=== PATIENT | female | born 1960 | race Caucasian/White ===

== ENCOUNTER → 2017-05-11 | Outpatient (CLI) | payer OTHER ==
[2017-05-11 16:08] LABS: ABSOLUTE BASOPHILS # (AUTO) 0.1 10^3/uL (0.0-0.2); ABSOLUTE EOSINOPHILS # (AUTO) 0.1 10^3/uL (0.0-0.6); ABSOLUTE LYMPHOCYTES (AUTO) 1.3 10^3/uL (0.5-4.7); ABSOLUTE MONOCYTES (AUTO) 0.3 10^3/uL (0.1-1.4); BASOPHILS % (AUTO) 1.1 % (0-2); EOSINOPHILS % (AUTO) 1.7 % (0-6); LYMPHOCYTES % (AUTO) 22.7 % (13-45); MEAN CORPUSCULAR HEMOGLOBIN 29.4 pg (27.0-33.4); MEAN CORPUSCULAR HGB CONC 33.3 g/dL (32.0-36.0); MEAN CORPUSCULAR VOLUME 88 fl (80-97); PLATELET COUNT 273 10^3/uL (150-450); RED BLOOD COUNT 3.73 10^6/uL (3.72-5.28); RED CELL DISTRIBUTION WIDTH 13.9 % (11.5-14.0); SEGMENTED NEUTROPHILS % (AUTO) 69.5 % (42-78); TOTAL CELLS COUNTED % (AUTO) 100 %; WHITE BLOOD COUNT 5.7 10^3/uL (4.0-10.5)
[2017-05-11 16:25] LABS: APPEARANCE,URINE SLIGHTLY-CLOUDY; BILIRUBIN,URINE NEGATIVE (NEGATIVE); COLOR,URINE YELLOW; GLUCOSE, URINE 50 mg/dL (NEGATIVE); KETONES,URINE NEGATIVE (NEGATIVE); LEUKOCYTE ESTERASE,URINE NEGATIVE (NEGATIVE); NITRITE,URINE NEGATIVE (NEGATIVE); PROTEIN,URINE 100 mg/dL (NEGATIVE); URINE SPECIFIC GRAVITY 1.008; UROBILINOGEN,URINE NEGATIVE mg/dL (<2.0)
[2017-05-11 16:32] LABS: ALBUMIN 3.2 g/dL (3.5-5.0); BLOOD UREA NITROGEN 52 mg/dL (7-20); CALCIUM 8.9 mg/dL (8.4-10.2); CARBON DIOXIDE 25 mmol/L (22-30); GLUCOSE 77 mg/dL (75-110); PHOSPHORUS 5.1 mg/dL (2.5-4.5)
[2017-05-11 16:33] LABS: UR PRO/CREAT RATIO RESULT 10.2 mg/mg (0.0-0.2); URINE CREATININE 19.5 mg/dL (15-278); URINE PROTEIN 198.5 mg/dL (<12)
[2017-05-11 16:43] LABS: ANION GAP 6 (5-19); CHLORIDE 108 mmol/L (98-107); SODIUM 138.9 mmol/L (137-145)
== END ==
LOC: OD 15:32
PROVIDERS: ATTEND Internal Medicine Nephrology
DX: N18.4 Chronic kidney disease, stage 4 (severe) (principal); E11.21 Type 2 diabetes mellitus with diabetic nephropathy; D63.8 Anemia in other chronic diseases classified elsewhere; E55.9 Vitamin D deficiency, unspecified
CPT/HCPCS: 36415; 80048; 81001; 82040; 82306; 82570; 83970; 84100; 84156; 84165; 85025

== ENCOUNTER → 2017-08-14 | Outpatient (CLI) | payer OTHER ==
[2017-08-14 17:13] LABS: ABSOLUTE BASOPHILS # (AUTO) 0.1 10^3/uL (0.0-0.2); ABSOLUTE EOSINOPHILS # (AUTO) 0.2 10^3/uL (0.0-0.6); ABSOLUTE MONOCYTES (AUTO) 0.6 10^3/uL (0.1-1.4); ABSOLUTE NEUT (AUTO) 4.2 10^3/uL (1.7-8.2); BASOPHILS % (AUTO) 1.4 % (0-2); EOSINOPHILS % (AUTO) 3.3 % (0-6); HEMATOCRIT 32.9 % (36.0-47.0); HEMOGLOBIN 10.9 g/dL (12.0-15.5); LYMPHOCYTES % (AUTO) 16.9 % (13-45); MEAN CORPUSCULAR HEMOGLOBIN 29.4 pg (27.0-33.4); MEAN CORPUSCULAR HGB CONC 33.1 g/dL (32.0-36.0); MEAN CORPUSCULAR VOLUME 89 fl (80-97); PLATELET COUNT 493 10^3/uL (150-450); RED CELL DISTRIBUTION WIDTH 14.3 % (11.5-14.0); SEGMENTED NEUTROPHILS % (AUTO) 68.4 % (42-78); TOTAL CELLS COUNTED % (AUTO) 100 %; WHITE BLOOD COUNT 6.1 10^3/uL (4.0-10.5)
[2017-08-14 17:38] LABS: ALBUMIN 2.8 g/dL (3.5-5.0); ANION GAP 8 (5-19); BLOOD UREA NITROGEN 31 mg/dL (7-20); CALCIUM 8.8 mg/dL (8.4-10.2); CARBON DIOXIDE 26 mmol/L (22-30); CHLORIDE 104 mmol/L (98-107); GLUCOSE 137 mg/dL (75-110); IRON(TIBC) 39.1 ug/dL (37-170); PHOSPHORUS 3.7 mg/dL (2.5-4.5); POTASSIUM 4.6 mmol/L (3.6-5.0); SODIUM 137.5 mmol/L (137-145)
[2017-08-15 11:00] LABS: APPEARANCE,URINE SLIGHTLY-CLOUDY; BILIRUBIN,URINE NEGATIVE (NEGATIVE); COLOR,URINE YELLOW; GLUCOSE, URINE >=500 mg/dL (NEGATIVE); KETONES,URINE TRACE mg/dL (NEGATIVE); LEUKOCYTE ESTERASE,URINE NEGATIVE (NEGATIVE); NITRITE,URINE NEGATIVE (NEGATIVE); PROTEIN,URINE >=500 mg/dL (NEGATIVE); URINE SPECIFIC GRAVITY 1.012; UROBILINOGEN,URINE NEGATIVE mg/dL (<2.0)
[2017-08-15 11:23] LABS: URINE CREATININE 71.1 mg/dL (15-278)
[2017-08-15 11:46] LABS: UR PRO/CREAT RATIO RESULT 8.6 mg/mg (0.0-0.2); URINE PROTEIN 609.1 mg/dL (<12)
== END ==
LOC: OD 15:59
PROVIDERS: ATTEND Internal Medicine Nephrology
DX: N18.4 Chronic kidney disease, stage 4 (severe) (principal); D63.1 Anemia in chronic kidney disease; E83.39 Other disorders of phosphorus metabolism; E55.9 Vitamin D deficiency, unspecified
CPT/HCPCS: 36415; 80048; 81001; 82040; 82306; 82570; 82728; 83540; 83550; 83970; 84100; 84156; 85025

== ENCOUNTER → 2017-09-16 | Outpatient (CLI) | payer OTHER ==
[2017-09-16 12:18] LABS: ABSOLUTE BASOPHILS # (AUTO) 0.1 10^3/uL (0.0-0.2); ABSOLUTE EOSINOPHILS # (AUTO) 0.3 10^3/uL (0.0-0.6); ABSOLUTE LYMPHOCYTES (AUTO) 1.3 10^3/uL (0.5-4.7); ABSOLUTE MONOCYTES (AUTO) 0.4 10^3/uL (0.1-1.4); ABSOLUTE NEUT (AUTO) 5.2 10^3/uL (1.7-8.2); BASOPHILS % (AUTO) 1.3 % (0-2); EOSINOPHILS % (AUTO) 3.7 % (0-6); HEMATOCRIT 33.2 % (36.0-47.0); HEMOGLOBIN 11.1 g/dL (12.0-15.5); MEAN CORPUSCULAR HEMOGLOBIN 29.1 pg (27.0-33.4); MEAN CORPUSCULAR HGB CONC 33.4 g/dL (32.0-36.0); MEAN CORPUSCULAR VOLUME 87 fl (80-97); MONOCYTES % (AUTO) 5.2 % (3-13); PLATELET COUNT 418 10^3/uL (150-450); RED BLOOD COUNT 3.81 10^6/uL (3.72-5.28); RED CELL DISTRIBUTION WIDTH 14.9 % (11.5-14.0); SEGMENTED NEUTROPHILS % (AUTO) 71.8 % (42-78); TOTAL CELLS COUNTED % (AUTO) 100 %; WHITE BLOOD COUNT 7.3 10^3/uL (4.0-10.5)
[2017-09-16 12:32] LABS: URINE CREATININE 39.7 mg/dL (15-278)
[2017-09-16 12:33] LABS: ANION GAP 9 (5-19); BLOOD UREA NITROGEN 20 mg/dL (7-20); CALCIUM 8.2 mg/dL (8.4-10.2); CARBON DIOXIDE 22 mmol/L (22-30); CHLORIDE 106 mmol/L (98-107); GLUCOSE 266 mg/dL (75-110); POTASSIUM 3.4 mmol/L (3.6-5.0)
[2017-09-16 13:37] LABS: UR PRO/CREAT RATIO RESULT 24.1 mg/mg (0.0-0.2); URINE PROTEIN 957.9 mg/dL (<12)
== END ==
LOC: OD 11:05
PROVIDERS: ATTEND Internal Medicine Nephrology
DX: N18.4 Chronic kidney disease, stage 4 (severe) (principal); D63.1 Anemia in chronic kidney disease; E55.9 Vitamin D deficiency, unspecified; E11.21 Type 2 diabetes mellitus with diabetic nephropathy
CPT/HCPCS: 36415; 80048; 82306; 82570; 84156; 85025

== ENCOUNTER → 2017-09-23 | Outpatient (CLI) | payer OTHER ==
[2017-09-26 07:44] LABS: GASTRIN SERUM 48 pg/mL (0-115)
[2017-09-27 07:42] LABS: CHROMOGRANIN A 19 nmol/L (0-5)
== END ==
LOC: OD 10:53
PROVIDERS: ATTEND Internal Medicine Gastroenterology
DX: K22.2 Esophageal obstruction (principal); K20.8 Other esophagitis
CPT/HCPCS: 36415; 82941; 86316

== ENCOUNTER → 2017-10-02 | Outpatient (CLI) | payer OTHER ==
[2017-10-02 15:40] LABS: ANION GAP 8 (5-19); BLOOD UREA NITROGEN 23 mg/dL (7-20); CALCIUM 7.6 mg/dL (8.4-10.2); CARBON DIOXIDE 21 mmol/L (22-30); CHLORIDE 106 mmol/L (98-107); GLUCOSE 253 mg/dL (75-110); IRON(TIBC) 39.7 ug/dL (37-170); POTASSIUM 3.1 mmol/L (3.6-5.0); SODIUM 134.5 mmol/L (137-145)
== END ==
LOC: OD 13:57
PROVIDERS: ATTEND Internal Medicine Gastroenterology
DX: K22.2 Esophageal obstruction (principal)
CPT/HCPCS: 36415; 80048; 82306; 82728; 83497; 83540; 83550

== ENCOUNTER 2018-06-22 17:56 | Inpatient (IN) | payer OTHER ==
--- NOTE | 2018-06-22 20:08 | ER Document Report ---
ED Medical Screen (RME) - General Chief Complaint: Abdominal Pain Stated Complaint: COUGH Time Seen by Provider: 06/22/18 20:01 Primary Care Provider: DEEPA HEWITT MD [Primary Care Provider] - Follow up as needed Mode of Arrival: Ambulatory Information source: Patient TRAVEL OUTSIDE OF THE [place] IN LAST 30 DAYS: No - HPI Patient complains to provider of: ABDO PAIN, CHEST PAIN Notes: 06/22/18 20:07 Patient here with complaints of right lower rib/right upper quadrant pain for the last few days. Patient also states that everything hurts. She has not been taking any of her medications for the last 3 days due to pain. No fever. No dysuria. Exam Patient appears to be uncomfortable. Nontoxic and in no distress. Lungs clear and equal throughout. Heart sounds normal. Tenderness to palpation of the right upper quadrant/right rib area with right-sided CVA tenderness on limited exam in triage. Plan CBC, CMP, lipase, urine, troponin, BNP, chest x-ray, right upper quadrant ultrasound, EKG An initial examination was made on the patient as part of the triage process, and it was determined a more comprehensive evaluation was necessary. Initial labs were ordered and patient was transferred to another provider in the ED who assumed care and finished evaluation and plan. - Related Data Allergies/Adverse Reactions: aloe vera Allergy (Verified 06/22/18 18:03) Physical Exam - Vital signs Vitals: Temp Pulse Resp BP Pulse Ox 98.9 F 77 16 128/54 H 92 06/22/18 18:46 06/22/18 18:46 06/22/18 18:46 06/22/18 18:46 06/22/18 18:46 Course - Vital Signs Vital signs: Temp Pulse Resp BP Pulse Ox 98.9 F 77 16 128/54 H 92 06/22/18 18:46 06/22/18 18:46 06/22/18 18:46 06/22/18 18:46 06/22/18 18:46 Doctor's Discharge - Discharge Referrals: DEEPA HEWITT MD [Primary Care Provider] - Follow up as needed
--- NOTE | 2018-06-22 21:05 | RADIOLOGY REPORT (SQ) ---
EXAM DESCRIPTION: XR CHEST 2 VIEWS COMPLETED DATE/TME: 06/22/2018 20:06 CLINICAL HISTORY: 58 years, Female, RIGHT LOWER RIB PAIN COMPARISON: EXAM DESCRIPTION: CLINICAL HISTORY: RIGHT LOWER RIB PAIN COMPARISON: None. FINDINGS: Two views of the chest are submitted. Cardiac silhouette appears mildly enlarged. There are postsurgical changes with sternotomy wires. IVC filter is present. There is mild thickening of interstitial markings of both lungs. No significant pleural effusion.. There is atelectasis at the right lung base. There is no significant pulmonary vascular engorgement. IMPRESSION: Mild enlargement of the heart with thickening of interstitial markings.
--- NOTE | 2018-06-22 21:32 | RADIOLOGY REPORT (SQ) ---
EXAM DESCRIPTION: [facility]: US ABDOMEN LIMITED CLINICAL HISTORY: 58 years Female; RUQ PAIN TECHNIQUE: Right upper quadrant ultrasound was performed. COMPARISON: 07/29/2017 FINDINGS: Pancreas: Visualized portions are unremarkable. Liver: 16 cm long. Portal triads are somewhat prominent, suggesting hepatic edema. Portal venous flow is hepatopedal, normal. Gallbladder: normal with no gallstones or sonographic evidence for acute cholecystitis. No pericholecystic fluid. No sonographic Wright's sign. Common bile duct: 4 mm. Right kidney: 9.1 cm long. No hydronephrosis. Cortex is echogenic, suggesting medical renal disease. This is new since the renal ultrasound on 07/29/2017. IMPRESSION: 1. No gallstones or sonographic evidence for acute cholecystitis. No evidence for biliary obstruction. 2. Subtle changes in the liver suggesting hepatic edema. Please correlate with clinical findings regarding possibility of hepatitis. 3. Echogenic right renal cortex, suggesting medical renal disease. No hydronephrosis.
[2018-06-22 21:41] LABS: HEMATOCRIT 26.9 % (36.0-47.0); HEMOGLOBIN 8.9 g/dL (12.0-15.5); MEAN CORPUSCULAR HEMOGLOBIN 29.8 pg (27.0-33.4); MEAN CORPUSCULAR HGB CONC 33.1 g/dL (32.0-36.0); MEAN CORPUSCULAR VOLUME 90 fl (80-97); PLATELET COUNT 220 10^3/uL (150-450); RED BLOOD COUNT 2.99 10^6/uL (3.72-5.28); RED CELL DISTRIBUTION WIDTH 14.4 % (11.5-14.0); WHITE BLOOD COUNT 10.9 10^3/uL (4.0-10.5)
[2018-06-22 21:54] LABS: CALCIUM 8.6 mg/dL (8.4-10.2); POTASSIUM 5.5 mmol/L (3.6-5.0)
[2018-06-22 21:55] LABS: ALANINE AMINOTRANSFERASE 36 U/L (9-52); ALBUMIN 3.1 g/dL (3.5-5.0); ALKALINE PHOSPHATASE 102 U/L (38-126); ASPARTATE AMINO TRANSFERASE 27 U/L (14-36); BILIRUBIN,DIRECT 0.5 mg/dL (0.0-0.4); BILIRUBIN,TOTAL 0.5 mg/dL (0.2-1.3); TOTAL PROTEIN 6.1 g/dL (6.3-8.2)
[2018-06-22 21:58] LABS: LIPASE < 10.0 U/L (23-300)
[2018-06-22 22:00] LABS: CHLORIDE 99 mmol/L (98-107); SODIUM 129.4 mmol/L (137-145)
[2018-06-22 22:02] LABS: BLOOD UREA NITROGEN 126 mg/dL (7-20)
[2018-06-22 22:06] LABS: NT PRO BNP 7860 pg/mL (5-900)
[2018-06-22 22:09] LABS: ANION GAP 22 (5-19); CARBON DIOXIDE 8 mmol/L (22-30); GLUCOSE 463 mg/dL (75-110)
[2018-06-22 22:12] LABS: TROPONIN I < 0.012 ng/mL
[2018-06-22 22:20] LABS: ABSOLUTE LYMPHOCYTES# (MANUAL) 0.3 10^3/uL (0.5-4.7); ABSOLUTE MONOCYTES # (MANUAL) 0.4 10^3/uL (0.1-1.4); BAND NEUTROPHILS % (MANUAL) 7 % (3-5); BASOPHILS % (MANUAL) 1 % (0-2); EOSINOPHILS % (MANUAL) 0 % (0-6); LYMPHOCYTES % (MANUAL) 3 % (13-45); MONOCYTES % (MANUAL) 4 % (3-13); SEGMENTED NEUTROPHILS % (MAN) 85 % (42-78); TOTAL CELLS COUNTED 100
[2018-06-22] MEDS ORDERED: NORMAL SALINE 1000 ML 1,000 ML IV ONE ×2 (22:20→23:24)
[2018-06-22 22:21] LABS: ANISOCYTOSIS SLIGHT; HYPOCHROMASIA SLIGHT; PLATELET COMMENT ADEQUATE; POIKILOCYTOSIS SLIGHT; TOXIC GRANULATION SLIGHT; TOXIC VACUOLATION PRESENT
[2018-06-22] MEDS ORDERED: INSULIN REG, HUMAN 100 UNIT/ML 3 ML VIAL (PYX) IV ONE (22:21)
[2018-06-22] MEDS ORDERED: MORPHINE SULFATE 10 MG/ML INJ IV ONE (22:21)
[2018-06-22] MEDS ORDERED: ONDANSETRON HCL INJ/PF 4 MG/2 ML SDV IV ONE (22:21)
[2018-06-22] MEDS ORDERED: DEXTROSE 5%-WATER 1000 ML 1,000 ML with SODIUM BICARBONATE 150 MEQ IV PRN ×2 (23:23)
[2018-06-22] MEDS ORDERED: NORMAL SALINE 500 ML IV ONE (23:24)
[2018-06-22] MEDS ORDERED: SODIUM BICARBONATE 8.4% INJ 50 MEQ/50 ML DISP.SYRIN ONE (23:28)
[2018-06-23 00:51] LABS: ARTERIAL BLOOD BASE EXCESS -18.7 mmol/L; ARTERIAL BLOOD FIO2 3L; ARTERIAL BLOOD H2CO3 0.79 mmol/L (1.05-1.35); ARTERIAL BLOOD HCO3 8.8 mmol/L (20-24); ARTERIAL BLOOD O2 SATURATION 93.7 % (94-98); ARTERIAL BLOOD PCO2 26.3 mmHg (35-45); ARTERIAL BLOOD PO2 85.9 mmHg (80-100); ARTERIAL BLOOD TOTAL CO2 9.6 mmol/L (21-25)
[2018-06-23 00:52] LABS: ARTERIAL BLOOD PH 7.14 (7.35-7.45)
[2018-06-23 01:34] LABS: GLUCOSE 331 mg/dL (75-110); POTASSIUM 4.8 mmol/L (3.6-5.0)
[2018-06-23 01:40] LABS: CHLORIDE 105 mmol/L (98-107); SODIUM 134.2 mmol/L (137-145)
[2018-06-23 01:41] LABS: ANION GAP 20 (5-19)
[2018-06-23 01:42] LABS: BLOOD UREA NITROGEN 127 mg/dL (7-20)
[2018-06-23 01:43] LABS: CARBON DIOXIDE 9 mmol/L (22-30)
--- NOTE | 2018-06-23 02:05 | ER Document Report ---
ED General - General Chief Complaint: Abdominal Pain Stated Complaint: COUGH Time Seen by Provider: 06/22/18 20:01 Primary Care Provider: DEEPA HEWITT MD [ACTIVE STAFF] - Follow up as needed Mode of Arrival: Ambulatory TRAVEL OUTSIDE OF THE [place] IN LAST 30 DAYS: No - HPI Notes: Patient is a 58-year-old female with type 1 diabetes, hypertension, and known chronic kidney disease, who presents to the emergency department for evaluation of chest pain and upper abdominal pain. She states that she been coughing for several weeks. Over the last several days she developed sharp chest pain and upper abdominal pain. She has had multiple episodes of nausea and vomiting. Emesis has been nonbloody nonbilious. She denies any diarrhea. She states that 3 days ago she stopped taking her insulin because she just was not eating anything. She denies any known fevers. She is still urinating. - Related Data Allergies/Adverse Reactions: aloe vera Allergy (Verified 06/22/18 18:03) Past Medical History - General Information source: Patient - Social History Smoking Status: Current Every Day Smoker Frequency of alcohol use: None Drug Abuse: None Family History: Reviewed & Not Pertinent Patient has suicidal ideation: No Patient has homicidal ideation: No - Past Medical History Cardiac Medical History: Reports: Hx Hypercholesterolemia, Hx Hypertension Endocrine Medical History: Reports: Hx Diabetes Mellitus Type 2 Renal/ Medical History: Denies: Hx Peritoneal Dialysis GI Medical History: Reports: Hx Gastroesophageal Reflux Disease, Hx Ulcer Past Surgical History: Reports: Hx Abdominal Surgery - small bowel resection, Hx Cardiac Surgery - cabg x2, Hx Section - x3 Review of Systems - Review of Systems Constitutional: Malaise, Weakness EENT: No symptoms reported Cardiovascular: See HPI Respiratory: No symptoms reported Gastrointestinal: See HPI Genitourinary: No symptoms reported Musculoskeletal: No symptoms reported Skin: No symptoms reported Neurological/Psychological: No symptoms reported Physical Exam - Vital signs Vitals: Temp Pulse Resp BP Pulse Ox 98.9 F 77 16 128/54 H 92 06/22/18 18:46 06/22/18 18:46 06/22/18 18:46 06/22/18 18:46 06/22/18 18:46 - Notes Notes: Vital signs reviewed, please refer to chart. She is a 58-year-old female, and a moderate amount of distress. She is mildly tachypneic. Head is normocephalic, atraumatic. Pupils equal round, reactive to light. Oral mucosa is dry. Neck is supple without meningismus. Heart is regular rate and rhythm. Lungs are clear to auscultation bilaterally. Abdomen is soft, usually tender throughout the upper quadrants without rebound or guarding normoactive bowel sounds throughout. Extremities without cyanosis, clubbing. Posterior calves are nontender. Peripheral pulses are equal. Skin is warm and dry. Patient is awake, alert, neurological exam is nonfocal. Course - Re-evaluation Re-evalutation: 06/23/18 02:01 Patient presents to the emergency department for evaluation. She had laboratory investigations and imaging as ordered initially through triage. Patient was found to be severely dehydrated, acidotic, and a DKA with an anion gap metabolic acidosis. She was given IV fluids. She was started on an insulin drip. She is given pain and nausea medication. She had no further emesis here. She was mildly hyperkalemic, but this improved with insulin drip. She is also started on a bicarbonate drip. EKG and chest x-ray were unremarkable. Her proBNP is e levated, but this is likely secondary to her markedly elevated creatinine. This did improve as well with IV fluids. I spoke with Dr. Johnston. He wanted to see if the patient's clinical numbers improved after treatment here. Her potassium normalized. Her creatinine improved. Given this information, he did feel comfortable admitting the patient to the ICU. 06/23/18 02:06 - Vital Signs Vital signs: Temp Pulse Resp BP Pulse Ox 98.9 F 77 19 135/62 H 94 06/22/18 18:46 06/22/18 18:46 06/23/18 01:01 06/23/18 01:01 06/23/18 01:01 - Laboratory Result Diagrams: 06/22/18 21:25 06/23/18 01:00 Laboratory results interpreted by me: 06/22/18 06/22/18 06/22/18 21:25 21:25 21:25 WBC 10.9 H RBC 2.99 L Hgb 8.9 L Hct 26.9 L RDW 14.4 H Seg Neuts % (Manual) 85 H Band Neutrophils % 7 H Lymphocytes % (Manual) 3 L Abs Neuts (Manual) 10.0 H Abs Lymphs (Manual) 0.3 L Carbonic Acid ABG pH ABG pCO2 ABG HCO3 ABG Total CO2 ABG O2 Saturation Sodium 129.4 L Potassium 5.5 H Carbon Dioxide 8 L* Anion Gap 22 H BUN 126 H Creatinine 10.80 H Est GFR ( Amer) 4 L Est GFR (Non-Af Amer) 4 L Glucose 463 H* POC Glucose Calcium Direct Bilirubin 0.5 H NT-Pro-B Natriuret Pep 7860 H Total Protein 6.1 L Albumin 3.1 L Lipase < 10.0 L 06/23/18 06/23/18 06/23/18 00:03 00:30 01:00 WBC RBC Hgb Hct RDW Seg Neuts % (Manual) Band Neutrophils % Lymphocytes % (Manual) Abs Neuts (Manual) Abs Lymphs (Manual) Carbonic Acid 0.79 L ABG pH 7.14 L* ABG pCO2 26.3 L ABG HCO3 8.8 L ABG Total CO2 9.6 L ABG O2 Saturation 93.7 L Sodium 134.2 L Potassium Carbon Dioxide 9 L* Anion Gap 20 H BUN 127 H Creatinine 9.68 H Est GFR ( Amer) 5 L Est GFR (Non-Af Amer) 4 L Glucose 331 H POC Glucose 362 H Calcium 8.0 L Direct Bilirubin NT-Pro-B Natriuret Pep Total Protein Albumin Lipase 06/23/18 01:23 WBC RBC Hgb Hct RDW Seg Neuts % (Manual) Band Neutrophils % Lymphocytes % (Manual) Abs Neuts (Manual) Abs Lymphs (Manual) Carbonic Acid ABG pH ABG pCO2 ABG HCO3 ABG Total CO2 ABG O2 Saturation Sodium Potassium Carbon Dioxide Anion Gap BUN Creatinine Est GFR ( Amer) Est GFR (Non-Af Amer) Glucose POC Glucose 329 H Calcium Direct Bilirubin NT-Pro-B Natriuret Pep Total Protein Albumin Lipase - Diagnostic Test Radiology reviewed: Reports reviewed Radiology results interpreted by me: 06/23/18 02:05 Abdomen Ultrasound 06/22/18 20:06 IMPRESSION: 1. No gallstones or sonographic evidence for acute cholecystitis. No evidence for biliary obstruction. 2. Subtle changes in the liver suggesting hepatic edema. Please correlate with clinical findings regarding possibility of hepatitis. 3. Echogenic right renal cortex, suggesting medical renal disease. No hydronephrosis. Chest X-Ray 06/22/18 20:06 IMPRESSION: Mild enlargement of the heart with thickening of interstitial markings. - EKG Interpretation by Me Additional EKG results interpreted by me: 06/23/18 02:05 Sinus mechanism with a rate of 78 bpm. Normal axis and intervals, no acute ST changes concerning for ischemia or infarction. Discharge - Discharge Clinical Impression: Diabetic ketoacidosis, Acute on chronic renal failure, Dehydration Condition: Stable Disposition: ADMITTED INPATIENT Admitting Provider: Vickie (Hospitalist) Unit Admitted: ICU Referrals: DEEPA HEWITT MD [ACTIVE STAFF] - Follow up as needed
[2018-06-23] MEDS ORDERED: ONDANSETRON HCL INJ/PF 4 MG/2 ML SDV IV PRN (02:22)
[2018-06-23] MEDS ORDERED: TEMAZEPAM 15 MG CAPSULE PO PRN (02:22)
[2018-06-23] MEDS ORDERED: MAG HYDROX/AL HYDROX/SIMETH SUSP 30 ML UDCUP PO PRN (02:22)
--- NOTE | 2018-06-23 02:22 | PDOC H&P ---
History of Present Illness Admission Date/PCP: 06/22/2018 23:15 GENO TREVIZO MD Patient complains of: Right lower chest pain History of Present Illness: ENEIDA JOHNSON is a 58 year old female who presents with a 2-week history of progressively worsening dyspnea. She admits that for the last 3 weeks she has had gradually worsening dyspnea, 2 weeks ago her dyspnea had progressed to a moderate level and she was no longer able to smoke cigarettes, at that point she developed a cough productive of thick tenacious yellow sputum in moderate to large amounts. Her dyspnea continued to worsen though her cough eventually resolved 1 week prior to admission. For the last 7 days prior to admission her dyspnea has become extremely severe and has been accompanied by a constantly present, agonizing, excruciatingly sharp, intense stabbing pain in the right anterolateral lower chest at the costal margin, without radiation, worsened with every inspiration, expiration or any movement. She has not identified any ameliorating factors for her pain. She denies prior similar episodes. Her pain and dyspnea have been so severe that she has not had anything to eat for almost a week and has been drinking only minimally because she even experiences pain in her lower chest with swallowing. In the emergency room she is found to be severely dehydrated and moderately acidotic with an elevated blood sugar and the realm of ketones noted on her breath. The presumptive diagnosis of acute diabetic ketoacidosis was made and the patient was admitted to the ICU for further evaluation and treatment. Past Medical History Cardiac Medical History: Reports: Coronary Artery Disease, DVT, Hyperlipidema, Hypertension Pulmonary Medical History: Reports: Bronchitis, Chronic Obstructive Pulmonary Disease (COPD), Pneumonia Denies: Asthma EENT Medical History: Denies: Cataracts, Eyes - Prescription plus, Ears - Hearing aids Neurological Medical History: Denies: Hemorrhagic CVA, Ischemic CVA, Seizures Endocrine Medical History: Reports: Diabetes Mellitus Type 2, Obesity Denies: Diabetes Mellitus Type 1, Hyperthyroidism, Hypothyroidism Renal/ Medical History: Reports: Chronic Kidney Disease Denies: Nephrolithiasis Malignancy Medical History: Reports: None GI Medical History: Reports: Gastroesophageal Reflux Disease Denies: Cirrhosis, Hepatitis Musculoskeltal Medical History: Denies: Arthritis, Fibromyalgia Skin Medical History: Denies: Eczema, Psoriasis Psychiatric Medical History: Reports: Tobacco Dependency Denies: Alcohol Dependency, Substance Abuse Traumatic Medical History: Reports: None Hematology: Reports: Anemia - Chronic secondary to renal disease Denies: Bleeding Tendencies Infectious Medical History: Reports: None Past Surgical History Past Surgical History: Reports: Section - x3, Coronary Artery Bypass Graft, Other - Vena cava filter, abdominal surgery for repair of perforated stomach ulcer Social History Information Source: Patient, Relative Lives with: Family Smoking Status: Current Every Day Smoker Frequency of Alcohol Use: None Hx Recreational Drug Use: No Drugs: None Hx Prescription Drug Abuse: No - Advance Directive Resuscitation Status: Full Code Surrogate healthcare decision maker:: Lori Mi Family History Family History: CAD, DM, Hypertension. denies: Malignancy Parental Family History Reviewed: Yes Children Family History Reviewed: No Sibling(s) Family History Reviewed.: Yes Medication/Allergy Allergies/Adverse Reactions: aloe vera Allergy (Verified 06/22/18 18:03) Review of Systems Constitutional: PRESENT: as per HPI, anorexia. ABSENT: chills, fever(s) Eyes: ABSENT: visual disturbances, other - Ocular pain Ears: ABSENT: hearing changes, other - Ear pain Nose, Mouth, and Throat: ABSENT: mouth pain, sore throat Cardiovascular: PRESENT: as per HPI, chest pain, dyspnea on exertion. ABSENT: edema, orthropnea, palpitations Respiratory: PRESENT: cough, dyspnea, sputum Gastrointestinal: ABSENT: abdominal pain, constipation, diarrhea, nausea, vomiting Genitourinary: ABSENT: dysuria, hematuria Musculoskeletal: ABSENT: back pain, joint swelling, muscle weakness Integumentary: ABSENT: pruritus, rash Neurological: ABSENT: confusion, convulsions, focal weakness, memory loss, syncope Psychiatric: ABSENT: anxiety, depression Endocrine: ABSENT: cold intolerance, heat intolerance Hematologic/Lymphatic: ABSENT: easy bleeding, easy bruising Physical Exam Vital Signs: Temp Pulse Resp BP Pulse Ox 98.9 F 77 19 135/62 H 94 06/22/18 18:46 06/22/18 18:46 06/23/18 01:01 06/23/18 01:01 06/23/18 01:01 Intake & Output 06/21/18 06/22/18 06/23/18 23:59 23:59 23:59 Intake Total 1500 Balance 1500 General appearance: PRESENT: cooperative, disheveled, severe distress - Secondary to severe pleuritic right chest wall. Head exam: PRESENT: atraumatic, normocephalic Eye exam: PRESENT: conjunctiva pink. ABSENT: conjunctival injection, nystagmus, scleral icterus Ear exam: PRESENT: normal external ear exam. ABSENT: bleeding, drainage Mouth exam: PRESENT: dry mucosa, neck supple Neck exam: ABSENT: thyromegaly, tracheal deviation Respiratory exam: PRESENT: chest wall tenderness - Severe exquisite tenderness to palpation and movement of the right anterolateral lower rib faithfully reproducing the pain of chief complaint., decreased breath sounds - Mildly d ecreased breath sounds throughout all moore consistent with mild to moderate COPD, prolonged expiratory phas - Minimally prolonged expiratory phase, tachypnea, wheezes - Minimal scattered end expiratory wheezes, other - Splinting of right chest. ABSENT: symmetrical Cardiovascular exam: PRESENT: RRR. ABSENT: clicks, gallop, rubs Pulses: PRESENT: normal radial pulses, normal dorsalis pedis pul Vascular exam: ABSENT: normal capillary refill - Capillary refill prolonged greater than 3 seconds, pallor GI/Abdominal exam: PRESENT: normal bowel sounds, soft, tenderness - Tender to palpation in the right upper quadrant just below the right costal margin probably due to movement of the right lower ribs as the pain is consistent with the chief complaint. Rectal exam: PRESENT: deferred Extremities exam: ABSENT: joint swelling, pedal edema Musculoskeletal exam: PRESENT: full ROM, normal inspection Neurological exam: PRESENT: alert, oriented to person, oriented to place, oriented to time, oriented to situation, CN II-XII grossly intact. ABSENT: motor sensory deficit Psychiatric exam: PRESENT: appropriate affect, normal mood Skin exam: PRESENT: dry, intact, warm, other - Markedly decreased skin turgor noted. ABSENT: jaundice, rash, urticaria Results Laboratory Results: 06/22/18 21:25 06/23/18 01:00 06/22/18 06/22/18 06/23/18 21:25 21:25 00:03 WBC 10.9 H RBC 2.99 L Hgb 8.9 L Hct 26.9 L MCV 90 MCH 29.8 MCHC 33.1 RDW 14.4 H Plt Count 220 Seg Neutrophils % Not Reportable Lymphocytes % Not Reportable Monocytes % Not Reportable Eosinophils % Not Reportable Basophils % Not Reportable Absolute Neutrophils Not Reportable Absolute Lymphocytes Not Reportable Absolute Monocytes Not Reportable Absolute Eosinophils Not Reportable Absolute Basophils Not Reportable Carbonic Acid 0.79 L HCO3/H2CO3 Ratio 11:1 ABG pH 7.14 L* ABG pCO2 26.3 L ABG pO2 85.9 ABG HCO3 8.8 L ABG O2 Saturation 93.7 L ABG Base Excess -18.7 FiO2 3L Sodium 129.4 L Potassium 5.5 H Chloride 99 Carbon Dioxide 8 L* Anion Gap 22 H BUN 126 H Creatinine 10.80 H Est GFR ( Amer) 4 L Est GFR (Non-Af Amer) 4 L Glucose 463 H* Calcium 8.6 Total Bilirubin 0.5 AST 27 ALT 36 Alkaline Phosphatase 102 Total Protein 6.1 L Albumin 3.1 L Lipase < 10.0 L 06/23/18 01:00 WBC RBC Hgb Hct MCV MCH MCHC RDW Plt Count Seg Neutrophils % Lymphocytes % Monocytes % Eosinophils % Basophils % Absolute Neutrophils Absolute Lymphocytes Absolute Monocytes Absolute Eosinophils Absolute Basophils Carbonic Acid HCO3/H2CO3 Ratio ABG pH ABG pCO2 ABG pO2 ABG HCO3 ABG O2 Saturation ABG Base Excess FiO2 Sodium 134.2 L Potassium 4.8 Chloride 105 Carbon Dioxide 9 L* Anion Gap 20 H BUN 127 H Creatinine 9.68 H Est GFR ( Amer) 5 L Est GFR (Non-Af Amer) 4 L Glucose 331 H Calcium 8.0 L Total Bilirubin AST ALT Alkaline Phosphatase Total Protein Albumin Lipase 06/22/18 21:25 Troponin I < 0.012 NT-Pro-B Natriuret Pep 7860 H EKG Comments: EKG shows a normal sinus rhythm with a heart rate of 78 Impressions: Abdomen Ultrasound 06/22/18 20:06 IMPRESSION: 1. No gallstones or sonographic evidence for acute cholecystitis. No evidence for biliary obstruction. 2. Subtle changes in the liver suggesting hepatic edema. Please correlate with clinical findings regarding possibility of hepatitis. 3. Echogenic right renal cortex, suggesting medical renal disease. No hydronephrosis. Chest X-Ray 06/22/18 20:06 IMPRESSION: Mild enlargement of the heart with thickening of interstitial markings. Status: Image reviewed by ar - Evidence for chronic obstructive pulmonary disease is noted there is no acute cardiopulmonary changes noted. There is noted to be mild cardiomegaly and evidence of prior sternotomy as well as a vena cava filter are noted. Assessment and Plan - Diagnosis (1) Diabetic ketoacidosis Qualifiers: Diabetes mellitus type: type 2 Diabetes mellitus complication detail: without coma Qualified Code(s): E11.10 - Type 2 diabetes mellitus with ketoacidosis without coma Is this a current diagnosis for this admission?: Yes Plan: Patient will be admitted to the ICU and treated aggressively with IV fluids and IV bicarb drip. She will additionally be maintained on an insulin drip. She will have aggressive electrolyte replacement per ICU protocol. Patient be monitored q. one hour and as needed. Venous blood gases will be obtained every 6 hours and a metabolic profile, magnesium level, phosphorus level and CBC will be obtained on a daily basis. Hemoglobin A1c will be obtained to assess prior therapy. Patient will be placed diabetic diet with cardiac and renal restrictions. (2) Acute renal failure superimposed on chronic kidney disease Qualifiers: Acute renal failure type: unspecified Chronic kidney disease stage: stage 4 (severe) Qualified Code(s): N17.9 - Acute kidney failure, unspecified; N18.4 - Chronic kidney disease, stage 4 (severe) Is this a current diagnosis for this admission?: Yes Plan: Patient will be rehydrated as part of the treatment of her diabetic ketoacidosis as well as treatment of her acute on chronic renal failure. Her metabolic profile and renal functions to be monitored on a regular basis throughout her hospital course for ongoing evaluation. A consultation with Dr. Degroot will be obtained as soon as possible. (3) Pleuritic chest pain Is this a current diagnosis for this admission?: Yes Plan: The patient's pleuritic chest pain is exquisite. She will be treated with morphine sulfate 2 to 4 mg IV every 2 hours as needed for pain on a sliding scale basis. (4) Severe dehydration Is this a current diagnosis for this admission?: Yes Plan: Patient's dehydration will be treated with intravenous fluids along with the therapy of her acute on chronic renal insufficiency and diabetic ketoacidosis. Her metabolic profile will be evaluated on a regular basis to determine the need for ongoing hydration. - Time Time Spent with patient: 25-34 minutes Smoking Cessation Education: 3 to 10 minutes Medications reviewed and adjusted accordingly: Yes Anticipated discharge: Home - Inpatient Certification Based on my medical assessment, after consideration of the patient's comorbidities, presenting symptoms, or acuity I expect that the services needed warrant INPATIENT care.: Yes I certify that my determination is in accordance with my understanding of Medicare's requirements for reasonable and necessary INPATIENT services [42 CFR 412.3e].: Yes Medical Necessity: Significant Comorbidiites Make Outpatient Treatment Too Risky, Need Close Monitoring Due to Risk of Patient Decompensation, Need For IV Fluids, Need For Continuous Telemetry Monitoring, Need for Pain Control, Risk of Complication if Not Cared For in Hospital, Risk of Diagnosis Which Will Require Inpatient Eval/Care/Monitoring
[2018-06-23] MEDS ORDERED: NICOTINE 21 MG/24 HR PATCH.TD24 TD PRN (02:32)
[2018-06-23] MEDS ORDERED: ACETAMINOPHEN 325 MG TABLET PO PRN (02:32)
[2018-06-23] MEDS ORDERED: MORPHINE SULFATE 10 MG/ML INJ IV PRN ×6 (02:32→19:55)
[2018-06-23] MEDS ORDERED: HYDRALAZINE HCL INJ/PF 20 MG/1 ML SDV IV PRN (02:32)
[2018-06-23] MEDS ORDERED: DEXTROSE 5%-WATER 1000 ML 1,000 ML with SODIUM BICARBONATE 150 MEQ IV PRN ×4 (02:33→09:03)
[2018-06-23] MEDS ORDERED: NORMAL SALINE 1000 ML 1,000 ML IV PRN (02:35)
[2018-06-23 02:37] LABS: APPEARANCE,URINE CLOUDY; BILIRUBIN,URINE NEGATIVE (NEGATIVE); COLOR,URINE AMBER; GLUCOSE, URINE >=500 mg/dL (NEGATIVE); KETONES,URINE TRACE mg/dL (NEGATIVE); LEUKOCYTE ESTERASE,URINE NEGATIVE (NEGATIVE); NITRITE,URINE NEGATIVE (NEGATIVE); PROTEIN,URINE >=500 mg/dL (NEGATIVE); URINE SPECIFIC GRAVITY 1.013; UROBILINOGEN,URINE NEGATIVE mg/dL (<2.0)
[2018-06-23] MEDS ORDERED: INSULIN REG, HUMAN 100 UNIT/ML 3 ML VIAL (PYX) IV ONE (03:00)
[2018-06-23 03:03] LABS: URINE AMPHETAMINES SCREEN NEGATIVE; URINE BARBITURATES SCREEN NEGATIVE; URINE BENZODIAZEPINES SCREEN NEGATIVE; URINE COCAINE SCREEN NEGATIVE; URINE MARIJUANA (THC) SCREEN UNCONFIRMED POSITIVE; URINE METHADONE SCREEN NEGATIVE; URINE PHENCYCLIDINE SCREEN NEGATIVE
[2018-06-23] MEDS: LEVALBUTEROL HCL NEB 0.63 MG/3 ML AMPUL NEB PRN ×2 (04:14→09:07)
[2018-06-23 04:45] LABS: VENOUS BLOOD BASE EXCESS -14.1 mmol/L; VENOUS BLOOD HCO3 12.5 mmol/L (20-32); VENOUS BLOOD PCO2 31.9 mmHg (35-63); VENOUS BLOOD PH 7.21 (7.30-7.42)
[2018-06-23 04:49] LABS: HEMOGLOBIN 8.1 g/dL (12.0-15.5); MEAN CORPUSCULAR HEMOGLOBIN 29.5 pg (27.0-33.4); MEAN CORPUSCULAR HGB CONC 33.6 g/dL (32.0-36.0); MEAN CORPUSCULAR VOLUME 88 fl (80-97); PLATELET COUNT 196 10^3/uL (150-450); RED BLOOD COUNT 2.73 10^6/uL (3.72-5.28); RED CELL DISTRIBUTION WIDTH 13.9 % (11.5-14.0)
[2018-06-23 05:05] LABS: CALCIUM 8.1 mg/dL (8.4-10.2); CHOLESTEROL 146.94 mg/dL (0-200); GLUCOSE 140 mg/dL (75-110); PHOSPHORUS 10.8 mg/dL (2.5-4.5); POTASSIUM 4.7 mmol/L (3.6-5.0); TRIGLYCERIDES 169 mg/dL (<150)
[2018-06-23 05:12] LABS: ANION GAP 19 (5-19); CARBON DIOXIDE 13 mmol/L (22-30); CHLORIDE 104 mmol/L (98-107)
[2018-06-23 05:16] LABS: DIRECT LDL 62 mg/dL (<100)
[2018-06-23 05:17] LABS: BLOOD UREA NITROGEN 125 mg/dL (7-20); VLDL CHOLESTEROL 33.8 mg/dL (10-31)
[2018-06-23 05:43] LABS: ABSOLUTE LYMPHOCYTES# (MANUAL) 0.3 10^3/uL (0.5-4.7); ABSOLUTE MONOCYTES # (MANUAL) 0.4 10^3/uL (0.1-1.4); ABSOLUTE NEUTROPHILS# (MANUAL) 8.4 10^3/uL (1.7-8.2); BAND NEUTROPHILS % (MANUAL) 1 % (3-5); BASOPHILS % (MANUAL) 0 % (0-2); EOSINOPHILS % (MANUAL) 0 % (0-6); LYMPHOCYTES % (MANUAL) 3 % (13-45); MONOCYTES % (MANUAL) 4 % (3-13); NUCLEATED RED BLOOD CELLS 1 /100 WBC (0); SEGMENTED NEUTROPHILS % (MAN) 92 % (42-78); TOTAL CELLS COUNTED 100
[2018-06-23 05:44] LABS: TOXIC GRANULATION 1+; TOXIC VACUOLATION PRESENT
[2018-06-23 05:45] LABS: BURR CELLS 1+; HELMET CELLS SLIGHT; OVALOCYTES SLIGHT; PLATELET COMMENT ADEQUATE; POIKILOCYTOSIS 1+; TEAR DROP CELLS SLIGHT
[2018-06-23] MEDS ORDERED: SODIUM BICARBONATE 8.4% INJ 50 MEQ/50 ML DISP.SYRIN ONE ×2 (06:46→07:10)
[2018-06-23] MEDS: PANTOPRAZOLE SODIUM 40 MG TABLET.DR PO SCH ×2 (07:04→17:10)
[2018-06-23] MEDS: HEPARIN SOD (PORCINE) 5,000 UNIT/ML 1 ML SYRINGE SUBCUT SCH ×3 (07:04→21:30)
[2018-06-23] MEDS ORDERED: DEXTROSE 40% GEL 15 GM TUBE PO PRN ×2 (07:38)
[2018-06-23] MEDS ORDERED: GLUCAGON,HUMAN RECOMB 1 MG INJ IM PRN (07:38)
[2018-06-23] MEDS ORDERED: DEXTROSE 50%-WATER 25 GM/50 ML DISP.SYRIN IV PRN ×2 (07:38)
[2018-06-23] MEDS: INSULIN REG, HUMAN 100 UNIT/ML 3 ML VIAL (PYX) SUBCUT SCH ×4 (08:00→21:30)
--- NOTE | 2018-06-23 09:11 | PDOC PROGRESS REPORT ---
Subjective Progress Note for:: 06/23/18 Subjective:: 58 year old female who presents with a 2-week history of progressively worsening dyspnea. She admits that for the last 3 weeks she has had gradually worsening dyspnea, 2 weeks ago her dyspnea had progressed to a moderate level and she was no longer able to smoke cigarettes, at that point she developed a cough productive of thick tenacious yellow sputum in moderate to large amounts. Her dyspnea continued to worsen though her cough eventually resolved 1 week prior to admission. For the last 7 days prior to admission her dyspnea has become extremely severe and has been accompanied by a constantly present, agonizing, excruciatingly sharp, intense stabbing pain in the right anterolateral lower chest at the costal margin, without radiation, worsened with every inspiration, expiration or any movement. She has not identified any ameliorating factors for her pain. She denies prior similar episodes. Her pain and dyspnea have been so severe that she has not had anything to eat for almost a week and has been drinking only minimally because she even experiences pain in her lower chest with swallowing. In the emergency room she is found to be severely dehydrated and moderately acidotic with an elevated blood sugar and the realm of ketones noted on her breath. The presumptive diagnosis of acute diabetic ketoacidosis was made and the patient was admitted to the ICU for further evaluation and treatment. 06/23/[id number]-dcxc-old female admitted with shortness of breath and DKA with ketotic breath. Initially on insulin drip presently getting 2 units of insulin per hour on sodium bicarb drip at 333cc/h. Patient says she does not have any appetite. Complaining of shortness of breath. Sugar this morning 80. Creatinine was improved to 9.37. Plan to do the CT chest without contrast start on diabetic diet change insulin to ACH his sliding scale decrease the sodium bicarb drip 200 cc/h. Patient is to be continued to be ICU at least another day. Pulse ox is 97% on 2 L. Reason For Visit: ACUTE DIABETIC KETOACIDOSIS, ACUTE RENAL FAILURE Physical Exam Vital Signs: Temp Pulse Resp BP Pulse Ox 97.9 F 89 21 H 150/66 H 96 06/23/18 04:23 06/23/18 04:23 06/23/18 08:09 06/23/18 08:09 06/23/18 08:09 Intake & Output 0506/23/18 06/24/18 06:59 06:59 06:59 Intake Total 3500 Output Total 0 Balance 3500 Weight 74.2 kg General appearance: PRESENT: mild distress, thin Head exam: PRESENT: atraumatic Eye exam: PRESENT: PERRLA Mouth exam: PRESENT: moist, tongue midline Neck exam: ABSENT: carotid bruit, JVD, lymphadenopathy, thyromegaly Respiratory exam: PRESENT: decreased breath sounds Cardiovascular exam: PRESENT: tachycardia GI/Abdominal exam: PRESENT: normal bowel sounds, soft. ABSENT: distended, gua rding, mass, organolmegaly, rebound, tenderness Rectal exam: PRESENT: deferred Neurological exam: PRESENT: alert, awake, oriented to person, oriented to place, oriented to time, oriented to situation, CN II-XII grossly intact. ABSENT: motor sensory deficit Psychiatric exam: PRESENT: appropriate affect, normal mood. ABSENT: homicidal ideation, suicidal ideation Skin exam: PRESENT: dry, intact, warm. ABSENT: cyanosis, rash Results Laboratory Results: 06/23/18 04:38 06/23/18 04:38 06/22/18 06/22/18 06/23/18 21:25 21:25 00:03 WBC 10.9 H RBC 2.99 L Hgb 8.9 L Hct 26.9 L MCV 90 MCH 29.8 MCHC 33.1 RDW 14.4 H Plt Count 220 Seg Neutrophils % Not Reportable Lymphocytes % Not Reportable Monocytes % Not Reportable Eosinophils % Not Reportable Basophils % Not Reportable Absolute Neutrophils Not Reportable Absolute Lymphocytes Not Reportable Absolute Monocytes Not Reportable Absolute Eosinophils Not Reportable Absolute Basophils Not Reportable Carbonic Acid 0.79 L HCO3/H2CO3 Ratio 11:1 ABG pH 7.14 L* ABG pCO2 26.3 L ABG pO2 85.9 ABG HCO3 8.8 L ABG O2 Saturation 93.7 L ABG Base Excess -18.7 VBG pH VBG pCO2 VBG HCO3 VBG Base Excess FiO2 3L Sodium 129.4 L Potassium 5.5 H Chloride 99 Carbon Dioxide 8 L* Anion Gap 22 H BUN 126 H Creatinine 10.80 H Est GFR ( Amer) 4 L Est GFR (Non-Af Amer) 4 L Glucose 463 H* Calcium 8.6 Phosphorus Magnesium Total Bilirubin 0.5 AST 27 ALT 36 Alkaline Phosphatase 102 Total Protein 6.1 L Albumin 3.1 L Triglycerides Cholesterol LDL Cholesterol Direct VLDL Cholesterol HDL Cholesterol Lipase < 10.0 L Urine Color Urine Appearance Urine pH Ur Specific [place] Urine Protein Urine Glucose (UA) Urine Ketones Urine Blood Urine Nitrite Ur Leukocyte Esterase Urine WBC (Auto) Urine RBC (Auto) 06/23/18 06/23/18 06/23/18 01:00 02:06 04:38 WBC 9.0 RBC 2.73 L Hgb 8.1 L Hct 24.0 L MCV 88 MCH 29.5 MCHC 33.6 RDW 13.9 Plt Count 196 Seg Neutrophils % Not Reportable Lymphocytes % Not Reportable Monocytes % Not Reportable Eosinophils % Not Reportable Basophils % Not Reportable Absolute Neutrophils Not Reportable Absolute Lymphocytes Not Reportable Absolute Monocytes Not Reportable Absolute Eosinophils Not Reportable Absolute Basophils Not Reportable Carbonic Acid HCO3/H2CO3 Ratio ABG pH ABG pCO2 ABG pO2 ABG HCO3 ABG O2 Saturation ABG Base Excess VBG pH VBG pCO2 VBG HCO3 VBG Base Excess FiO2 Sodium 134.2 L Potassium 4.8 Chloride 105 Carbon Dioxide 9 L* Anion Gap 20 H BUN 127 H Creatinine 9.68 H Est GFR ( Amer) 5 L Est GFR (Non-Af Amer) 4 L Glucose 331 H Calcium 8.0 L Phosphorus Magnesium Total Bilirubin AST ALT Alkaline Phosphatase Total Protein Albumin Triglycerides Cholesterol LDL Cholesterol Direct VLDL Cholesterol HDL Cholesterol Lipase Urine Color AILEEN Urine Appearance CLOUDY Urine pH 6.0 Ur Specific [place] 1.013 Urine Protein >=500 H Urine Glucose (UA) >=500 H Urine Ketones TRACE H Urine Blood SMALL H Urine Nitrite NEGATIVE Ur Leukocyte Esterase NEGATIVE Urine WBC (Auto) 6 Urine RBC (Auto) 1 06/23/18 06/23/18 04:38 04:38 WBC RBC Hgb Hct MCV MCH MCHC RDW Plt Count Seg Neutrophils % Lymphocytes % Monocytes % Eosinophils % Basophils % Absolute Neutrophils Absolute Lymphocytes Absolute Monocytes Absolute Eosinophils Absolute Basophils Carbonic Acid HCO3/H2CO3 Ratio ABG pH ABG pCO2 ABG pO2 ABG HCO3 ABG O2 Saturation ABG Base Excess VBG pH 7.21 L VBG pCO2 31.9 L VBG HCO3 12.5 L VBG Base Excess -14.1 FiO2 Sodium 136.0 L Potassium 4.7 Chloride 104 Carbon Dioxide 13 L Anion Gap 19 BUN 125 H Creatinine 9.37 H Est GFR ( Amer) 5 L Est GFR (Non-Af Amer) 4 L Glucose 140 H Calcium 8.1 L Phosphorus 10.8 H Magnesium 1.6 Total Bilirubin AST ALT Alkaline Phosphatase Total Protein Albumin Triglycerides 169 H Cholesterol 146.94 LDL Cholesterol Direct 62 VLDL Cholesterol 33.8 H HDL Cholesterol 46 Lipase Urine Color Urine Appearance Urine pH Ur Specific [place] Urine Protein Urine Glucose (UA) Urine Ketones Urine Blood Urine Nitrite Ur Leukocyte Esterase Urine WBC (Auto) Urine RBC (Auto) 06/22/18 21:25 Troponin I < 0.012 NT-Pro-B Natriuret Pep 7860 H Impressions: Abdomen Ultrasound 06/22/18 20:06 IMPRESSION: 1. No gallstones or sonographic evidence for acute cholecystitis. No evidence for biliary obstruction. 2. Subtle changes in the liver suggesting hepatic edema. Please correlate with clinical findings regarding possibility of hepatitis. 3. Echogenic right renal cortex, suggesting medical renal disease. No hydronephrosis. Chest X-Ray 06/22/18 20:06 IMPRESSION: Mild enlargement of the heart with thickening of interstitial markings. Assessment and Plan - Diagnosis (1) Acute renal failure superimposed on chronic kidney disease Qualifiers: Acute renal failure type: unspecified Chronic kidney disease stage: stage 4 (severe) Qualified Code(s): N17.9 - Acute kidney failure, unspecified; N18.4 - Chronic kidney disease, stage 4 (severe) Is this a current diagnosis for this admission?: Yes Plan: Patient will be rehydrated as part of the treatment of her diabetic ketoacidosis as well as treatment of her acute on chronic renal failure. Her metabolic profile and renal functions to be monitored on a regular basis throughout her hospital course for ongoing evaluation. A consultation with Dr. Degroot will be obtained as soon as possible. 06/23/2018-patient given the history of chronic kidney disease but she does not know the baseline. On admission creatinine was more than 10 with IV fluids it improved to 9.37. Plan is to continue to give IV fluids and recheck the labs tomorrow and plan for renal ultrasound. (2) Diabetic ketoacidosis Qualifiers: Diabetes mellitus type: type 2 Diabetes mellitus complication detail: without coma Qualified Code(s): E11.10 - Type 2 diabetes mellitus with ketoacidosis without coma Is this a current diagnosis for this admission?: Yes Plan: Patient will be admitted to the ICU and treated aggressively with IV fluids and IV bicarb drip. She will additionally be maintained on an insulin drip. She will have aggressive electrolyte replacement per ICU protocol. Patient be monitored q. one hour and as needed. Venous blood gases will be obtained every 6 hours and a metabolic profile, magnesium level, phosphorus level and CBC will be obtained on a daily basis. Hemoglobin A1c will be obtained to assess prior therapy. Patient will be placed diabetic diet with cardiac and renal restricti ons. 06/23/2018-patient admitted to to ICU for diabetic ketoacidosis. Now on insulin 2 L/h. Blood sugar is 80. She is also receiving sodium bicarb drip. Plan is to discontinue insulin to start on diabetic diet change blood sugars to before meals and at bedtime strongly encouraged her to eat dietary consult was requested to continue IV sodium bicarbonate for the moment recheck the labs around 11:00 this morning. (3) Severe dehydration Is this a current diagnosis for this admission?: Yes Plan: Patient's dehydration will be treated with intravenous fluids along with the therapy of her acute on chronic renal insufficiency and diabetic ketoacidosis. Her metabolic profile will be evaluated on a regular basis to determine the need for ongoing hydration. 06/23/2018-patient admitted with fever and dehydration receiving IV fluids acute on chronic renal insufficiency and acute diabetic ketoacidosis plan is to check the labs again today and continue to give IV supplementation. - Time Time Spent with patient: 25-34 minutes Medications reviewed and adjusted accordingly: Yes Anticipated discharge: Home
[2018-06-23] MEDS ORDERED: ALPRAZOLAM 0.5 MG TABLET PO PRN (09:12)
[2018-06-23] MEDS ORDERED: LISINOPRIL 10 MG TABLET PO SCH (10:00)
[2018-06-23] MEDS: DOCUSATE SODIUM 100 MG CAPSULE PO SCH ×2 (10:44→18:05)
[2018-06-23] MEDS: ATORVASTATIN CALCIUM 10 MG TABLET PO SCH ×2 (10:45→21:31)
[2018-06-23] MEDS: MAGNESIUM OXIDE 400 MG TABLET PO SCH ×2 (10:45→18:05)
--- NOTE | 2018-06-23 11:12 | EKG REPORT ---
SEVERITY:- NORMAL ECG - SINUS RHYTHM : Confirmed by: Stephanie Calix 23-Jun-2018 11:11:56
[2018-06-23 13:33] LABS: VENOUS BLOOD HCO3 15.8 mmol/L (20-32); VENOUS BLOOD PCO2 34.7 mmHg (35-63); VENOUS BLOOD PH 7.28 (7.30-7.42)
[2018-06-23 14:02] LABS: ALANINE AMINOTRANSFERASE 37 U/L (9-52); ALBUMIN 2.5 g/dL (3.5-5.0); ALKALINE PHOSPHATASE 77 U/L (38-126); ANION GAP 19 (5-19); ASPARTATE AMINO TRANSFERASE 29 U/L (14-36); BILIRUBIN,DIRECT 0.5 mg/dL (0.0-0.4); BILIRUBIN,TOTAL 0.5 mg/dL (0.2-1.3); BLOOD UREA NITROGEN 120 mg/dL (7-20); CALCIUM 7.2 mg/dL (8.4-10.2); CARBON DIOXIDE 16 mmol/L (22-30); CHLORIDE 99 mmol/L (98-107); GLUCOSE 173 mg/dL (75-110); POTASSIUM 4.3 mmol/L (3.6-5.0); SODIUM 133.9 mmol/L (137-145); TOTAL PROTEIN 5.1 g/dL (6.3-8.2)
[2018-06-23 16:09] LABS: URINE AMPHETAMINES SCREEN NEGATIVE; URINE BARBITURATES SCREEN NEGATIVE; URINE BENZODIAZEPINES SCREEN NEGATIVE; URINE COCAINE SCREEN NEGATIVE; URINE METHADONE SCREEN NEGATIVE; URINE PHENCYCLIDINE SCREEN NEGATIVE
[2018-06-23 16:18] LABS: URINE MARIJUANA (THC) SCREEN UNCONFIRMED POSITIVE
[2018-06-23] MEDS ORDERED: INSULIN GLARGINE,HUM.REC.ANLOG 1,000 UNIT/10 ML VIAL SUBCUT ONE (17:45)
[2018-06-23 18:20] LABS: VENOUS BLOOD BASE EXCESS -8.5 mmol/L; VENOUS BLOOD HCO3 18.3 mmol/L (20-32); VENOUS BLOOD PCO2 42.5 mmHg (35-63); VENOUS BLOOD PH 7.25 (7.30-7.42)
[2018-06-23] MEDS: MORPHINE SULFATE 10 MG/ML INJ IV PRN (21:31)
[2018-06-23] MEDS ORDERED: DIPHENHYDRAMINE HCL 50 MG/ML VIAL IV PRN (23:53)
[2018-06-24] MEDS: MORPHINE SULFATE 10 MG/ML INJ IV PRN ×2 (00:23→03:57)
[2018-06-24 00:45] LABS: VENOUS BLOOD BASE EXCESS -12.6 mmol/L; VENOUS BLOOD HCO3 14.3 mmol/L (20-32); VENOUS BLOOD PCO2 36.6 mmHg (35-63); VENOUS BLOOD PH 7.21 (7.30-7.42)
[2018-06-24 04:02] LABS: VENOUS BLOOD BASE EXCESS -7.7 mmol/L; VENOUS BLOOD HCO3 18.4 mmol/L (20-32); VENOUS BLOOD PH 7.28 (7.30-7.42)
[2018-06-24 04:04] LABS: HEMATOCRIT 26.6 % (36.0-47.0); HEMOGLOBIN 8.8 g/dL (12.0-15.5); MEAN CORPUSCULAR HEMOGLOBIN 28.8 pg (27.0-33.4); MEAN CORPUSCULAR VOLUME 87 fl (80-97); PLATELET COUNT 240 10^3/uL (150-450); RED BLOOD COUNT 3.05 10^6/uL (3.72-5.28); RED CELL DISTRIBUTION WIDTH 14.2 % (11.5-14.0); WHITE BLOOD COUNT 12.4 10^3/uL (4.0-10.5)
[2018-06-24 04:25] LABS: ABSOLUTE LYMPHOCYTES# (MANUAL) 0.5 10^3/uL (0.5-4.7); ABSOLUTE MONOCYTES # (MANUAL) 0.2 10^3/uL (0.1-1.4); ABSOLUTE NEUTROPHILS# (MANUAL) 11.4 10^3/uL (1.7-8.2); BAND NEUTROPHILS % (MANUAL) 2 % (3-5); BASOPHILS % (MANUAL) 0 % (0-2); EOSINOPHILS % (MANUAL) 2 % (0-6); LYMPHOCYTES % (MANUAL) 4 % (13-45); MONOCYTES % (MANUAL) 2 % (3-13); NUCLEATED RED BLOOD CELLS 1 /100 WBC (0); SEGMENTED NEUTROPHILS % (MAN) 90 % (42-78); TOTAL CELLS COUNTED 100
[2018-06-24 04:26] LABS: PLATELET CLUMPS PRESENT; TOXIC GRANULATION SLIGHT
[2018-06-24 04:27] LABS: ANISOCYTOSIS SLIGHT; HYPOCHROMASIA SLIGHT
[2018-06-24 04:37] LABS: ALANINE AMINOTRANSFERASE 37 U/L (9-52); ALBUMIN 2.7 g/dL (3.5-5.0); ALKALINE PHOSPHATASE 91 U/L (38-126); ASPARTATE AMINO TRANSFERASE 36 U/L (14-36); BILIRUBIN,DIRECT 0.6 mg/dL (0.0-0.4); BILIRUBIN,TOTAL 0.6 mg/dL (0.2-1.3); CALCIUM 7.2 mg/dL (8.4-10.2); GLUCOSE 164 mg/dL (75-110); PHOSPHORUS 10.5 mg/dL (2.5-4.5); POTASSIUM 4.7 mmol/L (3.6-5.0); TOTAL PROTEIN 5.6 g/dL (6.3-8.2)
[2018-06-24 04:42] LABS: CARBON DIOXIDE 17 mmol/L (22-30); CHLORIDE 97 mmol/L (98-107); SODIUM 133.9 mmol/L (137-145)
[2018-06-24 04:46] LABS: ANION GAP 20 (5-19); BLOOD UREA NITROGEN 130 mg/dL (7-20)
[2018-06-24 04:59] LABS: FREE T3 1.89 pg/mL (2.77-5.27); FREE T4 (FREE THYROXINE) 1.4 ng/dL (0.78-2.19); THYROID STIMULATING HORMONE 0.22 uIU/mL (0.47-4.68)
[2018-06-24] MEDS: HEPARIN SOD (PORCINE) 5,000 UNIT/ML 1 ML SYRINGE SUBCUT SCH ×2 (05:25→13:54)
[2018-06-24] MEDS: PANTOPRAZOLE SODIUM 40 MG TABLET.DR PO SCH (06:34)
--- NOTE | 2018-06-24 08:22 | RADIOLOGY REPORT (SQ) ---
EXAM DESCRIPTION: U/S RETROPERITON (RENAL/AORTA) COMPLETED DATE/TIME: 06/23/2018 6:05 pm REASON FOR STUDY: renal failure COMPARISON: None. TECHNIQUE: Dynamic and static grayscale images acquired of the kidneys and bladder and recorded on P ACS. Additional selected color Doppler and spectral images recorded. LIMITATIONS: None. FINDINGS: RIGHT KIDNEY: Normal size. Normal echogenicity. No solid or suspicious masses. No hydronep hrosis. No calcifications. LEFT KIDNEY: Normal size. Normal echogenicity. No solid or suspicious masses. No hydronephrosis. No calcifications. BLADDER: Decompressed. OTHER FINDINGS: No other significant finding. IMPRESSION: NORMAL RENAL AND BLADDER ULTRASOUND. No hydronephrosis. TECHNICAL DOCUMENTATION: JOB ID: [id number] [email or web address]- All Rights Reserved Reading location - IP/workstation name: [email or web address]
[2018-06-24] MEDS: INSULIN REG, HUMAN 100 UNIT/ML 3 ML VIAL (PYX) SUBCUT SCH ×3 (08:23→19:01)
[2018-06-24] MEDS: DOCUSATE SODIUM 100 MG CAPSULE PO SCH (09:46)
[2018-06-24] MEDS: MAGNESIUM OXIDE 400 MG TABLET PO SCH (09:47)
--- NOTE | 2018-06-24 09:50 | RADIOLOGY REPORT (SQ) ---
EXAM DESCRIPTION: CHEST SINGLE VIEW COMPLETED DATE/TIME: 06/24/2018 9:39 am REASON FOR STUDY: shortness of breath COMPARISON: 06/22/2018 EXAM PARAMETERS: NUMBER OF VIEWS: One view. TECHNIQUE: Single frontal radiographic view of the chest acquired. RADIATION DOSE: NA LIMITATIONS: None. FINDINGS: LUNGS AND PLEURA: Increasing parenchymal opacities particularly in the lung bases. No pne umothorax. No effusions. MEDIASTINUM AND HILAR STRUCTURES: No masses. Contour normal. HEART AND VASCULAR STRUCTURES: Heart normal in size. Normal vasculature. BONES: No acute findings. HARDWARE: Sternal wires. OTHER: No other significant finding. IMPRESSION: Increasing parenchymal opacities particularly at the lung bases. TECHNICAL DOCUMENTATION: JOB ID: [id number] [employer]- All Rights Reserved Reading location - IP/workstation name: [email or web address]
[2018-06-24] MEDS ORDERED: LEVALBUTEROL HCL NEB 1.25 MG/3 ML AMPUL NEB PRN (09:55)
[2018-06-24] MEDS ORDERED: DEXTROSE 5%-1/2 NORMAL SALINE 1,000 ML IV PRN (09:55)
[2018-06-24] MEDS ORDERED: LORAZEPAM INJ 2 MG/1 ML VIAL IV PRN (09:57)
[2018-06-24] MEDS ORDERED: CETIRIZINE 5 MG TABLET PO SCH (10:00)
[2018-06-24] MEDS ORDERED: INSULIN GLARGINE,HUM.REC.ANLOG 1,000 UNIT/10 ML VIAL SUBCUT SCH (10:00)
[2018-06-24] MEDS ORDERED: ERGOCALCIFEROL (VITAMIN D2) 50000 UNIT (1.25 MG) CAPSULE PO SCH (10:00)
[2018-06-24] MEDS: LEVALBUTEROL HCL NEB 0.63 MG/3 ML AMPUL NEB PRN (10:06)
[2018-06-24] MEDS ORDERED: ROCURONIUM BROMIDE INJ 50 MG/5 ML VIAL IV ONE (10:08)
[2018-06-24] MEDS ORDERED: CEFTRIAXONE 2 GM/D5W RTU 2 GM/50 ML RTUPB IV SCH (11:00)
[2018-06-24] MEDS ORDERED: AZITHROMYCIN INJ 500 MG VIAL IV SCH (11:00)
[2018-06-24] MEDS ORDERED: AZITHROMYCIN 500 MG in DEXTROSE 5%-WATER 250 ML IV SCH (12:00)
--- NOTE | 2018-06-24 13:02 | RADIOLOGY REPORT (SQ) ---
EXAM DESCRIPTION: CT CHEST WITHOUT COMPLETED DATE/TIME: 06/24/2018 12:26 pm REASON FOR STUDY: shortness of breath COMPARISON: None. TECHNIQUE: CT scan performed of the chest without intravenous contrast. Images reviewed with lung, soft tissue and bone windows. Reconstructed coronal and sagittal MPR images reviewed. All images st ored on PACS. All CT scanners at this facility use dose modulation, iterative reconstruction, and/or weight based d osing when appropriate to reduce radiation dose to as low as reasonably achievable (ALARA). [facility]: Dose Right [facility]: CareDose [facility]: Dose Right [facility]: Teradose 4D [facility]: [employer] RADIATION DOSE: CT Rad equipment meets quality standard of care and radiation dose reduction techniq ues were employed. CTDIvol: 13.2 mGy. DLP: 425 mGy-cm. mGy. LIMITATIONS: No technical limitations. FINDINGS: LUNGS AND PLEURA: No pneumothorax. Consolidation in both lower lobes, left greater than r ight. Patchy airspace and nodular opacities are present throughout both lungs as well with coarse in terstitial and ground-glass opacities. Small bilateral pleural effusions. HILAR AND MEDIASTINAL STRUCTURES: Mild adenopathy. No obvious aneurysm. HEART AND VASCULAR STRUCTURES: No aneurysm. No pericardial effusion. UPPER ABDOMEN: Please see the concurrent abdominal exam for full detail. THYROID AND OTHER SOFT TISSUES: No masses. No adenopathy. BONES: No significant finding. HARDWARE: Prior CABG. OTHER: No other significant findings. IMPRESSION: Consolidation in both lower lobes, left greater than right. Patchy airspace and nodular opacities are present throughout both lungs as well with coarse interstitial and ground-glass opacit ies. Small bilateral pleural effusions. TECHNICAL DOCUMENTATION: JOB ID: [id number] [place]-72 Quality ID # [id number]: Final reports with documentation of one or more dose reduction techniques (e.g., Au tomated exposure control, adjustment of the mA and/or kV according to patient size, use of iterative reconstruction technique) 2010 [employer]- All Rights Reserved Reading location - IP/workstation name: [email or web address]
--- NOTE | 2018-06-24 14:20 | RADIOLOGY REPORT (SQ) ---
EXAM DESCRIPTION: CT ABD/PELVIS NO ORAL OR IV COMPLETED DATE/TIME: 06/24/2018 12:26 pm REASON FOR STUDY: SHORTNESS OF BREATH COMPARISON: None. TECHNIQUE: CT scan of the abdomen and pelvis performed without intravenous or oral contrast. Images reviewed with lung, soft tissue, and bone windows. Reconstructed coronal and sagittal MPR images revi ewed. All images stored on PACS. All CT scanners at this facility use dose modulation, iterative reconstruction, and/or weight based d osing when appropriate to reduce radiation dose to as low as reasonably achievable (ALARA). [facility]: Dose Right [facility]: CareDose [facility]: Dose Right [facility]: Teradose 4D [facility]: [employer] RADIATION DOSE: CT Rad equipment meets quality standard of care and radiation dose reduction techniq ues were employed. CTDIvol: 14.4 mGy. DLP: 778 mGy-cm.mGy. LIMITATIONS: None. FINDINGS: LOWER CHEST: Bilateral patchy consolidation and nodular -interstitial opacities in both velasquez ng bases. Small right pleural effusion. NON-CONTRASTED LIVER, SPLEEN, ADRENALS: Evaluation limited by lack of IV contrast. No identified sign ificant masses. PANCREAS: No masses. No peripancreatic inflammatory changes. GALLBLADDER: No calcified stones. No inflammatory changes to suggest cholecystitis. RIGHT KIDNEY AND URETER: No cysts identified. No solid masses. No calcified stones. No hydronephrosis or hydroureter. LEFT KIDNEY AND URETER: No cysts identified. No solid masses. No calcified stones. No hydronephrosis or hydroureter. AORTA AND RETROPERITONEUM: IVC filter present. No aneurysm. No retroperitoneal masses or adenopathy. BOWEL AND PERITONEAL CAVITY: No obvious masses or inflammatory changes. No free fluid. APPENDIX: Normal. PELVIS, BLADDER, AND ABDOMINAL WALL:No abnormal masses. No free fluid. Farris catheter and endolumina l gas in the lumen of the bladder. BONES: No acute findings. OTHER: No other significant finding. IMPRESSION: Farris catheter and endoluminal gas in the lumen of the bladder.No acute inflammatory jeana nges in the abdomen or pelvis. Bilateral patchy consolidation and nodular -interstitial opacities in both lung bases. Small right p leural effusion. TECHNICAL DOCUMENTATION: JOB ID: [id number] [place]-72 Quality ID # [id number]: Final reports with documentation of one or more dose reduction techniques (e.g., Au tomated exposure control, adjustment of the mA and/or kV according to patient size, use of iterative reconstruction technique) 2010 [email or web address]- All Rights Reserved Reading location - IP/workstation name: [email or web address] [email or web address]
[2018-06-24] MEDS ORDERED: METOPROLOL TARTRATE PF/INJ 5 MG/5 ML SDV IV PRN (14:57)
[2018-06-24] MEDS ORDERED: DEXTROSE 5%-WATER 250 ML with PHENYLEPHRINE HCL 40 MG IV PRN ×2 (15:51)
[2018-06-24] MEDS ORDERED: PHENYLEPHRINE HCL INJ/PF 10 MG/1 ML SDV ONE (16:12)
[2018-06-24 16:13] LABS: ARTERIAL BLOOD BASE EXCESS -12.6 mmol/L; ARTERIAL BLOOD H2CO3 1.75 mmol/L (1.05-1.35); ARTERIAL BLOOD O2 SATURATION 91.3 % (94-98); ARTERIAL BLOOD PO2 82.6 mmHg (80-100); ARTERIAL BLOOD TOTAL CO2 18.8 mmol/L (21-25)
[2018-06-24 16:14] LABS: ARTERIAL BLOOD FIO2 30%
[2018-06-24 16:15] LABS: ARTERIAL BLOOD PH 7.09 (7.35-7.45)
[2018-06-24] MEDS ORDERED: DEXTROSE 5%-WATER 1000 ML 1,000 ML with SODIUM BICARBONATE 100 MEQ IV PRN ×2 (16:21)
[2018-06-24] MEDS ORDERED: SODIUM BICARBONATE 8.4% INJ 50 MEQ/50 ML DISP.SYRIN ONE (16:25)
[2018-06-24] MEDS ORDERED: SODIUM BICARBONATE 8.4% INJ 50 MEQ/50 ML DISP.SYRIN IV ONE (16:50)
--- NOTE | 2018-06-24 16:50 | PDOC TRANSFER SUMMARY ---
General Admission Date/PCP: 06/23/18 02:36 GENO TREVIZO MD Resuscitation Status: Full Code - Transfer Diagnosis (1) Acute renal failure superimposed on chronic kidney disease Is this a current diagnosis for this admission?: Yes Diagnosis Summary: Patient will be rehydrated as part of the treatment of her diabetic ketoacidosis as well as treatment of her acute on chronic renal failure. Her metabolic pro file and renal functions to be monitored on a regular basis throughout her hospital course for ongoing evaluation. A consultation with Dr. Degroot will be obtained as soon as possible. 06/23/2018-patient given the history of chronic kidney disease but she does not know the baseline. On admission creatinine was more than 10 with IV fluids it improved to 9.37. Plan is to continue to give IV fluids and recheck the labs tomorrow and plan for renal ultrasound. 06/24/2018-renal ultrasound was done negative for hydronephrosis normal renal and bladder findings. Patient creatinine is 9.36. Patient received several liters of IV fluids despite IV fluid supplementation urinary output is very minimal and creatinine is not improving. Urine output today is 225 mL. 06/24/2018 4 PM 58-year-old female with history of diabetes mellitus chronic kidney disease admitted for diabetic ketoacidosis, acute on chronic renal failure. Blood sugars are relatively controlled. She is off the insulin drip. After receiving fluids [id number] for the last 24 to 36 hours kidney function is not improving at all. Creatinine is 9.36. Urinary output is not improving. urinary output is 225 mL today. Patient showing signs of uremia.45 minutes ago patient went into atrial fibrillation with heart rate around 130 then went back to sinus rhythm with heart rate of 80 without intervention. Patient looks more lethargic responsive. Presently on BiPAP. The ABG done now shows pH of 7.09. Patient daughter is bedside she is seeing her mom's wishes are DO NOT INTUBATE. As per the daughter patient pt in 2017 was admitted with a DKA and acute renal failure and respiratory failure, she was intubated on mechanical ventilation for 5 days. After extubation her mom expressed wishes that she does not want to be intubated again but at the same time she says her mom wishes are to be resuscitated. To start the patient on sodium bicarb drip and 1 ampoule of sodium bicarb IV push was given. We do not have a director of sales marketing stationary fireman for the dialysis. Patient daughter came up to me and she said she want her mom to be intubated because of concerns about pts breathing . So we plan to go ahead and intubate the patient right now. (2) Diabetic ketoacidosis Is this a current diagnosis for this admission?: Yes Diagnosis Summary: Patient will be admitted to the ICU and treated aggressively with IV fluids and IV bicarb drip. She will additionally be maintained on an insulin drip. She will have aggressive electrolyte replacement per ICU protocol. Patient be monitored q. one hour and as needed. Venous blood gases will be obtained every 6 hours and a metabolic profile, magnesium level, phosphorus level and CBC will be obtained on a daily basis. Hemoglobin A1c will be obtained to assess prior therapy. Patient will be placed diabetic diet with cardiac and renal restrictions. 06/23/2018-patient admitted to to ICU for diabetic ketoacidosis. Now on insulin 2 L/h. Blood sugar is 80. She is also receiving sodium bicarb drip. Plan is to discontinue insulin to start on diabetic diet change blood sugars to before meals and at bedtime strongly encouraged her to eat dietary consult was requested to continue IV sodium bicarbonate for the moment recheck the labs around 11:00 this morning. 06/24/2018-patient was admitted to ICU for diabetic ketoacidosis presently she is off the insulin. Her appetite is very poor. pt Ate minimal breakfast. Blood sugar is 164. There is a concern about hypoglycemia to start on D5 normal saline at 75 cc/h. To check the blood sugars every 6 hours. hemoglobin A1c is 8.1. 06/25/2018-patient was admitted on 06/22/2018 with a DKA. Was started on IV fluids, IV insulin. Also started on bicarb drip. Hemoglobin A1c came back 8.1. Patient is drip since yesterday. Patient appetite is very poor. Because of the concerns about hypoglycemia patient is on D5 normal saline. The ABG was done on BiPAP with just a while ago shows pH of 7.09. Patient's daughter changes her mind and wants her mom to be intubated. (3) Severe dehydration Is this a current diagnosis for this admission?: Yes (4) Pneumonia Is this a current diagnosis for this admission?: Yes Diagnosis Summary: 06/24/2018-CT chest that was done shows bilateral basilar consolidations. Patient is presently on IV azithromycin and IV Rocephin. Blood cultures are pending. Pneumonia most likely community-acquired pneumonia. Most likely gram-positive organisms. (5) Acute respiratory failure Is this a current diagnosis for this admission?: Yes Diagnosis Summary: 06/24/2018-patient is in acute respiratory failure. ABG on BiPAP indicates respiratory acidosis and low PaO2. As per the patient's daughter's request today we plan to go ahead and intubate the patient. Acute respiratory failure most likely secondary to pneumonia and acute renal failure. (6) Uremia Is this a current diagnosis for this admission?: Yes Diagnosis Summary: 06/24/2018-patient's looks like uremic. Creatinine is 3.96. Patient developed tachycardia bradyarrhythmia. Skin looks like uremic lopez with peeling of the skin present. Patient has this bad odor coming from mouth most likely secondary to uremia. No pericardial rub present on examination. (7) Sepsis Is this a current diagnosis for this admission?: Yes Diagnosis Summary: 06/24/2018-patient is septic with hypotension and CT scan shows bilateral cons olidations. Started on Gautam-Synephrine. Patient is also going to receive sodium bicarb drip because of acidosis. Presently on IV Rocephin and IV azithromycin. blood Cultures are pending. - Transfer Medications Home Medications: Amlodipine Besylate [Norvasc 5 mg Tablet] 5 mg PO DAILY 06/23/18 Carvedilol [Coreg 25 mg Tablet] 1 tab PO Q12 06/23/18 Ergocalciferol (Vitamin D2) [Vitamin D2] 50 mcg PO Q7D 06/23/18 Furosemide [Lasix 40 mg Tablet] 40 mg PO QAM 06/23/18 Insulin Degludec [Tresiba Flextouch U-200] 20 unit SQ DAILY 06/23/18 Insulin Lispro [Humalog Kwikpen] 0 unit SQ .SLIDING SCALE 06/23/18 Levocetirizine Dihydrochloride [Xyzal] 5 mg PO DAILY 06/23/18 Omeprazole 20 mg PO BID 06/23/18 Transfer Medications: Current Medications Acetaminophen (Tylenol 325 Mg Tablet) 650 mg PO Q4HP PRN PRN Reason: For headache, pain or fever Stop: 07/23/18 02:31 Last Admin: 06/23/18 10:46 Dose: 650 mg Documented by: Al Hydrox/Mg Hydrox/Simethicone (Maalox Plus Susp 30 Udcup) 30 ml PO Q6HP PRN PRN Reason: HEARTBURN Stop: 07/23/18 02:21 Alprazolam (Xanax 0.5 Mg Tablet) 1 mg PO Q8HP PRN PRN Reason: ANXIETY Stop: 06/30/18 09:11 Atorvastatin Calcium (Lipitor 10 Mg Tablet) 10 mg PO QHS ANIYA Stop: 07/23/18 09:59 Last Admin: 06/23/18 21:31 Dose: Not Given Documented by: Cetirizine HCl (Zyrtec 5 Mg Tablet) 5 mg PO DAILY ANIYA Stop: 07/24/18 09:59 Last Admin: 06/24/18 09:47 Dose: Not Given Documented by: Dextrose (Dextrose Inj 50% Syringe (25 Gm/50 Ml)) 12.5 gm IV PRN PRN; Protocol PRN Reason: FOR BG 50-69 IN ALERT PATIENT Stop: 07/23/18 07:37 Dextrose (Dextrose Inj 50% Syringe (25 Gm/50 Ml)) 25 gm IV PRN PRN; Protocol PRN Reason: PER PROTOCOL Stop: 07/23/18 07:37 Diphenhydramine HCl (Benadryl Inj 50 Mg/1 Ml Vial) 25 mg IV Q4HP PRN PRN Reason: ITCHING Stop: 07/23/18 23:52 Last Admin: 06/24/18 00:22 Dose: 25 mg Documented by: Docusate Sodium (Colace 100 Mg Capsule) 100 mg PO BID ANIYA Stop: 07/23/18 09:59 Last Admin: 06/24/18 09:46 Dose: Not Given Documented by: Ergocalciferol (Drisdol 50,000 Unit (1.25mg) Capsule) 50,000 unit PO Q7D ANIYA Stop: 07/24/18 09:59 Last Admin: 06/24/18 09:47 Dose: Not Given Documented by: Glucagon (Glucagen Inj 1 Mg Vial) 1 mg IM PRN PRN; Protocol PRN Reason: Evaluate for BG < 70 Stop: 07/23/18 07:37 Glucose (Glutose 40% Gel 15 Gm Tube) 15 gm PO PRN PRN; Protocol PRN Reason: FOR BG 50-69 IN ALERT PATIENT Stop: 07/23/18 07:37 Glucose (Glutose 40% Gel 15 Gm Tube) 30 gm PO PRN PRN; Protocol PRN Reason: FOR BG < 50 IN ALERT PATIENT Stop: 07/23/18 07:37 Heparin Sodium (Porcine) (Heparin Inj 5,000 Units/Ml 1 Ml Syringe) 5,000 unit SUBCUT Q8 [facility] Stop: 07/23/18 05:59 Last Admin: 06/24/18 13:54 Dose: Not Given Documented by: Hydralazine HCl (Apresoline Inj/Pf 20 Mg/1 Ml Sdv) 20 mg IV Q4HP PRN PRN Reason: Give For Sbp > 160 / Dbp > 100 Stop: 07/23/18 02:31 Dextrose/Sodium Chloride (D5-1/2ns 1000 Ml Iv Soln) 1,000 mls @ 75 mls/hr IV CONTINUOUS PRN PRN Reason: THIS MED IS NOT "PRN" Stop: 07/24/18 09:54 Ceftriaxone Sodium/Dextrose (Rocephin Rtu 2 Gm/D5w 50 Ml Premix Bag) 2 gm in 50 mls @ 100 mls/hr IV DAILY [facility] Stop: 07/01/18 10:59 Last Admin: 06/24/18 12:36 Dose: 100 ml/hr, 100 mls/hr Documented by: Azithromycin 500 mg/ Dextrose 250 mls @ 250 mls/hr IV NOON [facility] Stop: 07/01/18 11:59 Last Admin: 06/24/18 13:53 Dose: 250 ml/hr, 250 mls/hr Documented by: Hard Fat/Phenylephrine 40 mg/ (Dextrose) 250 mls @ 0 mls/hr IV CONTINUOUS PRN; Protocol PRN Reason: THIS MED IS NOT "PRN" Stop: 07/24/18 15:50 Sodium Bicarbonate 100 meq/ (Dextrose) 1,100 mls @ 100 mls/hr IV CONTINUOUS PRN PRN Reason: THIS MED IS NOT "PRN" Stop: 07/24/18 16:20 Insulin Glargine (Lantus Insulin 100 Unit/1 Ml 10 Ml) 10 unit SUBCUT Q12 [facility] Stop: 07/24/18 09:59 Last Admin: 06/24/18 11:10 Dose: Not Given Documented by: Insulin Human Regular (Humulin R (Pyxis) Insulin 100 Unit/Ml 3ml) 0 - 12 unit SUBCUT ACHS [facility]; Protocol Stop: 07/23/18 07:59 Last Admin: 06/24/18 11:14 Dose: Not Given Documented by: Levalbuterol HCl (Xopenex Neb 0.63 Mg/3 Ml Ampul) 0.63 mg NEB RTQ2HP PRN PRN Reason: SHORTNESS OF BREATH Stop: 07/23/18 02:31 Last Admin: 06/24/18 10:06 Dose: 0.63 mg Documented by: Lorazepam (Ativan Inj 2 Mg/1 Ml Vial) 2 mg IV .X1 PRN PRN Reason: PRIOR TO CT Stop: 06/24/18 23:59 Magnesium Oxide (Mag-Ox 400 Mg Tablet) 400 mg PO BID [facility] Stop: 07/23/18 09:59 Last Admin: 06/24/18 09:47 Dose: Not Given Documented by: Metoprolol Tartrate (Lopressor Inj/Pf 5 Mg/5 Ml Sdv) 5 mg IV Q6HP PRN PRN Reason: GIVE FOR HR > [] Stop: 07/24/18 14:56 Morphine Sulfate (Morphine 10 Mg/Ml Inj) 2 mg IV Q2HP PRN PRN Reason: PAIN SCALE 1-2/5 Stop: 06/30/18 02:35 Last Admin: 06/23/18 03:03 Dose: 2 mg Documented by: Morphine Sulfate (Morphine 10 Mg/Ml Inj) 3 mg IV Q2HP PRN PRN Reason: PAIN SCALE 3-4/5 Stop: 06/30/18 19:54 Morphine Sulfate (Morphine 10 Mg/Ml Inj) 4 mg IV Q2HP PRN PRN Reason: PAIN SCALE 5/5 Stop: 06/30/18 19:54 Last Admin: 06/24/18 03:57 Dose: 4 mg Documented by: Nicotine (Nicoderm 21 Mg/24 Hr Transderm Patch) 1 each TD DAILYP PRN PRN Reason: WITHDRAWAL SYMPTOMS Stop: 07/23/18 02:31 Ondansetron HCl (Zofran Inj/Pf 4 Mg/2 Ml Sdv) 4 mg IV Q4HP PRN PRN Reason: FOR NAUSEA/VOMITING Stop: 07/23/18 02:21 Last Admin: 06/23/18 03:03 Dose: 4 mg Documented by: Pantoprazole Sodium (Protonix [address] Tablet) 40 mg PO BID@0600,1700 [facility] Stop: 07/23/18 05:59 Last Admin: 06/24/18 06:34 Dose: Not Given Documented by: Sodium Bicarbonate (Sodium Bicarbonate 8.4% Inj 50 Meq/50ml Syrin) 50 meq IV NOW ONE Stop: 06/24/18 16:22 Sodium Chloride (Saline Flush 2.5 Ml Monoject Prefil Syrin) 2.5 ml IV Q8 [facility] Stop: 07/23/18 05:59 Last Admin: 06/24/18 13:54 Dose: 2.5 ml Documented by: Temazepam (Restoril 15 Mg Capsule) 15 mg PO HSP PRN PRN Reason: SLEEP OR INSOMNIA Stop: 06/30/18 02:21 - Allergies Allergies/Adverse Reactions: aloe vera Allergy (Verified 06/22/18 18:03) No Known Drug Allergies Allergy (Unverified 06/24/18 09:22) Hospital Course Hospital Course: 58 year old female who presents with a 2-week history of progressively worsening dyspnea. She admits that for the last 3 weeks she has had gradually worsening dyspnea, 2 weeks ago her dyspnea had progressed to a moderate level and she was no longer able to smoke cigarettes, at that point she developed a cough productive of thick tenacious yellow sputum in moderate to large amounts. Her dyspnea continued to worsen though her cough eventually resolved 1 week prior to admission. For the last 7 days prior to admission her dyspnea has become extremely severe and has been accompanied by a constantly present, agonizing, excruciatingly sharp, intense stabbing pain in the right anterolateral lower chest at the costal margin, without radiation, worsened with every inspiration, expiration or any movement. She has not identified any ameliorating factors for her pain. She denies prior similar episodes. Her pain and dyspnea have been so severe that she has not had anything to eat for almost a week and has been drinking only minimally because she even experiences pain in her lower chest with swallowing. In the emergency room she is found to be severely dehydrated and moderately acidotic with an elevated blood sugar and the realm of ketones noted on her breath. The presumptive diagnosis of acute diabetic ketoacidosis was made and the patient was admitted to the ICU for further evaluation and treatment. 06/[id number]-nlaq-old female with history of diabetes mellitus chronic kidney dis ease hypertension admitted with shortness of breath associated with cough and productive sputum. In the emergency room found to have diabetic history stenosis with high blood sugars and creatinine more than 10. With the insulin drip and sodium bicarb blood sugars are improved sodium bicarb is improved but creatinine continued to be around 9.3-9.5. Urinary output is deteriorating despite IV fluids. Patient respiratory status is deteriorating she was placed on BiPAP this morning CT chest was done shows bilateral consolidations. Right now the patient's respiratory rate is around 10 she become lethargic less responsive on BiPAP. Patient's daughter changed her mind and if it helps she want her mom to be intubated. We will go ahead and intubate the patient now. I spoke to Dr. Mendez at [facility], explained to her that patient is uremic ,in acute renal failure requiring dialysis and we do not have nephrology service available todAy , patient has short episodes of atrial fibrillation, hypotensive and going into acute respiratory failure,CT scan shows bilateral consolidation because of the all the comorbidities I requested for transfer and Dr. Mendez immediately accepted the patient AND appreciate HER HELP Physical Exam Vital Signs: Temp Pulse Resp BP Pulse Ox 98.1 F 95 16 93/57 L 97 06/24/18 16:09 06/24/18 14:00 06/24/18 16:09 06/24/18 16:09 06/24/18 16:09 Intake & Output 06/23/18 06/24/18 06/25/18 06:59 06:59 06:59 Intake Total 3500 1280 Output Total 0 225 10 Balance 3500 1055 -10 Weight 74.2 kg 74.2 kg General appearance: PRESENT: severe distress, other - On BiPAP Head exam: PRESENT: atraumatic Eye exam: PRESENT: PERRLA Mouth exam: PRESENT: moist, tongue midline Teeth exam: PRESENT: poor dentation Neck exam: ABSENT: carotid bruit, JVD, lymphadenopathy, thyromegaly Respiratory exam: PRESENT: accessory muscle use, decreased breath sounds, prolonged expiratory phas Cardiovascular exam: PRESENT: tachycardia GI/Abdominal exam: PRESENT: normal bowel sounds, soft. ABSENT: distended, guarding, mass, organolmegaly, rebound, tenderness Rectal exam: PRESENT: deferred Extremities exam: PRESENT: full ROM. ABSENT: calf tenderness, clubbing, pedal edema Neurological exam: PRESENT: altered, other - Patient was lethargic and less responsive no focal neurological deficits. Skin exam: PRESENT: other - Patient has skin tearing or peeling most likely secondary to uremia . Results Laboratory Results: 06/24/18 03:38 06/24/18 03:38 06/23/18 06/24/18 06/24/18 18:07 00:32 03:38 WBC 12.4 H RBC 3.05 L Hgb 8.8 L Hct 26.6 L MCV 87 MCH 28.8 MCHC 33.0 RDW 14.2 H Plt Count 240 Seg Neutrophils % Not Reportable Lymphocytes % Not Reportable Monocytes % Not Reportable Eosinophils % Not Reportable Basophils % Not Reportable Absolute Neutrophils Not Reportable Absolute Lymphocytes Not Reportable Absolute Monocytes Not Reportable Absolute Eosinophils Not Reportable Absolute Basophils Not Reportable Carbonic Acid HCO3/H2CO3 Ratio ABG pH ABG pCO2 ABG pO2 ABG HCO3 ABG O2 Saturation ABG Base Excess VBG pH 7.25 L 7.21 L VBG pCO2 42.5 36.6 VBG HCO3 18.3 L 14.3 L VBG Base Excess -8.5 -12.6 FiO2 Sodium Potassium Chloride Carbon Dioxide Anion Gap BUN Creatinine Est GFR ( Amer) Est GFR (Non-Af Amer) Glucose Calcium Phosphorus Magnesium Total Bilirubin AST ALT Alkaline Phosphatase Total Protein Albumin TSH Free T4 Free T3 pg/mL 06/24/18 06/24/18 06/24/18 03:38 03:38 03:38 WBC RBC Hgb Hct MCV MCH MCHC RDW Plt Count Seg Neutrophils % Lymphocytes % Monocytes % Eosinophils % Basophils % Absolute Neutrophils Absolute Lymphocytes Absolute Monocytes Absolute Eosinophils Absolute Basophils Carbonic Acid HCO3/H2CO3 Ratio ABG pH ABG pCO2 ABG pO2 ABG HCO3 ABG O2 Saturation ABG Base Excess VBG pH 7.28 L VBG pCO2 40.0 VBG HCO3 18.4 L VBG Base Excess -7.7 FiO2 Sodium 133.9 L Potassium 4.7 Chloride 97 L Carbon Dioxide 17 L Anion Gap 20 H BUN 130 H Creatinine 9.56 H Est GFR ( Amer) 5 L Est GFR (Non-Af Amer) 4 L Glucose 164 H Calcium 7.2 L Phosphorus 10.5 H Magnesium 1.6 Total Bilirubin 0.6 AST 36 ALT 37 Alkaline Phosphatase 91 Total Protein 5.6 L Albumin 2.7 L TSH 0.22 L Free T4 1.40 Free T3 pg/mL 1.89 L 06/24/18 16:00 WBC RBC Hgb Hct MCV MCH MCHC RDW Plt Count Seg Neutrophils % Lymphocytes % Monocytes % Eosinophils % Basophils % Absolute Neutrophils Absolute Lymphocytes Absolute Monocytes Absolute Eosinophils Absolute Basophils Carbonic Acid 1.75 H HCO3/H2CO3 Ratio 9:1 ABG pH 7.09 L* ABG pCO2 58.0 H ABG pO2 82.6 ABG HCO3 17.0 L ABG O2 Saturation 91.3 L ABG Base Excess -12.6 VBG pH VBG pCO2 VBG HCO3 VBG Base Excess FiO2 30% Sodium Potassium Chloride Carbon Dioxide Anion Gap BUN Creatinine Est GFR ( Amer) Est GFR (Non-Af Amer) Glucose Calcium Phosphorus Magnesium Total Bilirubin AST ALT Alkaline Phosphatase Total Protein Albumin TSH Free T4 Free T3 pg/mL 06/22/18 21:25 Troponin I < 0.012 NT-Pro-B Natriuret Pep 7860 H Impressions: Abdomen Ultrasound 06/22/18 20:06 IMPRESSION: 1. No gallstones or sonographic evidence for acute cholecystitis. No evidence for biliary obstruction. 2. Subtle changes in the liver suggesting hepatic edema. Please correlate with clinical findings regarding possibility of hepatitis. 3. Echogenic right renal cortex, suggesting medical renal disease. No hydronephrosis. Renal Ultrasound 06/23/18 00:00 IMPRESSION: NORMAL RENAL AND BLADDER ULTRASOUND. No hydronephrosis. Abdomen/Pelvis CT 06/24/18 00:00 IMPRESSION: Farris catheter and endoluminal gas in the lumen of the bladder.No acute inflammatory changes in the abdomen or pelvis. Bilateral patchy consolidation and nodular -interstitial opacities in both lung bases. Small right pleural effusion. Chest X-Ray 06/24/18 00:00 IMPRESSION: Increasing parenchymal opacities particularly at the lung bases. Chest CT 06/24/18 09:56 IMPRESSION: Consolidation in both lower lobes, left greater than right. Patchy airspace and nodular opacities are present throughout both lungs as well with coarse interstitial and ground-glass opacities. Small bilateral pleural effusions. Plan Discharge Plan: Patient is going to [facility]. Time Spent: Greater than 30 Minutes
[2018-06-24] MEDS ORDERED: PROPOFOL 1,000 MG/100 ML INFUS..BTL IV PRN (16:54)
[2018-06-24] MEDS ORDERED: PROPOFOL 1,000 MG/100 ML INFUS..BTL IV ONE (17:00)
[2018-06-24] MEDS ORDERED: PHARMACY COMMUNICATION ORDER MC NR (17:00)
[2018-06-24] MEDS ORDERED: MAG HYDROX/AL HYDROX/SIMETH SUSP 30 ML UDCUP NG PRN (17:10)
[2018-06-24] MEDS ORDERED: TEMAZEPAM 15 MG CAPSULE NG PRN (17:12)
[2018-06-24] MEDS ORDERED: ALPRAZOLAM 0.5 MG TABLET NG PRN (17:14)
[2018-06-24] MEDS ORDERED: MAGNESIUM OXIDE 400 MG TABLET NG SCH (18:00)
[2018-06-24] MEDS ORDERED: DOCUSATE SODIUM 100 MG/10 ML UDC NG SCH (18:00)
[2018-06-24] MEDS ORDERED: ACETAMINOPHEN 325 MG TABLET NG PRN (18:00)
[2018-06-24] MEDS ORDERED: ERGOCALCIFEROL (D2) 8,000 UNIT/ML SOLN 60 ML NG SCH (18:00)
--- NOTE | 2018-06-24 18:00 | Operative Report ---
Nonrecallable Operative Report DATE OF SURGERY: 06/24/18 PREOPERATIVE DIAGNOSIS: 1. DKA. 2. Phlebosclerosis. POSTOPERATIVE DIAGNOSIS: Same as above OPERATION: 1. Ultrasound-guided central venous puncture. 2. Left internal jugular vein central line placement. SURGEON: YANE WHITTAKER ANESTHESIA: Local TISSUE REMOVED OR ALTERED: None COMPLICATIONS: None apparent ESTIMATED BLOOD LOSS: Minimal PROCEDURE: Drains/implants: Left internal jugular vein central line at 14 cm. Procedure in detail: After informed consent was obtained from the patient's daughter, she was laid in the Trendelenburg position in the intensive care unit. She was intubated and sedated. The left neck was prepped and draped in a normal sterile fashion. 1% lidocaine was infiltrated into the left neck. Under direct ultrasonic guidance, the supplied access needle was directed into the lumen of the left internal jugular vein. The left IJ was compressible with normal flow. Once in the lumen, the syringe returned venous nonpulsatile blood. The wire was inserted into the vein very easily. The ultrasound was used to confirm the wire was inside the vein. Picture documentation was obtained. Next, the catheter was slid over the wire using a modified Seldinger technique. The catheter was sutured to the skin. The catheter was aspirated and flushed x3 without difficulty. A dressing was placed, including a Biopatch. The procedure was at this time concluded. All sponge, instrument, and needle counts were correct. Condition: Critical in ICU.
[2018-06-24 18:44] VITALS: BP 140/72
--- NOTE | 2018-06-24 19:46 | RADIOLOGY REPORT (SQ) ---
EXAM DESCRIPTION: CHEST SINGLE VIEW COMPLETED DATE/TIME: 06/24/2018 5:52 pm REASON FOR STUDY: intubation COMPARISON: Same day chest CT and earlier EXAM PARAMETERS: NUMBER OF VIEWS: One view. TECHNIQUE: Single frontal radiographic view of the chest acquired. RADIATION DOSE: NA LIMITATIONS: None. FINDINGS: LUNGS AND PLEURA: Bilateral opacities, better seen on earlier same day chest CT. No sizab le pleural effusion. No pneumothorax. MEDIASTINUM AND HILAR STRUCTURES: No masses. Contour normal. HEART AND VASCULAR STRUCTURES: Mild cardiomegaly. Normal vasculature. BONES: No acute findings. HARDWARE: Interval placement of a left-sided IJ approach central venous catheter with the distal tip at the expected region of the confluence of the brachiocephalic veins. Enteric tube tip courses beyo nd the field of view. Median sternotomy wires. An endotracheal tube is not visualized on this exam. OTHER: No other significant finding. IMPRESSION: 1. Interval placement of a left-sided IJ approach central venous catheter with the distal tip at the expected region of the confluence of the brachiocephalic veins. 2. Endotracheal tube is not visualized on this exam. 3. Enteric tube tip courses beyond the field of view. 4. No additional same day changes. TECHNICAL DOCUMENTATION: JOB ID: [id number]- All Rights Reserved Reading location - IP/workstation name: [email or web address]
[2018-06-24] MEDS ORDERED: ATORVASTATIN CALCIUM 10 MG TABLET NG SCH (22:00)
[2018-06-25] MEDS ORDERED: PANTOPRAZOLE SODIUM 40 MG PACKET.DR NG SCH (06:00)
[2018-06-25] MEDS ORDERED: CETIRIZINE 5 MG TABLET NG SCH (10:00)
[2018-06-26 04:36] LABS: HEPATITIS A AB IGM Negative (Negative); HEPATITIS B CORE AB IGM Negative (Negative); HEPATITS B SURFACE ANTIGEN Negative (Negative)
[2018-06-26 09:44] LABS: HEPATITIS C VIRUS ANTIBODY <0.1 s/co ratio (0.0-0.9)
== END 2018-06-24 18:40 | disposition short-term general hospital (02) | DRG 637 ==
LOC: ER 17:56 → EH 06-23 02:36 → ICU 06-23 04:04
PROVIDERS: ADMIT Emergency Medicine; ATTEND Emergency Medicine
PROC: 3E0F73Z Introduction of Anti-inflammatory into Respiratory Tract, Via Natural or Artificial Opening (ICD-10-PCS; 2018-06-23)
PROC: 5A1935Z Respiratory Ventilation, Less than 24 Consecutive Hours (ICD-10-PCS; principal; 2018-06-24)
PROC: 5A09357 Assistance with Respiratory Ventilation, Less than 24 Consecutive Hours, Continuous Positive Airway Pressure (ICD-10-PCS; 2018-06-24)
PROC: 0BH17EZ Insertion of Endotracheal Airway into Trachea, Via Natural or Artificial Opening (ICD-10-PCS; 2018-06-24)
PROC: 02HV33Z Insertion of Infusion Device into Superior Vena Cava, Percutaneous Approach (ICD-10-PCS; 2018-06-24)
PROC: B548ZZA Ultrasonography of Superior Vena Cava, Guidance (ICD-10-PCS; 2018-06-24)
DX: E11.10 Type 2 diabetes mellitus with ketoacidosis without coma (principal); A41.9 Sepsis, unspecified organism; J18.9 Pneumonia, unspecified organism; J96.00 Acute respiratory failure, unspecified whether with hypoxia or hypercapnia; R65.20 Severe sepsis without septic shock; N17.9 Acute kidney failure, unspecified; J44.0 Chronic obstructive pulmonary disease with (acute) lower respiratory infection; N18.4 Chronic kidney disease, stage 4 (severe); E11.22 Type 2 diabetes mellitus with diabetic chronic kidney disease; I12.9 Hypertensive chronic kidney disease with stage 1 through stage 4 chronic kidney disease, or unspecified chronic kidney disease; E86.0 Dehydration; I25.10 Atherosclerotic heart disease of native coronary artery without angina pectoris; E78.5 Hyperlipidemia, unspecified; K21.9 Gastro-esophageal reflux disease without esophagitis; E66.9 Obesity, unspecified; Z78.1 Physical restraint status; Z79.899 Other long term (current) drug therapy; Z91.048 Other nonmedicinal substance allergy status; Z86.718 Personal history of other venous thrombosis and embolism; Z95.1 Presence of aortocoronary bypass graft; Z83.3 Family history of diabetes mellitus; Z82.49 Family history of ischemic heart disease and other diseases of the circulatory system
CPT/HCPCS: 31500; 36415; 71045; 71046; 71250; 74176; 76705; 76770; 80048; 80053; 80061; 80074; 80307; 81001; 82803; 82962; 83036; 83690; 83735; 83880; 84100; 84439; 84443; 84481; 84484; 85025; 87040; 87077; 87186; 93005; 93010; 94002; 94640; 94660; 99285; J0456; J0696; J1200; J1644; J1815; J2270; J2370; J2405; J3490; J7030; J7040; J7060; J7614

== ENCOUNTER 2018-08-07 14:57 | Emergency (ER) | payer OTHER ==
[2018-08-07] MEDS ORDERED: NORMAL SALINE 250 ML IV PRN ×2 (15:46)
[2018-08-07 15:47] LABS: ABSOLUTE BASOPHILS # (AUTO) 0.1 10^3/uL (0.0-0.2); ABSOLUTE EOSINOPHILS # (AUTO) 0.2 10^3/uL (0.0-0.6); ABSOLUTE LYMPHOCYTES (AUTO) 0.9 10^3/uL (0.5-4.7); ABSOLUTE MONOCYTES (AUTO) 0.4 10^3/uL (0.1-1.4); ABSOLUTE NEUT (AUTO) 5.7 10^3/uL (1.7-8.2); BASOPHILS % (AUTO) 1.9 % (0-2); EOSINOPHILS % (AUTO) 2.6 % (0-6); HEMATOCRIT 24.3 % (36.0-47.0); LYMPHOCYTES % (AUTO) 11.7 % (13-45); MEAN CORPUSCULAR HEMOGLOBIN 29.6 pg (27.0-33.4); MEAN CORPUSCULAR HGB CONC 32.3 g/dL (32.0-36.0); MEAN CORPUSCULAR VOLUME 92 fl (80-97); MONOCYTES % (AUTO) 6.2 % (3-13); PLATELET COUNT 324 10^3/uL (150-450); RED BLOOD COUNT 2.66 10^6/uL (3.72-5.28); RED CELL DISTRIBUTION WIDTH 18.8 % (11.5-14.0); SEGMENTED NEUTROPHILS % (AUTO) 77.6 % (42-78); TOTAL CELLS COUNTED % (AUTO) 100 %; WHITE BLOOD COUNT 7.3 10^3/uL (4.0-10.5)
[2018-08-07 15:50] LABS: HEMOGLOBIN 7.9 g/dL (12.0-15.5)
[2018-08-07 15:59] LABS: ALANINE AMINOTRANSFERASE 7 U/L (9-52); ALBUMIN 2.9 g/dL (3.5-5.0); ALKALINE PHOSPHATASE 181 U/L (38-126); ANION GAP 10 (5-19); ASPARTATE AMINO TRANSFERASE 21 U/L (14-36); BILIRUBIN,DIRECT 0.9 mg/dL (0.0-0.4); BILIRUBIN,TOTAL 0.9 mg/dL (0.2-1.3); BLOOD UREA NITROGEN 30 mg/dL (7-20); CALCIUM 8.8 mg/dL (8.4-10.2); CARBON DIOXIDE 27 mmol/L (22-30); CHLORIDE 97 mmol/L (98-107); GLUCOSE 273 mg/dL (75-110); POTASSIUM 5.2 mmol/L (3.6-5.0); SODIUM 133.5 mmol/L (137-145); TOTAL PROTEIN 7.8 g/dL (6.3-8.2)
--- NOTE | 2018-08-07 16:09 | ER Document Report ---
ED General - General Chief Complaint: Abnormal Lab Results Stated Complaint: ABNORMAL LABS Time Seen by Provider: 08/07/18 15:45 Primary Care Provider: ADITYA HARDING MD [NO LOCAL MD] - Follow up in 3-5 days TRAVEL OUTSIDE OF THE [place] IN LAST 30 DAYS: No - HPI Notes: Patient is a 58-year-old female that presents to the emergency department for chief complaint of anemia. Patient had blood work drawn at half-way facility today which showed a hemoglobin under 7. She was referred to the emergency room for blood transfusion. Patient is currently at half-way facility after an admission at the hospital for sepsis and renal failure. She is currently getting hemodialysis. Patient denies any history of blood transfusions in the past. She believes she is on a blood thinner but is not sure which one or why. She denies any black or bloody stools. She states she generally feels tired but that has been ongoing since her hospitalization. She denies any symptoms today. She denies palpitations, chest pain, shortness of breath, lightheadedness, nausea/vomiting, abdominal pain and dysuria. Past Medical History: CKD, A. fib Past Surgical History: Reviewed in chart Social History: Reviewed in chart Family History: Reviewed and noncontributory for presenting illness Allergies: Reviewed, see documented allergy list. REVIEW OF SYSTEMS: CONSTITUTIONAL : No fever No chills No diaphoresis No recent illness Fatigue EENT: No vision changes No congestion No sore throat CARDIOVASCULAR: No chest pain No palpitations RESPIRATORY: No shortness of breath No cough No difficulty breathing GASTROINTESTINAL: No abdominal pain No nausea No vomiting No diarrhea GENITOURINARY: No dysuria No hematuria No difficulty urinating MUSCULOSKELETAL: No back pain No leg pain No arm pain SKIN: No rashes No lesions LYMPHATIC: No swollen, enlarged glands. NEUROLOGICAL: No lightheadedness No headache No weakness No paresthesias PSYCHIATRIC: No anxiety No depression PHYSICAL EXAMINATION: Vital signs reviewed, nursing noted reviewed. GENERAL: Ill-appearing, thin and in no acute distress. HEAD: Atraumatic, normocephalic. EYES: Eyes appear normal, extraocular movements intact, sclera anicteric, conjunctiva are normal. ENT: nares patent, oropharynx clear without exudates. Dry mucous membranes. NECK: Normal range of motion, supple without lymphadenopathy LUNGS: Breath sounds clear to auscultation bilaterally and equal. No wheezes rales or rhonchi. HEART: Regular rate and rhythm without murmurs ABDOMEN: Protuberant, soft, nontender, normoactive bowel sounds. No rebound, guarding, or rigidity. No masses appreciated. : Normal rectal tone, light brown stool, Hemoccult negative EXTREMITIES: Nontender, good range of motion, trace pretibial edema NEUROLOGICAL: No focal neurological deficits. Moves all extremities spontaneously Motor and sensory grossly intact on exam. PSYCH: depressed mood, flat affect. SKIN: Warm, Dry, normal turgor, erythematous rash with scabbing to left flank and bilateral lower extremities - Related Data Allergies/Adverse Reactions: aloe vera Allergy (Verified 06/22/18 18:03) No Known Drug Allergies Allergy (Verified 08/07/18 21:32) Past Medical History - Social History Smoking Status: Former Smoker Family History: CAD, DM, Hypertension. denies: Malignancy Patient has suicidal ideation: No Patient has homicidal ideation: No - Past Medical History Cardiac Medical History: Reports: Hx Atrial Fibrillation, Hx Coronary Artery Disease, Hx DVT, Hx Hypercholesterolemia, Hx Hypertension Pulmonary Medical History: Reports: Hx Bronchitis, Hx COPD, Hx Pneumonia Denies: Hx Asthma Neurological Medical History: Denies: Hx Seizures Endocrine Medical History: Reports: Hx Diabetes Mellitus Type 2. Denies: Hx Diabetes Mellitus Type 1, Hx Hyperthyroidism, Hx Hypothyroidism Renal/ Medical History: Denies: Hx Peritoneal Dialysis - hemo GI Medical History: Reports: Hx Gastroesophageal Reflux Disease, Hx Ulcer. Denies: Hx Cirrhosis, Hx Hepatitis Musculoskeletal Medical History: Denies Hx Arthritis, Denies Hx Fibromyalgia Skin Medical History: Denies Hx Eczema, Denies Hx Psoriasis Psychiatric Medical History: Reports: Hx Depression Infectious Medical History: Denies: Hx Hepatitis Past Surgical History: Reports: Hx Abdominal Surgery - small bowel resection, Hx Cardiac Surgery - cabg x2, Hx Section - x3, Hx Coronary Artery Bypass Graft, Other - Vena cava filter, abdominal surgery for repair of perforated stomach ulcer - Immunizations Hx Pneumococcal Vaccination: 11/20/16 Physical Exam - Vital signs Vitals: Temp Pulse Resp BP Pulse Ox 98.4 F 71 16 157/63 H 97 08/07/18 15:04 08/07/18 15:04 08/07/18 15:04 08/07/18 15:04 08/07/18 15:04 Course - Re-evaluation Re-evalutation: 08/07/18 16:09 Vitals reviewed. Nursing notes reviewed. Patient is complaining of generalized weakness but otherwise has no complaints or symptoms. She is Hemoccult negative. She is afebrile, not tachycardic and stable. She does have some mildly dry mucous membranes with trace pretibial edema. Patient's renal function is elevated consistent with her CKD on dialysis. She has no critical hyperkalemia. Patient's hemoglobin this morning was 6.9, redraw in the emergency room is 7.9. I did discuss this discrepancy with lab who is not sure why there is such a difference. I will redraw hemoglobin to confirm. Patient will be transfused 1 unit packed red blood cells because of her complaint of generalized fatigue and hemoglobin under 8. She does not have any active bleeding and her anemia is likely related to her renal failure. The remainder of her work-up is unremarkable. Plan to discharge back to half-way facility after blood transfusion if tolerated well. 08/07/18 21:30 Laboratory 08/07/18 08/07/18 08/07/18 15:28 15:28 15:28 WBC 7.3 RBC 2.66 L Hgb 7.9 L Hct 24.3 L MCV 92 MCH 29.6 MCHC 32.3 RDW 18.8 H Plt Count 324 Seg Neutrophils % 77.6 Lymphocytes % 11.7 L Monocytes % 6.2 Eosinophils % 2.6 Basophils % 1.9 Absolute Neutrophils 5.7 Absolute Lymphocytes 0.9 Absolute Monocytes 0.4 Absolute Eosinophils 0.2 Absolute Basophils 0.1 Sodium 133.5 L Potassium 5.2 H Chloride 97 L Carbon Dioxide 27 Anion Gap 10 BUN 30 H Creatinine 4.59 H Est GFR ( Amer) 12 L Est GFR (Non-Af Amer) 10 L Glucose 273 H Calcium 8.8 Total Bilirubin 0.9 Direct Bilirubin 0.9 H Neonat Total Bilirubin Not Reportable Neonat Direct Bilirubin Not Reportable Neonat Indirect Bili Not Reportable AST 21 ALT 7 L Alkaline Phosphatase 181 H Total Protein 7.8 Albumin 2.9 L POC Stool Occult Blood Blood Type Cancelled Blood Type Confirm Antibody Screen Cancelled Antibody Identification Direct Antiglob Test Crossmatch See Detail 08/07/18 08/07/18 08/07/18 15:56 16:22 16:28 WBC RBC Hgb Hct MCV MCH MCHC RDW Plt Count Seg Neutrophils % Lymphocytes % Monocytes % Eosinophils % Basophils % Absolute Neutrophils Absolute Lymphocytes Absolute Monocytes Absolute Eosinophils Absolute Basophils Sodium Potassium Chloride Carbon Dioxide Anion Gap BUN Creatinine Est GFR ( Amer) Est GFR (Non-Af Amer) Glucose Calcium Total Bilirubin Direct Bilirubin Neonat Total Bilirubin Neonat Direct Bilirubin Neonat Indirect Bili AST ALT Alkaline Phosphatase Total Protein Albumin POC Stool Occult Blood NEGATIVE Blood Type O POSITIVE Blood Type Confirm O POSITIVE Antibody Screen POSITIVE Antibody Identification Anti-Fya Direct Antiglob Test NEGATIVE Crossmatch See Detail 08/07/18 18:02 WBC 7.2 RBC 2.43 L Hgb 7.3 L Hct 22.6 L MCV 93 MCH 30.1 MCHC 32.4 RDW 18.4 H Plt Count 291 Seg Neutrophils % Lymphocytes % Monocytes % Eosinophils % Basophils % Absolute Neutrophils Absolute Lymphocytes Absolute Monocytes Absolute Eosinophils Absolute Basophils Sodium Potassium Chloride Carbon Dioxide Anion Gap BUN Creatinine Est GFR ( Amer) Est GFR (Non-Af Amer) Glucose Calcium Total Bilirubin Direct Bilirubin Neonat Total Bilirubin Neonat Direct Bilirubin Neonat Indirect Bili AST ALT Alkaline Phosphatase Total Protein Albumin POC Stool Occult Blood Blood Type Blood Type Confirm Antibody Screen Antibody Identification Direct Antiglob Test Crossmatch Repeat hemoglobin was 7.2. Her hemoglobin is still less than 8 and she is requiring transfusion. Patient's blood transfusion was started at 9 PM because she had antibodies which required further screening prior to initiation of the transfusion. Patient is tolerating the blood transfusion well. She is complaining of some mild abdominal pain which is chronic for her. Patient takes oxycodone 5 at home, this will be given in the ED. plan to discharge back to half-way facility after transfusion is complete if she tolerates well. 08/07/18 22:15 Patient is still tolerating transfusion well. Care signed over to Dr. Vega while patient finishes her transfusion - Vital Signs Vital signs: Temp Pulse Resp BP Pulse Ox 98.4 F 70 12 182/86 H 97 08/07/18 21:20 08/07/18 21:20 08/07/18 21:20 08/07/18 21:20 08/07/18 21:20 - Laboratory Result Diagrams: 08/07/18 18:02 08/07/18 15:28 Laboratory results interpreted by me: 08/07/18 08/07/18 08/07/18 15:28 15:28 15:28 RBC 2.66 L Hgb 7.9 L Hct 24.3 L RDW 18.8 H Lymphocytes % 11.7 L Sodium 133.5 L Potassium 5.2 H Chloride 97 L BUN 30 H Creatinine 4.59 H Est GFR ( Amer) 12 L Est GFR (Non-Af Amer) 10 L Glucose 273 H Direct Bilirubin 0.9 H ALT 7 L Alkaline Phosphatase 181 H Albumin 2.9 L Crossmatch See Detail 08/07/18 08/07/18 16:22 18:02 RBC 2.43 L Hgb 7.3 L Hct 22.6 L RDW 18.4 H Lymphocytes % Sodium Potassium Chloride BUN Creatinine Est GFR ( Amer) Est GFR (Non-Af Amer) Glucose Direct Bilirubin ALT Alkaline Phosphatase Albumin Crossmatch See Detail - EKG Interpretation by Me Additional EKG results interpreted by me: 08/07/18 16:09 Interpreted by myself 1549: Normal sinus rhythm, rate 72, normal axis, no STEMI, nonspecific ST changes which are unchanged from 06/22/2018 Discharge - Discharge Clinical Impression: Anemia Qualifiers: Anemia type: other cause Other causes of anemia: other cause, not classified Qualified Code(s): D64.89 - Other specified anemias Condition: Stable Disposition: HOME, SELF-CARE Instructions: Anemia ([facility]) Additional Instructions: Please return to the emergency department if you have any worsening, or concern of your symptoms. Please return to the emergency department if you develop chest pain, difficulty breathing, severe abdominal pain, or ongoing vomiting. Please follow-up with your primary care physician in 2-3 days and any other recommended physicians. If prescribed, take all medications as directed. If you have any questions or concerns do not hesitate to return the emergency department for evaluation. Referrals: ADITYA HARDING MD [NO LOCAL MD] - Follow up in 3-5 days
[2018-08-07 18:15] LABS: HEMATOCRIT 22.6 % (36.0-47.0); MEAN CORPUSCULAR HEMOGLOBIN 30.1 pg (27.0-33.4); MEAN CORPUSCULAR HGB CONC 32.4 g/dL (32.0-36.0); MEAN CORPUSCULAR VOLUME 93 fl (80-97); PLATELET COUNT 291 10^3/uL (150-450); RED BLOOD COUNT 2.43 10^6/uL (3.72-5.28); RED CELL DISTRIBUTION WIDTH 18.4 % (11.5-14.0); WHITE BLOOD COUNT 7.2 10^3/uL (4.0-10.5)
[2018-08-07 18:16] LABS: HEMOGLOBIN 7.3 g/dL (12.0-15.5)
[2018-08-07] MEDS ORDERED: OXYCODONE HCL IR 5 MG TABLET PO ONE (21:25)
[2018-08-08 00:50] VITALS: BP 193/95
--- NOTE | 2018-08-08 07:48 | EKG REPORT ---
SEVERITY:- ABNORMAL ECG - SINUS RHYTHM NONSPECIFIC T ABNORMALITIES, LATERAL LEADS : Confirmed by: Tete Abdi MD 08-Aug-2018 07:47:50
== END 2018-08-08 01:07 | disposition home or self-care (01) ==
LOC: ER 14:57
DX: D64.89 Other specified anemias (principal); R53.1 Weakness; I48.91 Unspecified atrial fibrillation; I25.10 Atherosclerotic heart disease of native coronary artery without angina pectoris; E78.00 Pure hypercholesterolemia, unspecified; I10 Essential (primary) hypertension; E11.9 Type 2 diabetes mellitus without complications; Z95.1 Presence of aortocoronary bypass graft; Z86.718 Personal history of other venous thrombosis and embolism
CPT/HCPCS: 93005; 99284; 86900; 86901; 36415; 36430; 86870; 86850; 86880; 86922; 86920; 93010; P9016; 82962

== ENCOUNTER 2018-08-12 12:31 | Emergency (ER) | payer OTHER ==
[2018-08-12 13:26] LABS: ALANINE AMINOTRANSFERASE < 6 U/L (9-52); ALBUMIN 3.1 g/dL (3.5-5.0); ALKALINE PHOSPHATASE 147 U/L (38-126); ANION GAP 10 (5-19); ASPARTATE AMINO TRANSFERASE 29 U/L (14-36); BILIRUBIN,DIRECT 0.8 mg/dL (0.0-0.4); BILIRUBIN,TOTAL 0.8 mg/dL (0.2-1.3); BLOOD UREA NITROGEN 26 mg/dL (7-20); CALCIUM 8.8 mg/dL (8.4-10.2); CARBON DIOXIDE 27 mmol/L (22-30); CHLORIDE 99 mmol/L (98-107); POTASSIUM 3.7 mmol/L (3.6-5.0); SODIUM 135.5 mmol/L (137-145)
[2018-08-12 13:28] LABS: ABSOLUTE BASOPHILS # (AUTO) 0.1 10^3/uL (0.0-0.2); ABSOLUTE EOSINOPHILS # (AUTO) 0.3 10^3/uL (0.0-0.6); ABSOLUTE LYMPHOCYTES (AUTO) 0.9 10^3/uL (0.5-4.7); ABSOLUTE MONOCYTES (AUTO) 0.9 10^3/uL (0.1-1.4); ABSOLUTE NEUT (AUTO) 9.9 10^3/uL (1.7-8.2); BASOPHILS % (AUTO) 0.4 % (0-2); EOSINOPHILS % (AUTO) 2.1 % (0-6); LYMPHOCYTES % (AUTO) 7.2 % (13-45); MEAN CORPUSCULAR HEMOGLOBIN 28.6 pg (27.0-33.4); MEAN CORPUSCULAR HGB CONC 32.3 g/dL (32.0-36.0); MEAN CORPUSCULAR VOLUME 89 fl (80-97); MONOCYTES % (AUTO) 7.7 % (3-13); PLATELET COUNT 319 10^3/uL (150-450); RED BLOOD COUNT 3.15 10^6/uL (3.72-5.28); RED CELL DISTRIBUTION WIDTH 18.3 % (11.5-14.0); SEGMENTED NEUTROPHILS % (AUTO) 82.6 % (42-78); TOTAL CELLS COUNTED % (AUTO) 100 %; WHITE BLOOD COUNT 12.1 10^3/uL (4.0-10.5)
[2018-08-12 13:29] LABS: GLUCOSE 54 mg/dL (75-110)
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
[2018-08-12] MEDS ORDERED: DEXTROSE 50%-WATER 25 GM/50 ML DISP.SYRIN IV ONE (13:49)
[2018-08-12] MEDS ORDERED: DEXTROSE 5%-1/2 NORMAL SALINE 1,000 ML IV ONE (14:40)
--- NOTE | 2018-08-12 15:54 | RADIOLOGY REPORT (SQ) ---
EXAM DESCRIPTION: CHEST 2 VIEWS COMPLETED DATE/TIME: 08/12/2018 3:40 pm REASON FOR STUDY: 14; cough COMPARISON: 06/24/2018 EXAM PARAMETERS: NUMBER OF VIEWS: two views TECHNIQUE: Digital Frontal and Lateral radiographic views of the chest acquired. RADIATION DOSE: NA LIMITATIONS: none FINDINGS: LUNGS AND PLEURA: Minimal chronic changes on the right. Left lung is clear. MEDIASTINUM AND HILAR STRUCTURES: No masses or contour abnormalities. HEART AND VASCULAR STRUCTURES: Heart normal size. No evidence for failure. BONES: No acute findings. HARDWARE: Venous access catheter via right subclavian approach. Tip in the right atrium. Previously noted venous catheter has been removed. OTHER: No other significant finding. IMPRESSION: Minimal chronic changes at the right lung base improved. No acute findings. TECHNICAL DOCUMENTATION: JOB ID: [id number] [employer]- All Rights Reserved Reading location - IP/workstation name: [email or web address]
[2018-08-12 17:38] LABS: APPEARANCE,URINE TURBID; BILIRUBIN,URINE NEGATIVE (NEGATIVE); GLUCOSE, URINE NEGATIVE (NEGATIVE); KETONES,URINE TRACE mg/dL (NEGATIVE); LEUKOCYTE ESTERASE,URINE TRACE (NEGATIVE); NITRITE,URINE NEGATIVE (NEGATIVE); PROTEIN,URINE 30 mg/dL (NEGATIVE); URINE SPECIFIC GRAVITY 1.026; UROBILINOGEN,URINE NEGATIVE mg/dL (<2.0)
[2018-08-12] MEDS ORDERED: CEFTRIAXONE 1 GM/D5W RTU 1 GM/50 ML RTUPB IV ONE (18:27)
--- NOTE | 2018-08-12 18:39 | EKG REPORT ---
SEVERITY:- ABNORMAL ECG - SINUS RHYTHM NONSPECIFIC T ABNORMALITIES, ANT-LAT LEADS : Confirmed by: Tete Abdi MD 12-Aug-2018 18:39:15
[2018-08-12 19:22] VITALS: BP 125/75
== END 2018-08-12 19:48 ==
LOC: ER 12:31
DX: N39.0 Urinary tract infection, site not specified (principal); N18.6 End stage renal disease; E46 Unspecified protein-calorie malnutrition; R53.1 Weakness; E11.649 Type 2 diabetes mellitus with hypoglycemia without coma; Z87.891 Personal history of nicotine dependence; I25.10 Atherosclerotic heart disease of native coronary artery without angina pectoris; I10 Essential (primary) hypertension; J44.9 Chronic obstructive pulmonary disease, unspecified; E11.9 Type 2 diabetes mellitus without complications
CPT/HCPCS: 93005; 36415; 82962; 85025; 80053; 81001; 84484; 71046; 93010; J3490; J0696

== ENCOUNTER 2018-09-04 10:30 | Emergency (ER) | payer MEDICARE, OTHER ==
[2018-09-04 11:29] LABS: HEMATOCRIT 25.6 % (36.0-47.0); HEMOGLOBIN 8.2 g/dL (12.0-15.5); MEAN CORPUSCULAR HEMOGLOBIN 28.6 pg (27.0-33.4); MEAN CORPUSCULAR VOLUME 89 fl (80-97); PLATELET COUNT 353 10^3/uL (150-450); RED BLOOD COUNT 2.86 10^6/uL (3.72-5.28); RED CELL DISTRIBUTION WIDTH 19.9 % (11.5-14.0); WHITE BLOOD COUNT 7.3 10^3/uL (4.0-10.5)
[2018-09-04] MEDS ORDERED: ONDANSETRON HCL INJ/PF 4 MG/2 ML SDV IV ONE (11:34)
[2018-09-04 11:39] LABS: ALANINE AMINOTRANSFERASE 14 U/L (9-52); ALBUMIN 3.2 g/dL (3.5-5.0); ALKALINE PHOSPHATASE 197 U/L (38-126); ANION GAP 16 (5-19); ASPARTATE AMINO TRANSFERASE 32 U/L (14-36); BILIRUBIN,DIRECT 0.7 mg/dL (0.0-0.4); BILIRUBIN,TOTAL 0.7 mg/dL (0.2-1.3); BLOOD UREA NITROGEN 27 mg/dL (7-20); CALCIUM 9.3 mg/dL (8.4-10.2); CARBON DIOXIDE 21 mmol/L (22-30); CHLORIDE 98 mmol/L (98-107); GLUCOSE 326 mg/dL (75-110); POTASSIUM 4.3 mmol/L (3.6-5.0); SODIUM 135.3 mmol/L (137-145); TOTAL PROTEIN 7.9 g/dL (6.3-8.2)
[2018-09-04 11:49] LABS: ABSOLUTE LYMPHOCYTES# (MANUAL) 0.8 10^3/uL (0.5-4.7); ABSOLUTE MONOCYTES # (MANUAL) 0.5 10^3/uL (0.1-1.4); BAND NEUTROPHILS % (MANUAL) 1 % (3-5); BASOPHILS % (MANUAL) 2 % (0-2); EOSINOPHILS % (MANUAL) 1 % (0-6); LYMPHOCYTES % (MANUAL) 9 % (13-45); METAMYELOCYTES % (MANUAL) 1 % (0); MONOCYTES % (MANUAL) 7 % (3-13); NUCLEATED RED BLOOD CELLS 1 /100 WBC (0); SEGMENTED NEUTROPHILS % (MAN) 77 % (42-78); TOTAL CELLS COUNTED 100
[2018-09-04] MEDS ORDERED: INSULIN REG, HUMAN 100 UNIT/ML 3 ML VIAL (PYX) IV ONE (11:49)
[2018-09-04 11:50] LABS: ANISOCYTOSIS 2+; PLATELET COMMENT ADEQUATE; POLYCHROMASIA 1+
--- NOTE | 2018-09-04 12:10 | ER Document Report ---
ED General - General Chief Complaint: High Blood Sugar Stated Complaint: ELEVATED BLOOD SUGAR Time Seen by Provider: 09/04/18 11:19 Primary Care Provider: ADITYA HARDING MD [Primary Care Provider] - Follow up in 3-5 days Notes: Patient is a 58-year-old female with multiple comorbidities including end-stage renal disease on dialysis, atrial fibrillation, COPD, diabetes mellitus that presents to the emergency department for chief complaint of abdominal pain, and elevated blood sugar. Patient apparently was noted to have a blood sugar of 400 at the [facility] where she is getting rehab, she was given 10 units of insulin, was still reading high so EMS was called, she is complaining of nausea and epigastric abdominal pain. Denies any diarrhea. She currently rates her pain as a 3 out of 10 describes as an aching sensation in the middle of her abdomen. She states that she has not had any vomiting, denies any recent fevers, chills, night sweats. She gets her dialysis Monday and has been getting that and has not missed any recent sessions. She denies any chest pain, shortness of breath or difficulty breathing. Past Medical History: End-stage renal disease on dialysis, atrial for ablation, COPD, diabetes mellitus, hypertension Past Surgical History: Tunneled dialysis catheter Social History: Currently resides at [facility], former smoker. Family History: Reviewed and noncontributory for presenting illness Allergies: Reviewed, see documented allergy list. REVIEW OF SYSTEMS: Other than noted above, the 12 point review of systems was reviewed with the patient and were negative, all pertinent findings are included in the HPI. PHYSICAL EXAMINATION: Vital signs reviewed, nursing noted reviewed. GENERAL: Patient appears older than stated age, appears somewhat uncomfortable HEAD: Atraumatic, normocephalic. EYES: Eyes appear normal, extraocular movements intact, sclera anicteric, conjunctiva are normal. ENT: nares patent, oropharynx clear without exudates. Moist mucous membranes. NECK: Normal range of motion, supple without lymphadenopathy LUNGS: Breath sounds clear to auscultation bilaterally and equal. No wheezes rales or rhonchi. There is a right-sided tunneled dialysis catheter noted, site appears normal, no erythema or drainage. HEART: Regular rate and rhythm without murmurs ABDOMEN: Soft, mild epigastric tenderness to palpation., normoactive bowel sounds. No rebound, guarding, or rigidity. No masses appreciated. EXTREMITIES: Nontender, good range of motion, trace bilateral edema in the lower extremities. NEUROLOGICAL: No focal neurological deficits. Moves all extremities spontaneously Motor and sensory grossly intact on exam. PSYCH: Flat affect. SKIN: Warm, Dry, normal turgor TRAVEL OUTSIDE OF THE [place] IN LAST 30 DAYS: No - Related Data Allergies/Adverse Reactions: aloe vera Allergy (Verified 06/22/18 18:03) No Known Drug Allergies Allergy (Verified 08/07/18 21:32) Past Medical History - Social History Smoking Status: Unknown if Ever Smoked Family History: CAD, DM, Hypertension. denies: Malignancy Patient has suicidal ideation: No Patient has homicidal ideation: No - Past Medical History Cardiac Medical History: Reports: Hx Atrial Fibrillation, Hx Coronary Artery Disease, Hx DVT, Hx Hypercholesterolemia, Hx Hypertension Pulmonary Medical History: Reports: Hx Bronchitis, Hx COPD, Hx Pneumonia Denies: Hx Asthma Neurological Medical History: Denies: Hx Seizures Endocrine Medical History: Reports: Hx Diabetes Mellitus Type 2. Denies: Hx Diabetes Mellitus Type 1, Hx Hyperthyroidism, Hx Hypothyroidism Renal/ Medical History: Denies: Hx Peritoneal Dialysis GI Medical History: Reports: Hx Gastroesophageal Reflux Disease, Hx Ulcer. Denies: Hx Cirrhosis, Hx Hepatitis Musculoskeletal Medical History: Denies Hx Arthritis, Denies Hx Fibromyalgia Skin Medical History: Denies Hx Eczema, Denies Hx Psoriasis Psychiatric Medical History: Reports: Hx Depression Infectious Medical History: Denies: Hx Hepatitis Past Surgical History: Reports: Hx Abdominal Surgery - small bowel resection, Hx Cardiac Surgery - cabg x2, Hx Section - x3, Hx Coronary Artery Bypass Graft, Other - Vena cava filter, abdominal surgery for repair of perforated stomach ulcer - Immunizations Hx Pneumococcal Vaccination: 11/20/16 Physical Exam - Vital signs Vitals: Pulse Ox 97 09/04/18 11:10 Course - Re-evaluation Re-evalutation: Patient seen and examined vital signs reviewed. Laboratory data and/or imaging were ordered as appropriate for the patient's presenting symptoms and complaint, with consideration of any critical or life threatening conditions that may be associated with their obtained history and exam as noted above. Patient was treated with Zofran, Pepcid, additionally given 8 units of IV insulin Results were reviewed when available and demonstrated blood glucose in the 300s, without significant acidosis or anion gap, chronic anemia, stable from recent blood work from 10 days ago. Patient was on a blood thinner for her A. fib, on Eliquis, but was discontinued because she was having heme positive stools, suspect the patient likely has some degree of gastritis versus peptic ulcer disease, therefore that is why she was given the Pepcid, and will likely need to be on Protonix if not already. The patient was re-evaluated and was stable, suspect epigastric abdominal pain, is from gastritis as noted above, blood glucose, improved after given insulin, will need to be closely monitored and insulin regimen will need to be adjusted by her primary care that is monitoring her at the nursing facility. Evaluation was most consistent with hyperglycemia, chronic anemia, epigastric abdominal pain. Results were discussed with the patient at this point, after careful consideration I feel that that patient can be discharged from the emergency department, the patient was educated treatments and reasons to return to the emergency department based on their presumed diagnosis as noted above, they were advised to followup with a primary care physician in 2-3 days. Patient was agreeable to plan of care. *Note is created using voice recognition software and may contain spelling, syntax or grammatical errors. Laboratory 09/04/18 09/04/18 09/04/18 10:36 10:37 10:37 WBC 7.3 RBC 2.86 L Hgb 8.2 L Hct 25.6 L MCV 89 MCH 28.6 MCHC 32.0 RDW 19.9 H Plt Count 353 Total Counted 100 Seg Neutrophils % Not Reportable Seg Neuts % (Manual) 77 Band Neutrophils % 1 L Lymphocytes % Not Reportable Lymphocytes % (Manual) 9 L Atypical Lymphs % 2 Monocytes % Not Reportable Monocytes % (Manual) 7 Eosinophils % Not Reportable Eosinophils % (Manual) 1 Basophils % Not Reportable Basophils % (Manual) 2 Metamyelocytes % 1 H Absolute Neutrophils Not Reportable Abs Neuts (Manual) 5.8 Absolute Lymphocytes Not Reportable Abs Lymphs (Manual) 0.8 Absolute Monocytes Not Reportable Abs Monocytes (Manual) 0.5 Absolute Eosinophils Not Reportable Absolute Eos (Manual) 0.1 Absolute Basophils Not Reportable Abs Basophils (Manual) 0.1 Nucleated RBCs 1 Platelet Comment ADEQUATE Polychromasia 1+ Anisocytosis 2+ Sodium 135.3 L Potassium 4.3 Chloride 98 Carbon Dioxide 21 L Anion Gap 16 BUN 27 H Creatinine 3.34 H Est GFR ( Amer) 17 L Est GFR (Non-Af Amer) 14 L Glucose 326 H POC Glucose 307 H Calcium 9.3 Total Bilirubin 0.7 Direct Bilirubin 0.7 H Neonat Total Bilirubin Not Reportable Neonat Direct Bilirubin Not Reportable Neonat Indirect Bili Not Reportable AST 32 ALT 14 Alkaline Phosphatase 197 H Total Protein 7.9 Albumin 3.2 L Lipase 22.0 L - Vital Signs Vital signs: Temp Pulse Resp BP Pulse Ox 98.3 F 71 16 100/53 L 96 09/04/18 11:28 09/04/18 12:17 09/04/18 12:17 09/04/18 13:00 09/04/18 13:01 - Laboratory Result Diagrams: 09/04/18 10:37 09/04/18 10:37 Laboratory results interpreted by me: 09/04/18 09/04/18 09/04/18 10:36 10:37 10:37 RBC 2.86 L Hgb 8.2 L Hct 25.6 L RDW 19.9 H Band Neutrophils % 1 L Lymphocytes % (Manual) 9 L Metamyelocytes % 1 H Sodium 135.3 L Carbon Dioxide 21 L BUN 27 H Creatinine 3.34 H Est GFR ( Amer) 17 L Est GFR (Non-Af Amer) 14 L Glucose 326 H POC Glucose 307 H Direct Bilirubin 0.7 H Alkaline Phosphatase 197 H Albumin 3.2 L Lipase 22.0 L Discharge - Discharge Clinical Impression: Epigastric abdominal pain, Hyperglycemia Anemia Qualifiers: Anemia type: unspecified type Qualified Code(s): D64.9 - Anemia, unspecified Condition: Stable Disposition: HOME-SNF (ED ONLY) Instructions: Abdominal Pain ([facility]) Additional Instructions: Please [facility], as you your diabetic medication regimen likely needs to be adjusted, continue other medications as previously directed. If symptoms are worsening, or not improving, do not hesitate to be reevaluated in the emergency department sooner. Referrals: ADITYA HARDING MD [Primary Care Provider] - Follow up in 3-5 days
[2018-09-04] MEDS ORDERED: FAMOTIDINE INJ/PF 20 MG/2 ML SDV IV ONE (12:32)
[2018-09-04 12:40] LABS: VENOUS BLOOD BASE EXCESS -5.6 mmol/L; VENOUS BLOOD HCO3 20.3 mmol/L (20-32); VENOUS BLOOD PCO2 41.2 mmHg (35-63); VENOUS BLOOD PH 7.31 (7.30-7.42)
[2018-09-04 15:50] VITALS: BP 110/62
== END 2018-09-04 15:55 ==
LOC: ER 10:30
DX: E11.65 Type 2 diabetes mellitus with hyperglycemia (principal); E11.22 Type 2 diabetes mellitus with diabetic chronic kidney disease; I12.0 Hypertensive chronic kidney disease with stage 5 chronic kidney disease or end stage renal disease; N18.6 End stage renal disease; Z99.2 Dependence on renal dialysis; D63.1 Anemia in chronic kidney disease; R10.13 Epigastric pain; R10.816 Epigastric abdominal tenderness; J44.9 Chronic obstructive pulmonary disease, unspecified; R11.0 Nausea; I25.10 Atherosclerotic heart disease of native coronary artery without angina pectoris; Z87.891 Personal history of nicotine dependence; Z95.5 Presence of coronary angioplasty implant and graft; Z87.11 Personal history of peptic ulcer disease
CPT/HCPCS: 99283; 96374; 96375; 36415; 82962; 83690; 85025; 80053; 82803; J1815; J2405; S0028

== ENCOUNTER 2018-09-11 02:05 | Inpatient (IN) | payer OTHER ==
[2018-09-11] MEDS ORDERED: PIPERACILLIN/TAZOBACTAM 3.375 GM VIAL IV ONE (02:33)
[2018-09-11] MEDS ORDERED: VANCOMYCIN HCL INJ 1000 MG VIAL IV ONE (02:33)
--- NOTE | 2018-09-11 02:39 | ER Document Report ---
ED General - General Chief Complaint: Fall Stated Complaint: FALL Time Seen by Provider: 09/11/18 02:14 Primary Care Provider: ADITYA HARDING MD [Primary Care Provider] - Follow up as needed Notes: Patient is a 58-year-old female with multiple comorbidities including end-stage renal disease on dialysis, hypertension, diabetes mellitus that presents to the emergency department for chief complaint of fall, and fever. Patient is a poor historian, unable to provide any significant history. She states that she had a fall but does not remember when, she is currently [facility], and apparently she fell to her left side. Per EMS patient was found to be febrile with a fever of 101.8, was administered 975 mg of p.o. Tylenol. She is complaining of some pain in her left lower abdomen, which she states she has chronic pain in that site. She is currently receiving dialysis through a permacath. She denies any recent nausea, vomiting, chest pain, shortness of breath, cough or difficulty breathing. Per report she is apparently being treated for shingles at this time as well. Past Medical History: End-stage renal disease on dialysis, diabetes mellitus, hypertension Past Surgical History: Permacath placement. Social History: [place] [facility], no current tobacco, alcohol or drug use. Family History: Reviewed and noncontributory for presenting illness Allergies: Reviewed, see documented allergy list. REVIEW OF SYSTEMS: Other than noted above, the 12 point review of systems was reviewed with the patient and were negative, all pertinent findings are included in the HPI. PHYSICAL EXAMINATION: Vital signs reviewed, nursing noted reviewed. GENERAL: Patient seems confused on exam, but in no acute distress HEAD: Atraumatic, normocephalic. EYES: Eyes appear normal, extraocular movements intact, sclera anicteric, conjunctiva are normal. ENT: nares patent, oropharynx clear without exudates. Moist mucous membranes. NECK: Normal range of motion, supple without lymphadenopathy LUNGS: Breath sounds clear to auscultation bilaterally and equal. No wheezes rales or rhonchi. Chest Wall: Right-sided permacath noted, slight does not appear to be draining any purulence, there is only mild erythema around the insertion site. HEART: Regular rate and rhythm without murmurs ABDOMEN: Soft, nontender, normoactive bowel sounds. No rebound, guarding, or r igidity. No masses appreciated. EXTREMITIES: Nontender, good range of motion, no pitting or edema. NEUROLOGICAL: No focal neurological deficits. Moves all extremities spontaneously Motor and sensory grossly intact on exam. PSYCH: Flat affect SKIN: Warm, Dry, normal turgor, superficial abrasion noted to the left lower abdomen, does not appear to be infected, possible shingles rash noted the p atient's left arm and left neck. TRAVEL OUTSIDE OF THE [place] IN LAST 30 DAYS: No - Related Data Allergies/Adverse Reactions: aloe vera Allergy (Verified 06/22/18 18:03) No Known Drug Allergies Allergy (Verified 08/07/18 21:32) Past Medical History - Social History Smoking Status: Unknown if Ever Smoked Family History: CAD, DM, Hypertension. denies: Malignancy Patient has suicidal ideation: No Patient has homicidal ideation: No - Past Medical History Cardiac Medical History: Reports: Hx Atrial Fibrillation, Hx Coronary Artery Disease, Hx DVT, Hx Hypercholesterolemia, Hx Hypertension Pulmonary Medical History: Reports: Hx Bronchitis, Hx COPD, Hx Pneumonia Denies: Hx Asthma Neurological Medical History: Denies: Hx Seizures Endocrine Medical History: Reports: Hx Diabetes Mellitus Type 2. Denies: Hx Diabetes Mellitus Type 1, Hx Hyperthyroidism, Hx Hypothyroidism Renal/ Medical History: Denies: Hx Peritoneal Dialysis GI Medical History: Reports: Hx Gastroesophageal Reflux Disease, Hx Ulcer. Denies: Hx Cirrhosis, Hx Hepatitis Musculoskeletal Medical History: Denies Hx Arthritis, Denies Hx Fibromyalgia Skin Medical History: Denies Hx Eczema, Denies Hx Psoriasis Psychiatric Medical History: Reports: Hx Depression Infectious Medical History: Denies: Hx Hepatitis Past Surgical History: Reports: Hx Abdominal Surgery - small bowel resection, Hx Cardiac Surgery - cabg x2, Hx Section - x3, Hx Coronary Artery Bypass Graft, Other - Vena cava filter, abdominal surgery for repair of perforated stomach ulcer - Immunizations Hx Pneumococcal Vaccination: 11/20/16 Physical Exam - Vital signs Vitals: Resp Pulse Ox 12 96 09/11/18 02:12 09/11/18 02:12 Course - Re-evaluation Re-evalutation: Patient seen and examined vital signs reviewed. Laboratory data and imaging were ordered as appropriate for the patient's presenting symptoms and complaint, with consideration of any critical or life threatening conditions that may be associated with their obtained history and exam as noted above. Patient was treated with broad-spectrum antibiotics with IV Zosyn and vancomycin Results were reviewed when available and demonstrated negative CT imaging of the head, cervical spine, chest x-ray demonstrated mild interstitial edema, otherwise negative. Work demonstrated anemia, 7.4, which appears to be chronic from the patient's end-stage renal disease, she is not acidotic today, lactic a genna was normal, did have concern that she had possible line sepsis though, given fever, and presence of permacath, her urine was tested, did appear to be infected as well, but was not convinced that this was the source, is more concerned about possible line sepsis as noted, ulcers were obtained. She has grown staph aureus in her blood in the past. The patient was re-evaluated and was hemodynamically stable, was given antibiotics, I do feel the patient should be admitted to the hospital for fur ther evaluation, she has encephalopathy in addition to concern for line sepsis. Evaluation was most consistent with fever, sepsis toxic metabolic encephalopathy, UTI Results were discussed with the patient at this point after careful consideration I feel that that patient should be admitted to the hospital. This was discussed with the patient that it is in the best interest for their care to be admitted for further evaluation and management. Patient agreed with this plan of care. A call was placed to the admitting physician, Dr. Wilson who graciously accepted the patient onto their service. *Note is created using voice recognition software and may contain spelling, syntax or grammatical errors. Laboratory 09/11/18 09/11/18 09/11/18 03:10 03:10 03:10 WBC 6.5 RBC 2.63 L Hgb 7.4 L Hct 23.0 L MCV 88 MCH 28.2 MCHC 32.3 RDW 19.9 H Plt Count 262 Seg Neutrophils % 72.8 Lymphocytes % 11.8 L Monocytes % 13.4 H Eosinophils % 1.2 Basophils % 0.8 Absolute Neutrophils 4.8 Absolute Lymphocytes 0.8 Absolute Monocytes 0.9 Absolute Eosinophils 0.1 Absolute Basophils 0.1 VBG pH VBG pCO2 VBG HCO3 VBG Base Excess Sodium 135.5 L Potassium 3.7 Chloride 101 Carbon Dioxide 26 Anion Gap 9 BUN 16 Creatinine 2.65 H Est GFR ( Amer) 23 L Est GFR (Non-Af Amer) 19 L Glucose 116 H Lactic Acid 1.8 Calcium 7.9 L Total Bilirubin 0.5 Direct Bilirubin 0.5 H Neonat Total Bilirubin Not Reportable Neonat Direct Bilirubin Not Reportable Neonat Indirect Bili Not Reportable AST 21 ALT 16 Alkaline Phosphatase 119 Total Protein 6.5 Albumin 2.4 L Urine Color Urine Appearance Urine pH Ur Specific [place] Urine Protein Urine Glucose (UA) Urine Ketones Urine Blood Urine Nitrite Urine Bilirubin Urine Urobilinogen Ur Leukocyte Esterase Urine WBC (Auto) Urine RBC (Auto) Urine Bacteria (Auto) Urine WBC Clumps Urine Ascorbic Acid 09/11/18 09/11/18 03:10 04:40 WBC RBC Hgb Hct MCV MCH MCHC RDW Plt Count Seg Neutrophils % Lymphocytes % Monocytes % Eosinophils % Basophils % Absolute Neutrophils Absolute Lymphocytes Absolute Monocytes Absolute Eosinophils Absolute Basophils VBG pH 7.44 H VBG pCO2 37.4 VBG HCO3 24.9 VBG Base Excess 0.8 Sodium Potassium Chloride Carbon Dioxide Anion Gap BUN Creatinine Est GFR ( Amer) Est GFR (Non-Af Amer) Glucose Lactic Acid Calcium Total Bilirubin Direct Bilirubin Neonat Total Bilirubin Neonat Direct Bilirubin Neonat Indirect Bili AST ALT Alkaline Phosphatase Total Protein Albumin Urine Color AILEEN Urine Appearance TURBID Urine pH 7.0 Ur Specific [place] 1.014 Urine Protein >=500 H Urine Glucose (UA) NEGATIVE Urine Ketones NEGATIVE Urine Blood MODERATE H Urine Nitrite NEGATIVE Urine Bilirubin NEGATIVE Urine Urobilinogen NEGATIVE Ur Leukocyte Esterase LARGE H Urine WBC (Auto) >182 Urine RBC (Auto) >182 Urine Bacteria (Auto) TRACE Urine WBC Clumps MANY Urine Ascorbic Acid NEGATIVE - Vital Signs Vital signs: Temp Pulse Resp BP Pulse Ox 100.8 F H 14 104/56 L 96 09/11/18 02:17 09/11/18 04:01 09/11/18 04:01 09/11/18 04:01 - Laboratory Result Diagrams: 09/11/18 03:10 09/11/18 03:10 Laboratory results interpreted by me: 09/11/18 09/11/18 09/11/18 03:10 03:10 03:10 RBC 2.63 L Hgb 7.4 L Hct 23.0 L RDW 19.9 H Lymphocytes % 11.8 L Monocytes % 13.4 H VBG pH 7.44 H Sodium 135.5 L Creatinine 2.65 H Est GFR ( Amer) 23 L Est GFR (Non-Af Amer) 19 L Glucose 116 H Calcium 7.9 L Direct Bilirubin 0.5 H Albumin 2.4 L Urine Protein Urine Blood Ur Leukocyte Esterase 09/11/18 04:40 RBC Hgb Hct RDW Lymphocytes % Monocytes % VBG pH Sodium Creatinine Est GFR ( Amer) Est GFR (Non-Af Amer) Glucose Calcium Direct Bilirubin Albumin Urine Protein >=500 H Urine Blood MODERATE H Ur Leukocyte Esterase LARGE H Discharge - Discharge Clinical Impression: Toxic metabolic encephalopathy Sepsis Qualifiers: Sepsis type: sepsis due to unspecified organism Qualified Code(s): A41.9 - Sepsis, unspecified organism Fever Qualifiers: Fever type: unspecified Qualified Code(s): R50.9 - Fever, unspecified UTI (urinary tract infection) Qualifiers: Urinary tract infection type: site unspecified Hematuria presence: with hematuria Qualified Code(s): N39.0 - Urinary tract infection, site not specified; R31.9 - Hematuria, unspecified Fall Qualifiers: Encounter type: initial encounter Qualified Code(s): W19.XXXA - Unspecified fall, initial encounter Condition: Stable Disposition: ADMITTED INPATIENT Admitting Provider: Steve (Hospitalist) Unit Admitted: [facility] Referrals: ADITYA HARDING MD [Primary Care Provider] - Follow up as needed
[2018-09-11 03:26] LABS: VENOUS BLOOD BASE EXCESS 0.8 mmol/L; VENOUS BLOOD HCO3 24.9 mmol/L (20-32); VENOUS BLOOD PCO2 37.4 mmHg (35-63); VENOUS BLOOD PH 7.44 (7.30-7.42)
[2018-09-11 03:29] LABS: ABSOLUTE BASOPHILS # (AUTO) 0.1 10^3/uL (0.0-0.2); ABSOLUTE EOSINOPHILS # (AUTO) 0.1 10^3/uL (0.0-0.6); ABSOLUTE LYMPHOCYTES (AUTO) 0.8 10^3/uL (0.5-4.7); ABSOLUTE MONOCYTES (AUTO) 0.9 10^3/uL (0.1-1.4); ABSOLUTE NEUT (AUTO) 4.8 10^3/uL (1.7-8.2); BASOPHILS % (AUTO) 0.8 % (0-2); EOSINOPHILS % (AUTO) 1.2 % (0-6); LYMPHOCYTES % (AUTO) 11.8 % (13-45); MEAN CORPUSCULAR HEMOGLOBIN 28.2 pg (27.0-33.4); MEAN CORPUSCULAR HGB CONC 32.3 g/dL (32.0-36.0); MEAN CORPUSCULAR VOLUME 88 fl (80-97); MONOCYTES % (AUTO) 13.4 % (3-13); PLATELET COUNT 262 10^3/uL (150-450); RED BLOOD COUNT 2.63 10^6/uL (3.72-5.28); RED CELL DISTRIBUTION WIDTH 19.9 % (11.5-14.0); SEGMENTED NEUTROPHILS % (AUTO) 72.8 % (42-78); TOTAL CELLS COUNTED % (AUTO) 100 %; WHITE BLOOD COUNT 6.5 10^3/uL (4.0-10.5)
[2018-09-11 03:31] LABS: HEMOGLOBIN 7.4 g/dL (12.0-15.5)
[2018-09-11 03:43] LABS: ALANINE AMINOTRANSFERASE 16 U/L (9-52); ALBUMIN 2.4 g/dL (3.5-5.0); ALKALINE PHOSPHATASE 119 U/L (38-126); ANION GAP 9 (5-19); ASPARTATE AMINO TRANSFERASE 21 U/L (14-36); BILIRUBIN,DIRECT 0.5 mg/dL (0.0-0.4); BILIRUBIN,TOTAL 0.5 mg/dL (0.2-1.3); BLOOD UREA NITROGEN 16 mg/dL (7-20); CALCIUM 7.9 mg/dL (8.4-10.2); CARBON DIOXIDE 26 mmol/L (22-30); CHLORIDE 101 mmol/L (98-107); GLUCOSE 116 mg/dL (75-110); POTASSIUM 3.7 mmol/L (3.6-5.0); TOTAL PROTEIN 6.5 g/dL (6.3-8.2)
[2018-09-11 05:32] LABS: BILIRUBIN,URINE NEGATIVE (NEGATIVE); COLOR,URINE AMBER; GLUCOSE, URINE NEGATIVE (NEGATIVE); KETONES,URINE NEGATIVE (NEGATIVE); LEUKOCYTE ESTERASE,URINE LARGE (NEGATIVE); NITRITE,URINE NEGATIVE (NEGATIVE); PROTEIN,URINE >=500 mg/dL (NEGATIVE); URINE SPECIFIC GRAVITY 1.014; UROBILINOGEN,URINE NEGATIVE mg/dL (<2.0)
[2018-09-11 05:33] LABS: APPEARANCE,URINE TURBID
[2018-09-11] MEDS ORDERED: IPRATROPIUM/ALBUTEROL 0.5-2.5 MG/3 ML AMPUL NEB PRN (06:41)
[2018-09-11] MEDS ORDERED: DEXTROSE 40% GEL 15 GM TUBE PO PRN ×2 (06:41)
[2018-09-11] MEDS ORDERED: GLUCAGON,HUMAN RECOMB 1 MG INJ IM PRN (06:41)
[2018-09-11] MEDS ORDERED: DEXTROSE 50%-WATER 25 GM/50 ML DISP.SYRIN IV PRN (06:41)
[2018-09-11] MEDS ORDERED: MAG HYDROX/AL HYDROX/SIMETH SUSP 30 ML UDCUP PO PRN (06:41)
[2018-09-11] MEDS ORDERED: MAGNESIUM HYDROXIDE SUSP 30 ML UDCUP PO PRN (06:41)
[2018-09-11] MEDS ORDERED: NORMAL SALINE 1000 ML 1,000 ML IV ONE (06:44)
[2018-09-11] MEDS ORDERED: VANCOMYCIN HCL 0 MG in DEXTROSE 5%-WATER 250 ML IV NR (06:45)
--- NOTE | 2018-09-11 06:55 | PDOC H&P ---
History of Present Illness Admission Date/PCP: 09/11/18 05:45 ADITYA HARDING MD Patient complains of: Fever and fall History of Present Illness: ENEIDA JOHNSON is a 58 year old female with a partial past medical history of oliguric end-stage renal failure on hemodialysis via permacath with Dr. Degroot Monday, insulin-dependent diabetes, hypertension and shingles. She presents from senior living facility after sustaining a fall without injur y and found to have a fever. Patient complains of left lower quadrant pain and left cervical pain following shingles outbreak 5 days ago. In the emergency room she is found to have confusion, fever, pyuria and left lower quadrant pain. Patient is speaking clearly and appears to be at baseline currently denying confusion or focal weakness. She denies any medications. Past Medical History Cardiac Medical History: Reports: Atrial Fibrillation, Coronary Artery Disease, DVT, Hyperlipidema, Hypertension Pulmonary Medical History: Reports: Bronchitis, Chronic Obstructive Pulmonary Disease (COPD), Pneumonia Denies: Asthma Neurological Medical History: Denies: Seizures Endocrine Medical History: Reports: Diabetes Mellitus Type 2 Denies: Diabetes Mellitus Type 1, Hyperthyroidism, Hypothyroidism GI Medical History: Reports: Gastroesophageal Reflux Disease Denies: Cirrhosis, Hepatitis Musculoskeltal Medical History: Denies: Arthritis, Fibromyalgia Skin Medical History: Denies: Eczema, Psoriasis Psychiatric Medical History: Reports: Depression Hematology: Reports: 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 denies: Malignancy Parental Family History Reviewed: Yes Children Family History Reviewed: Yes Sibling(s) Family History Reviewed.: Yes Medication/Allergy Home Medications: Amlodipine Besylate [Norvasc 5 mg Tablet] 5 mg PO DAILY 06/23/18 Carvedilol [Coreg 25 mg Tablet] 25 mg PO Q12 06/23/18 Furosemide [Lasix 40 mg Tablet] 40 mg PO QAM 06/23/18 Insulin Degludec [Tresiba Flextouch U-200] 20 unit SQ DAILY 06/23/18 Insulin Lispro [Humalog Kwikpen] 0 unit SQ .SLIDING SCALE 06/23/18 Levocetirizine Dihydrochloride [Xyzal] 5 mg PO DAILY 06/23/18 Omeprazole 20 mg PO BID 06/23/18 Allergies/Adverse Reactions: aloe vera Allergy (Verified 06/22/18 18:03) No Known Drug Allergies Allergy (Verified 08/07/18 21:32) Review of Systems Constitutional: ABSENT: chills, fever(s), headache(s), weight gain, weight loss Eyes: ABSENT: visual disturbances Ears: ABSENT: hearing changes Cardiovascular: ABSENT: chest pain, dyspnea on exertion, edema, orthropnea, palpitations Respiratory: ABSENT: cough, hemoptysis Gastrointestinal: PRESENT: as per HPI, abdominal pain, constipation. ABSENT: diarrhea, hematemesis, hematochezia, nausea, vomiting Genitourinary: ABSENT: dysuria, hematuria Musculoskeletal: ABSENT: joint swelling Integumentary: ABSENT: rash, wounds Neurological: ABSENT: abnormal gait, abnormal speech, confusion, dizziness, focal weakness, syncope Psychiatric: ABSENT: anxiety, depression, homidical ideation, suicidal ideation Endocrine: ABSENT: cold intolerance, heat intolerance, polydipsia, polyuria Hematologic/Lymphatic: ABSENT: easy bleeding, easy bruising Physical Exam Vital Signs: Temp Pulse Resp BP Pulse Ox 98.9 F 15 112/61 95 09/11/18 06:37 09/11/18 06:01 09/11/18 05:01 09/11/18 06:01 Intake & Output 09/09/18 09/10/18 09/11/18 11:59 11:59 11:59 Weight 68.9 kg General appearance: PRESENT: cooperative, disheveled, mild distress, well-deve loped, well-nourished Head exam: PRESENT: atraumatic, normocephalic Eye exam: PRESENT: conjunctiva pink, EOMI, PERRLA. ABSENT: scleral icterus Ear exam: PRESENT: normal external ear exam Mouth exam: PRESENT: moist, tongue midline Neck exam: ABSENT: carotid bruit, JVD, lymphadenopathy, thyromegaly Respiratory exam: PRESENT: clear to auscultation linda. ABSENT: rales, rhonchi, wheezes Cardiovascular exam: PRESENT: RRR. ABSENT: diastolic murmur, rubs, systolic murmur Pulses: PRESENT: normal dorsalis pedis pul Vascular exam: PRESENT: normal capillary refill GI/Abdominal exam: PRESENT: normal bowel sounds, soft. ABSENT: distended, guarding, mass, organolmegaly, rebound, tenderness Rectal exam: PRESENT: deferred Extremities exam: PRESENT: full ROM. ABSENT: calf tenderness, clubbing, pedal edema Neurological exam: PRESENT: alert, awake, oriented to person, oriented to place, oriented to time, oriented to situation, CN II-XII grossly intact. ABSENT: motor sensory deficit Psychiatric exam: PRESENT: appropriate affect, normal mood. ABSENT: homicidal ideation, suicidal ideation Skin exam: PRESENT: erythema, rash, vesicles, other - Extensive coalesced vesicles in various stages of healing about the left neck and shoulder Results Laboratory Results: 09/11/18 03:10 09/11/18 03:10 09/11/18 09/11/18 09/11/18 03:10 03:10 03:10 WBC 6.5 RBC 2.63 L Hgb 7.4 L Hct 23.0 L MCV 88 MCH 28.2 MCHC 32.3 RDW 19.9 H Plt Count 262 Seg Neutrophils % 72.8 Lymphocytes % 11.8 L Monocytes % 13.4 H Eosinophils % 1.2 Basophils % 0.8 Absolute Neutrophils 4.8 Absolute Lymphocytes 0.8 Absolute Monocytes 0.9 Absolute Eosinophils 0.1 Absolute Basophils 0.1 VBG pH VBG pCO2 VBG HCO3 VBG Base Excess Sodium 135.5 L Potassium 3.7 Chloride 101 Carbon Dioxide 26 Anion Gap 9 BUN 16 Creatinine 2.65 H Est GFR ( Amer) 23 L Est GFR (Non-Af Amer) 19 L Glucose 116 H Lactic Acid 1.8 Calcium 7.9 L Total Bilirubin 0.5 AST 21 ALT 16 Alkaline Phosphatase 119 Total Protein 6.5 Albumin 2.4 L Urine Color Urine Appearance Urine pH Ur Specific [place] Urine Protein Urine Glucose (UA) Urine Ketones Urine Blood Urine Nitrite Ur Leukocyte Esterase Urine WBC (Auto) Urine RBC (Auto) Blood Type Antibody Screen 09/11/18 09/11/18 09/11/18 03:10 04:40 05:10 WBC RBC Hgb Hct MCV MCH MCHC RDW Plt Count Seg Neutrophils % Lymphocytes % Monocytes % Eosinophils % Basophils % Absolute Neutrophils Absolute Lymphocytes Absolute Monocytes Absolute Eosinophils Absolute Basophils VBG pH 7.44 H VBG pCO2 37.4 VBG HCO3 24.9 VBG Base Excess 0.8 Sodium Potassium Chloride Carbon Dioxide Anion Gap BUN Creatinine Est GFR ( Amer) Est GFR (Non-Af Amer) Glucose Lactic Acid Calcium Total Bilirubin AST ALT Alkaline Phosphatase Total Protein Albumin Urine Color AILEEN Urine Appearance TURBID Urine pH 7.0 Ur Specific [place] 1.014 Urine Protein >=500 H Urine Glucose (UA) NEGATIVE Urine Ketones NEGATIVE Urine Blood MODERATE H Urine Nitrite NEGATIVE Ur Leukocyte Esterase LARGE H Urine WBC (Auto) >182 Urine RBC (Auto) >182 Blood Type Cancelled Antibody Screen Cancelled Assessment and Plan - Diagnosis (1) Sepsis Qualifiers: Sepsis type: sepsis due to unspecified organism Qualified Code(s): A41.9 - Sepsis, unspecified organism Is this a current diagnosis for this admission?: Yes Plan: Does have a recent history of staph aureus bacteremia 2 months ago, concern for permacath Site, empiric vancomycin and Rocephin initiated, follow-up blood culture, consider 2D echo. Differential could include source of left lower quadrant pain suspected acute diverticulitis. (2) Acute diverticulitis Is this a current diagnosis for this admission?: Yes Plan: Suggested by exam, empiric antibiotics, clear liquid diet, follow-up imaging, CBC and blood culture (3) Toxic metabolic encephalopathy Is this a current diagnosis for this admission?: Yes Plan: Resolved (4) Acute renal failure superimposed on chronic kidney disease Qualifiers: Acute renal failure type: unspecified Chronic kidney disease stage: stage 4 (severe) Qualified Code(s): N17.9 - Acute kidney failure, unspecified; N18.4 - Chronic kidney disease, stage 4 (severe) Is this a current diagnosis for this admission?: Yes Plan: Avoid nephrotoxic meds and doses follow-up nephrology consult. - Time Time Spent with patient: 35 or more minutes - Inpatient Certification Medical Necessity: Need Close Monitoring Due to Risk of Patient Decompensation
[2018-09-11] MEDS ORDERED: DEXTROSE 40% GEL 15 GM TUBE ONE (07:05)
--- NOTE | 2018-09-11 07:41 | RADIOLOGY REPORT (SQ) ---
CLINICAL HISTORY: HEAD INJURY, FALL COMPARISON: None. TECHNIQUE: CT HEAD WITHOUT IV CONTRAST on 09/11/2018 3:14 AM CDT This exam was performed according to our departmental dose-optimization program, which includes automated exposure control, adjustment of the mA and/or kV according to patient size and/or use of iterative reconstruction technique. FINDINGS: There is no acute hemorrhage, mass effect or midline shift. Marsh-white differentiation is preserved. There is no hydrocephalus. There is no significant volume loss for age. There are mild patchy hypodensities within the periventricular and subcortical white matter, consistent with microangiopathic ischemic changes. The calvarium is intact. Orbits and globes are unremarkable. The paranasal sinuses are clear. Mastoid air cells are clear. IMPRESSION: No acute intracranial findings.
--- NOTE | 2018-09-11 07:42 | RADIOLOGY REPORT (SQ) ---
CLINICAL HISTORY: NECK PAIN, FALL COMPARISON: None. TECHNIQUE: CT CERVICAL SPINE WITH IV CONTRAST on 09/11/2018 3:15 AM CDT This exam was performed according to our departmental dose-optimization program, which includes automated exposure control, adjustment of the mA and/or kV according to patient size and/or use of iterative reconstruction technique. FINDINGS: There is no acute fracture. Alignment is anatomic. Disc spaces are maintained. Vertebral body heights are preserved. Soft tissues are unremarkable. IMPRESSION: No acute fracture or subluxation.
--- NOTE | 2018-09-11 07:45 | RADIOLOGY REPORT (SQ) ---
EXAM DESCRIPTION: XR CHEST 1 VIEW COMPLETED DATE/TME: 09/11/2018, 2:39 AM CLINICAL HISTORY: 58 years, Female, FEVER COMPARISON: 08/12/2018 chest NUMBER OF VIEWS: 1 TECHNIQUE: Portable chest LIMITATIONS: None. FINDINGS: Stable cardiomegaly and postsurgical change. Mild interstitial edema. No pneumothorax. Osteopenia. IMPRESSION: Cardiomegaly. Mild interstitial edema copyright 2010 [employer]- All Rights Reserved
[2018-09-11] MEDS: DEXTROSE 50%-WATER 25 GM/50 ML DISP.SYRIN IV PRN (07:52)
[2018-09-11] MEDS: DOCUSATE SODIUM 100 MG CAPSULE PO SCH ×2 (10:55→18:01)
[2018-09-11] MEDS: CARVEDILOL 12.5 MG TABLET PO SCH ×2 (10:55→22:19)
[2018-09-11] MEDS: PIPERACILLIN SODIUM/TAZOBACTAM 2.25 GM in NORMAL SALINE 50 ML IV SCH ×2 (13:34→18:24)
[2018-09-11] MEDS: HEPARIN SOD (PORCINE) 5,000 UNIT/ML 1 ML VIAL SUBCUT SCH ×2 (14:43→22:19)
[2018-09-11] MEDS: DEXTROSE 5%-1/2 NORMAL SALINE 1,000 ML IV PRN (15:14)
--- NOTE | 2018-09-11 19:31 | PDOC CONSULTATION ---
Consultation Consult Date: 09/11/18 Provider Consulted: Sergey VALLADARES History of Present Illness Admission Date/PCP: 09/11/18 05:45 ADITYA HARDING MD History of Present Illness: ENEIDA JOHNSON is a 58 year old female end-stage renal failure on hd Monday, insulin-dependent diabetes, hypertension. She was brought to the ER after failing while at the SNF she stays at. She was not injured in the fall but was found to have a fever. Patient initially complained of left lower quadrant pain for which she was not complaining of early in the day when I saw her at dialysis. In the emergency room she is found to have confusion, fever, pyuria on UA and left lower quadrant pain. Blood cultures were drawn. She was started on vanc and Rocephin empirically. Patient later was found not to be altered and was no longer complaining of left lower quadrant pain. Upon examination today she was not altered and was not complaining of any left lower quadrant pain. She also claims that it was never confirmed whether she had shingles or not. Hemoglobin was at 7.6 but she had no s/s of anemia. She denied chest pain, SOB, fevers, chills, N/V/D/C. Past Medical History Cardiac Medical History: Reports: Atrial Fibrillation, Coronary Artery Disease, DVT, Hyperlipidemia Pulmonary Medical History: Reports: Bronchitis, Chronic Obstructive Pulmonary Disease (COPD), Pneumonia Denies: Asthma Neurological Medical History: Denies: Seizures Endocrine Medical History: Reports: Diabetes Mellitus Type 2 Denies: Diabetes Mellitus Type 1, Hyperthyroidism, Hypothyroidism GI Medical History: Reports: Gastroesophageal Reflux Disease Denies: Cirrhosis, Hepatitis Musculoskeltal Medical History: Denies: Arthritis, Fibromyalgia Skin Medical History: Denies: Eczema, Psoriasis Psychiatric Medical History: Reports: Depression Past Surgical History Past Surgical History: Reports: Section - x3, Coronary Artery Bypass Graft, Other - Vena cava filter, abdominal surgery for repair of perforated stomach ulcer Social History Lives with: Long Term Smoking Status: Unknown if Ever Smoked Frequency of Alcohol Use: None Hx Recreational Drug Use: No Drugs: None Hx Prescription Drug Abuse: No - Advance Directive Resuscitation Status: Do Not Resuscitate Family History Parental Family History Reviewed: No Children Family History Reviewed: NA Sibling(s) Family History Reviewed.: NA Medication/Allergy Home Medications: Acetaminophen [Tylenol 325 mg Tablet] 650 mg PO Q6HP PRN 07/23/19 Aspirin [Aspirin 81 mg Chewable Tablet] 81 mg PO DAILY 09/11/18 Atorvastatin Calcium [Lipitor 40 mg Tablet] 40 mg PO QHS 09/11/18 Carvedilol [Coreg 25 mg Tablet] 25 mg PO Q12 09/11/18 Diphenhydramine HCl/Zinc Acet [Benadryl Itch Stopping Cream] 1 applic TOP TIDP PRN 09/11/18 Ergocalciferol (Vitamin D2) [Drisdol 50,000 unit (1.25MG) Capsule] 50,000 unit PO MOWEFR@1000 09/11/18 Estrogens,Conjugated [Premarin Vaginal Cream (0.625 mg/gm) 30 gm] 1 applic PV DAILY 09/11/18 Fluoxetine HCl [Prozac 20 mg Capsule] 20 mg PO DAILY 09/11/18 Folic Acid/Vitamin B Comp W-C [Nephrocaps Softgel] 1 cap PO QHS 09/11/18 Insulin Glargine,Hum.rec.anlog [Lantus Insulin 100 Unit/1 ml 10 ml] 18 unit SQ BID 09/11/18 Insulin Lispro [Humalog Insulin (Lispro) 100 unit/mL] See Protocol SQ ACHS 09/11/18 Levocetirizine Dihydrochloride [Xyzal] 5 mg PO QHS 09/11/18 Omeprazole 20 mg PO BID 09/11/18 Oxycodone HCl [Oxy-Ir 5 mg Tablet] 5 mg PO Q6HP PRN 09/11/18 Petrolatum,White [Petroleum Jelly] 1 applic TOP DAILYP PRN 09/11/18 Pregabalin [Lyrica 75 mg Capsule] 75 mg PO BID 09/11/18 Allergies/Adverse Reactions: aloe vera Allergy (Verified 09/11/18 08:46) No Known Drug Allergies Allergy (Verified 09/11/18 08:46) Review of Systems Constitutional: PRESENT: fatigue, weakness. ABSENT: anorexia, chills, fever(s), headache(s) Nose, Mouth, and Throat: ABSENT: headache(s) Cardiovascular: ABSENT: chest pain, dyspnea on exertion, edema, orthropnea, palpitations Respiratory: ABSENT: cough, dyspnea, sputum Gastrointestinal: ABSENT: abdominal pain, constipation, diarrhea, nausea, vomiting Genitourinary: ABSENT: difficulty urinating, dysuria, hematuria, nocturia Musculoskeletal: PRESENT: muscle weakness. ABSENT: back pain Neurological: PRESENT: weakness. ABSENT: confusion, dizziness, numbness Physical Exam Vital Signs: Temp Pulse Resp BP Pulse Ox 98.1 F 63 16 92/55 L 93 09/11/18 13:15 09/11/18 13:35 09/11/18 13:15 09/11/18 13:15 09/11/18 13:03 Intake & Output 09/10/18 09/11/18 09/12/18 06:59 06:59 06:59 Intake Total 0 Balance 0 Weight 68.9 kg 66.6 kg General appearance: PRESENT: no acute distress, cooperative, disheveled Mouth exam: PRESENT: moist, neck supple. ABSENT: dry mucosa Neck exam: ABSENT: JVD, tracheal deviation Respiratory exam: PRESENT: clear to auscultation linda. ABSENT: accessory muscle use, crackles, rales, rhonchi, wheezes Cardiovascular exam: PRESENT: +S1, +S2 GI/Abdominal exam: PRESENT: soft. ABSENT: distended, tenderness Extremities exam: ABSENT: tenderness, +1 edema, +2 edema Musculoskeletal exam: PRESENT: normal inspection. ABSENT: tenderness Neurological exam: PRESENT: alert, awake, oriented to person, oriented to place, oriented to time, oriented to situation Skin exam: PRESENT: dry, intact, rash, warm Results Laboratory Results: 09/11/18 03:10 09/11/18 03:10 09/11/18 09/11/18 09/11/18 03:10 03:10 03:10 WBC 6.5 RBC 2.63 L Hgb 7.4 L Hct 23.0 L MCV 88 MCH 28.2 MCHC 32.3 RDW 19.9 H Plt Count 262 Seg Neutrophils % 72.8 Lymphocytes % 11.8 L Monocytes % 13.4 H Eosinophils % 1.2 Basophils % 0.8 Absolute Neutrophils 4.8 Absolute Lymphocytes 0.8 Absolute Monocytes 0.9 Absolute Eosinophils 0.1 Absolute Basophils 0.1 VBG pH VBG pCO2 VBG HCO3 VBG Base Excess Sodium 135.5 L Potassium 3.7 Chloride 101 Carbon Dioxide 26 Anion Gap 9 BUN 16 Creatinine 2.65 H Est GFR ( Amer) 23 L Est GFR (Non-Af Amer) 19 L Glucose 116 H Lactic Acid 1.8 Calcium 7.9 L Total Bilirubin 0.5 AST 21 ALT 16 Alkaline Phosphatase 119 Total Protein 6.5 Albumin 2.4 L Urine Color Urine Appearance Urine pH Ur Specific [place] Urine Protein Urine Glucose (UA) Urine Ketones Urine Blood Urine Nitrite Ur Leukocyte Esterase Urine WBC (Auto) Urine RBC (Auto) Blood Type Antibody Screen 09/11/18 09/11/18 09/11/18 03:10 04:40 05:10 WBC RBC Hgb Hct MCV MCH MCHC RDW Plt Count Seg Neutrophils % Lymphocytes % Monocytes % Eosinophils % Basophils % Absolute Neutrophils Absolute Lymphocytes Absolute Monocytes Absolute Eosinophils Absolute Basophils VBG pH 7.44 H VBG pCO2 37.4 VBG HCO3 24.9 VBG Base Excess 0.8 Sodium Potassium Chloride Carbon Dioxide Anion Gap BUN Creatinine Est GFR ( Amer) Est GFR (Non-Af Amer) Glucose Lactic Acid Calcium Total Bilirubin AST ALT Alkaline Phosphatase Total Protein Albumin Urine Color AILEEN Urine Appearance TURBID Urine pH 7.0 Ur Specific [place] 1.014 Urine Protein >=500 H Urine Glucose (UA) NEGATIVE Urine Ketones NEGATIVE Urine Blood MODERATE H Urine Nitrite NEGATIVE Ur Leukocyte Esterase LARGE H Urine WBC (Auto) >182 Urine RBC (Auto) >182 Blood Type Cancelled Antibody Screen Cancelled 09/11/18 06:35 WBC RBC Hgb Hct MCV MCH MCHC RDW Plt Count Seg Neutrophils % Lymphocytes % Monocytes % Eosinophils % Basophils % Absolute Neutrophils Absolute Lymphocytes Absolute Monocytes Absolute Eosinophils Absolute Basophils VBG pH VBG pCO2 VBG HCO3 VBG Base Excess Sodium Potassium Chloride Carbon Dioxide Anion Gap BUN Creatinine Est GFR ( Amer) Est GFR (Non-Af Amer) Glucose Lactic Acid Calcium Total Bilirubin AST ALT Alkaline Phosphatase Total Protein Albumin Urine Color Urine Appearance Urine pH Ur Specific [place] Urine Protein Urine Glucose (UA) Urine Ketones Urine Blood Urine Nitrite Ur Leukocyte Esterase Urine WBC (Auto) Urine RBC (Auto) Blood Type O POSITIVE Antibody Screen NEGATIVE Impressions: Cervical Spine CT 09/11/18 02:17 IMPRESSION: No acute fracture or subluxation. Chest X-Ray 09/11/18 02:17 IMPRESSION: Cardiomegaly. Mild interstitial edema copyright 2011 [employer]- All Rights Reserved Head CT 09/11/18 02:17 IMPRESSION: No acute intracranial findings. Assessment & Plan - Diagnosis (1) ESRD (end stage renal disease) Plan: will look to place orders for dialysis tomorrow (2) Anemia due to end stage renal disease Plan: Currently asymptomatic, I do not recommend a transfusion until she becomes symptomatic or drops below 7 for her hemoglobin. We will look to give a high dose of Procrit tomorrow with dialysis. (3) Altered mental status Plan: Altered mental status most likely due to her receiving insulin while at the nursing facility but did not receive any food. Thus causing her to become hypoglycemic. She was not altered when I saw her on dialysis earlier yesterday. (4) UTI (urinary tract infection) Qualifiers: Urinary tract infection type: site unspecified Hematuria presence: with hematuria Qualified Code(s): N39.0 - Urinary tract infection, site not specified; R31.9 - Hematuria, unspecified Plan: Currently receiving Rocephin and vancomycin. Antibiotics look to be dose appropriately for dialysis. Pharmacy following Vanc troughs. Awaiting urine culture - Notes Notes: patient was discussed with Dr. Valladares.
[2018-09-11] MEDS ORDERED: INSULIN GLARGINE,HUM.REC.ANLOG 1,000 UNIT/10 ML VIAL SUBCUT SCH (22:00)
[2018-09-11] MEDS ORDERED: INSULIN GLARGINE,HUM.REC.ANLOG 1,000 UNIT/10 ML VIAL (PYX) SUBCUT ONE (22:05)
[2018-09-11] MEDS ORDERED: ACETAMINOPHEN 325 MG TABLET ONE (23:21)
[2018-09-11] MEDS ORDERED: ACETAMINOPHEN 325 MG TABLET PO PRN (23:33)
[2018-09-12] MEDS: PIPERACILLIN SODIUM/TAZOBACTAM 2.25 GM in NORMAL SALINE 50 ML IV SCH ×4 (00:35→21:23)
[2018-09-12] MEDS ORDERED: EPOETIN ALFA INJ 40000 UNIT/1 ML (RENAL) IV PRN (05:00)
[2018-09-12] MEDS ORDERED: MORPHINE SULFATE 10 MG/ML INJ ONE (05:22)
[2018-09-12] MEDS: HEPARIN SOD (PORCINE) 5,000 UNIT/ML 1 ML VIAL SUBCUT SCH ×3 (05:30→21:24)
[2018-09-12 05:37] LABS: ABSOLUTE BASOPHILS # (AUTO) 0.1 10^3/uL (0.0-0.2); ABSOLUTE EOSINOPHILS # (AUTO) 0.3 10^3/uL (0.0-0.6); ABSOLUTE LYMPHOCYTES (AUTO) 0.9 10^3/uL (0.5-4.7); ABSOLUTE MONOCYTES (AUTO) 0.5 10^3/uL (0.1-1.4); ABSOLUTE NEUT (AUTO) 2.3 10^3/uL (1.7-8.2); ABSOLUTE RETICS # 0.048 10^6/uL (0.028-0.122); HEMATOCRIT 24.3 % (36.0-47.0); LYMPHOCYTES % (AUTO) 21.3 % (13-45); MEAN CORPUSCULAR HEMOGLOBIN 27.6 pg (27.0-33.4); MEAN CORPUSCULAR HGB CONC 31.3 g/dL (32.0-36.0); MEAN CORPUSCULAR VOLUME 88 fl (80-97); MONOCYTES % (AUTO) 13.4 % (3-13); PLATELET COUNT 230 10^3/uL (150-450); RED BLOOD COUNT 2.75 10^6/uL (3.72-5.28); RETICULOCYTE COUNT (AUTO) 1.76 % (0.66-2.85); SEGMENTED NEUTROPHILS % (AUTO) 56.3 % (42-78); TOTAL CELLS COUNTED % (AUTO) 100 %; WHITE BLOOD COUNT 4.1 10^3/uL (4.0-10.5)
[2018-09-12 05:41] LABS: HEMOGLOBIN 7.6 g/dL (12.0-15.5)
[2018-09-12] MEDS ORDERED: MORPHINE SULFATE 10 MG/ML INJ IV PRN ×2 (05:45)
[2018-09-12 05:54] LABS: ANION GAP 7 (5-19); BLOOD UREA NITROGEN 24 mg/dL (7-20); CALCIUM 8.1 mg/dL (8.4-10.2); CARBON DIOXIDE 26 mmol/L (22-30); CHLORIDE 101 mmol/L (98-107); GLUCOSE 116 mg/dL (75-110); IRON(TIBC) 23.2 ug/dL (37-170); POTASSIUM 3.8 mmol/L (3.6-5.0)
[2018-09-12 07:01] LABS: FOLATE > 20.00 ng/mL (>2.76)
[2018-09-12] MEDS: MORPHINE SULFATE 10 MG/ML INJ IV PRN ×2 (09:30→12:54)
[2018-09-12] MEDS ORDERED: VANCOMYCIN HCL 1,250 MG in DEXTROSE 5%-WATER 250 ML IV SCH (10:00)
[2018-09-12] MEDS ORDERED: HEPARIN SOD (PORCINE) 1,000 UNIT/ML 10 ML VIAL IV PRN (10:30)
[2018-09-12] MEDS: CARVEDILOL 12.5 MG TABLET PO SCH ×2 (12:01→21:23)
[2018-09-12] MEDS: DOCUSATE SODIUM 100 MG CAPSULE PO SCH ×2 (12:01→17:17)
[2018-09-12] MEDS: DEXTROSE 50%-WATER 25 GM/50 ML DISP.SYRIN IV PRN ×2 (12:17→12:54)
--- NOTE | 2018-09-12 14:06 | PDOC PROGRESS REPORT ---
Subjective Progress Note for:: 09/12/18 Reason For Visit: Patient was seen today on dialysis. She is undergoing dialysis without any issues. She generally feels better. She denies any history of fever or chills. She was admitted with history of fall at the senior living and found to have fever, altered mental status. However her blood sugars were found to be low also in the ER suggestive of possible hypoglycemic event being also a causative factor besides whatever else. Has had a previous history of infected PermCath. Also recent history of shingles possible. Patient also mentioned about lower abdominal pain which is a whole lot better today than it was earlier. She also mentions about intermittent diarrhea for the last couple of days. However the same time all his questions are being asked when questioned about orientation she was very slow and only got 2 out of 3 right. Labs and medications are r eviewed. Dialysis orders were reviewed with the treating dialysis nurse. Physical Exam Vital Signs: Temp Pulse Resp BP Pulse Ox 97.6 F 64 18 136/67 H 94 09/12/18 12:12 09/12/18 12:12 09/12/18 12:12 09/12/18 12:12 09/12/18 12:12 Intake & Output 09/11/18 09/12/18 09/13/18 06:59 06:59 06:59 Intake Total 340 200 Balance 340 200 Weight 68.9 kg 67.6 kg General appearance: PRESENT: no acute distress Respiratory exam: PRESENT: clear to auscultation linda, decreased breath sounds. ABSENT: crackles Cardiovascular exam: PRESENT: +S1, +S2 GI/Abdominal exam: PRESENT: normal bowel sounds, soft, tenderness - Minimally tender with no guarding in the left lower iliac fossa.. ABSENT: distended, or ganomegaly Extremities exam: ABSENT: pedal edema Neurological exam: PRESENT: awake, oriented to person, oriented to place - She had a delayed response to these questions.. ABSENT: oriented to time Psychiatric exam: PRESENT: flat affect Skin exam: ABSENT: cyanosis, erythema, mottled, rash Results Laboratory Results: 09/12/18 04:45 09/12/18 04:45 09/12/18 09/12/18 04:45 04:45 WBC 4.1 RBC 2.75 L Hgb 7.6 L Hct 24.3 L MCV 88 MCH 27.6 MCHC 31.3 L RDW 20.0 H Plt Count 230 Seg Neutrophils % 56.3 Lymphocytes % 21.3 Monocytes % 13.4 H Eosinophils % 7.0 H Basophils % 2.0 Absolute Neutrophils 2.3 Absolute Lymphocytes 0.9 Absolute Monocytes 0.5 Absolute Eosinophils 0.3 Absolute Basophils 0.1 Retic Count (auto) 1.76 Absolute Retic 0.048 Sodium 133.5 L Potassium 3.8 Chloride 101 Carbon Dioxide 26 Anion Gap 7 BUN 24 H Creatinine 4.09 H Est GFR ( Amer) 14 L Est GFR (Non-Af Amer) 11 L Glucose 116 H Calcium 8.1 L Iron 23.2 L TIBC 138 L % Saturation 17 Ferritin 251.00 Vitamin B12 981.0 H Folate > 20.00 Impressions: Cervical Spine CT 09/11/18 02:17 IMPRESSION: No acute fracture or subluxation. Chest X-Ray 09/11/18 02:17 IMPRESSION: Cardiomegaly. Mild interstitial edema copyright 2011 [employer]- All Rights Reserved Head CT 09/11/18 02:17 IMPRESSION: No acute intracranial findings. Assessment & Plan - Diagnosis (1) ESRD (end stage renal disease) Plan: Patient currently being dialyzed. Vital signs are stable. Dialysis is being supervised to ensure safe and smooth procedure. Dialysis orders were reviewed with the treating dialysis nurse. Plan to remove it in 1 and 2 L as tolerated. Exit site of right IJ catheter did not look infected at the moment. Nontender. (2) Altered mental status Plan: Improving even though there is some delayed response. Monitor. Avoid hypoglycemia. Patient blood cultures are negative and patient is on antibiotics. (3) Anemia due to end stage renal disease Plan: Monitor. If hemoglobin drops any further plan for blood transfusion otherwise continue on erythropoietin. (4) Fever Qualifiers: Fever type: unspecified Qualified Code(s): R50.9 - Fever, unspecified (5) Hypoglycemia Plan: Patient on Lantus. Monitor carefully to avoid hypoglycemia for obvious reasons.
--- NOTE | 2018-09-12 15:10 | PDOC PROGRESS REPORT ---
Subjective Progress Note for:: 09/12/18 Subjective:: No adverse events overnight. No chest pain or shortness of breath. No nausea or vomiting. She does not complain of any abdominal pain. No diarrhea. No dysuria or flank pain. She has been eating but not large amounts. Her hemoglobin A1c last month was 6.1%. She had dialysis this morning and tolerated it well. Reason For Visit: AMS,LLQ PAIN ESRD Physical Exam Vital Signs: Temp Pulse Resp BP Pulse Ox 97.6 F 64 18 136/67 H 94 09/12/18 12:12 09/12/18 12:12 09/12/18 12:12 09/12/18 12:12 09/12/18 12:12 Intake & Output 09/11/18 09/12/18 09/13/18 06:59 06:59 06:59 Intake Total 340 200 Balance 340 200 Weight 68.9 kg 67.6 kg General appearance: PRESENT: no acute distress, cooperative, disheveled Respiratory exam: PRESENT: clear to auscultation linda, symmetrical, unlabored. ABSENT: accessory muscle use, chest wall tenderness, crackles, prolonged expiratory phas, rhonchi, tachypnea, wheezes Cardiovascular exam: PRESENT: RRR, +S1, +S2 Pulses: PRESENT: normal carotid pulses Vascular exam: PRESENT: normal capillary refill GI/Abdominal exam: PRESENT: normal bowel sounds, soft. ABSENT: distended, guarding, rebound, tenderness Extremities exam: ABSENT: clubbing, pedal edema Musculoskeletal exam: PRESENT: normal inspection. ABSENT: deformity Neurological exam: PRESENT: alert, awake, oriented to person, oriented to place Psychiatric exam: PRESENT: flat affect Skin exam: PRESENT: dry, rash - She has a resolved rash with some dry flaking skin on her abdomen where she had previously had shingles. She has an area on her neck and her forearm, separate areas, neither of which show a dermatomal distribution, and neither of which show anything on some noncontiguous macules without scabbing, flaking, or blisters, more the appearance of bruising, warm Results Laboratory Results: 09/12/18 04:45 09/12/18 04:45 09/12/18 09/12/18 04:45 04:45 WBC 4.1 RBC 2.75 L Hgb 7.6 L Hct 24.3 L MCV 88 MCH 27.6 MCHC 31.3 L RDW 20.0 H Plt Count 230 Seg Neutrophils % 56.3 Lymphocytes % 21.3 Monocytes % 13.4 H Eosinophils % 7.0 H Basophils % 2.0 Absolute Neutrophils 2.3 Absolute Lymphocytes 0.9 Absolute Monocytes 0.5 Absolute Eosinophils 0.3 Absolute Basophils 0.1 Retic Count (auto) 1.76 Absolute Retic 0.048 Sodium 133.5 L Potassium 3.8 Chloride 101 Carbon Dioxide 26 Anion Gap 7 BUN 24 H Creatinine 4.09 H Est GFR ( Amer) 14 L Est GFR (Non-Af Amer) 11 L Glucose 116 H Calcium 8.1 L Iron 23.2 L TIBC 138 L % Saturation 17 Ferritin 251.00 Vitamin B12 981.0 H Folate > 20.00 Impressions: Cervical Spine CT 09/11/18 02:17 IMPRESSION: No acute fracture or subluxation. Chest X-Ray 09/11/18 02:17 IMPRESSION: Cardiomegaly. Mild interstitial edema copyright 2011 [employer]- All Rights Reserved Head CT 09/11/18 02:17 IMPRESSION: No acute intracranial findings. Assessment and Plan - Diagnosis (1) Hypoglycemia Is this a current diagnosis for this admission?: Yes Plan: For a hemoglobin A1c of 6.1 she was on a rather aggressive insulin regimen. I think her encephalopathy most likely was due to her hypoglycemia. We have been holding her insulin and had her on a small dose of the dextrose infusion just to keep her blood sugar up enough until Lantus is out of her system. We are encouraging oral intake. (2) Fever Qualifiers: Fever type: unspecified Qualified Code(s): R50.9 - Fever, unspecified Is this a current diagnosis for this admission?: Yes Plan: Not entirely sure of the etiology of this. She is empirically on antibiotics and a urine culture is pending, but the urinalysis was not overwhelmingly convincing for a source. There was some vague complaints of abdominal pain but she is not complaining of any abdominal pain at this time, nor has she had any somatic manifestations of an abdominal process. She does not have active shingles, and I do not believe what she has on her neck and forearm represent shingles, or cellulitis. (3) Anemia due to end stage renal disease Is this a current diagnosis for this admission?: Yes Plan: She is getting Procrit during dialysis, plan to transfuse if hemoglobin drops below 7 (4) ESRD (end stage renal disease) Is this a current diagnosis for this admission?: Yes Plan: Nephrology has been consulted for hemodialysis (5) Toxic metabolic encephalopathy Is this a current diagnosis for this admission?: Yes Plan: Resolved - Time Time Spent with patient: 15-24 minutes
[2018-09-12] MEDS ORDERED: VANCOMYCIN HCL 750 MG in DEXTROSE 5%-WATER 250 ML IV SCH (18:00)
[2018-09-12] MEDS ORDERED: PIPERACILLIN SODIUM/TAZOBACTAM 2.25 GM in NORMAL SALINE 50 ML IV SCH (22:00)
--- NOTE | 2018-09-12 22:29 | XCELERA REPORT ---
[address] [address] Transthoracic Echocardiogram Report Name: ENEIDA JOHNSON Age: 58 yrs Gender: Female : 1960 Patient Status: Inpatient Patient Location: [place] [address]^A Study Date: 09/11/2018 08:44 AM Height: 63 in Weight: 151 lb BSA: 1.7 m2 Procedure: A two-dimensional transthoracic echocardiogram with color flow and Doppler was performed. The study was technically limited with all images being suboptimal in quality. Reason For Study: sepsis / bacteremia / Endocarditis History: sepsis / bacteremia / Endocarditis. Ordering Physician: GENO GARCIA Performed By: Hannah Garnica Interpretation Summary No defenite Valvular vegetations seen.If clinical suspicion is high , then recommend IVORY. The left ventricle is normal in size. There is normal left ventricular wall thickness. LV EF is 60% The left ventricular ejection fraction is normal. Doppler measurements suggest normal left ventricular diastolic function The left ventricular wall motion is normal. Septal motion is consistent with conduction abnormality There is no thrombus. Cannot assess for ASD,VSD,or PFO. The right ventricle is normal in size and function. The right atrium is normal. The left atrial size is normal. There is no evidence of mitral valve prolapse. There is no vegetation seen on the mitral valve. There is no mitral valve stenosis. Posteriorly directed eccentric mild MR jet. There is no aortic valvular vegetation. There is aortic sclerosis without aortic stenosis. There is no LVOT obstruction. No aortic regurgitation is present. There is no tricuspid stenosis. There is a trace amount of tricuspid regurgitation No significant pulmonary hypertension.RVSP is 27 to 32 mm of Hg , with RA mean of 5 to 10. There is no pulmonic valvular stenosis. There is a trace amount of pulmonic regurgitation The aortic root is normal size. The inferior vena cava appeared normal and decreased > 50% with respiration (RAP 5-10 mmHg) There is no pericardial effusion. No defenite Valvular vegetations seen.If clinical suspicion is high , then recommend IVORY. MMode/2D Measurements & Calculations RVDd: 2.6 cm LVIDd: 4.4 cm FS: 31.3 % Ao root diam: 2.4 cm IVSd: 1.0 cm LVIDs: 3.0 cm EDV(Teich): LVPWd: 1.1 cm 88.3 ml Ao root area: ESV(Teich): 4.7 cm2 35.8 ml EF(Teich): 59.4 % EDV(MOD-sp4): SV(MOD-sp4): 105.0 ml 59.3 ml ESV(MOD-sp4): 45.7 ml EF(MOD-sp4): 56.5 % Doppler Measurements & Calculations MV E max keshawn: MV dec slope: Ao V2 max: LV V1 max P.9 cm/sec 167.6 cm/sec 6.0 mmHg MV A max keshawn: 537.9 cm/sec2 Ao max PG: LV V1 max: 48.9 cm/sec MV dec time: 11.2 mmHg 122.2 cm/sec MV E/A: 2.3 0.21 sec PA V2 max: PI end-d keshawn: TR max keshawn: 93.1 cm/sec 49.3 cm/sec 236.0 cm/sec PA max P.5 mmHg TR max P.3 mmHg Left Ventricle The left ventricle is normal in size. There is normal left ventricular wall thickness. LV EF is 60%. The left ventricular ejection fraction is normal. Doppler measurements suggest normal left ventricular diastolic function. The left ventricular wall motion is normal. Septal motion is consistent with conduction abnormality. There is no thrombus. Cannot assess for ASD,VSD,or PFO. Right Ventricle The right ventricle is normal in size and function. Atria The right atrium is normal. The left atrial size is normal. Mitral Valve There is no evidence of mitral valve prolapse. There is no vegetation seen on the mitral valve. There is no mitral valve stenosis. Posteriorly directed eccentric mild MR jet. Aortic Valve There is no aortic valvular vegetation. There is aortic sclerosis without aortic stenosis. There is no LVOT obstruction. No aortic regurgitation is present. Tricuspid Valve There is no tricuspid valve vegetation. There is no tricuspid stenosis. There is a trace amount of tricuspid regurgitation. No significant pulmonary hypertension.RVSP is 27 to 32 mm of Hg , with RA mean of 5 to 10. Pulmonic Valve There is no pulmonic valvular stenosis. There is a trace amount of pulmonic regurgitation. Great Vessels The aortic root is normal size. The inferior vena cava appeared normal and decreased > 50% with respiration (RAP 5-10 mmHg). Effusions There is no pericardial effusion. : GENO GARCIA > Tete Abdi
[2018-09-13] MEDS: DEXTROSE 5%-1/2 NORMAL SALINE 1,000 ML IV PRN (02:11)
[2018-09-13] MEDS: MORPHINE SULFATE 10 MG/ML INJ IV PRN (02:17)
[2018-09-13 05:28] LABS: ABSOLUTE BASOPHILS # (AUTO) 0.1 10^3/uL (0.0-0.2); ABSOLUTE EOSINOPHILS # (AUTO) 0.2 10^3/uL (0.0-0.6); ABSOLUTE LYMPHOCYTES (AUTO) 0.8 10^3/uL (0.5-4.7); ABSOLUTE MONOCYTES (AUTO) 0.7 10^3/uL (0.1-1.4); ABSOLUTE NEUT (AUTO) 3.1 10^3/uL (1.7-8.2); BASOPHILS % (AUTO) 1.7 % (0-2); HEMATOCRIT 26.4 % (36.0-47.0); HEMOGLOBIN 8.4 g/dL (12.0-15.5); LYMPHOCYTES % (AUTO) 16.8 % (13-45); MEAN CORPUSCULAR HEMOGLOBIN 28.1 pg (27.0-33.4); MEAN CORPUSCULAR HGB CONC 31.9 g/dL (32.0-36.0); MEAN CORPUSCULAR VOLUME 88 fl (80-97); MONOCYTES % (AUTO) 14.6 % (3-13); PLATELET COUNT 288 10^3/uL (150-450); RED CELL DISTRIBUTION WIDTH 19.5 % (11.5-14.0); SEGMENTED NEUTROPHILS % (AUTO) 62.9 % (42-78); TOTAL CELLS COUNTED % (AUTO) 100 %; WHITE BLOOD COUNT 4.9 10^3/uL (4.0-10.5)
[2018-09-13] MEDS: PIPERACILLIN SODIUM/TAZOBACTAM 2.25 GM in NORMAL SALINE 50 ML IV SCH ×3 (06:42→22:09)
[2018-09-13] MEDS: HEPARIN SOD (PORCINE) 5,000 UNIT/ML 1 ML VIAL SUBCUT SCH ×3 (06:42→22:10)
[2018-09-13] MEDS: DOCUSATE SODIUM 100 MG CAPSULE PO SCH ×2 (09:09→17:17)
[2018-09-13] MEDS: CARVEDILOL 12.5 MG TABLET PO SCH ×2 (09:11→22:09)
[2018-09-13] MEDS ORDERED: DEXTROSE 50%-WATER 25 GM/50 ML DISP.SYRIN IV PRN ×2 (14:53)
[2018-09-13] MEDS ORDERED: DEXTROSE 40% GEL 15 GM TUBE PO PRN ×2 (14:53)
[2018-09-13] MEDS ORDERED: GLUCAGON,HUMAN RECOMB 1 MG INJ IM PRN (14:53)
--- NOTE | 2018-09-13 16:29 | PDOC PROGRESS REPORT ---
Subjective Progress Note for:: 09/13/18 Subjective:: No adverse events overnight. No new complaints. She had a large bowel movement today. Vital signs been stable. Blood sugars are starting to trend up. She is been eating. Reason For Visit: AMS,LLQ PAIN ESRD Physical Exam Vital Signs: Temp Pulse Resp BP Pulse Ox 98.4 F 75 17 156/70 H 97 09/13/18 15:15 09/13/18 15:15 09/13/18 15:15 09/13/18 15:15 09/13/18 15:15 Intake & Output 09/12/18 09/13/18 09/14/18 06:59 06:59 06:59 Intake Total 340 1700 410 Output Total 2200 Balance 340 -500 410 Weight 67.6 kg 65.7 kg General appearance: PRESENT: no acute distress, cooperative, disheveled Respiratory exam: PRESENT: clear to auscultation linda, symmetrical, unlabored. ABSENT: accessory muscle use, chest wall tenderness, crackles, prolonged expiratory phas, rhonchi, tachypnea, wheezes Cardiovascular exam: PRESENT: RRR, +S1, +S2 Pulses: PRESENT: normal carotid pulses Vascular exam: PRESENT: normal capillary refill GI/Abdominal exam: PRESENT: normal bowel sounds, soft. ABSENT: distended, guarding, rebound, tenderness Extremities exam: ABSENT: clubbing, pedal edema Musculoskeletal exam: PRESENT: normal inspection. ABSENT: deformity Neurological exam: PRESENT: alert, awake, oriented to person, oriented to place Psychiatric exam: PRESENT: flat affect Results Laboratory Results: 09/13/18 04:22 09/12/18 04:45 09/13/18 04:22 WBC 4.9 RBC 3.00 L Hgb 8.4 L Hct 26.4 L MCV 88 MCH 28.1 MCHC 31.9 L RDW 19.5 H Plt Count 288 Seg Neutrophils % 62.9 Lymphocytes % 16.8 Monocytes % 14.6 H Eosinophils % 4.0 Basophils % 1.7 Absolute Neutrophils 3.1 Absolute Lymphocytes 0.8 Absolute Monocytes 0.7 Absolute Eosinophils 0.2 Absolute Basophils 0.1 09/11/18 04:40 Catheterized Urine Urine Culture - Final Viridans Streptococcus Impressions: Cervical Spine CT 09/11/18 02:17 IMPRESSION: No acute fracture or subluxation. Chest X-Ray 09/11/18 02:17 IMPRESSION: Cardiomegaly. Mild interstitial edema copyright 2010 [employer]- All Rights Reserved Head CT 09/11/18 02:17 IMPRESSION: No acute intracranial findings. Assessment and Plan - Diagnosis (1) Hypoglycemia Is this a current diagnosis for this admission?: Yes Plan: Resolved. Discontinue the dextrose infusion and will put her on a sliding s trevor. (2) Fever Qualifiers: Fever type: unspecified Qualified Code(s): R50.9 - Fever, unspecified Is this a current diagnosis for this admission?: Yes Plan: Not entirely sure of the etiology of this. She is empirically on antibiotics and a urine culture is pending, but the urinalysis was not overwhelmingly convincing for a source. There was some vague complaints of abdominal pain but she is not complaining of any abdominal pain at this time, nor has she had any somatic manifestations of an abdominal process. She does not have active shingles, and I do not believe what she has on her neck and forearm represent shingles, or cellulitis. I will likely transition her to oral antibiotics tomorrow. (3) Anemia due to end stage renal disease Is this a current diagnosis for this admission?: Yes Plan: She is getting Procrit during dialysis, plan to transfuse if hemoglobin drops below 7 (4) ESRD (end stage renal disease) Is this a current diagnosis for this admission?: Yes Plan: Nephrology has been consulted for hemodialysis (5) Toxic metabolic encephalopathy Is this a current diagnosis for this admission?: Yes Plan: Resolved - Time Time Spent with patient: 15-24 minutes
[2018-09-13] MEDS: INSULIN LISPRO 100 UNIT/ML 3 ML VIAL SUBCUT SCH ×2 (16:36→22:08)
[2018-09-13] MEDS: OXYCODONE HCL IR 5 MG TABLET PO PRN (22:19)
[2018-09-14] MEDS ORDERED: EPOETIN ALFA INJ 20000 UNIT/1 ML VIAL (RENAL) IV PRN (05:00)
[2018-09-14 05:39] LABS: ABSOLUTE BASOPHILS # (AUTO) 0.1 10^3/uL (0.0-0.2); ABSOLUTE EOSINOPHILS # (AUTO) 0.2 10^3/uL (0.0-0.6); ABSOLUTE MONOCYTES (AUTO) 0.9 10^3/uL (0.1-1.4); ABSOLUTE NEUT (AUTO) 3.2 10^3/uL (1.7-8.2); BASOPHILS % (AUTO) 1.8 % (0-2); HEMATOCRIT 25.8 % (36.0-47.0); HEMOGLOBIN 8.2 g/dL (12.0-15.5); MEAN CORPUSCULAR HEMOGLOBIN 27.8 pg (27.0-33.4); MEAN CORPUSCULAR VOLUME 87 fl (80-97); MONOCYTES % (AUTO) 16.8 % (3-13); PLATELET COUNT 297 10^3/uL (150-450); RED BLOOD COUNT 2.96 10^6/uL (3.72-5.28); RED CELL DISTRIBUTION WIDTH 19.1 % (11.5-14.0); SEGMENTED NEUTROPHILS % (AUTO) 59.4 % (42-78); TOTAL CELLS COUNTED % (AUTO) 100 %; WHITE BLOOD COUNT 5.4 10^3/uL (4.0-10.5)
[2018-09-14] MEDS: HEPARIN SOD (PORCINE) 5,000 UNIT/ML 1 ML VIAL SUBCUT SCH ×2 (05:39→13:02)
[2018-09-14] MEDS: PIPERACILLIN SODIUM/TAZOBACTAM 2.25 GM in NORMAL SALINE 50 ML IV SCH ×2 (05:39→14:13)
[2018-09-14 05:55] LABS: ANION GAP 11 (5-19); BLOOD UREA NITROGEN 27 mg/dL (7-20); CALCIUM 8.8 mg/dL (8.4-10.2); CARBON DIOXIDE 24 mmol/L (22-30); CHLORIDE 97 mmol/L (98-107); GLUCOSE 230 mg/dL (75-110); POTASSIUM 4.3 mmol/L (3.6-5.0)
[2018-09-14] MEDS ORDERED: EPOETIN ALFA-EPBX 10,000 UNIT/ML VIAL (RENAL) IV PRN (07:03)
[2018-09-14] MEDS: OXYCODONE HCL IR 5 MG TABLET PO PRN ×2 (07:07→14:13)
[2018-09-14] MEDS: INSULIN LISPRO 100 UNIT/ML 3 ML VIAL SUBCUT SCH ×2 (08:07→12:51)
--- NOTE | 2018-09-14 11:10 | PDOC PROGRESS REPORT ---
Subjective Progress Note for:: 09/14/18 Reason For Visit: Patient seen today on dialysis. She is quite comfortable and undergoing dialysis without any issues. She complains of back pain but otherwise doing better. Her mind is much clearer and she is able to answer questions appropriately. She denies any history of chest pain or shortness of breath. Labs and medications were reviewed the patient. Blood sugars are more stable unlike the presentation of hypoglycemia. Dialysis orders were reviewed with the treating dialysis nurse. Physical Exam Vital Signs: Temp Pulse Resp BP Pulse Ox 99.6 F 78 16 112/55 L 92 09/14/18 03:37 09/14/18 07:00 09/14/18 03:37 09/14/18 03:37 09/14/18 03:37 Intake & Output 09/13/18 09/14/18 09/15/18 06:59 06:59 06:59 Intake Total 1700 1210 50 Output Total 2200 Balance -500 1210 50 Weight 65.7 kg 66.9 kg General appearance: PRESENT: no acute distress Respiratory exam: PRESENT: clear to auscultation linda. ABSENT: crackles Cardiovascular exam: PRESENT: +S1, +S2 GI/Abdominal exam: PRESENT: normal bowel sounds, soft, tenderness - Minimally tender with no guarding in the left lower iliac fossa.. ABSENT: distended, organomegaly Extremities exam: ABSENT: pedal edema Neurological exam: PRESENT: alert, awake, oriented to person, oriented to place Psychiatric exam: PRESENT: appropriate affect Results Laboratory Results: 09/14/18 06:00 09/14/18 04:43 09/14/18 09/14/18 04:43 06:00 WBC 5.4 RBC 2.96 L Hgb 8.2 L Hct 25.8 L MCV 87 MCH 27.8 MCHC 32.0 RDW 19.1 H Plt Count 297 Seg Neutrophils % 59.4 Lymphocytes % 19.0 Monocytes % 16.8 H Eosinophils % 3.0 Basophils % 1.8 Absolute Neutrophils 3.2 Absolute Lymphocytes 1.0 Absolute Monocytes 0.9 Absolute Eosinophils 0.2 Absolute Basophils 0.1 Sodium 132.2 L Potassium 4.3 Chloride 97 L Carbon Dioxide 24 Anion Gap 11 BUN 27 H Creatinine 4.49 H Est GFR ( Amer) 12 L Est GFR (Non-Af Amer) 10 L Glucose 230 H Calcium 8.8 Impressions: Cervical Spine CT 09/11/18 02:17 IMPRESSION: No acute fracture or subluxation. Chest X-Ray 09/11/18 02:17 IMPRESSION: Cardiomegaly. Mild interstitial edema copyright 2011 [employer]- All Rights Reserved Head CT 09/11/18 02:17 IMPRESSION: No acute intracranial findings. Assessment & Plan - Diagnosis (1) ESRD (end stage renal disease) Is this a current diagnosis for this admission?: Yes Plan: Patient currently being dialyzed. Vital signs are stable. Dialysis is being supervised to ensure safe and smooth procedure. Dialysis orders were reviewed with the treating dialysis nurse. Plan to remove it in 1 and 2 L as tolerated. (2) Altered mental status Plan: Currently she is back to her baseline and her altered mental status have resolved. Most likely hypoglycemia could have been the major factor in her presentation. Did not really see any signs of infection or sepsis to account for it. However that said her initial presentation temperature was 100.8. She is growing strep viridans in the urine which I suspect. I would consider stopping all antibiotics given her current recovery status and monitoring if needs to be prior to discharge. Another option would be to convert her to p.o. antibiotics. (3) Anemia due to end stage renal disease Is this a current diagnosis for this admission?: Yes Plan: Will adjust erythropoietin. (4) Hypoglycemia Is this a current diagnosis for this admission?: Yes Plan: Currently taken off Lantus and on sliding scale. Patient back to baseline and normoglycemic.
[2018-09-14] MEDS: DOCUSATE SODIUM 100 MG CAPSULE PO SCH (11:46)
[2018-09-14] MEDS: CARVEDILOL 12.5 MG TABLET PO SCH (12:51)
--- NOTE | 2018-09-14 14:26 | PDOC TRANSFER SUMMARY ---
General - Admit/Disc Date/PCP Admission Date/Primary Care Provider: 09/11/18 05:45 ADITYA HARDING MD Discharge Date: 09/14/18 - Discharge Diagnosis (1) Hypoglycemia Is this a current diagnosis for this admission?: Yes Summary: It appears that she had been taking Lantus twice a day. The information we had said she was getting 18 units twice a day. She said that before she went to [facility] she was only taking it once a day. We took her off Lantus altogether and let any potential residual drug in her system clear out. I anticipate that she will be able to have good glycemic control without getting hypoglycemic on 10 units of Lantus once a day plus a sliding scale. (2) Fever Is this a current diagnosis for this admission?: Yes Summary: Source was unknown. She had a fever when she was picked up and had a temperature of 100.8 Fahrenheit on her initial presentation. She was empirically put on antibiotics per culture results have been negative. Not sure of any etiology. Because she is been afebrile since her initial presentation and we have not identified a definite source, we will discontinue antibiotics. (3) Anemia due to end stage renal disease Is this a current diagnosis for this admission?: Yes Summary: She is getting Procrit with dialysis (4) ESRD (end stage renal disease) Is this a current diagnosis for this admission?: Yes Summary: Nephrology was consulted for her regular hemodialysis (5) Toxic metabolic encephalopathy Is this a current diagnosis for this admission?: Yes Summary: Due to her hypoglycemia, now resolved - Additional Information Resuscitation Status: Do Not Resuscitate Discharge Diet: Diabetic, Other (Comments) - hemodialysis Discharge Activity: Slowly Increase Activity, Supervised Activity Home Medications: Acetaminophen [Tylenol 325 mg Tablet] 650 mg PO Q6HP PRN 09/11/18 Aspirin [Aspirin 81 mg Chewable Tablet] 81 mg PO DAILY 09/11/18 Atorvastatin Calcium [Lipitor 40 mg Tablet] 40 mg PO QHS 09/11/18 Carvedilol [Coreg 25 mg Tablet] 25 mg PO Q12 09/11/18 Diphenhydramine HCl/Zinc Acet [Benadryl Itch Stopping Cream] 1 applic TOP TIDP PRN 09/11/18 Ergocalciferol (Vitamin D2) [Drisdol 50,000 unit (1.25MG) Capsule] 50,000 unit PO MOWEFR@1000 09/11/18 Estrogens,Conjugated [Premarin Vaginal Cream (0.625 mg/gm) 30 gm] 1 applic PV DA MARILUZ 09/11/18 Fluoxetine HCl [Prozac 20 mg Capsule] 20 mg PO DAILY 09/11/18 Folic Acid/Vitamin B Comp W-C [Nephrocaps Softgel] 1 cap PO QHS 09/11/18 Insulin Lispro [Humalog Insulin (Lispro) 100 unit/mL] See Protocol SQ ACHS 09/11/18 Levocetirizine Dihydrochloride [Xyzal] 5 mg PO QHS 09/11/18 Omeprazole 20 mg PO BID 09/11/18 Oxycodone HCl [Oxy-Ir 5 mg Tablet] 5 mg PO Q6HP PRN 09/11/18 Petrolatum,White [Petroleum Jelly] 1 applic TOP DAILYP PRN 09/11/18 Pregabalin [Lyrica 75 mg Capsule] 75 mg PO BID 09/11/18 Insulin Glargine,Hum.rec.anlog [Lantus Insulin 100 Unit/1 ml 10 ml] 10 unit SQ DAILY #0 09/14/18 History of Present Illness Admission Date/PCP: 09/11/18 05:45 ADITYA HARDING MD History of Present Illness: ENEIDA JOHNSON is a 58 year old female with a partial past medical history of oliguric end-stage renal failure on hemodialysis via permacath with Dr. Degroot Monday, insulin-dependent diabetes, hypertension and shingles. [facility] without injury and found to have a fever. Patient complains of left lower quadrant pain and left cervical pain following shingles outbreak 5 days ago. In the emergency room she is found to have confusion, fever, pyuria and left lower quadrant pain. Patient is speaking clearly and appears to be at baseline currently denying confusion or focal weakness. She denies any medications. Hospital Course Hospital Course: She did have a fever whenever she came in but she did not have any further fever after her initial presentation. No source was ever identified. She was put empirically on antibiotics, these will not be continued light of the fact that her cultures were all negative as she is been afebrile since she initially showed up. The more likely source of her encephalopathy was her persistent hypoglycemia. It seems that she had been taking Lantus once a day at home, and when she was at [facility] she was getting it twice a day. We kept her off all insulin and hypoglycemics kept on a dextrose infusion while she ate. It took her a couple days before her blood sugars came up and started to normalize. She had a good response to sliding scale insulin. She was getting 18 units twice a day according to the medical records that we got from [facility]. I am going to send her back on 10 units of Lantus once a day instead, plus a sliding scale. Further titration can be made according to her response. She had hemodialysis on her usual schedule. Her other comorbid conditions were managed with her home medications and were not acutely exacerbated. Her labs and examination were reassuring and she was discharged in good condition. It was also initially thought that she had a rash on her neck and her forearm that could have been shingles, but it is not a dermatomal distribution nor is it contiguous or pa inful or itching, and it lacked any evidence of blisters or vesicles. Therefore it was determined that this is not shingles and she does not need treatment. Physical Exam Vital Signs: Temp Pulse Resp BP Pulse Ox 97.9 F 72 17 104/51 L 98 09/14/18 11:28 09/14/18 11:28 09/14/18 11:28 09/14/18 11:28 09/14/18 11:28 Intake & Output 09/13/18 09/14/18 09/15/18 06:59 06:59 06:59 Intake Total 1700 1210 1050 Output Total 2200 1100 Balance -500 1210 -50 Weight 65.7 kg 66.9 kg General appearance: PRESENT: no acute distress, cooperative, disheveled Respiratory exam: PRESENT: clear to auscultation linda, symmetrical, unlabored. ABSENT: accessory muscle use, chest wall tenderness, crackles, prolonged expiratory phas, rhonchi, tachypnea, wheezes Cardiovascular exam: PRESENT: RRR, +S1, +S2 Pulses: PRESENT: normal carotid pulses Vascular exam: PRESENT: normal capillary refill GI/Abdominal exam: PRESENT: normal bowel sounds, soft. ABSENT: distended, guarding, rebound, tenderness Extremities exam: ABSENT: clubbing, pedal edema Musculoskeletal exam: PRESENT: normal inspection. ABSENT: deformity Neurological exam: PRESENT: alert, awake, oriented to person, oriented to place Psychiatric exam: PRESENT: flat affect Results Laboratory Results: 09/14/18 06:00 09/14/18 04:43 09/14/18 09/14/18 04:43 06:00 WBC 5.4 RBC 2.96 L Hgb 8.2 L Hct 25.8 L MCV 87 MCH 27.8 MCHC 32.0 RDW 19.1 H Plt Count 297 Seg Neutrophils % 59.4 Lymphocytes % 19.0 Monocytes % 16.8 H Eosinophils % 3.0 Basophils % 1.8 Absolute Neutrophils 3.2 Absolute Lymphocytes 1.0 Absolute Monocytes 0.9 Absolute Eosinophils 0.2 Absolute Basophils 0.1 Sodium 132.2 L Potassium 4.3 Chloride 97 L Carbon Dioxide 24 Anion Gap 11 BUN 27 H Creatinine 4.49 H Est GFR ( Amer) 12 L Est GFR (Non-Af Amer) 10 L Glucose 230 H Calcium 8.8 Impressions: Cervical Spine CT 09/11/18 02:17 IMPRESSION: No acute fracture or subluxation. Chest X-Ray 09/11/18 02:17 IMPRESSION: Cardiomegaly. Mild interstitial edema copyright 2011 [employer]- All Rights Reserved Head CT 09/11/18 02:17 IMPRESSION: No acute intracranial findings. Transfer Plan - Time Spent with Patient Time spent with patient: Greater than 30 Minutes Qualifiers - * PATIENT BEING DISCHARGED WITH ANY OF THE FOLLOWING DIAGNOSIS: No Acute Heart Failure - Is this a Heart Failure Patient?: No Plan Time Spent: Greater than 30 Minutes
[2018-09-14 15:48] VITALS: BP 94/44
== END 2018-09-14 16:15 | DRG 638 ==
LOC: ER 02:05 → EH 05:45 → 3N 13:05
PROVIDERS: ADMIT Internal Medicine; ATTEND Internal Medicine
DX: E11.649 Type 2 diabetes mellitus with hypoglycemia without coma (principal); I12.0 Hypertensive chronic kidney disease with stage 5 chronic kidney disease or end stage renal disease; N39.0 Urinary tract infection, site not specified; N18.6 End stage renal disease; G92 Toxic encephalopathy; D63.1 Anemia in chronic kidney disease; E11.22 Type 2 diabetes mellitus with diabetic chronic kidney disease; W19.XXXA Unspecified fall, initial encounter; I25.10 Atherosclerotic heart disease of native coronary artery without angina pectoris; E78.5 Hyperlipidemia, unspecified; J44.9 Chronic obstructive pulmonary disease, unspecified; K21.9 Gastro-esophageal reflux disease without esophagitis; F32.9 Major depressive disorder, single episode, unspecified; R31.9 Hematuria, unspecified; N17.9 Acute kidney failure, unspecified; E78.00 Pure hypercholesterolemia, unspecified; R21 Rash and other nonspecific skin eruption; R50.9 Fever, unspecified; Z66 Do not resuscitate; Z99.2 Dependence on renal dialysis; Z79.4 Long term (current) use of insulin; Z79.899 Other long term (current) drug therapy; Z86.718 Personal history of other venous thrombosis and embolism; Z95.1 Presence of aortocoronary bypass graft; Z91.048 Other nonmedicinal substance allergy status; Z90.49 Acquired absence of other specified parts of digestive tract; Z79.82 Long term (current) use of aspirin; Z82.49 Family history of ischemic heart disease and other diseases of the circulatory system; Z83.3 Family history of diabetes mellitus
CPT/HCPCS: 36415; 51701; 70450; 71045; 72125; 80048; 80053; 81001; 82607; 82728; 82746; 82803; 82962; 83540; 83550; 83605; 85025; 85045; 86850; 86900; 86901; 86920; 86922; 87040; 87086; 87493; 93306; 99285; J1644; J1815; J2270; J2543; J3370; J3490; J7030; J7060; Q4081; Q5105

== ENCOUNTER 2018-11-01 01:57 | Emergency (ER) | payer SELFPAY ==
--- NOTE | 2018-11-01 02:13 | ER Document Report ---
ED Fall - General Stated Complaint: FALL Time Seen by Provider: 11/01/18 02:12 Primary Care Provider: ADITYA HARDING MD [Primary Care Provider] - Follow up as needed Mode of Arrival: Stretcher Information source: Patient, Emergency Med Personnel Notes: HISTORY OF PRESENT ILLNESS: Patient is a 58-year-old female with an extensive past medical history including end-stage renal disease and diabetes who presents with mechanical fall as the patient reports that she was reaching from bed and slipped out, landing on hard jesse and hitting her head. Patient also was noted to have hypoglycemia upon EMS arrival, receiving oral glucose with improvement. Patient denies loss of consciousness. She denies vision changes or other current symptoms other than "being sleepy." Location: Head Onset: Prior to arrival Provocation: Accidental fall Quality: Hypoglycemia Radiation: None Severity: Mild Timing: Episodic Associated symptoms: Denies vision changes, no loss of consciousness, no ataxia, no weakness of the extremities, no confusion/disorientation REVIEW OF SYSTEMS: CONSTITUTIONAL : Positive for general weakness. Denies fever or chills, no sweats. Denies recent illness. EENT: Denies eye, ear, throat, or mouth pain or symptoms. Denies nasal or sinus congestion. CARDIOVASCULAR: Denies chest pain. RESPIRATORY: Denies cough, cold, or chest congestion. Denies shortness of b reath, difficulty breathing, or wheezing. GASTROINTESTINAL: Denies abdominal pain. Denies nausea, vomiting, or diarrhea. Denies constipation. GENITOURINARY: Denies difficulty urinating, painful urination, burning, frequency, or blood in urine. Denies vaginal bleeding, abnormal or irregular periods. MUSCULOSKELETAL: Denies neck or back pain or joint pain or swelling. SKIN: Denies rash or skin lesions. HEMATOLOGIC : Denies easy bruising or bleeding. LYMPHATIC: Denies swollen, enlarged glands. NEUROLOGICAL: Denies altered mental status or loss of consciousness. Denies headache. Denies weakness or paralysis or loss of use of either side. Denies problems with gait or speech. Denies sensory or motor loss. PSYCHIATRIC: Denies anxiety or stress or depression. All other systems reviewed and negative. PHYSICAL EXAMINATION: GENERAL: Frail-appearing, well-nourished and in no acute distress. HEAD: Atraumatic, normocephalic. No scalp deformity, depression, or crepitance. EYES: Pupils are 2mm and equal/round/reactive to light, extraocular movements intact, sclera anicteric, conjunctiva are normal. ENT: Nares patent bilaterally, oropharynx clear without exudates or palatal p etechia. Moist mucous membranes. No tonsil hypertrophy. NECK: Normal range of motion, supple without lymphadenopathy. LUNGS: Vascular catheter located in the right upper chest wall. Breath sounds present, equal, and clear to auscultation bilaterally. No wheezes, rales, or rhonchi. HEART: Regular rate and rhythm without murmurs, rubs, or gallops. 2+ peripheral pulses. Normal capillary refill. ABDOMEN: Soft, nontender, nondistended. Normoactive bowel sounds. No guarding, no rebound. No masses appreciated. BACK: Normal contour, no midline tenderness. Rectal exam deferred. PELVC: Deferred. EXTREMITIES: Normal range of motion, no pitting or edema. No cyanosis. NEUROLOGICAL: No focal neurological deficits. Moves all extremities spontaneously and on command. PSYCH: Normal mood, normal affect. No suicidal thoughts/ideations. No homicidal thoughts/ideations. No hallucinations. SKIN: Warm, dry, normal turgor, no rashes or lesions noted. ASSESSMENT AND PLAN: This patient is a 58-year-old female who presents with mechanical fall with episode of hypoglycemia, unknown if hypoglycemia precipitated the event or if the fall was simply mechanical in origin. 1. Will obtain labs, urine, CT scan of the head, and reassess the patient. 2. Will give IV fluids, including glucose, as indicated. TRAVEL OUTSIDE OF THE [place] IN LAST 30 DAYS: No - HPI Occurred: Just prior to arrival Where: Home Context: Slipped Associated symptoms: None Location of injury/pain: Head Quality of pain: No pain Severity: None Pain Level: Denies - Related data Allergies/Adverse Reactions: aloe vera Allergy (Verified 09/11/18 08:46) No Known Drug Allergies Allergy (Verified 09/11/18 08:46) Past Medical History - General Information source: Patient, Emergency Med Personnel - Social History Smoking Status: Never Smoker Chew tobacco use (# tins/day): No Frequency of alcohol use: None Drug Abuse: None Lives with: Assisted Family History: CAD, DM, Hypertension. denies: Malignancy - Past Medical History Cardiac Medical History: Reports: Hx Atrial Fibrillation, Hx Coronary Artery Disease, Hx DVT, Hx Hypercholesterolemia, Hx Hypertension Pulmonary Medical History: Reports: Hx Bronchitis, Hx COPD, Hx Pneumonia Denies: Hx Asthma EENT Medical History: Reports: None Neurological Medical History: Reports: None. Denies: Hx Seizures Endocrine Medical History: Reports: Hx Diabetes Mellitus Type 2. Denies: Hx Diabetes Mellitus Type 1, Hx Hyperthyroidism, Hx Hypothyroidism Renal/ Medical History: Reports: Hx Hemodialysis. Denies: Hx Peritoneal Dialysis Malignancy Medical History: Reports: None GI Medical History: Reports: Hx Gastroesophageal Reflux Disease, Hx Ulcer. Denies: Hx Cirrhosis, Hx Hepatitis Musculoskeletal Medical History: Reports None, Denies Hx Arthritis, Denies Hx Fibromyalgia Skin Medical History: Reports None, Denies Hx Eczema, Denies Hx Psoriasis Psychiatric Medical History: Reports: Hx Depression Traumatic Medical History: Reports: None Infectious Medical History: Reports: None. Denies: Hx Hepatitis Past Surgical History: Reports: Hx Abdominal Surgery - small bowel resection, Hx Cardiac Surgery - cabg x2, Hx Section - x3, Hx Coronary Artery Bypass Graft, Other - Vena cava filter, abdominal surgery for repair of perforated stomach ulcer - Immunizations Immunizations up to date: Yes Hx Pneumococcal Vaccination: 11/20/16 Review of Systems - Review of Systems Constitutional: No symptoms reported EENT: No symptoms reported Cardiovascular: No symptoms reported Respiratory: No symptoms reported Gastrointestinal: No symptoms reported Genitourinary: No symptoms reported Female Genitourinary: No symptoms reported Musculoskeletal: No symptoms reported Skin: No symptoms reported Hematologic/Lymphatic: No symptoms reported Neurological/Psychological: No symptoms reported -: Yes All other systems reviewed and negative Physical Exam - Vital signs Vitals: Resp Pulse Ox 8 L 100 11/01/18 02:04 11/01/18 02:04 Interpretation: Normal Course - Re-evaluation Re-evalutation: 11/01/18 06:23 Labs are baseline for the patient. CT head has not been obtained. Will sign-out to Dr. Swartz with the plan to discharge the patient is CT is negative. - Vital Signs Vital signs: Temp Pulse Resp BP Pulse Ox 98.4 F 15 107/60 99 11/01/18 03:42 11/01/18 05:01 11/01/18 05:00 11/01/18 05:01 - Laboratory Result Diagrams: 11/01/18 02:15 11/01/18 02:15 Laboratory results interpreted by me: 11/01/18 11/01/18 11/01/18 02:15 02:15 04:27 RBC 3.14 L Hgb 8.5 L Hct 27.5 L MCH 26.9 L MCHC 30.7 L RDW 20.2 H [place] % (Auto) 14.9 H Sodium 136.8 L Potassium 3.4 L Chloride 97 L Creatinine 3.27 H Est GFR ( Amer) 18 L Est GFR (MDRD) Non-Af 15 L Glucose 59 L POC Glucose 139 H Direct Bilirubin 0.6 H Alkaline Phosphatase 162 H Albumin 2.8 L - Diagnostic Test Radiology reviewed: Pending - EKG Interpretation by Me EKG shows normal: Sinus rhythm Rate: Normal Rhythm: NSR [place]/QRS: No: Right axis deviation, Left axis deviation, RBBB, LBBB, IVCD, LAHB/LAFB, LPHB/LPFB, Bifasicular block Voltage: No: Increased voltage, Consistant with LVH, Decreased voltage, Throughout, Limb leads P Waves: No: SHERLY, LAE, Absent, AV Dissociation, Other Heart block present: No: 1st Degree, Mobitz 1, Mobitz 2, CHB (3rd degree block) When compared to previous EKG there are: No significant change - Transfer of Care Care transferred to following provider: Dr. Swartz Discharge - Discharge Clinical Impression: Hypoglycemia Fall Qualifiers: Encounter type: initial encounter Qualified Code(s): W19.XXXA - Unspecified fall, initial encounter Condition: Good Disposition: HOME, SELF-CARE Instructions: Hypoglycemia ([facility]) Referrals: ADITYA HARDING MD [Primary Care Provider] - Follow up as needed Print Language: Anguillan
[2018-11-01] MEDS ORDERED: DEXTROSE 50%-WATER 25 GM/50 ML DISP.SYRIN IV ONE (02:21)
[2018-11-01 04:05] LABS: ABSOLUTE BASOPHILS # (AUTO) 0.1 10^3/uL (0.0-0.2); ABSOLUTE EOSINOPHILS # (AUTO) 0.1 10^3/uL (0.0-0.6); ABSOLUTE MONOCYTES (AUTO) 0.9 10^3/uL (0.1-1.4); ABSOLUTE NEUT (AUTO) 3.9 10^3/uL (1.7-8.2); BASOPHILS % (AUTO) 1.1 % (0-2); HEMATOCRIT 27.5 % (36.0-47.0); HEMOGLOBIN 8.5 g/dL (12.0-15.5); LYMPHOCYTES % (AUTO) 16.7 % (13-45); MEAN CORPUSCULAR HEMOGLOBIN 26.9 pg (27.0-33.4); MEAN CORPUSCULAR HGB CONC 30.7 g/dL (32.0-36.0); MEAN CORPUSCULAR VOLUME 88 fl (80-97); MONOCYTES % (AUTO) 14.9 % (3-13); PLATELET COUNT 336 10^3/uL (150-450); RED BLOOD COUNT 3.14 10^6/uL (3.72-5.28); RED CELL DISTRIBUTION WIDTH 20.2 % (11.5-14.0); SEGMENTED NEUTROPHILS % (AUTO) 66.3 % (42-78); TOTAL CELLS COUNTED % (AUTO) 100 %; WHITE BLOOD COUNT 5.9 10^3/uL (4.0-10.5)
[2018-11-01 04:15] LABS: ALBUMIN 2.8 g/dL (3.5-5.0); ALKALINE PHOSPHATASE 162 U/L (38-126); ANION GAP 10 (5-19); ASPARTATE AMINO TRANSFERASE 26 U/L (14-36); BILIRUBIN,DIRECT 0.6 mg/dL (0.0-0.4); BILIRUBIN,TOTAL 0.7 mg/dL (0.2-1.3); BLOOD UREA NITROGEN 18 mg/dL (7-20); CALCIUM 8.5 mg/dL (8.4-10.2); CARBON DIOXIDE 30 mmol/L (22-30); CHLORIDE 97 mmol/L (98-107); POTASSIUM 3.4 mmol/L (3.6-5.0); TOTAL PROTEIN 7.2 g/dL (6.3-8.2)
[2018-11-01 04:17] LABS: ALCOHOL < 10 mg/dL (NONE DETECTED)
[2018-11-01 04:18] LABS: GLUCOSE 59 mg/dL (75-110)
--- NOTE | 2018-11-01 06:46 | RADIOLOGY REPORT (SQ) ---
EXAM DESCRIPTION: CT HEAD WITHOUT IV CONTRAST COMPLETED DATE/TME: 11/01/2018 03:44 CLINICAL HISTORY: 58 years, Female, Fall COMPARISON: 09/11/2018 TECHNIQUE: Axial CT images of the brain were obtained without contrast. Sagittal and coronal reformats were performed. DL 1096 Images stored on PACS. All CT scanners at this facility use dose modulation, iterative reconstruction, and/or weight based dosing when appropriate to reduce radiation dose to as low as reasonably achievable (ALARA). [facility]: Dose Right [facility]: CareDose [facility]: Dose Right [facility]: Teradose 4D [facility]: [employer] LIMITATIONS: None. FINDINGS: There is no acute cortical infarct, hemorrhage, mass, edema, hydrocephalus, or extra-axial fluid collection. The bellamy-white matter differentiation is preserved. There is mild diffuse cerebral atrophy with periventricular and deep white matter chronic microvascular changes. The paranasal sinuses and mastoid air cells are clear. There is no acute fracture IMPRESSION: No acute intracranial abnormality TECHNICAL DOCUMENTATION: Quality ID # 436: Final reports with documentation of one or more dose reduction techniques (e.g., Automated exposure control, adjustment of the mA and/or kV according to patient size, use of iterative reconstruction technique) copyright 2011 [employer]- All Rights Reserved
[2018-11-01 08:58] LABS: URINE AMPHETAMINES SCREEN NEGATIVE; URINE BARBITURATES SCREEN NEGATIVE; URINE BENZODIAZEPINES SCREEN NEGATIVE; URINE COCAINE SCREEN NEGATIVE; URINE MARIJUANA (THC) SCREEN NEGATIVE; URINE METHADONE SCREEN NEGATIVE; URINE PHENCYCLIDINE SCREEN NEGATIVE
--- NOTE | 2018-11-01 09:33 | EKG REPORT ---
SEVERITY:- BORDERLINE ECG - SINUS RHYTHM BORDERLINE T ABNORMALITIES, ANT-LAT LEADS : Confirmed by: Tete Abdi MD 01-Nov-2018 09:32:38
[2018-11-01 09:46] LABS: APPEARANCE,URINE TURBID; BILIRUBIN,URINE NEGATIVE (NEGATIVE); COLOR,URINE YELLOW; GLUCOSE, URINE 50 mg/dL (NEGATIVE); KETONES,URINE TRACE mg/dL (NEGATIVE); LEUKOCYTE ESTERASE,URINE SMALL (NEGATIVE); NITRITE,URINE NEGATIVE (NEGATIVE); PROTEIN,URINE 30 mg/dL (NEGATIVE); URINE SPECIFIC GRAVITY 1.024; UROBILINOGEN,URINE NEGATIVE mg/dL (<2.0)
[2018-11-01 10:05] LABS: ADD MANUAL MICROSCOPIC YES
[2018-11-01 10:36] LABS: BACTERIA,URINE 4+ /HPF; RBC,URINE RARE /HPF; WBC,URINE TOO NUMEROUS TO CNT /HPF
[2018-11-01] MEDS ORDERED: CEFTRIAXONE 1 GM/D5W RTU 1 GM/50 ML RTUPB IV ONE (10:47)
[2018-11-01 13:18] VITALS: BP 136/72
== END 2018-11-01 13:37 | disposition home or self-care (01) ==
LOC: ER 01:57
DX: E16.2 Hypoglycemia, unspecified (principal); S09.90XA Unspecified injury of head, initial encounter; W06.XXXA Fall from bed, initial encounter; N39.0 Urinary tract infection, site not specified; E11.22 Type 2 diabetes mellitus with diabetic chronic kidney disease; I12.0 Hypertensive chronic kidney disease with stage 5 chronic kidney disease or end stage renal disease; N18.6 End stage renal disease; Z99.2 Dependence on renal dialysis; I48.91 Unspecified atrial fibrillation; I25.10 Atherosclerotic heart disease of native coronary artery without angina pectoris; Z86.718 Personal history of other venous thrombosis and embolism
CPT/HCPCS: 93005; 36415; 82962; 80307 ×2; 85025; 80053; 81001; 84484; 70450; 93010; J3490; J0696; 87086; 87088

== ENCOUNTER 2018-11-12 12:09 | Emergency (ER) | payer SELFPAY ==
--- NOTE | 2018-11-12 12:31 | ER Document Report ---
ED Dizziness/Weakness - General Chief Complaint: Altered Mental Status Stated Complaint: ALTERED MENTAL STATUS Time Seen by Provider: 11/12/18 12:23 Primary Care Provider: ADITYA HARDING MD [Primary Care Provider] - Follow up as needed Mode of Arrival: Stretcher Information source: Patient Notes: Chief complaint: Altered mentation History of complain:( obtained from----patient) 58 years old female on dialysis, while on dialysis she became diaphoretic and altered in mentation. Blood sugar was checked it was 25. She was given D50 and transferred to the ED. By the time she arrived in the ED she is alert and oriented x3. Currently has no complaint. Onset: As above Duration: Just prior to arrival Severity: Moderate to severe Quality: Unknown Context: Hypoglycemia Exacerbating factor and relieving factors: Not applicable REVIEW OF SYSTEMS: CONSTITUTIONAL : Denies fever, chills, or sweats. Denies recent illness. EENT: Denies eye, ear, throat, or mouth pain or symptoms. Denies nasal or sinus congestion or discharge. Denies throat, tongue, or mouth swelling or difficulty swallowing. CARDIOVASCULAR: Denies chest pain. Denies palpitations or racing or irregular heart beat. Denies ankle edema. RESPIRATORY: Denies cough, cold, or chest congestion. Denies shortness of breath, difficulty breathing, or wheezing. GASTROINTESTINAL: Denies distention. Denies nausea, vomiting, or diarrhea. Denies blood in vomitus, stools, or per rectum. Denies black, tarry stools. Denies constipation. GENITOURINARY: Denies difficulty urinating, painful urination, burning, frequency, blood in urine, or discharge. FEMALE GENITOURINARY: Denies vaginal bleeding, heavy or abnormal periods, irregular periods. Denies vaginal discharge or odor. MUSCULOSKELETAL: Denies back or neck pain or stiffness. Denies joint pain or swelling. SKIN: Denies rash, lesions or sores. HEMATOLOGIC : Denies easy bruising or bleeding. LYMPHATIC: Denies swollen, enlarged glands. NEUROLOGICAL: PSYCHIATRIC: Denies anxiety or stress. Denies depression, suicidal ideation, or homicidal ideation. ALL OTHER SYSTEMS REVIEWED AND NEGATIVE. PHYSICAL EXAMINATION: GENERAL: Well-appearing, well-nourished and in no acute distress. Appears drowsy, able to answer all questions. Alert and oriented x3. HEAD: Atraumatic, normocephalic. EYES: Pupils equal round and reactive to light, extraocular movements intact, conjunctiva are normal. ENT: Nares patent, oropharynx clear without exudates. Moist mucous membranes. NECK: Normal range of motion, supple without lymphadenopathy LUNGS: Breath sounds clear to auscultation bilaterally and equal. No wheezes rales or rhonchi. HEART: Regular rate and rhythm without murmurs ABDOMEN: Soft, nontender, nondistended abdomen. No guarding, no rebound. No masses appreciated. Examination of genitals-deferred Musculoskeletal: Normal range of motion, no pitting or edema. No cyanosis. NEUROLOGICAL: Cranial nerves grossly intact. Normal speech, normal gait. Normal sensory, motor exams PSYCH: Normal mood, normal affect. SKIN: Warm, Dry, normal turgor, no rashes or lesions noted. Dictation was performed using [employer] voice recognition software TRAVEL OUTSIDE OF THE [place] IN LAST 30 DAYS: No - HPI Notes: Dictated - Related Data Allergies/Adverse Reactions: aloe vera Allergy (Verified 09/11/18 08:46) No Known Drug Allergies Allergy (Verified 09/11/18 08:46) Past Medical History - Social History Smoking Status: Former Smoker Frequency of alcohol use: None Drug Abuse: None Lives with: Family Family History: CAD, DM, Hypertension. denies: Malignancy - Past Medical History Cardiac Medical History: Reports: Hx Atrial Fibrillation, Hx Coronary Artery Disease, Hx DVT, Hx Hypercholesterolemia, Hx Hypertension Pulmonary Medical History: Reports: Hx Bronchitis, Hx COPD, Hx Pneumonia Denies: Hx Asthma Neurological Medical History: Denies: Hx Seizures Endocrine Medical History: Reports: Hx Diabetes Mellitus Type 2. Denies: Hx Diabetes Mellitus Type 1, Hx Hyperthyroidism, Hx Hypothyroidism Renal/ Medical History: Reports: Hx Hemodialysis. Denies: Hx Peritoneal Dialysis GI Medical History: Reports: Hx Gastroesophageal Reflux Disease, Hx Ulcer. Denies: Hx Cirrhosis, Hx Hepatitis Musculoskeletal Medical History: Denies Hx Arthritis, Denies Hx Fibromyalgia Skin Medical History: Denies Hx Eczema, Denies Hx Psoriasis Psychiatric Medical History: Reports: Hx Depression Infectious Medical History: Denies: Hx Hepatitis Past Surgical History: Reports: Hx Abdominal Surgery - small bowel resection, Hx Cardiac Surgery - cabg x2, Hx Section - x3, Hx Coronary Artery Bypass Graft, Other - Vena cava filter, abdominal surgery for repair of perforated stomach ulcer - Immunizations Immunizations up to date: Yes Hx Pneumococcal Vaccination: 11/20/16 Review of Systems - Review of Systems Notes: Dictated Physical Exam - Vital signs Vitals: Temp Pulse Resp BP Pulse Ox 97.2 F 59 L 14 96/54 L 96 11/12/18 12:15 11/12/18 12:15 11/12/18 12:15 11/12/18 12:15 11/12/18 12:15 - Notes Notes: Dictated Course - Vital Signs Vital signs: Temp Pulse Resp BP Pulse Ox 97.2 F 59 L 13 96/54 L 96 11/12/18 12:15 11/12/18 12:15 11/12/18 12:45 11/12/18 12:45 11/12/18 12:45 - Laboratory Result Diagrams: 11/12/18 13:05 11/12/18 13:05 Laboratory results interpreted by me: 11/12/18 11/12/18 13:05 13:05 RBC 2.68 L Hgb 7.4 L Hct 23.6 L MCHC 31.5 L RDW 21.1 H Lymph % (Auto) 10.5 L [place] % (Auto) 14.5 H Sodium 134.6 L BUN 36 H Creatinine 5.95 H Est GFR ( Amer) 9 L Est GFR (MDRD) Non-Af 7 L Direct Bilirubin 0.5 H Total Protein 6.0 L Albumin 2.3 L - Diagnostic Test Radiology reviewed: Reports reviewed - CT of the brain reported by radiologist has microvascular disease no acute event - EKG Interpretation by Me Rate: Bradycardia - Sinus bradycardia at 59 bpm normal axis no acute changes. Discharge - Discharge Clinical Impression: Hypoglycemia Condition: Fair Disposition: HOME, SELF-CARE Instructions: Hypoglycemia ([facility]) Referrals: ADITYA HARDING MD [Primary Care Provider] - Follow up as needed
--- NOTE | 2018-11-12 13:01 | RADIOLOGY REPORT (SQ) ---
EXAM DESCRIPTION: CT HEAD WITHOUT COMPLETED DATE/TIME: 11/12/2018 12:44 pm REASON FOR STUDY: Altered mentation COMPARISON: 11/01/2018. TECHNIQUE: Axial images acquired through the brain without intravenous contrast. Images reviewed wi th bone, brain and subdural windows. Additional sagittal and coronal reconstructions were generated. Images stored on PACS. All CT scanners at this facility use dose modulation, iterative reconstruction, and/or weight based d osing when appropriate to reduce radiation dose to as low as reasonably achievable (ALARA). [facility]: Dose Right [facility]: CareDose [facility]: Dose Right [facility]: Teradose 4D [facility]: [employer] RADIATION DOSE: CT Rad equipment meets quality standard of care and radiation dose reduction techniq ues were employed. CTDIvol: 53.2 mGy. DLP: 1017 mGy-cm. mGy. LIMITATIONS: None. FINDINGS: VENTRICLES: Prominent. CEREBRUM: No masses. No hemorrhage. No midline shift. Areas of low density in the white matter mos t likely due to chronic micro-vascular ischemic change. No evidence for acute infarction. CEREBELLUM: No masses. No hemorrhage. No alteration of density. No evidence for acute infarction. EXTRAAXIAL SPACES: Mild age-related involutional change. No fluid collections. No masses. ORBITS AND GLOBE: No intra- or extraconal masses. Normal contour of globe without masses. CALVARIUM: No fracture. PARANASAL SINUSES: No fluid or mucosal thickening. SOFT TISSUES: No mass or hematoma. OTHER: No other significant finding. IMPRESSION: MILD CHRONIC CHANGES OF ATROPHY AND MICROVASCULAR ISCHEMIA. NO ACUTE PROCESS. EVIDENCE OF ACUTE STROKE: NO. TECHNICAL DOCUMENTATION: JOB ID: [id number] Quality ID # 436: Final reports with documentation of one or more dose reduction techniques (e.g., Au tomated exposure control, adjustment of the mA and/or kV according to patient size, use of iterative reconstruction technique) 2010 [employer]- All Rights Reserved Reading location - IP/workstation name: [email or web address]
[2018-11-12 13:31] LABS: ABSOLUTE BASOPHILS # (AUTO) 0.1 10^3/uL (0.0-0.2); ABSOLUTE EOSINOPHILS # (AUTO) 0.2 10^3/uL (0.0-0.6); ABSOLUTE LYMPHOCYTES (AUTO) 0.7 10^3/uL (0.5-4.7); ABSOLUTE NEUT (AUTO) 4.8 10^3/uL (1.7-8.2); BASOPHILS % (AUTO) 1.4 % (0-2); EOSINOPHILS % (AUTO) 3.3 % (0-6); HEMATOCRIT 23.6 % (36.0-47.0); LYMPHOCYTES % (AUTO) 10.5 % (13-45); MEAN CORPUSCULAR HEMOGLOBIN 27.7 pg (27.0-33.4); MEAN CORPUSCULAR HGB CONC 31.5 g/dL (32.0-36.0); MEAN CORPUSCULAR VOLUME 88 fl (80-97); MONOCYTES % (AUTO) 14.5 % (3-13); PLATELET COUNT 315 10^3/uL (150-450); RED BLOOD COUNT 2.68 10^6/uL (3.72-5.28); RED CELL DISTRIBUTION WIDTH 21.1 % (11.5-14.0); SEGMENTED NEUTROPHILS % (AUTO) 70.3 % (42-78); TOTAL CELLS COUNTED % (AUTO) 100 %; WHITE BLOOD COUNT 6.9 10^3/uL (4.0-10.5)
[2018-11-12 13:36] LABS: ALBUMIN 2.3 g/dL (3.5-5.0); ALKALINE PHOSPHATASE 101 U/L (38-126); ANION GAP 10 (5-19); ASPARTATE AMINO TRANSFERASE 14 U/L (14-36); BILIRUBIN,DIRECT 0.5 mg/dL (0.0-0.4); BILIRUBIN,TOTAL 0.5 mg/dL (0.2-1.3); BLOOD UREA NITROGEN 36 mg/dL (7-20); CALCIUM 8.4 mg/dL (8.4-10.2); CARBON DIOXIDE 25 mmol/L (22-30); CHLORIDE 100 mmol/L (98-107); GLUCOSE 86 mg/dL (75-110); POTASSIUM 3.6 mmol/L (3.6-5.0)
[2018-11-12 13:38] LABS: HEMOGLOBIN 7.4 g/dL (12.0-15.5)
[2018-11-12 15:29] VITALS: BP 113/70
--- NOTE | 2018-11-12 22:22 | EKG REPORT ---
SEVERITY:- ABNORMAL ECG - SINUS OR ECTOPIC ATRIAL RHYTHM LOW VOLTAGE IN FRONTAL LEADS ABNORMAL T, CONSIDER ISCHEMIA, LATERAL LEADS : Confirmed by: Stephanie Calix 12-Nov-2018 22:22:31
== END 2018-11-12 15:29 | disposition home or self-care (01) ==
LOC: ER 12:09
DX: E11.649 Type 2 diabetes mellitus with hypoglycemia without coma (principal); R41.82 Altered mental status, unspecified; R61 Generalized hyperhidrosis; Z99.2 Dependence on renal dialysis; Z87.891 Personal history of nicotine dependence; I48.91 Unspecified atrial fibrillation; I25.10 Atherosclerotic heart disease of native coronary artery without angina pectoris; I10 Essential (primary) hypertension; J44.9 Chronic obstructive pulmonary disease, unspecified
CPT/HCPCS: 36415; 70450; 80053; 85025; 93005; 93010; 99285

== ENCOUNTER 2018-11-14 13:46 | Inpatient (IN) | payer SELFPAY ==
[2018-11-14] MEDS ORDERED: NORMAL SALINE 1000 ML 1,000 ML IV ONE ×2 (14:09→18:39)
[2018-11-14] MEDS ORDERED: PIPERACILLIN/TAZOBACTAM 3.375 GM VIAL IV ONE (14:10)
[2018-11-14] MEDS ORDERED: VANCOMYCIN HCL INJ 1000 MG VIAL IV ONE (14:10)
[2018-11-14 14:30] LABS: ABSOLUTE LYMPHOCYTES (AUTO) 0.3 10^3/uL (0.5-4.7); ABSOLUTE MONOCYTES (AUTO) 0.3 10^3/uL (0.1-1.4); ABSOLUTE NEUT (AUTO) 2.2 10^3/uL (1.7-8.2); BASOPHILS % (AUTO) 0.6 % (0-2); EOSINOPHILS % (AUTO) 0.2 % (0-6); HEMATOCRIT 25.9 % (36.0-47.0); HEMOGLOBIN 8.2 g/dL (12.0-15.5); LYMPHOCYTES % (AUTO) 11.8 % (13-45); MEAN CORPUSCULAR HEMOGLOBIN 27.6 pg (27.0-33.4); MEAN CORPUSCULAR HGB CONC 31.5 g/dL (32.0-36.0); MEAN CORPUSCULAR VOLUME 88 fl (80-97); MONOCYTES % (AUTO) 10.9 % (3-13); PLATELET COUNT 299 10^3/uL (150-450); RED BLOOD COUNT 2.96 10^6/uL (3.72-5.28); RED CELL DISTRIBUTION WIDTH 20.5 % (11.5-14.0); SEGMENTED NEUTROPHILS % (AUTO) 76.5 % (42-78); TOTAL CELLS COUNTED % (AUTO) 100 %
[2018-11-14 14:38] LABS: WHITE BLOOD COUNT 2.9 10^3/uL (4.0-10.5)
[2018-11-14 14:39] LABS: INTERNATIONAL RATION (INR) 1.85; PROTHROMBIN TIME 21.6 SEC (11.4-15.4)
[2018-11-14 14:53] LABS: ALBUMIN 2.6 g/dL (3.5-5.0); ALKALINE PHOSPHATASE 113 U/L (38-126); ANION GAP 11 (5-19); ASPARTATE AMINO TRANSFERASE 17 U/L (14-36); BILIRUBIN,DIRECT 0.6 mg/dL (0.0-0.4); BILIRUBIN,TOTAL 0.6 mg/dL (0.2-1.3); BLOOD UREA NITROGEN 29 mg/dL (7-20); CALCIUM 8.2 mg/dL (8.4-10.2); CARBON DIOXIDE 26 mmol/L (22-30); CHLORIDE 98 mmol/L (98-107); GLUCOSE 73 mg/dL (75-110); POTASSIUM 3.4 mmol/L (3.6-5.0); TOTAL PROTEIN 6.4 g/dL (6.3-8.2)
[2018-11-14 15:21] LABS: VENOUS BLOOD BASE EXCESS -0.6 mmol/L; VENOUS BLOOD HCO3 24.1 mmol/L (20-32); VENOUS BLOOD PH 7.4 (7.30-7.42)
--- NOTE | 2018-11-14 15:32 | ER Document Report ---
ED General - General Stated Complaint: NAUSEA/VOMITING Time Seen by Provider: 11/14/18 13:59 Primary Care Provider: ADITYA HARDING MD [Primary Care Provider] - Follow up as needed Mode of Arrival: Medic Information source: Patient TRAVEL OUTSIDE OF THE [place] IN LAST 30 DAYS: No - HPI Notes: Patient is sent from custodial with weakness and fever. She is a dialysis patient and is due to dialyze today. Patient states that she has chronic abdominal pain but it is worse today. It is diffuse. Nothing makes it better. It is worse with movement. It does radiate throughout her abdomen. It is a crampy sensation. She denies any change with bowel movements. No dysuria. She has been vomiting. She does not feel short of breath at this time. No significant cough. Been moderate and constant. - Related Data Allergies/Adverse Reactions: aloe vera Allergy (Verified 09/11/18 08:46) No Known Drug Allergies Allergy (Verified 09/11/18 08:46) Past Medical History - General Information source: Patient - Social History Smoking Status: Never Smoker Frequency of alcohol use: None Drug Abuse: None Family History: CAD, DM, Hypertension. denies: Malignancy - Past Medical History Cardiac Medical History: Reports: Hx Atrial Fibrillation, Hx Coronary Artery Disease, Hx DVT, Hx Hypercholesterolemia, Hx Hypertension Pulmonary Medical History: Reports: Hx Bronchitis, Hx COPD, Hx Pneumonia Denies: Hx Asthma Neurological Medical History: Denies: Hx Seizures Endocrine Medical History: Reports: Hx Diabetes Mellitus Type 2. Denies: Hx Diabetes Mellitus Type 1, Hx Hyperthyroidism, Hx Hypothyroidism Renal/ Medical History: Reports: Hx Hemodialysis. Denies: Hx Peritoneal Dialysis GI Medical History: Reports: Hx Gastroesophageal Reflux Disease, Hx Ulcer. Denies: Hx Cirrhosis, Hx Hepatitis Musculoskeletal Medical History: Denies Hx Arthritis, Denies Hx Fibromyalgia Skin Medical History: Denies Hx Eczema, Denies Hx Psoriasis Psychiatric Medical History: Reports: Hx Depression Infectious Medical History: Denies: Hx Hepatitis Past Surgical History: Reports: Hx Abdominal Surgery - small bowel resection, Hx Cardiac Surgery - cabg x2, Hx Section - x3, Hx Coronary Artery Bypass Graft, Other - Vena cava filter, abdominal surgery for repair of perforated stomach ulcer - Immunizations Immunizations up to date: Yes Hx Pneumococcal Vaccination: 11/20/16 Review of Systems - Review of Systems Constitutional: Chills, Fever, Malaise, Weakness Cardiovascular: denies: Chest pain, Palpitations Respiratory: denies: Cough, Short of breath Gastrointestinal: Abdominal pain, Vomiting -: Yes All other systems reviewed and negative Physical Exam - Vital signs Vitals: Resp Pulse Ox 16 93 11/14/18 14:05 11/14/18 14:05 Interpretation: Normal - General General appearance: Alert, Lethargic In distress: None - HEENT Head: Normocephalic, Atraumatic Eyes: Normal Pupils: PERRL - Respiratory Respiratory status: No respiratory distress Chest status: Nontender Breath sounds: Decreased air movement Chest palpation: Normal - Cardiovascular Rhythm: Regular Heart sounds: Normal auscultation Murmur: No - Abdominal Inspection: Normal Distension: Distended Bowel sounds: Hypoactive Tenderness: Tender - Diffuse tenderness with some voluntary guarding. Organomegaly: No organomegaly - Back Back: Normal, Nontender - Extremities General upper extremity: Normal inspection, Nontender, Normal color, Normal ROM, Normal temperature General lower extremity: Nontender, Edema - 2+ bilaterally lower extremities, Normal color, Normal temperature. No: Kanika's sign - Neurological Neuro grossly intact: Yes Cognition: Normal Orientation: AAOx4 [place] Coma Scale Eye Opening: Spontaneous [place] Coma Scale Verbal: Oriented [place] Coma Scale Motor: Obeys Commands [place] Coma Scale Total: 15 Speech: Normal Motor strength normal: LUE, RUE, LLE, RLE Sensory: Normal - Psychological Associated symptoms: Normal affect, Normal mood - Skin Skin Temperature: Warm Skin Moisture: Dry Course - Re-evaluation Re-evalutation: 11/14/18 15:32 Patient reassessed just now. Blood pressures proxy 102 systolic. She is not tachycardic. She is resting comfortably in the bed. I am still waiting on urine. I am also still waiting on imaging studies. She is received 1.5 L of fluid up to this point. Patient's lactate is not elevated so at this time I will stop at 2 L of fluid. 11/14/18 16:13 I turned c are over at 4pm to DR. Javier - Vital Signs Vital signs: Temp Pulse Resp BP Pulse Ox 98.1 F 18 102/64 94 11/14/18 14:07 11/14/18 16:02 11/14/18 16:02 11/14/18 16:02 - Laboratory Result Diagrams: 11/14/18 14:05 11/14/18 14:05 Laboratory results interpreted by me: 11/14/18 11/14/18 11/14/18 14:05 14:05 14:05 WBC 2.9 L D RBC 2.96 L Hgb 8.2 L Hct 25.9 L MCHC 31.5 L RDW 20.5 H Lymph % (Auto) 11.8 L Absolute Lymphs (auto) 0.3 L PT 21.6 H Sodium 135.4 L Potassium 3.4 L BUN 29 H Creatinine 4.74 H Est GFR ( Amer) 12 L Est GFR (MDRD) Non-Af 10 L Glucose 73 L Calcium 8.2 L Direct Bilirubin 0.6 H Albumin 2.6 L - EKG Interpretation by Me EKG shows normal: Sinus rhythm Rate: Normal - 79 Rhythm: NSR Voltage: No: Decreased voltage Discharge - Discharge Clinical Impression: Fever Qualifiers: Fever type: unspecified Qualified Code(s): R50.9 - Fever, unspecified Condition: Fair Disposition: ADMITTED INPATIENT Referrals: ADITYA HARDING MD [Primary Care Provider] - Follow up as needed
--- NOTE | 2018-11-14 15:39 | RADIOLOGY REPORT (SQ) ---
EXAM DESCRIPTION: CHEST SINGLE VIEW COMPLETED DATE/TIME: 11/14/2018 3:29 pm REASON FOR STUDY: fever COMPARISON: 09/11/2018 EXAM PARAMETERS: NUMBER OF VIEWS: One view. TECHNIQUE: Single frontal radiographic view of the chest acquired. RADIATION DOSE: NA LIMITATIONS: None. FINDINGS: LUNGS AND PLEURA: No opacities, masses or pneumothorax. No pleural effusion. MEDIASTINUM AND HILAR STRUCTURES: No masses. Contour normal. HEART AND VASCULAR STRUCTURES: Enlarged, stable. No overt edema. BONES: No acute findings. HARDWARE: Right internal jugular hemodialysis catheter with tip at cavoatrial junction. Median harman otomy hardware. OTHER: No other significant finding. IMPRESSION: No focal consolidation or other evidence of acute cardiopulmonary process. TECHNICAL DOCUMENTATION: JOB ID: [id number] [employer]- All Rights Reserved Reading location - IP/workstation name: [email or web address]
[2018-11-14 16:29] LABS: APPEARANCE,URINE TURBID; BILIRUBIN,URINE NEGATIVE (NEGATIVE); COLOR,URINE YELLOW; GLUCOSE, URINE NEGATIVE (NEGATIVE); KETONES,URINE TRACE mg/dL (NEGATIVE); LEUKOCYTE ESTERASE,URINE SMALL (NEGATIVE); NITRITE,URINE NEGATIVE (NEGATIVE); PROTEIN,URINE 100 mg/dL (NEGATIVE); URINE SPECIFIC GRAVITY 1.021; UROBILINOGEN,URINE NEGATIVE mg/dL (<2.0)
[2018-11-14 16:32] LABS: ADD MANUAL MICROSCOPIC YES
[2018-11-14 16:33] LABS: BACTERIA,URINE 4+ /HPF; WBC,URINE TOO NUMEROUS TO CNT /HPF
--- NOTE | 2018-11-14 16:47 | RADIOLOGY REPORT (SQ) ---
EXAM DESCRIPTION: CT ABD/PELVIS NO ORAL OR IV COMPLETED DATE/TIME: 11/14/2018 4:04 pm REASON FOR STUDY: fever pain COMPARISON: 09/21/2018 TECHNIQUE: CT scan of the abdomen and pelvis performed without intravenous or oral contrast. Images reviewed with lung, soft tissue, and bone windows. Reconstructed coronal and sagittal MPR images revi ewed. All images stored on PACS. All CT scanners at this facility use dose modulation, iterative reconstruction, and/or weight based d osing when appropriate to reduce radiation dose to as low as reasonably achievable (ALARA). [facility]: Dose Right [facility]: CareDose [facility]: Dose Right [facility]: Teradose 4D [facility]: Smart [employer] RADIATION DOSE: CT Rad equipment meets quality standard of care and radiation dose reduction techniq ues were employed. CTDIvol: 7.0 mGy. DLP: 378 mGy-cm.mGy. LIMITATIONS: None. FINDINGS: LOWER CHEST: Patchy bibasilar opacities with small bilateral effusions, similar to prior. Enlarged heart. Coronary atherosclerosis. NON-CONTRASTED LIVER, SPLEEN, ADRENALS: Evaluation limited by lack of IV contrast. No identified sign ificant masses. PANCREAS: No masses. No peripancreatic inflammatory changes. GALLBLADDER: No identified stones by CT criteria. No inflammatory changes to suggest cholecystitis. RIGHT KIDNEY AND URETER: No suspicious masses. Assessment limited by lack of IV contrast. Vascular calcifications. No definite stones. No hydronephrosis or hydroureter. LEFT KIDNEY AND URETER: No suspicious masses. Assessment limited by lack of IV contrast. Vascular c alcifications with possible additional small nonobstructing stones. Unchanged mild hydroureteroneph rosis without obstructing lesion identified. AORTA AND RETROPERITONEUM: Extensive aortic calcifications. No aneurysm. SMA stent present. IVC fi lter below the renal veins, stable. BOWEL AND PERITONEAL CAVITY: No evidence of focal bowel wall thickening. No evidence high-grade obst ruction. Scattered gas fluid levels throughout the small bowel. Moderate fecal burden within the re ctal vault. Small volume ascites. APPENDIX: Partially visualized. Normal in caliber. PELVIS, BLADDER, AND ABDOMINAL WALL:Circumferential bladder wall thickening with intraluminal Farris c atheter retention balloon. Small volume pelvic fluid. Vascular calcifications. Anasarca. BONES: No acute bony abnormality. No suspicious osseous lesions. OTHER: No other significant finding. IMPRESSION: 1. Mild patchy bibasilar opacities and trace bilateral effusions, likely atelectasis al though infection not excluded. 2. Moderate formed stool within the rectal vault. No evidence of intestinal obstruction. 3. Findings suggestive of volume overload with cardiomegaly, anasarca and small volume ascites. 4. Unchanged mild hydroureteronephrosis on the left without obstructing lesion identified. 5. Farris catheter within the bladder lumen with circumferential bladder wall thickening. Recommend correlation with urinalysis. COMMENT: Quality ID # [id number]: Final reports with documentation of one or more dose reduction techniques (e.g., Automated exposure control, adjustment of the mA and/or kV according to patient size, use of iterative reconstruction technique) TECHNICAL DOCUMENTATION: JOB ID: [id number] [employer]- All Rights Reserved Reading location - IP/workstation name: [email or web address]
[2018-11-14 16:50] LABS: A TYPE INFLUENZA AG NEGATIVE (NEGATIVE); B INFLUENZA AG NEGATIVE (NEGATIVE)
[2018-11-14] MEDS ORDERED: NORMAL SALINE 1000 ML 1,000 ML IV PRN (18:40)
[2018-11-14] MEDS ORDERED: DEXTROSE 40% GEL 15 GM TUBE PO PRN ×2 (18:41)
[2018-11-14] MEDS ORDERED: GLUCAGON,HUMAN RECOMB 1 MG INJ IM PRN (18:41)
[2018-11-14] MEDS ORDERED: DEXTROSE 50%-WATER 25 GM/50 ML DISP.SYRIN IV PRN ×2 (18:41)
[2018-11-14] MEDS ORDERED: ALBUTEROL SULFATE 0.083% NEB 2.5 MG/3 ML AMPUL NEB PRN (18:44)
[2018-11-14] MEDS ORDERED: MAG HYDROX/AL HYDROX/SIMETH SUSP 30 ML UDCUP PO PRN (18:44)
[2018-11-14] MEDS ORDERED: ONDANSETRON HCL INJ/PF 4 MG/2 ML SDV IV PRN (18:44)
--- NOTE | 2018-11-14 19:08 | PDOC H&P ---
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 Reportedly 101.8 upon EMSs arrival. Patient denies acute symptoms, however, does endorse chronic abdominal discomfort and diarrhea that has been present for the last several months with unknown prior work-up. Evaluation in the emergency department reveals Sepsis with fever, hypotension, leukopenia (WBCs 2.9), baseline anemia (hgb/hct 8.2/25.9), elevated INR (1.85; does not appear the patient is chronically anticoagulated on review of MAR), unremarkable chemistry given the patient's baseline dialysis dependance, (+) urinalysis, NSR on EKG, benign chest x-ray, and CT ABD/Pelvis showing cardiomegaly, anasarca, small volume ascites, unchanged mild hydroureternephrosis on the left without obstructing lesion, and circumferential bladder wall thickening. The patient was started on IV vancomycin and Zosyn. She is received a 1 L normal saline bolus. She is referred to the hospitalist service for admission and management of the above-stated complaints and findings. Past Medical History Cardiac Medical History: Reports: Atrial Fibrillation, Coronary Artery Disease, DVT, Hyperlipidema, Hypertension Pulmonary Medical History: Reports: Bronchitis, Chronic Obstructive Pulmonary Disease (COPD), Pneumonia Denies: Asthma Neurological Medical History: Denies: Ischemic CVA, Seizures Endocrine Medical History: Reports: Diabetes Mellitus Type 2, Obesity Denies: Hypothyroidism GI Medical History: Reports: Gastroesophageal Reflux Disease Denies: Cirrhosis, Hepatitis Musculoskeltal Medical History: Denies: Arthritis Skin Medical History: Denies: Eczema, Psoriasis Psychiatric Medical History: Reports: Depression Hematology: Reports: Anemia - Chronic secondary to renal disease Denies: Bleeding Tendencies Past Surgical History Past Surgical History: Reports: Section - x3, Coronary Artery Bypass Graft, Other - Vena cava filter, abdominal surgery for repair of perforated stomach ulcer Social History Information Source: Relative, [facility] Records, Outside Facility Records Lives with: [facility] Smoking Status: Never Smoker Frequency of Alcohol Use: None Hx Recreational Drug Use: No Drugs: None Hx Prescription Drug Abuse: No - Advance Directive Resuscitation Status: Do Not Resuscitate Family History Family History: CAD, DM, Hypertension. denies: Malignancy Parental Family History Reviewed: Yes Children Family History Reviewed: Yes Sibling(s) Family History Reviewed.: Yes Medication/Allergy Allergies/Adverse Reactions: aloe vera Allergy (Verified 09/11/18 08:46) No Known Drug Allergies Allergy (Verified 09/11/18 08:46) Review of Systems Constitutional: PRESENT: fatigue, fever(s). ABSENT: chills, headache(s), weight gain, weight loss Eyes: ABSENT: visual disturbances Ears: ABSENT: hearing changes Cardiovascular: ABSENT: chest pain, dyspnea on exertion, edema, orthropnea, palpitations Respiratory: ABSENT: cough, hemoptysis Gastrointestinal: PRESENT: abdominal pain, diarrhea. ABSENT: constipation, hematemesis, hematochezia, nausea, vomiting Genitourinary: ABSENT: dysuria, hematuria Musculoskeletal: ABSENT: joint swelling Integumentary: ABSENT: rash, wounds Neurological: ABSENT: abnormal gait, abnormal speech, confusion, dizziness, focal weakness, syncope Psychiatric: ABSENT: anxiety, depression, homidical ideation, suicidal ideation Endocrine: ABSENT: cold intolerance, heat intolerance, polydipsia, polyuria Hematologic/Lymphatic: ABSENT: easy bleeding, easy bruising Physical Exam Vital Signs: Temp Pulse Resp BP Pulse Ox 97.8 F 13 97/54 L 94 11/14/18 18:21 11/14/18 18:01 11/14/18 18:01 11/14/18 18:01 General appearance: PRESENT: no acute distress, well-developed, other - Lethargic, chronically ill-appearing Head exam: PRESENT: atraumatic, normocephalic Eye exam: PRESENT: conjunctiva pink, EOMI, PERRLA. ABSENT: scleral icterus Ear exam: PRESENT: normal external ear exam Mouth exam: PRESENT: dry mucosa, tongue midline Teeth exam: PRESENT: poor dentation Neck exam: ABSENT: carotid bruit, JVD, lymphadenopathy, thyromegaly Respiratory exam: PRESENT: clear to auscultation linda, symmetrical, unlabored. ABSENT: rales, rhonchi, wheezes Cardiovascular exam: PRESENT: RRR, +S1, +S2. ABSENT: diastolic murmur, rubs, systolic murmur Pulses: PRESENT: +1 pedal pulses bilateral Vascular exam: PRESENT: normal capillary refill GI/Abdominal exam: PRESENT: hyperactive bowel sounds, normal bowel sounds, soft. ABSENT: distended, guarding, mass, organolmegaly, rebound, tenderness Rectal exam: PRESENT: deferred Extremities exam: ABSENT: calf tenderness, clubbing, pedal edema Musculoskeletal exam: ABSENT: ambulatory - Bedbound at baseline Neurological exam: PRESENT: alert, awake, oriented to person, oriented to place, oriented to situation, CN II-XII grossly intact, other - Lethargic; falls asleep multiple times during my assessment. ABSENT: oriented to time, motor sensory deficit Psychiatric exam: ABSENT: homicidal ideation, suicidal ideation Skin exam: PRESENT: dry, pallor, warm. ABSENT: cyanosis, intact - Stage I pressure wound to left heel, unstageable wound to right heel, excoriation to perineum/sacrum, rash Results Laboratory Results: 11/14/18 14:05 11/14/18 14:05 11/14/18 11/14/18 11/14/18 14:05 14:05 14:05 WBC 2.9 L D RBC 2.96 L Hgb 8.2 L Hct 25.9 L MCV 88 MCH 27.6 MCHC 31.5 L RDW 20.5 H Plt Count 299 Seg Neutrophils % 76.5 VBG pH VBG pCO2 VBG HCO3 VBG Base Excess Sodium 135.4 L Potassium 3.4 L Chloride 98 Carbon Dioxide 26 Anion Gap 11 BUN 29 H Creatinine 4.74 H Est GFR ( Amer) 12 L Glucose 73 L Lactic Acid 1.7 Calcium 8.2 L Total Bilirubin 0.6 AST 17 Alkaline Phosphatase 113 Total Protein 6.4 Albumin 2.6 L Urine Color Urine Appearance Urine pH Ur Specific [place] Urine Protein Urine Glucose (UA) Urine Ketones Urine Blood Urine Nitrite Ur Leukocyte Esterase 11/14/18 11/14/18 15:00 15:39 WBC RBC Hgb Hct MCV MCH MCHC RDW Plt Count Seg Neutrophils % VBG pH 7.40 VBG pCO2 40.0 VBG HCO3 24.1 VBG Base Excess -0.6 Sodium Potassium Chloride Carbon Dioxide Anion Gap BUN Creatinine Est GFR ( Amer) Glucose Lactic Acid Calcium Total Bilirubin AST Alkaline Phosphatase Total Protein Albumin Urine Color YELLOW Urine Appearance TURBID Urine pH 5.0 Ur Specific [place] 1.021 Urine Protein 100 H Urine Glucose (UA) NEGATIVE Urine Ketones TRACE H Urine Blood MODERATE H Urine Nitrite NEGATIVE Ur Leukocyte Esterase SMALL H Impressions: Chest X-Ray 11/14/18 15:07 IMPRESSION: No focal consolidation or other evidence of acute cardiopulmonary process. Abdomen/Pelvis CT 11/14/18 15:08 IMPRESSION: 1. Mild patchy bibasilar opacities and trace bilateral effusions, likely atelectasis although infection not excluded. 2. Moderate formed stool within the rectal vault. No evidence of intestinal obstruction. 3. Findings suggestive of volume overload with cardiomegaly, anasarca and small volume ascites. 4. Unchanged mild hydroureteronephrosis on the left without obstructing lesion identified. 5. Farris catheter within the bladder lumen with circumferential bladder wall thickening. Recommend correlation with urinalysis. Assessment and Plan - Diagnosis (1) Sepsis Qualifiers: Sepsis type: sepsis due to unspecified organism Sepsis acute organ dysfunction status: without acute organ dysfunction Qualified Code(s): A41.9 - Sepsis, unspecified organism Is this a current diagnosis for this admission?: Yes Plan: Sepsis present on admission, due to UTI/pyelonephritis, evidenced by with fever, hypotension, leukopenia (WBCs 2.9), elevated INR (1.85; does not appear the patient is chronically anticoagulated on review of MAR), and lethargy. Urinalysis positive for UTI. Blood and urine cultures pending. The patient does have copious amounts of diarrhea. C. difficile PCR and stool cultures pending. Lactic acid 1.7; follow-up pending. Patient has received 1 L fluid bolus by the ED provider and empirically placed on IV vancomycin and Zosyn. The patient is admitted to IM on continuous pulse oximetry and cardiac telemetry. She has no prior history of MRSA, she does have a history of E. coli ESBL sen sitive to Zosyn. We will continue IV Zosyn and hold vancomycin for now. Provide an additional 1 L fluid bolus followed by maintenance IV fluids. Tylenol as needed fever control. (2) Pyelonephritis Is this a current diagnosis for this admission?: Yes Plan: Urinalysis reveals UTI. CT abdomen/pelvis demonstrates chronic hydroureter nephrosis. Chest x-ray is benign. Urine culture pending. Continue IV fluids as above. Continue IV Zosyn based on prior culture and sensitivity results. Will adjust antibiotics as cultures result. (3) Anemia due to end stage renal disease Is this a current diagnosis for this admission?: Yes Plan: Hemoglobin of 8.2; improved from prior labs and at baseline. No evidence of active bleeding. Will resume home medications once reconciled. Nephrology is consulted; appreciate their assistance. (4) ESRD (end stage renal disease) Is this a current diagnosis for this admission?: Yes Plan: Patient on Monday, Monday, Monday dialysis schedule. She missed Monday's dialysis appointment due to hypoglycemia but did have dialysis on Monday. No evidence of fluid volume overload at this time and patient's chemistry is reassuring. Spoke with Dr. Valladares; likely will have dialysis on Monday. Nephrology is consulted; appreciate their assistance. (5) Diarrhea Qualifiers: Diarrhea type: unspecified type Qualified Code(s): R19.7 - Diarrhea, unspecified Is this a current diagnosis for this admission?: Yes Plan: CT abdomen pelvis did not demonstrate moderate fecal load in the rectum, but without obstruction. She does have copious amounts of watery stools. Patient family reports this is been ongoing for several months. We will obtain C. difficile PCR and stool cultures. 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 Consistent carb/dialysis diet. Accu-Cheks before meals and at bedtime with Humalog for sliding coverage. Hypoglycemia protocol in place. (7) Unstageable pressure ulcer of heel Qualifiers: Laterality: right Qualified Code(s): L89.610 - Pressure ulcer of right heel, unstageable Is this a current diagnosis for this admission?: Yes Plan: Float heel. Allevyn dressing. Routine monitoring. Consider surgical evaluation. - Time Time Spent with patient: 35 or more minutes Medications reviewed and adjusted accordingly: Yes Anticipated discharge: SNF - Inpatient Certification Based on my medical assessment, after consideration of the patient's co morbidities, presenting symptoms, or acuity I expect that the services needed warrant INPATIENT care.: Yes I certify that my determination is in accordance with my understanding of Medicare's requirements for reasonable and necessary INPATIENT services [42 CFR 412.3e].: Yes Medical Necessity: Significant Comorbidiites Make Outpatient Treatment Too Risky, Need Close Monitoring Due to Risk of Patient Decompensation, Need For IV Fluids, Need For Continuous Telemetry Monitoring, Need for IV Antibiotics, Risk of Complication if Not Cared For in Hospital, Risk of Diagnosis Which Will Require Inpatient Eval/Care/Monitoring
[2018-11-14] MEDS: IPRATROPIUM/ALBUTEROL 0.5-2.5 MG/3 ML AMPUL NEB SCH (19:42)
[2018-11-14] MEDS: PIPERACILLIN SODIUM/TAZOBACTAM 2.25 GM in NORMAL SALINE 50 ML IV SCH (22:00)
[2018-11-14] MEDS: INSULIN LISPRO 100 UNIT/ML 3 ML VIAL SUBCUT SCH (22:00)
[2018-11-14] MEDS: HEPARIN SOD (PORCINE) 5,000 UNIT/ML 1 ML VIAL SUBCUT SCH (22:03)
[2018-11-15] MEDS ORDERED: PIPERACILLIN SODIUM/TAZOBACTAM 3.375 GM in NORMAL SALINE 100 ML IV SCH ×2
[2018-11-15] MEDS ORDERED: DEXTROSE 5%-NORMAL SALINE 1,000 ML IV ONE (01:00)
[2018-11-15] MEDS ORDERED: METHYLPREDNISOLONE INJ 125 MG/2 ML SDV IV ONE (01:00)
[2018-11-15 03:16] LABS: C DIFFICILE GDH NEGATIVE (NEGATIVE)
[2018-11-15] MEDS: HEPARIN SOD (PORCINE) 5,000 UNIT/ML 1 ML VIAL SUBCUT SCH ×3 (05:13→21:20)
[2018-11-15] MEDS: PIPERACILLIN SODIUM/TAZOBACTAM 2.25 GM in NORMAL SALINE 50 ML IV SCH ×3 (05:13→21:19)
[2018-11-15] MEDS ORDERED: DEXTROSE 5%-1/2 NORMAL SALINE 1,000 ML IV PRN ×2 (05:29→10:54)
[2018-11-15 05:55] LABS: ANION GAP 15 (5-19); BLOOD UREA NITROGEN 30 mg/dL (7-20); CALCIUM 8.4 mg/dL (8.4-10.2); CARBON DIOXIDE 23 mmol/L (22-30); CHLORIDE 101 mmol/L (98-107); GLUCOSE 102 mg/dL (75-110); POTASSIUM 3.1 mmol/L (3.6-5.0)
[2018-11-15 07:46] LABS: HEMATOCRIT 27.5 % (36.0-47.0); HEMOGLOBIN 8.4 g/dL (12.0-15.5); MEAN CORPUSCULAR HEMOGLOBIN 27.1 pg (27.0-33.4); MEAN CORPUSCULAR HGB CONC 30.8 g/dL (32.0-36.0); MEAN CORPUSCULAR VOLUME 88 fl (80-97); PLATELET COUNT 260 10^3/uL (150-450); RED BLOOD COUNT 3.12 10^6/uL (3.72-5.28); RED CELL DISTRIBUTION WIDTH 20.3 % (11.5-14.0)
[2018-11-15 07:50] LABS: WHITE BLOOD COUNT 9.9 10^3/uL (4.0-10.5)
[2018-11-15] MEDS: IPRATROPIUM/ALBUTEROL 0.5-2.5 MG/3 ML AMPUL NEB SCH ×2 (08:02→21:02)
[2018-11-15 08:10] LABS: ABSOLUTE LYMPHOCYTES# (MANUAL) 0.3 10^3/uL (0.5-4.7); ABSOLUTE MONOCYTES # (MANUAL) 0.2 10^3/uL (0.1-1.4); BAND NEUTROPHILS % (MANUAL) 8 % (3-5); BASOPHILS % (MANUAL) 0 % (0-2); EOSINOPHILS % (MANUAL) 0 % (0-6); LYMPHOCYTES % (MANUAL) 3 % (13-45); MONOCYTES % (MANUAL) 2 % (3-13); SEGMENTED NEUTROPHILS % (MAN) 87 % (42-78); TOTAL CELLS COUNTED 100
[2018-11-15 08:11] LABS: ANISOCYTOSIS 2+; HYPOCHROMASIA SLIGHT; PLATELET COMMENT ADEQUATE; POLYCHROMASIA SLIGHT
--- NOTE | 2018-11-15 09:11 | EKG REPORT ---
SEVERITY:- ABNORMAL ECG - SINUS RHYTHM NONSPECIFIC T ABNORMALITIES, LATERAL LEADS : Confirmed by: Stephanie Calix 15-Nov-2018 09:10:27
[2018-11-15] MEDS: INSULIN LISPRO 100 UNIT/ML 3 ML VIAL SUBCUT SCH ×4 (09:15→22:10)
[2018-11-15] MEDS: PANTOPRAZOLE SODIUM 40 MG VIAL IV SCH (09:41)
[2018-11-15] MEDS: CARVEDILOL 12.5 MG TABLET PO SCH ×2 (09:42→21:20)
[2018-11-15] MEDS: ASPIRIN 81 MG TABLET, CHEWABLE PO SCH (09:42)
[2018-11-15] MEDS: ACETAMINOPHEN 325 MG TABLET PO PRN ×3 (09:53→22:12)
[2018-11-15] MEDS ORDERED: DICYCLOMINE HCL 10 MG CAPSULE PO PRN (10:53)
[2018-11-15] MEDS ORDERED: MAGNESIUM HYDROXIDE SUSP 30 ML UDCUP PO ONE (10:53)
[2018-11-15] MEDS ORDERED: DEXTROSE 5%-WATER 1000 ML 1,000 ML IV PRN (11:48)
[2018-11-15] MEDS ORDERED: NORMAL SALINE 1000 ML 1,000 ML IV PRN (11:48)
--- NOTE | 2018-11-15 12:06 | PDOC CONSULTATION ---
Consultation Consult Date: 11/15/18 Provider Consulted: Sergey TAYLOR Consult reason:: ESRD for dialysis. History of Present Illness Admission Date/PCP: 11/14/18 17:37 ADITYA HARDING MD History of Present Illness: ENEIDA JOHNSON is a 58 year old female who is a [facility] resident with a past medical history significant for ESRD on dialysis Monday, in the background of Diabetes, hypertension, hyperlipidemia, CAD, PAF, COPD, bedbound status at baseline, and opiate dependent chronic pain was send to the ER from [facility] with a complaint of increased lethargy and fever. Reportedly 101.8 upon EMS arrival. Today while the patient is being examined admits to the fact that the abdominal pain is better after she has been diagnosed with pyelonephritis/UTI with septic shock, Hypoglycemia and has been begun on IV antibiotics / IV fluids along with adjustments of her pain medications. CT ABD/Pelvis showing cardiomegaly, anasarca, small volume ascites, unchanged mild hydroureternephrosis on the left without obstructing lesion, and circumferential bladder wall thickening. Labs and medications were reviewed from admission and today. Discussions were done with the patient and treating hospitalist.She has hypoglycemia persisting and she is on D5 half normal. She has persistent hypotension. Past Medical History Cardiac Medical History: Reports: Atrial Fibrillation, Coronary Artery Disease, DVT, Hyperlipidemia, Hypertension-primary Pulmonary Medical History: Reports: Bronchitis, Chronic Obstructive Pulmonary Disease (COPD), Pneumonia Denies: Asthma Neurological Medical History: Denies: Ischemic CVA, Seizures Endocrine Medical History: Reports: Diabetes Mellitus Type 2, Obesity Denies: Diabetes Mellitus Type 1, Hyperthyroidism, Hypothyroidism Renal/ Medical History: Reports: End Stage Renal Disease, Secondary Hyperparathyroidism GI Medical History: Reports: Gastroesophageal Reflux Disease Denies: Cirrhosis, Hepatitis Musculoskeltal Medical History: Denies: Arthritis, Fibromyalgia Skin Medical History: Denies: Eczema, Psoriasis Psychiatric Medical History: Reports: Depression Hematology Medical History: Reports Anemia of Chronic Kidney Disease Past Surgical History Past Surgical History: Reports: Section - x3, Coronary Artery Bypass Graft, Other - Vena cava filter, abdominal surgery for repair of perforated sto mach ulcer Social History Lives with: Group Home Smoking Status: Never Smoker Frequency of Alcohol Use: None Hx Recreational Drug Use: No Drugs: None Hx Prescription Drug Abuse: No - Advance Directive Resuscitation Status: Do Not Resuscitate Family History Parental Family History Reviewed: Yes - Negative for ESRD Children Family History Reviewed: No Sibling(s) Family History Reviewed.: No Medication/Allergy Home Medications: Acetaminophen [Tylenol 325 mg Tablet] 650 mg PO Q6HP PRN 11/14/18 Amino Acids/Protein Hydrolys [Pro-Stat Awc Liquid Packet] 30 ml PO DAILY 11/14/18 Aspirin [Aspirin 81 mg Chewable Tablet] 81 mg PO DAILY 11/14/18 Atorvastatin Calcium [Lipitor 40 mg Tablet] 40 mg PO QHS 11/14/18 Carvedilol [Coreg 25 mg Tablet] 25 mg PO Q12 11/14/18 Diphenhydramine HCl [Allergy Cream] 1 applic TOP TIDP PRN 11/14/18 Ergocalciferol (Vitamin D2) [Drisdol 50,000 unit (1.25MG) Capsule] 50,000 unit PO WE@0800 11/14/18 Fluoxetine HCl [Prozac 20 mg Capsule] 20 mg PO QAM 11/14/18 Folic Acid/Vitamin B Comp W-C [Nephrocaps Softgel] 1 cap PO QHS 11/14/18 Insulin Glargine,Hum.rec.anlog [Lantus Insulin 100 Unit/1 ml 10 ml] 10 units SQ QAM 11/14/18 Insulin Lispro [Humalog Insulin (Lispro) 100 unit/mL] 0 units SQ .SLIDING SCALE 11/14/18 Levocetirizine Dihydrochloride [Xyzal] 5 mg PO QHS 11/14/18 Omeprazole 20 mg PO Q6AM 11/14/18 Oxycodone HCl [Oxy-Ir 5 mg Tablet] 5 mg PO Q6HP PRN 11/14/18 Petrolatum,White [Petrolatum] 1 applic TOP DAILYP PRN 11/14/18 Pregabalin [Lyrica 75 mg Capsule] 75 mg PO Q12 11/14/18 Allergies/Adverse Reactions: aloe vera Allergy (Verified 09/11/18 08:46) No Known Drug Allergies Allergy (Verified 09/11/18 08:46) Review of Systems Constitutional: PRESENT: anorexia, chills, fatigue, fever(s), weakness. ABSENT: headache(s), night sweats Nose, Mouth, and Throat: ABSENT: mouth pain, sore throat Cardiovascular: PRESENT: dyspnea on exertion. ABSENT: chest pain, edema, orthropnea, palpitations Respiratory: ABSENT: cough, dyspnea, hemoptysis Gastrointestinal: PRESENT: abdominal pain, bloating, diarrhea, nausea. ABSENT: coffee ground emesis, dysphagia, heartburn, hematemesis, hematochezia, vomiting Genitourinary: PRESENT: dysuria. ABSENT: hematuria Neurological: PRESENT: confusion. ABSENT: abnormal gait, abnormal movements, abnormal speech, convulsions, focal weakness, frequent falls Endocrine: ABSENT: polydipsia Hematologic/Lymphatic: ABSENT: easy bleeding, easy bruising, lymphadenopathy Physical Exam Vital Signs: Temp Pulse Resp BP Pulse Ox 97.4 F 68 17 98/58 L 97 11/15/18 11:29 11/15/18 11:29 11/15/18 11:29 11/15/18 11:29 11/15/18 11:29 Intake & Output 11/14/18 11/15/18 11/16/18 06:59 06:59 06:59 Intake Total 1100 2568 Output Total 330 Balance 770 2568 Weight 68.6 kg General appearance: PRESENT: disheveled Exam: Lethargic but awakens and answers questions appropriately. Admits to the fact the abdominal pains are better. However she feels very weak. Eye exam: PRESENT: EOMI, PERRLA. ABSENT: scleral icterus Ear exam: PRESENT: normal external ear exam Mouth exam: PRESENT: neck supple Neck exam: ABSENT: lymphadenopathy, meningismus, tenderness, thyromegaly, tracheal deviation Respiratory exam: PRESENT: clear to auscultation linda. ABSENT: crackles Cardiovascular exam: PRESENT: +S1, +S2 GI/Abdominal exam: PRESENT: normal bowel sounds, rebound - Mild., soft, tendern ess - In the lower quadrants.. ABSENT: distended, guarding, organomegaly Extremities exam: PRESENT: pedal edema Neurological exam: PRESENT: altered, awake, oriented to person, oriented to place Psychiatric exam: PRESENT: appropriate affect Skin exam: ABSENT: erythema, jaundice, mottled, rash Results Laboratory Results: 11/15/18 06:59 11/15/18 04:13 11/14/18 11/14/18 11/14/18 14:05 14:05 14:05 WBC 2.9 L D RBC 2.96 L Hgb 8.2 L Hct 25.9 L MCV 88 MCH 27.6 MCHC 31.5 L RDW 20.5 H Plt Count 299 Seg Neutrophils % 76.5 VBG pH VBG pCO2 VBG HCO3 VBG Base Excess Sodium 135.4 L Potassium 3.4 L Chloride 98 Carbon Dioxide 26 Anion Gap 11 BUN 29 H Creatinine 4.74 H Est GFR ( Amer) 12 L Glucose 73 L Lactic Acid 1.7 Calcium 8.2 L Total Bilirubin 0.6 AST 17 Alkaline Phosphatase 113 Total Protein 6.4 Albumin 2.6 L Urine Color Urine Appearance Urine pH Ur Specific [place] Urine Protein Urine Glucose (UA) Urine Ketones Urine Blood Urine Nitrite Ur Leukocyte Esterase 11/14/18 11/14/18 11/14/18 15:00 15:39 20:38 WBC RBC Hgb Hct MCV MCH MCHC RDW Plt Count Seg Neutrophils % VBG pH 7.40 VBG pCO2 40.0 VBG HCO3 24.1 VBG Base Excess -0.6 Sodium Potassium Chloride Carbon Dioxide Anion Gap BUN Creatinine Est GFR ( Amer) Glucose Lactic Acid 1.5 Calcium Total Bilirubin AST Alkaline Phosphatase Total Protein Albumin Urine Color YELLOW Urine Appearance TURBID Urine pH 5.0 Ur Specific [place] 1.021 Urine Protein 100 H Urine Glucose (UA) NEGATIVE Urine Ketones TRACE H Urine Blood MODERATE H Urine Nitrite NEGATIVE Ur Leukocyte Esterase SMALL H 11/15/18 11/15/18 11/15/18 04:13 04:13 06:59 WBC Cancelled 9.9 D RBC Cancelled 3.12 L Hgb Cancelled 8.4 L Hct Cancelled 27.5 L MCV Cancelled 88 MCH Cancelled 27.1 MCHC Cancelled 30.8 L RDW Cancelled 20.3 H Plt Count Cancelled 260 Seg Neutrophils % Cancelled Not Reportable VBG pH VBG pCO2 VBG HCO3 VBG Base Excess Sodium 138.8 Potassium 3.1 L Chloride 101 Carbon Dioxide 23 Anion Gap 15 BUN 30 H Creatinine 4.88 H Est GFR ( Amer) 11 L Glucose 102 Lactic Acid Calcium 8.4 Total Bilirubin AST Alkaline Phosphatase Total Protein Albumin Urine Color Urine Appearance Urine pH Ur Specific [place] Urine Protein Urine Glucose (UA) Urine Ketones Urine Blood Urine Nitrite Ur Leukocyte Esterase Impressions: Chest X-Ray 11/14/18 15:07 IMPRESSION: No focal consolidation or other evidence of acute cardiopulmonary process. Abdomen/Pelvis CT 11/14/18 15:08 IMPRESSION: 1. Mild patchy bibasilar opacities and trace bilateral effusions, likely atelectasis although infection not excluded. 2. Moderate formed stool within the rectal vault. No evidence of intestinal obstruction. 3. Findings suggestive of volume overload with cardiomegaly, anasarca and small volume ascites. 4. Unchanged mild hydroureteronephrosis on the left without obstructing lesion identified. 5. Farris catheter within the bladder lumen with circumferential bladder wall thickening. Recommend correlation with urinalysis. Assessment & Plan - Diagnosis (1) Septic shock Plan: Patient has septic shock with UTI/pyelonephritis from gram-negative rods further cultures pending. Patient on IV Zosyn. Uptitrate her fluids with normal saline and titrate down D5 to 25 cc/h to cover her for hypoglycemia with frequent monitoring to ensure that she is not going into serious hypoglycemia. Last Accu-Chek showed blood sugars of 151 and hopefully she is wearing out her Lantus that she must have received at the [facility].She needs to be monitored dixie sely through this crisis stage and if she is hemodynamically unstable one might need to consider her to be moved to ICU.Plan for dialysis in the morning. (2) Diarrhea Qualifiers: Diarrhea type: unspecified type Qualified Code(s): R19.7 - Diarrhea, unspecified Is this a current diagnosis for this admission?: Yes Plan: Needs further evaluation. C. difficile currently negative. CT scan does not show any acute diverticulitis. She has got formed stools in the rectal vault and this may be spurious spurious diarrhea. (3) Pyelonephritis Is this a current diagnosis for this admission?: Yes Plan: Has persistent mild hydroureteronephrosis. No obstructive lesions seen. Has indwelling Farris catheter. Urine cultures growing gram-negative rods. (4) Altered mental status Plan: Secondary to septic shock. Some better as seen by examination this morning. (5) ESRD (end stage renal disease) Is this a current diagnosis for this admission?: Yes Plan: Plan for dialysis in the morning. Hopefully her blood pressure will be good enough to help us extract fluids during ultrafiltration. If not she might have to be transferred to the ICU for vasopressors to help us do dialysis. (6) Hypoglycemia Plan: The face of septic shock and the being on long-acting insulins. Change fluids to D5W and monitor closely for hypoglycemia. (7) UTI (urinary tract infection) Qualifiers: Urinary tract infection type: site unspecified Hematuria presence: without hematuria Qualified Code(s): N39.0 - Urinary tract infection, site not specified Plan: As mentioned earlier. Gram-negative rods in urine. Blood cultures so far negative. (8) Diabetes mellitus Qualifiers: Diabetes mellitus type: type 2 Diabetes mellitus manager long term care insulin use: with snf use Chronic kidney disease stage: on chronic dialysis Is this a current diagnosis for this admission?: Yes Plan: Advised tight control when she gets over her present hypoglycemic episodes. (9) Anemia due to end stage renal disease Is this a current diagnosis for this admission?: Yes Plan: Adjust erythropoietin.We will also get iron studies while she is here. (10) Unstageable pressure ulcer of heel Qualifiers: Laterality: right Qualified Code(s): L89.610 - Pressure ulcer of right heel, unstageable Is this a current diagnosis for this admission?: Yes Plan: As per hospitalist
[2018-11-15] MEDS ORDERED: OXYCODONE HCL IR 5 MG TABLET PO PRN (17:06)
--- NOTE | 2018-11-15 17:25 | PDOC PROGRESS REPORT ---
Subjective Progress Note for:: 11/15/18 Subjective:: SOLANGE JOHNSON is a 58 year old female with a past medical history significant for ESRD on dialysis Monday, anemia, hypertension, hyperlipidemia, CAD, PAF, COPD, IDDM, GERD, bedbound status at baseline, and opiate dependent chronic pain who was admitted with sepsis secondary to pyelonephritis. Patient was seen on morning rounds. She was found resting in bed comfortably on room air. She remains lethargic but does wake easily as compared to yesterday, does answer a few questions before quickly falling back to sleep. She tells me that she is feeling much better today, however continues to have her chronic abdominal pain. She is unable to describe if she has had any previous work-up regarding her abdominal discomfort and requests pain medication. Otherwise, she denies fever, chills, chest pain, palpitations, dyspnea, nausea, vomiting. She does continue to have copious loose stools. She has no other questions or concerns at this time. No concerns per nursing. Reason For Visit: PYELONEPHRITIS, SEPSIS Physical Exam Vital Signs: Temp Pulse Resp BP Pulse Ox 97.6 F 65 17 102/53 L 100 11/15/18 15:40 11/15/18 15:40 11/15/18 15:40 11/15/18 15:40 11/15/18 15:40 Intake & Output 11/14/18 11/15/18 11/16/18 06:59 06:59 06:59 Intake Total 1100 2768 Output Total 330 50 Balance 770 2718 Weight 68.6 kg General appearance: PRESENT: no acute distress, cooperative, disheveled, well- developed, well-nourished - overweight Head exam: PRESENT: atraumatic, normocephalic Eye exam: PRESENT: conjunctiva pink, EOMI, PERRLA. ABSENT: scleral icterus Ear exam: PRESENT: normal external ear exam Mouth exam: PRESENT: moist, tongue midline Teeth exam: PRESENT: poor dentation Neck exam: ABSENT: carotid bruit, JVD, lymphadenopathy, thyromegaly Respiratory exam: PRESENT: clear to auscultation linda, symmetrical, unlabored. ABSENT: rales, rhonchi, wheezes Cardiovascular exam: PRESENT: RRR, +S1, +S2. ABSENT: diastolic murmur, rubs, systolic murmur Pulses: PRESENT: normal dorsalis pedis pul Vascular exam: PRESENT: normal capillary refill GI/Abdominal exam: PRESENT: normal bowel sounds, soft. ABSENT: distended, g uarding, mass, organolmegaly, rebound, tenderness Rectal exam: PRESENT: deferred Gentrourinary exam: PRESENT: indwelling catheter Extremities exam: PRESENT: full ROM. ABSENT: calf tenderness, clubbing, pedal edema Musculoskeletal exam: ABSENT: ambulatory - bedbound at baseline Neurological exam: PRESENT: oriented to person, oriented to place, oriented to situation, CN II-XII grossly intact, other - Lethargic; wakes easily but quickly falls back to sleep. ABSENT: oriented to time, motor sensory deficit Psychiatric exam: PRESENT: appropriate affect, normal mood. ABSENT: homicidal ideation, suicidal ideation Skin exam: PRESENT: dry, warm, other - Stage I pressure wound to left heel, unstageable wound to right heel, excoriation to perineum/sacrum. ABSENT: cyanosis, intact, rash Results Laboratory Results: 11/15/18 06:59 11/15/18 04:13 11/14/18 11/15/18 11/15/18 20:38 04:13 04:13 WBC Cancelled RBC Cancelled Hgb Cancelled Hct Cancelled MCV Cancelled MCH Cancelled MCHC Cancelled RDW Cancelled Plt Count Cancelled Seg Neutrophils % Cancelled Sodium 138.8 Potassium 3.1 L Chloride 101 Carbon Dioxide 23 Anion Gap 15 BUN 30 H Creatinine 4.88 H Est GFR ( Amer) 11 L Glucose 102 Lactic Acid 1.5 Calcium 8.4 11/15/18 06:59 WBC 9.9 D RBC 3.12 L Hgb 8.4 L Hct 27.5 L MCV 88 MCH 27.1 MCHC 30.8 L RDW 20.3 H Plt Count 260 Seg Neutrophils % Not Reportable Sodium Potassium Chloride Carbon Dioxide Anion Gap BUN Creatinine Est GFR ( Amer) Glucose Lactic Acid Calcium Impressions: Chest X-Ray 11/14/18 15:07 IMPRESSION: No focal consolidation or other evidence of acute cardiopulmonary process. Abdomen/Pelvis CT 11/14/18 15:08 IMPRESSION: 1. Mild patchy bibasilar opacities and trace bilateral effusions, likely atelectasis although infection not excluded. 2. Moderate formed stool within the rectal vault. No evidence of intestinal obstruction. 3. Findings suggestive of volume overload with cardiomegaly, anasarca and small volume ascites. 4. Unchanged mild hydroureteronephrosis on the left without obstructing lesion identified. 5. Farris catheter within the bladder lumen with circumferential bladder wall thickening. Recommend correlation with urinalysis. Assessment and Plan - Diagnosis (1) Sepsis Qualifiers: Sepsis type: sepsis due to unspecified organism Sepsis acute organ dysfunction status: without acute organ dysfunction Qualified Code(s): A41.9 - Sepsis, unspecified organism Is this a current diagnosis for this admission?: Yes Plan: Improved; afebrile x24 hours, improved blood pressures, leukopenia has resolved. Sepsis present on admission, due to UTI/pyelonephritis, evidenced by with fever, hypotension, leukopenia (WBCs 2.9), elevated INR (1.85; does not appear the patient is chronically anticoagulated on review of MAR), and lethargy. Urinalysis positive for UTI. Blood and urine cultures pending. The patient does have copious amounts of diarrhea. C. difficile PCR and stool cultures pending. Lactic acid 1.7; follow-up 1.5 Received 3 L IV fluid in the first 24 hours. The patient is admitted to [facility] on continuous pulse oximetry and cardiac telemetry. She has no prior history of MRSA, she does have a history of E. coli ESBL sensitive to Zosyn. We will continue IV Zosyn and hold vancomycin for now. Continue maintenance IV fluids. Tylenol as needed fever control. (2) Pyelonephritis Is this a current diagnosis for this admission?: Yes Plan: Urinalysis reveals UTI. CT abdomen/pelvis demonstrates chronic hydroureter nephrosis. Chest x-ray is benign. Urine culture shows gram-negative rods. Blood cultures are negative at 24 hours. Continue IV fluids as above. Continue IV Zosyn based on prior culture and sensitivity results. Will adjust antibiotics as cultures result. (3) Anemia due to end stage renal disease Is this a current diagnosis for this admission?: Yes Plan: Hemoglobin of 8.2; improved from prior labs and at baseline. No evidence of active bleeding. Continue home dose Nephrocaps. Nephrology is consulted; appreciate their assistance. (4) ESRD (end stage renal disease) Is this a current diagnosis for this admission?: Yes Plan: Patient on Monday, Monday, Monday dialysis schedule. She missed Monday's dialysis appointment due to hypoglycemia but did have dialysis on Monday. No evidence of fluid volume overload at this time and patient's chemistry is reassuring. Spoke with Dr. Valladares; plan for dialysis tomorrow Nephrology is consulted; appreciate their assistance. (5) Diarrhea Qualifiers: Diarrhea type: unspecified type Qualified Code(s): R19.7 - Diarrhea, uns pecified Is this a current diagnosis for this admission?: Yes Plan: CT abdomen pelvis did not demonstrate moderate fecal load in the rectum, but without obstruction. She does have copious amounts of watery stools. Patient family reports this is been ongoing for several months. C. difficile is negative. Stool cultures pending. Start Bentyl Milk of mag x1; consider manual disimpaction. (6) Diabetes mellitus Qualifiers: Diabetes mellitus type: type 2 Diabetes mellitus termite treater helper insulin use: with [facility]p use Chronic kidney disease stage: on chronic dialysis Is this a current diagnosis for this admission?: Yes Plan: Holding long-acting insulin related to family report of multiple episodes of hypoglycemia. Consistent carb/dialysis diet. Accu-Cheks before meals and at bedtime with Humalog for sliding coverage. Hypoglycemia overnight; patient required D5NS, decreased to 25 ml/hr per nephrology Hypoglycemia protocol in place. (7) Unstageable pressure ulcer of heel Qualifiers: Laterality: right Qualified Code(s): L89.610 - Pressure ulcer of right heel, unstageable Is this a current diagnosis for this admission?: Yes Plan: Float heel. Allevyn dressing. Close monitoring. Consider surgical evaluation. - Time Time Spent with patient: 25-34 minutes Medications reviewed and adjusted accordingly: Yes Anticipated discharge: SNF - established resident
[2018-11-15] MEDS: ATORVASTATIN CALCIUM 40 MG TABLET PO SCH (21:19)
[2018-11-15] MEDS: NORMAL SALINE 1000 ML 1,000 ML IV PRN (21:19)
[2018-11-15] MEDS: FOLIC ACID/VITAMIN B COMP W-C CAPSULE PO SCH (21:19)
[2018-11-15] MEDS ORDERED: PREGABALIN 75 MG CAPSULE PO SCH (22:00)
[2018-11-15] MEDS ORDERED: PREGABALIN 50 MG CAPSULE PO SCH (22:00)
[2018-11-16] MEDS ORDERED: OXYCODONE HCL IR 5 MG TABLET PO ONE (02:00)
[2018-11-16] MEDS ORDERED: NORMAL SALINE 500 ML IV ONE (02:00)
[2018-11-16] MEDS: HEPARIN SOD (PORCINE) 5,000 UNIT/ML 1 ML VIAL SUBCUT SCH ×3 (05:08→21:50)
[2018-11-16] MEDS: PIPERACILLIN SODIUM/TAZOBACTAM 2.25 GM in NORMAL SALINE 50 ML IV SCH (05:30)
[2018-11-16 05:32] LABS: ABSOLUTE RETICS # 0.067 10^6/uL (0.028-0.122); HEMATOCRIT 26.7 % (36.0-47.0); HEMOGLOBIN 8.3 g/dL (12.0-15.5); MEAN CORPUSCULAR VOLUME 87 fl (80-97); PLATELET COUNT 243 10^3/uL (150-450); RED BLOOD COUNT 3.06 10^6/uL (3.72-5.28); RED CELL DISTRIBUTION WIDTH 20.8 % (11.5-14.0); RETICULOCYTE COUNT (AUTO) 2.18 % (0.66-2.85); WHITE BLOOD COUNT 15.2 10^3/uL (4.0-10.5)
[2018-11-16 05:34] LABS: BLOOD UREA NITROGEN 37 mg/dL (7-20); CALCIUM 8.2 mg/dL (8.4-10.2); GLUCOSE 228 mg/dL (75-110)
[2018-11-16 05:35] LABS: ANION GAP 13 (5-19); CARBON DIOXIDE 19 mmol/L (22-30); CHLORIDE 102 mmol/L (98-107); IRON(TIBC) 15.7 ug/dL (37-170); POTASSIUM 3.6 mmol/L (3.6-5.0)
[2018-11-16 06:06] LABS: ABSOLUTE LYMPHOCYTES# (MANUAL) 0.9 10^3/uL (0.5-4.7); ABSOLUTE MONOCYTES # (MANUAL) 0.5 10^3/uL (0.1-1.4); ANISOCYTOSIS 3+; BAND NEUTROPHILS % (MANUAL) 9 % (3-5); BASOPHILS % (MANUAL) 0 % (0-2); EOSINOPHILS % (MANUAL) 0 % (0-6); HYPOCHROMASIA SLIGHT; LYMPHOCYTES % (MANUAL) 6 % (13-45); METAMYELOCYTES % (MANUAL) 1 % (0); MONOCYTES % (MANUAL) 3 % (3-13); SEGMENTED NEUTROPHILS % (MAN) 81 % (42-78); TOTAL CELLS COUNTED 100
[2018-11-16 06:07] LABS: PLATELET COMMENT ADEQUATE
[2018-11-16 06:41] LABS: FOLATE > 20.00 ng/mL (>2.76)
[2018-11-16] MEDS ORDERED: OXYCODONE HCL IR 5 MG TABLET PO PRN ×2 (08:16→12:16)
[2018-11-16] MEDS: IPRATROPIUM/ALBUTEROL 0.5-2.5 MG/3 ML AMPUL NEB SCH ×2 (08:31→20:45)
[2018-11-16] MEDS ORDERED: EPOETIN ALFA-EPBX 20,000 UNIT in SYRINGE, DISPOSABLE, 1 EACH IV PRN (08:52)
[2018-11-16] MEDS: INSULIN LISPRO 100 UNIT/ML 3 ML VIAL SUBCUT SCH ×4 (09:17→21:21)
[2018-11-16] MEDS: ASPIRIN 81 MG TABLET, CHEWABLE PO SCH (09:42)
[2018-11-16] MEDS: FLUOXETINE HCL 20 MG CAPSULE PO SCH (09:42)
[2018-11-16] MEDS ORDERED: PROTEIN HYDROLYS PO SCH (10:00)
[2018-11-16] MEDS ORDERED: AMINO ACIDS PO SCH (10:00)
[2018-11-16] MEDS: CARVEDILOL 12.5 MG TABLET PO SCH ×2 (11:49→21:35)
[2018-11-16] MEDS: PANTOPRAZOLE SODIUM 40 MG VIAL IV SCH (11:49)
[2018-11-16] MEDS ORDERED: DEXTROSE 5%-WATER 250 ML with NOREPINEPHRINE BITARTRATE 4 MG IV PRN ×2 (12:15)
--- NOTE | 2018-11-16 12:15 | PDOC PROGRESS REPORT ---
Subjective Progress Note for:: 11/16/18 Subjective:: Feeling and looking tired. Reason For Visit: PYELONEPHRITIS, SEPSIS This patient is a 58 yo woman in ESRD on HD with pyelonephritis. She was hypotensive and needs HD today. She is brought to the ICU for pressors during dialysis. She is chronically ill. Not septic today by SIRS criteria but is at high risk for hypoadrenalism. Will check random cortisol and continue above stated plan. Physical Exam Vital Signs: Temp Pulse Resp BP Pulse Ox 97.8 F 72 16 103/54 L 100 11/16/18 10:51 11/16/18 10:51 11/16/18 10:51 11/16/18 10:51 11/16/18 10:51 Intake & Output 11/15/18 11/16/18 11/17/18 06:59 06:59 06:59 Intake Total 1100 4717 Output Total 330 225 Balance 770 4492 Weight 68.6 kg 79.7 kg General appearance: PRESENT: no acute distress, cooperative Eye exam: PRESENT: EOMI, PERRLA Ear exam: PRESENT: normal external ear exam Mouth exam: PRESENT: dry mucosa Neck exam: PRESENT: full ROM Respiratory exam: PRESENT: clear to auscultation linda Cardiovascular exam: PRESENT: RRR Vascular exam: PRESENT: normal capillary refill GI/Abdominal exam: PRESENT: soft Rectal exam: PRESENT: deferred Extremities exam: PRESENT: full ROM Musculoskeletal exam: PRESENT: ambulatory Neurological exam: PRESENT: alert, oriented to person, oriented to place, oriented to time, oriented to situation Psychiatric exam: PRESENT: appropriate affect Skin exam: PRESENT: normal color Results Laboratory Results: 11/16/18 05:05 11/16/18 05:05 11/16/18 11/16/18 05:05 05:05 WBC 15.2 H RBC 3.06 L Hgb 8.3 L Hct 26.7 L MCV 87 MCH 27.0 MCHC 31.0 L RDW 20.8 H Plt Count 243 Seg Neutrophils % Not Reportable Retic Count (auto) 2.18 Sodium 133.9 L Potassium 3.6 Chloride 102 Carbon Dioxide 19 L Anion Gap 13 BUN 37 H Creatinine 5.25 H Est GFR ( Amer) 10 L Glucose 228 H Calcium 8.2 L Iron 15.7 L TIBC 125 L % Saturation 13 Ferritin 373.00 H Vitamin B12 > 1000.0 H Folate > 20.00 11/14/18 18:55 Stool - Stool - Final 11/14/18 15:39 Farris Catheter Urine Culture - Final Escherichia Coli Esbl Impressions: Chest X-Ray 11/14/18 15:07 IMPRESSION: No focal consolidation or other evidence of acute cardiopulmonary process. Abdomen/Pelvis CT 11/14/18 15:08 IMPRESSION: 1. Mild patchy bibasilar opacities and trace bilateral effusions, likely atelectasis although infection not excluded. 2. Moderate formed stool within the rectal vault. No evidence of intestinal obstruction. 3. Findings suggestive of volume overload with cardiomegaly, anasarca and small volume ascites. 4. Unchanged mild hydroureteronephrosis on the left without obstructing lesion identified. 5. Farris catheter within the bladder lumen with circumferential bladder wall thickening. Recommend correlation with urinalysis. Assessment & Plan - Diagnosis (1) Diabetes mellitus Qualifiers: Diabetes mellitus type: type 2 Diabetes mellitus nursing home insulin use: with middle or intermediate school principal use Chronic kidney disease stage: on chronic dialysis Is this a current diagnosis for this admission?: Yes Plan: Dibetes under reasonable control. If she needs steroids this will complicate DM managment. (2) Diarrhea Qualifiers: Diarrhea type: unspecified type Qualified Code(s): R19.7 - Diarrhea, unspecified Is this a current diagnosis for this admission?: Yes (3) Pyelonephritis Is this a current diagnosis for this admission?: Yes Plan: Chronic not C-dif (4) Sepsis Qualifiers: Sepsis type: sepsis due to unspecified organism Sepsis acute organ dysfunction status: without acute organ dysfunction Qualified Code(s): A41.9 - Sepsis, unspecified organism Is this a current diagnosis for this admission?: Yes Plan: E coli R to antibiotics, on meropenem taoday. (5) ESRD (end stage renal disease) Is this a current diagnosis for this admission?: Yes Plan: Continue with HD today. Needs prssors most likely to keep pressure head for HD. If stable afterward return to floor. (6) Hypoadrenalism Is this a current diagnosis for this admission?: Yes Plan: This is possible. She is not septic but chronically ill. Not a candidate for CIRCI (critical illness related cortisol insufficiency). She is not that sick. However chronic illness, relative bradycardia, suggestive. Check random cortisol. Will give steroids unless cortisol low in deference to DM. Potassium and temperature not helpful here. - Time Time Spent with patient: 35 or more minutes Total Critical Time (Minutes): 35 Medications reviewed and adjusted accordingly: Yes Anticipated discharge: Home Within: within 72 hours - Inpatient Certification Medical Necessity: Failure to Improve With Outpatient Therapy, Significant Comorbidiites Make Outpatient Treatment Too Risky, Need Close Monitoring Due to Risk of Patient Decompensation, Need For Continuous Telemetry Monitoring
[2018-11-16] MEDS ORDERED: PETROLATUM WHITE TOP PRN (12:16)
[2018-11-16] MEDS ORDERED: [UNRECOGNIZED DRUG - REMARK] TOP PRN (12:16)
[2018-11-16] MEDS ORDERED: ACETAMINOPHEN 325 MG TABLET PO PRN (12:16)
--- NOTE | 2018-11-16 12:41 | PDOC PROGRESS REPORT ---
Subjective Progress Note for:: 11/16/18 Reason For Visit: She was hypotensive and septic shock. Patient has been transferred to ICU where she is now undergoing dialysis. She is on pressors and we are able to extract fluids. Labs and medications were reviewed. She has still has persistent abdominal pain with fever. She denies chills. Dialysis orders were reviewed with the treating dialysis nurse. Physical Exam Vital Signs: Temp Pulse Resp BP Pulse Ox 97.5 F 69 16 103/65 100 11/16/18 12:00 11/16/18 12:00 11/16/18 12:00 11/16/18 12:00 11/16/18 12:00 Intake & Output 11/15/18 11/16/18 11/17/18 06:59 06:59 06:59 Intake Total 1100 4717 Output Total 330 225 Balance 770 4492 Weight 68.6 kg 79.7 kg General appearance: PRESENT: disheveled, mild distress Respiratory exam: PRESENT: clear to auscultation linda, decreased breath sounds. ABSENT: crackles Cardiovascular exam: PRESENT: +S1, +S2 GI/Abdominal exam: PRESENT: normal bowel sounds, rebound - Mild., soft, tenderness - In the lower quadrants.. ABSENT: distended, guarding, organomegaly Extremities exam: PRESENT: pedal edema Neurological exam: PRESENT: alert, awake, oriented to person, oriented to place Psychiatric exam: PRESENT: depressed Skin exam: ABSENT: erythema, petechiae, rash Results Laboratory Results: 11/16/18 05:05 11/16/18 05:05 11/16/18 11/16/18 05:05 05:05 WBC 15.2 H RBC 3.06 L Hgb 8.3 L Hct 26.7 L MCV 87 MCH 27.0 MCHC 31.0 L RDW 20.8 H Plt Count 243 Seg Neutrophils % Not Reportable Retic Count (auto) 2.18 Sodium 133.9 L Potassium 3.6 Chloride 102 Carbon Dioxide 19 L Anion Gap 13 BUN 37 H Creatinine 5.25 H Est GFR ( Amer) 10 L Glucose 228 H Calcium 8.2 L Iron 15.7 L TIBC 125 L % Saturation 13 Ferritin 373.00 H Vitamin B12 > 1000.0 H Folate > 20.00 11/14/18 18:55 Stool - Stool - Final 11/14/18 15:39 Farris Catheter Urine Culture - Final Escherichia Coli Esbl Impressions: Chest X-Ray 11/14/18 15:07 IMPRESSION: No focal consolidation or other evidence of acute cardiopulmonary process. Abdomen/Pelvis CT 11/14/18 15:08 IMPRESSION: 1. Mild patchy bibasilar opacities and trace bilateral effusions, likely atelectasis although infection not excluded. 2. Moderate formed stool within the rectal vault. No evidence of intestinal obstruction. 3. Findings suggestive of volume overload with cardiomegaly, anasarca and small volume ascites. 4. Unchanged mild hydroureteronephrosis on the left without obstructing lesion identified. 5. Farris catheter within the bladder lumen with circumferential bladder wall thickening. Recommend correlation with urinalysis. Assessment & Plan - Diagnosis (1) Septic shock Plan: Patient still is in state of shock with a blood pressure in the 90 systolic in spite of 5 L of saline infusion. She is now growing ESBL E. coli in the urine. Discussed with hospitalist Yvonne for the need to transfer patient to ICU for continuation of fluid resuscitation along with pressor agents. Patient is critical.Patient seen on dialysis. Started pressors. Dialyzing without any major issues. Plan to remove between 500 cc and 1000 cc as tolerated. Dialysis orders reviewed with the treating dialysis nurse. (2) Diarrhea Qualifiers: Diarrhea type: unspecified type Qualified Code(s): R19.7 - Diarrhea, unspecified Is this a current diagnosis for this admission?: Yes Plan: Likely spurious. On laxatives. (3) Pyelonephritis Is this a current diagnosis for this admission?: Yes Plan: Now growing ESBL E. coli. In septic shock. Needs ICU transfer for fluid and pressor agents. (4) Altered mental status Plan: Improving. (5) ESRD (end stage renal disease) Is this a current diagnosis for this admission?: Yes Plan: Patient was initially seen in her room. She still looks in some amount of distress obviously remaining in a state of shock currently. Discussed with Yvonne/hospitalist as well as rag grader for the need to transfer patient to the ICU for better monitoring and starting on pressor agents.Patient transferred to the ICU because of septic shock. Started on pressors. Now undergoing dialysis without any issues. Plan to remove 500 cc of fluid as tolerated. Dialysis orders were reviewed with the treating dialysis nurse. (6) Hypoglycemia Plan: Much improved with discontinuation of D5W. (7) UTI (urinary tract infection) Qualifiers: Urinary tract infection type: site unspecified Hematuria presence: without hematuria Qualified Code(s): N39.0 - Urinary tract infection, site not specified Plan: Now growing ESBL E. coli in the urine. Medications to be adjusted accordingly as per culture and sensitivities. 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 (9) Anemia due to end stage renal disease Is this a current diagnosis for this admission?: Yes Plan: Will adjust erythropoietin during dialysis (10) Unstageable pressure ulcer of heel Qualifiers: Laterality: right Qualified Code(s): L89.610 - Pressure ulcer of right heel, unstageable Is this a current diagnosis for this admission?: Yes Plan: As per hospitalist.
[2018-11-16] MEDS ORDERED: MEROPENEM 1 GM in NORMAL SALINE 50 ML IV SCH (14:00)
--- NOTE | 2018-11-16 14:07 | Progress Note ---
Provider Note Provider Note: Random cortisol 18.8. Not dispositive of adrenal insufficiency. A level <10 is >34 is evidence of no insuficiency. 18.8 merits cosyntropin stim test, or simply challenges with steroids. Will give 50mg hydrocortisone which does not need to be tapered.
[2018-11-16] MEDS: INSULIN GLARGINE,HUM.REC.ANLOG 1,000 UNIT/10 ML VIAL SUBCUT SCH (14:46)
[2018-11-16] MEDS ORDERED: HYDROCORTISONE SOD SUCCINATE INJ/PF 100 MG/2 ML SDV IV SCH (15:00)
[2018-11-16] MEDS ORDERED: PANTOT AC/MIN OIL/PET HY-PHL OINT 50 GM TOP PRN (16:47)
--- NOTE | 2018-11-16 18:00 | PDOC PROGRESS REPORT ---
Subjective Progress Note for:: 11/16/18 Subjective:: SOLANGE JOHNSON is a 58 year old female with a past medical history significant for ESRD on dialysis Monday, anemia, hypertension, hyperlipidemia, CAD, PAF, COPD, IDDM, GERD, bedbound status at baseline, and opiate dependent chronic pain who was admitted with sepsis secondary to pyelonephritis. Patient was seen on afternoon rounds while in the ICU for dialysis. She was found resting in bed comfortably on supplemental oxygen via NC. She is A&Ox4, though still fatigued. Her only complaint is her chronic abdominal pain and diarrhea. She is unable to tell me if the Bentyl was helpful, however, only recently administered first dose. Otherwise, she denies fever, chills, chest pain, palpitations, dyspnea, nausea, vomiting. She does continue to have loose stools. She has no other questions or concerns at this time. No concerns per nursing. Reason For Visit: PYELONEPHRITIS, SEPSIS Physical Exam Vital Signs: Temp Pulse Resp BP Pulse Ox 98.7 F 82 15 134/82 H 100 11/16/18 16:00 11/16/18 16:00 11/16/18 16:00 11/16/18 16:00 11/16/18 16:00 Intake & Output 11/15/18 11/16/18 11/17/18 06:59 06:59 06:59 Intake Total 1100 4717 13 Output Total 330 225 Balance 770 4492 13 Weight 68.6 kg 79.7 kg General appearance: PRESENT: no acute distress, well-developed, well-nourished - overweight Head exam: PRESENT: atraumatic, normocephalic Eye exam: PRESENT: conjunctiva pink, EOMI, PERRLA. ABSENT: scleral icterus Ear exam: PRESENT: normal external ear exam Mouth exam: PRESENT: moist, tongue midline Teeth exam: PRESENT: poor dentation Neck exam: ABSENT: carotid bruit, JVD, lymphadenopathy, thyromegaly Respiratory exam: PRESENT: clear to auscultation linda, symmetrical, unlabored. ABSENT: rales, rhonchi, wheezes Cardiovascular exam: PRESENT: RRR, +S1, +S2. ABSENT: diastolic murmur, rubs, systolic murmur Pulses: PRESENT: normal dorsalis pedis pul Vascular exam: PRESENT: normal capillary refill GI/Abdominal exam: PRESENT: normal bowel sounds, soft. ABSENT: distended, guarding, mass, organolmegaly, rebound, tenderness Rectal exam: PRESENT: deferred Gentrourinary exam: PRESENT: indwelling catheter Extremities exam: PRESENT: full ROM. ABSENT: calf tenderness, clubbing, pedal edema Musculoskeletal exam: ABSENT: ambulatory - But not at baseline Neurological exam: PRESENT: alert, awake, oriented to person, oriented to place, oriented to situation, CN II-XII grossly intact, other - Fatigued; improved from yesterday. ABSENT: motor sensory deficit Psychiatric exam: PRESENT: appropriate affect, normal mood. ABSENT: homicidal ideation, suicidal ideation Skin exam: PRESENT: dry, warm, other - Stage I pressure wound to left heel, unstageable wound to right heel, excoriation to perineum/sacrum.. ABSENT: cyanosis, intact, rash Results Laboratory Results: 11/16/18 05:05 11/16/18 05:05 11/16/18 11/16/18 05:05 05:05 WBC 15.2 H RBC 3.06 L Hgb 8.3 L Hct 26.7 L MCV 87 MCH 27.0 MCHC 31.0 L RDW 20.8 H Plt Count 243 Seg Neutrophils % Not Reportable Retic Count (auto) 2.18 Sodium 133.9 L Potassium 3.6 Chloride 102 Carbon Dioxide 19 L Anion Gap 13 BUN 37 H Creatinine 5.25 H Est GFR ( Amer) 10 L Glucose 228 H Calcium 8.2 L Iron 15.7 L TIBC 125 L % Saturation 13 Ferritin 373.00 H Vitamin B12 > 1000.0 H Folate > 20.00 11/14/18 18:55 Stool - Stool - Final 11/14/18 15:39 Farris Catheter Urine Culture - Final Escherichia Coli Esbl Impressions: Chest X-Ray 11/14/18 15:07 IMPRESSION: No focal consolidation or other evidence of acute cardiopulmonary process. Abdomen/Pelvis CT 11/14/18 15:08 IMPRESSION: 1. Mild patchy bibasilar opacities and trace bilateral effusions, likely atelectasis although infection not excluded. 2. Moderate formed stool within the rectal vault. No evidence of intestinal obstruction. 3. Findings suggestive of volume overload with cardiomegaly, anasarca and small volume ascites. 4. Unchanged mild hydroureteronephrosis on the left without obstructing lesion identified. 5. Farris catheter within the bladder lumen with circumferential bladder wall thickening. Recommend correlation with urinalysis. Assessment and Plan - Diagnosis (1) Sepsis Qualifiers: Sepsis type: sepsis due to unspecified organism Sepsis acute organ dysfunction status: without acute organ dysfunction Qualified Code(s): A41.9 - Sepsis, unspecified organism Is this a current diagnosis for this admission?: Yes Plan: Improved; afebrile >48 hours, remains hypotensive, WBC trending up Sepsis present on admission, due to UTI/pyelonephritis, evidenced by with fever, hypotension, leukopenia (WBCs 2.9), elevated INR (1.85; does not appear the pat ient is chronically anticoagulated on review of MAR), and lethargy. Urinalysis positive for UTI. Blood cultures negative at 48 hours. Urine culture reveals ESBL E. coli; unfortunately resistant to Zosyn. The patient does have copious amounts of diarrhea. C. difficile PCR was negative and stool cultures pending. Lactic acid 1.7; follow-up 1.5 Received adequate IV fluid resuscitation. The patient is admitted to [facility] on continuous pulse oximetry and cardiac telemetry. She has no prior history of MRSA, she does have a history of E. coli ESBL sensitive to Zosyn. Unfortunately, culture was resistant to Zosyn. Zosyn discontinued today and started on IV meropenem. Tylenol as needed fever control. (2) Pyelonephritis Is this a current diagnosis for this admission?: Yes Plan: Urinalysis reveals UTI. CT abdomen/pelvis demonstrates chronic hydroureter nephrosis. Chest x-ray is benign. Blood cultures negative at 48 hours. Urine culture reveals ESBL E. coli; unfortunately resistant to Zosyn. IV Zosyn discontinued; start on meropenem. (3) Anemia due to end stage renal disease Is this a current diagnosis for this admission?: Yes Plan: Hemoglobin of 8.3; improved from prior labs and at baseline. No evidence of active bleeding. Continue home dose Nephrocaps. Nephrology is consulted; appreciate their assistance. (4) ESRD (end stage renal disease) Is this a current diagnosis for this admission?: Yes Plan: Patient on Monday, Monday, Monday dialysis schedule. Nephrology is consulted; appreciate their assistance. Patient was temporarily moved to the ICU with Dr. Flowers consulted for pressor support during dialysis today. If blood pressures are stable following dialysis she will return to [facility]. (5) Diarrhea Qualifiers: Diarrhea type: unspecified type Qualified Code(s): R19.7 - Diarrhea, unspecified Is this a current diagnosis for this admission?: Yes Plan: CT abdomen pelvis did not demonstrate moderate fecal load in the rectum, but without obstruction. She does have copious amounts of watery stools. Patient family reports this is been ongoing for several months. C. difficile is negative. Stool cultures pending. Start Bentyl for abdominal discomfort. Start lactobacillus. 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 Consistent carb/dialysis diet. Accu-Cheks before meals and at bedtime with Humalog for sliding coverage. Hypoglycemia protocol in place. (7) Unstageable pressure ulcer of heel Qualifiers: Laterality: right Qualified Code(s): L89.610 - Pressure ulcer of right heel, unstageable Is this a current diagnosis for this admission?: Yes Plan: Float heel. Allevyn dressing. Close monitoring. Consider surgical evaluation. - Time Time Spent with patient: 25-34 minutes Medications reviewed and adjusted accordingly: Yes Anticipated discharge: SNF
[2018-11-16] MEDS: ATORVASTATIN CALCIUM 40 MG TABLET PO SCH (21:40)
[2018-11-16] MEDS: CETIRIZINE 5 MG TABLET PO SCH (21:40)
[2018-11-16] MEDS: HYDROCORTISONE 10 MG TABLET PO SCH (21:40)
[2018-11-16] MEDS: LACTOBACILLUS ACIDOPHILUS 250 MG TAB PO SCH (21:40)
[2018-11-16] MEDS: FOLIC ACID/VITAMIN B COMP W-C CAPSULE PO SCH (21:40)
[2018-11-16] MEDS: MEROPENEM 500 MG in NORMAL SALINE 50 ML IV SCH (21:40)
[2018-11-16] MEDS: OXYCODONE HCL IR 5 MG TABLET PO PRN (21:44)
[2018-11-17] MEDS: HEPARIN SOD (PORCINE) 5,000 UNIT/ML 1 ML VIAL SUBCUT SCH ×3 (05:35→21:32)
[2018-11-17] MEDS: OXYCODONE HCL IR 5 MG TABLET PO PRN ×2 (05:36→21:43)
[2018-11-17] MEDS: MEROPENEM 500 MG in NORMAL SALINE 50 ML IV SCH ×2 (05:36→18:35)
[2018-11-17 05:59] LABS: HEMATOCRIT 27.3 % (36.0-47.0); HEMOGLOBIN 8.3 g/dL (12.0-15.5); MEAN CORPUSCULAR HEMOGLOBIN 26.5 pg (27.0-33.4); MEAN CORPUSCULAR HGB CONC 30.5 g/dL (32.0-36.0); MEAN CORPUSCULAR VOLUME 87 fl (80-97); PLATELET COUNT 301 10^3/uL (150-450); RED BLOOD COUNT 3.15 10^6/uL (3.72-5.28); RED CELL DISTRIBUTION WIDTH 20.5 % (11.5-14.0); WHITE BLOOD COUNT 16.7 10^3/uL (4.0-10.5)
[2018-11-17 06:23] LABS: ANION GAP 11 (5-19); BLOOD UREA NITROGEN 29 mg/dL (7-20); CALCIUM 8.3 mg/dL (8.4-10.2); CARBON DIOXIDE 24 mmol/L (22-30); CHLORIDE 100 mmol/L (98-107); GLUCOSE 222 mg/dL (75-110); POTASSIUM 3.4 mmol/L (3.6-5.0)
[2018-11-17 06:27] LABS: ABSOLUTE LYMPHOCYTES# (MANUAL) 0.3 10^3/uL (0.5-4.7); ABSOLUTE MONOCYTES # (MANUAL) 0.2 10^3/uL (0.1-1.4); BAND NEUTROPHILS % (MANUAL) 7 % (3-5); BASOPHILS % (MANUAL) 0 % (0-2); EOSINOPHILS % (MANUAL) 0 % (0-6); LYMPHOCYTES % (MANUAL) 2 % (13-45); MONOCYTES % (MANUAL) 1 % (3-13); SEGMENTED NEUTROPHILS % (MAN) 90 % (42-78); TOTAL CELLS COUNTED 100
[2018-11-17 06:28] LABS: ANISOCYTOSIS 2+; HYPOCHROMASIA 1+; PLATELET COMMENT ADEQUATE
[2018-11-17] MEDS: IPRATROPIUM/ALBUTEROL 0.5-2.5 MG/3 ML AMPUL NEB SCH ×2 (08:30→20:51)
[2018-11-17] MEDS: INSULIN LISPRO 100 UNIT/ML 3 ML VIAL SUBCUT SCH ×4 (09:00→21:27)
[2018-11-17] MEDS: FLUOXETINE HCL 20 MG CAPSULE PO SCH (09:00)
[2018-11-17] MEDS: INSULIN GLARGINE,HUM.REC.ANLOG 1,000 UNIT/10 ML VIAL SUBCUT SCH (09:00)
[2018-11-17] MEDS: LACTOBACILLUS ACIDOPHILUS 250 MG TAB PO SCH ×2 (09:57→18:36)
[2018-11-17] MEDS: CARVEDILOL 12.5 MG TABLET PO SCH ×2 (09:57→21:30)
[2018-11-17] MEDS: ASPIRIN 81 MG TABLET, CHEWABLE PO SCH (09:57)
[2018-11-17] MEDS: PANTOPRAZOLE SODIUM 40 MG VIAL IV SCH (09:58)
--- NOTE | 2018-11-17 13:58 | PDOC PROGRESS REPORT ---
Subjective Progress Note for:: 11/17/18 Subjective:: SOLANGE JOHNSON is a 58 year old female with a past medical history significant for ESRD on dialysis Monday, anemia, hypertension, hyperlipidemia, CAD, PAF, COPD, IDDM, GERD, bedbound status at baseline, and opiate dependent chronic pain who was admitted with sepsis secondary to pyelonephritis. Patient was seen on morning rounds; no family members present.. She was found resting in bed comfortably on supplemental oxygen via NC. She is A&Ox4; init ially sleeping but woke easily when I set her name. Her only complaint remains her chronic abd pain and diarrhea; although she does this is slightly improved today. Nursing has reported increased bulkiness to her stools. She tells me that she has recently been standing w/ walker and assist from ph ysical therapy at [facility]; has been bed dound related to debility after prolonged illness earlier this year. Otherwise, she denies fever, chills, chest pain, palpitations, dyspnea, nausea, vomiting. She has no other questions or concerns at this time. No concerns per nursing. Reason For Visit: PYELONEPHRITIS, SEPSIS Physical Exam Vital Signs: Temp Pulse Resp BP Pulse Ox 97.7 F 68 14 155/76 H 94 11/17/18 08:06 11/17/18 08:30 11/17/18 08:30 11/17/18 08:06 11/17/18 08:30 Intake & Output 11/16/18 11/17/18 11/18/18 06:59 06:59 06:59 Intake Total 4717 1128 Output Total 225 1500 Balance 4492 -372 Weight 79.7 kg 68.2 kg General appearance: PRESENT: no acute distress, cooperative, well-developed, well-nourished - overweight Head exam: PRESENT: atraumatic, normocephalic Eye exam: PRESENT: conjunctiva pink, EOMI, PERRLA. ABSENT: scleral icterus Ear exam: PRESENT: normal external ear exam Mouth exam: PRESENT: moist, tongue midline Teeth exam: PRESENT: poor dentation Neck exam: ABSENT: carotid bruit, JVD, lymphadenopathy, thyromegaly Respiratory exam: PRESENT: clear to auscultation linda, symmetrical. ABSENT: rales, rhonchi, wheezes Cardiovascular exam: PRESENT: RRR, +S1, +S2. ABSENT: diastolic murmur, rubs, systolic murmur Pulses: PRESENT: normal dorsalis pedis pul Vascular exam: PRESENT: normal capillary refill GI/Abdominal exam: PRESENT: normal bowel sounds, soft, tenderness. ABSENT: distended, guarding, mass, organolmegaly, rebound Rectal exam: PRESENT: deferred Extremities exam: PRESENT: full ROM. ABSENT: calf tenderness, clubbing, pedal edema Neurological exam: PRESENT: alert, awake, oriented to person, oriented to place, oriented to time, oriented to situation, CN II-XII grossly intact. ABSENT: motor sensory deficit Psychiatric exam: PRESENT: flat affect, normal mood. ABSENT: homicidal ideation, suicidal ideation Skin exam: PRESENT: dry, pallor, warm, other - Stage I pressure wound to left heel, unstageable wound to right heel. ABSENT: cyanosis, intact, rash Results Laboratory Results: 11/17/18 05:44 11/17/18 05:44 11/17/18 11/17/18 05:44 05:44 WBC 16.7 H RBC 3.15 L Hgb 8.3 L Hct 27.3 L MCV 87 MCH 26.5 L MCHC 30.5 L RDW 20.5 H Plt Count 301 Seg Neutrophils % Not Reportable Sodium 134.5 L Potassium 3.4 L Chloride 100 Carbon Dioxide 24 Anion Gap 11 BUN 29 H Creatinine 3.28 H Est GFR ( Amer) 18 L Glucose 222 H Calcium 8.3 L 11/14/18 18:55 Stool - Stool - Final 11/14/18 18:55 Stool - Stool Stool Culture - Final NO SALMONELLA, SHIGELLA, CAMPYLOBACTER, OR E.COLI 0157 RECOVERED. NEGATIVE FOR SHIGA TOXINS 1&2. Impressions: Chest X-Ray 11/14/18 15:07 IMPRESSION: No focal consolidation or other evidence of acute cardiopulmonary process. Abdomen/Pelvis CT 11/14/18 15:08 IMPRESSION: 1. Mild patchy bibasilar opacities and trace bilateral effusions, likely atelectasis although infection not excluded. 2. Moderate formed stool within the rectal vault. No evidence of intestinal obstruction. 3. Findings suggestive of volume overload with cardiomegaly, anasarca and small volume ascites. 4. Unchanged mild hydroureteronephrosis on the left without obstructing lesion identified. 5. Farris catheter within the bladder lumen with circumferential bladder wall thickening. Recommend correlation with urinalysis. Assessment and Plan - Diagnosis (1) Sepsis Qualifiers: Sepsis type: sepsis due to unspecified organism Sepsis acute organ dysfunction status: without acute organ dysfunction Qualified Code(s): A41.9 - Sepsis, unspecified organism Is this a current diagnosis for this admission?: Yes Plan: Improved; afebrile >48 hours, blood pressures are improved Sepsis present on admission, due to UTI/pyelonephritis, evidenced by with fever, hypotension, leukopenia (WBCs 2.9), elevated INR (1.85; does not appear the patient is chronically anticoagulated on review of MAR), and lethargy. Urinalysis positive for UTI. Blood cultures negative at 48 hours. Urine culture reveals ESBL E. coli; unfortunately resistant to Zosyn. The patient does have copious amounts of diarrhea. C. difficile PCR was negative and stool cultures pending. Lactic acid 1.7; follow-up 1.5 Received adequate IV fluid resuscitation. The patient is admitted to [facility] on continuous pulse oximetry and cardiac tel emetry. She has no prior history of MRSA, she does have a history of E. coli ESBL sensitive to Zosyn. Unfortunately, culture was resistant to Zosyn. Zosyn discontinued and started on IV meropenem; Day #2. Tylenol as needed fever control. (2) Pyelonephritis Is this a current diagnosis for this admission?: Yes Plan: Urinalysis reveals UTI. CT abdomen/pelvis demonstrates chronic hydroureter nephrosis. Chest x-ray is benign. Blood cultures negative at 48 hours. Urine culture reveals ESBL E. coli; unfortunately resistant to Zosyn. IV Zosyn discontinued; start on meropenem; Day #2 (3) Anemia due to end stage renal disease Is this a current diagnosis for this admission?: Yes Plan: Hemoglobin of 8.3; improved from prior labs and at baseline. No evidence of active bleeding. Continue home dose Nephrocaps. Nephrology is consulted; appreciate their assistance. (4) ESRD (end stage renal disease) Is this a current diagnosis for this admission?: Yes Plan: Patient on Monday, Monday, Monday dialysis schedule. Nephrology is consulted; appreciate their assistance. 1.5 L off yesterday (5) Diarrhea Qualifiers: Diarrhea type: unspecified type Qualified Code(s): R19.7 - Diarrhea, unspecified Is this a current diagnosis for this admission?: Yes Plan: CT abdomen pelvis did not demonstrate moderate fecal load in the rectum, but without obstruction. She does have copious amounts of watery stools. Patient family reports this is been ongoing for several months. C. difficile is negative. Stool cultures negative Start Bentyl for abdominal discomfort. Start lactobacillus. (6) Diabetes mellitus Qualifiers: Diabetes mellitus type: type 2 Diabetes mellitus fdc insulin use: with director long term care use Chronic kidney disease stage: on chronic dialysis Is this a current diagnosis for this admission?: Yes Plan: A1c 6.4% (09/2018) Holding long-acting insulin related to family report of multiple episodes of hypoglycemia. Consistent carb/dialysis diet. Accu-Cheks before meals and at bedtime with Humalog for sliding coverage. Hypoglycemia protocol in place. (7) Unstageable pressure ulcer of heel Qualifiers: Laterality: right Qualified Code(s): L89.610 - Pressure ulcer of right heel, unstageable Is this a current diagnosis for this admission?: Yes Plan: Worsened appearance today; will obtain x-ray. Float heel. Now on specialty mattress Allevyn dressing. Close monitoring. Consider surgical evaluation. - Time Time Spent with patient: 15-24 minutes Medications reviewed and adjusted accordingly: Yes Anticipated discharge: SNF Within: within 72 hours
--- NOTE | 2018-11-17 17:11 | RADIOLOGY REPORT (SQ) ---
EXAM DESCRIPTION: FOOT LEFT 2 VIEWS COMPLETED DATE/TIME: 11/17/2018 4:14 pm REASON FOR STUDY: Unstageable heel ulcer COMPARISON: None. NUMBER OF VIEWS: 2 views. TECHNIQUE: Portable AP and lateral radiographic images acquired of the left foot. LIMITATIONS: None. FINDINGS: MINERALIZATION: Normal. BONES: No acute fracture or dislocation. No worrisome bone lesions. JOINTS: No effusions. SOFT TISSUES: Soft tissue deformity posterior to calcaneus consistent with known heel ulcer OTHER: Vascular calcification. IMPRESSION: NEGATIVE STUDY OF THE LEFT FOOT. NO RADIOGRAPHIC EVIDENCE OF ACUTE INJURY. TECHNICAL DOCUMENTATION: JOB ID: [id number] SC-69 2010 [employer]- All Rights Reserved Reading location - IP/workstation name: [email or web address]
--- NOTE | 2018-11-17 17:13 | RADIOLOGY REPORT (SQ) ---
EXAM DESCRIPTION: FOOT RIGHT 2 VIEWS COMPLETED DATE/TIME: 11/17/2018 4:14 pm REASON FOR STUDY: UNSTAGEABLE HEEL ULCER COMPARISON: None. NUMBER OF VIEWS: AP and lateral portable views TECHNIQUE: AP, lateral and oblique radiographic images acquired of the right foot. LIMITATIONS: None. FINDINGS: MINERALIZATION: Normal. BONES: No acute fracture or dislocation. No worrisome bone lesions. JOINTS: No effusions. SOFT TISSUES: No soft tissue swelling. No foreign body. OTHER: Vascular calcification. IMPRESSION: NEGATIVE STUDY OF THE RIGHT FOOT. NO RADIOGRAPHIC EVIDENCE OF ACUTE INJURY. TECHNICAL DOCUMENTATION: JOB ID: [id number] SC-[id number] 2010 [employer]- All Rights Reserved Reading location - IP/workstation name: [email or web address]
[2018-11-17] MEDS: ATORVASTATIN CALCIUM 40 MG TABLET PO SCH (21:29)
[2018-11-17] MEDS: FOLIC ACID/VITAMIN B COMP W-C CAPSULE PO SCH (21:30)
[2018-11-17] MEDS: CETIRIZINE 5 MG TABLET PO SCH (21:39)
[2018-11-17] MEDS: HYDROCORTISONE 10 MG TABLET PO SCH (21:39)
[2018-11-18] MEDS: NORMAL SALINE 1000 ML 1,000 ML IV PRN (02:07)
[2018-11-18 05:04] LABS: HEMATOCRIT 28.9 % (36.0-47.0); HEMOGLOBIN 8.9 g/dL (12.0-15.5); MEAN CORPUSCULAR HEMOGLOBIN 26.4 pg (27.0-33.4); MEAN CORPUSCULAR HGB CONC 30.8 g/dL (32.0-36.0); MEAN CORPUSCULAR VOLUME 86 fl (80-97); PLATELET COUNT 321 10^3/uL (150-450); RED BLOOD COUNT 3.36 10^6/uL (3.72-5.28); RED CELL DISTRIBUTION WIDTH 20.4 % (11.5-14.0); WHITE BLOOD COUNT 11.8 10^3/uL (4.0-10.5)
[2018-11-18 05:33] LABS: ANION GAP 12 (5-19); BLOOD UREA NITROGEN 39 mg/dL (7-20); CALCIUM 8.4 mg/dL (8.4-10.2); CARBON DIOXIDE 23 mmol/L (22-30); CHLORIDE 100 mmol/L (98-107); GLUCOSE 186 mg/dL (75-110); POTASSIUM 3.4 mmol/L (3.6-5.0)
[2018-11-18] MEDS: MEROPENEM 500 MG in NORMAL SALINE 50 ML IV SCH ×2 (05:33→17:27)
[2018-11-18] MEDS: HEPARIN SOD (PORCINE) 5,000 UNIT/ML 1 ML VIAL SUBCUT SCH ×3 (05:37→21:44)
[2018-11-18 06:44] LABS: ABSOLUTE LYMPHOCYTES# (MANUAL) 1.2 10^3/uL (0.5-4.7); ABSOLUTE MONOCYTES # (MANUAL) 0.1 10^3/uL (0.1-1.4); BAND NEUTROPHILS % (MANUAL) 3 % (3-5); BASOPHILS % (MANUAL) 0 % (0-2); EOSINOPHILS % (MANUAL) 2 % (0-6); LYMPHOCYTES % (MANUAL) 10 % (13-45); METAMYELOCYTES % (MANUAL) 2 % (0); MONOCYTES % (MANUAL) 1 % (3-13); NUCLEATED RED BLOOD CELLS 4 /100 WBC (0); SEGMENTED NEUTROPHILS % (MAN) 82 % (42-78); TOTAL CELLS COUNTED 100
[2018-11-18 06:45] LABS: ANISOCYTOSIS 2+; HYPOCHROMASIA 1+; PLATELET COMMENT ADEQUATE
[2018-11-18] MEDS: IPRATROPIUM/ALBUTEROL 0.5-2.5 MG/3 ML AMPUL NEB SCH ×2 (08:09→19:47)
[2018-11-18] MEDS: INSULIN GLARGINE,HUM.REC.ANLOG 1,000 UNIT/10 ML VIAL SUBCUT SCH (09:00)
[2018-11-18] MEDS: INSULIN LISPRO 100 UNIT/ML 3 ML VIAL SUBCUT SCH ×4 (09:00→21:38)
[2018-11-18] MEDS: ASPIRIN 81 MG TABLET, CHEWABLE PO SCH (09:08)
[2018-11-18] MEDS: CARVEDILOL 12.5 MG TABLET PO SCH ×2 (09:08→21:40)
[2018-11-18] MEDS: FLUOXETINE HCL 20 MG CAPSULE PO SCH (09:08)
[2018-11-18] MEDS: LACTOBACILLUS ACIDOPHILUS 250 MG TAB PO SCH ×2 (09:08→17:25)
[2018-11-18] MEDS: PANTOPRAZOLE SODIUM 40 MG VIAL IV SCH (09:09)
[2018-11-18] MEDS: OXYCODONE HCL IR 5 MG TABLET PO PRN ×2 (09:10→19:35)
--- NOTE | 2018-11-18 11:27 | PDOC PROGRESS REPORT ---
Subjective Progress Note for:: 11/18/18 Subjective:: SOLANGE JOHNSON is a 58 year old female with a past medical history significant for ESRD on dialysis Monday, anemia, hypertension, hyperlipidemia, CAD, PAF, COPD, IDDM, GERD, bedbound status at baseline, and opiate dependent chronic pain who was admitted with sepsis secondary to pyelonephritis. Patient was seen on morning rounds; no family members present. She was found resting in bed comfortably on room air. She is A&Ox4; initially sleeping but w suzy easily when I said her name. Her only complaint remains her chronic abd pain and diarrhea. She is unable to localize her discomfort, describes it as "aching" and denies alleviating or aggravating factors. Otherwise, she denies fever, chills, chest pain, palpitations, dyspnea, nausea, vomiting. She has no other questions or concerns at this time. No concerns per nursing. Reason For Visit: PYELONEPHRITIS, SEPSIS Physical Exam Vital Signs: Temp Pulse Resp BP Pulse Ox 99.2 F 72 16 127/54 H 94 11/18/18 07:51 11/18/18 08:10 11/18/18 08:10 11/18/18 07:51 11/18/18 08:10 Intake & Output 11/17/18 11/18/18 11/19/18 06:59 06:59 06:59 Intake Total 1128 700 Output Total 1500 100 Balance -372 600 Weight 68.2 kg 79.8 kg General appearance: PRESENT: no acute distress, cooperative, obese, well- developed, well-nourished, other - Chronically ill and appearing older than stated age Head exam: PRESENT: atraumatic, normocephalic Eye exam: PRESENT: conjunctiva pink, EOMI, PERRLA. ABSENT: scleral icterus Mouth exam: PRESENT: moist, tongue midline Teeth exam: PRESENT: poor dentation Respiratory exam: PRESENT: clear to auscultation linda, symmetrical, unlabored. ABSENT: rales, rhonchi, wheezes Cardiovascular exam: PRESENT: RRR, +S1, +S2. ABSENT: diastolic murmur, rubs, systolic murmur Pulses: PRESENT: normal dorsalis pedis pul Vascular exam: PRESENT: normal capillary refill GI/Abdominal exam: PRESENT: normal bowel sounds, soft, tenderness - vague, generalized, other. ABSENT: distended, guarding, mass, organolmegaly, rebound Rectal exam: PRESENT: deferred Extremities exam: PRESENT: full ROM. ABSENT: calf tenderness, clubbing, pedal edema Neurological exam: PRESENT: alert, awake, oriented to person, oriented to place, oriented to time, oriented to situation, CN II-XII grossly intact. ABSENT: motor sensory deficit Psychiatric exam: PRESENT: flat affect, normal mood. ABSENT: homicidal ideation, suicidal ideation Skin exam: PRESENT: dry, intact, warm. ABSENT: cyanosis, rash Results Laboratory Results: 11/18/18 04:29 11/18/18 04:29 11/18/18 11/18/18 04:29 04:29 WBC 11.8 H RBC 3.36 L Hgb 8.9 L Hct 28.9 L MCV 86 MCH 26.4 L MCHC 30.8 L RDW 20.4 H Plt Count 321 Seg Neutrophils % Not Reportable Sodium 135.1 L Potassium 3.4 L Chloride 100 Carbon Dioxide 23 Anion Gap 12 BUN 39 H Creatinine 4.11 H Est GFR ( Amer) 14 L Glucose 186 H Calcium 8.4 11/14/18 18:55 Stool - Stool - Final 11/14/18 18:55 Stool - Stool Stool Culture - Final NO SALMONELLA, SHIGELLA, CAMPYLOBACTER, OR E.COLI 0157 RECOVERED. NEGATIVE FOR SHIGA TOXINS 1&2. Impressions: Chest X-Ray 11/14/18 15:07 IMPRESSION: No focal consolidation or other evidence of acute cardiopulmonary process. Abdomen/Pelvis CT 11/14/18 15:08 IMPRESSION: 1. Mild patchy bibasilar opacities and trace bilateral effusions, likely atelectasis although infection not excluded. 2. Moderate formed stool within the rectal vault. No evidence of intestinal obstruction. 3. Findings suggestive of volume overload with cardiomegaly, anasarca and small volume ascites. 4. Unchanged mild hydroureteronephrosis on the left without obstructing lesion identified. 5. Farris catheter within the bladder lumen with circumferential bladder wall thickening. Recommend correlation with urinalysis. Foot X-Ray 11/17/18 00:00 IMPRESSION: NEGATIVE STUDY OF THE RIGHT FOOT. NO RADIOGRAPHIC EVIDENCE OF ACUTE INJURY. Assessment and Plan - Diagnosis (1) Sepsis Qualifiers: Sepsis type: sepsis due to unspecified organism Sepsis acute organ dysfunction status: without acute organ dysfunction Qualified Code(s): A41.9 - Sepsis, unspecified organism Is this a current diagnosis for this admission?: Yes Plan: Improved; afebrile >48 hours, blood pressures are improved, leukocytosis trending down Sepsis present on admission, due to UTI/pyelonephritis, evidenced by with fever, hypotension, leukopenia (WBCs 2.9), elevated INR (1.85; does not appear the patient is chronically anticoagulated on review of MAR), and lethargy. Urinalysis positive for UTI. Blood cultures negative at 72 hours. Urine culture reveals ESBL E. coli; unfortunately resistant to Zosyn. The patient does have copious amounts of diarrhea. C. difficile PCR was negative and stool cultures negative Lactic acid 1.7; follow-up 1.5 Received adequate IV fluid resuscitation. The patient is admitted to [facility] on continuous pulse oximetry and cardiac telemetry. She has no prior history of MRSA, she does have a history of E. coli ESBL sensitive to Zosyn. Unfortunately, culture was resistant to Zosyn. Zosyn discontinued and started on IV meropenem; Day #3. Tylenol as needed fever control. (2) Pyelonephritis Is this a current diagnosis for this admission?: Yes Plan: Urinalysis reveals UTI. CT abdomen/pelvis demonstrates chronic hydroureter nephrosis. Chest x-ray is benign. Blood cultures negative at 72 hours. Urine culture reveals ESBL E. coli; unfortunately resistant to Zosyn. IV Zosyn discontinued; start on meropenem; Day #3 (3) Anemia due to end stage renal disease Is this a current diagnosis for this admission?: Yes Plan: Hemoglobin of 8.9; overall stable. Improved from prior labs and at baseline. No evidence of active bleeding. Continue home dose Nephrocaps. Nephrology is consulted; appreciate their assistance. (4) ESRD (end stage renal disease) Is this a current diagnosis for this admission?: Yes Plan: Patient on Monday, Monday, Monday dialysis schedule. Nephrology is consulted; appreciate their assistance. 1.5 L off on Monday (5) Diarrhea Qualifiers: Diarrhea type: unspecified type Qualified Code(s): R19.7 - Diarrhea, u nspecified Is this a current diagnosis for this admission?: Yes Plan: CT abdomen pelvis did not demonstrate moderate fecal load in the rectum, but without obstruction. She does have copious amounts of watery stools. Patient family reports this is been ongoing for several months. C. difficile is negative. Stool cultures negative Hepatits panel (09/2018) was negative. CT ABD/Pelvis w/ oral contrast pending Start Bentyl for abdominal discomfort. Start lactobacillus. 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 Consistent carb/dialysis diet. Accu-Cheks before meals and at bedtime with Humalog for sliding coverage. Hypoglycemia protocol in place. (7) Unstageable pressure ulcer of heel Qualifiers: Laterality: right Qualified Code(s): L89.610 - Pressure ulcer of right heel, unstageable Is this a current diagnosis for this admission?: Yes Plan: X-rays are negative for acute process; no evidence of bone involvement. Float heel. Now on specialty mattress Allevyn dressing. Close monitoring. Consider surgical evaluation. - Time Time Spent with patient: 25-34 minutes Medications reviewed and adjusted accordingly: Yes Anticipated discharge: SNF Within: within 72 hours
[2018-11-18] MEDS: FOLIC ACID/VITAMIN B COMP W-C CAPSULE PO SCH (21:39)
[2018-11-18] MEDS: ATORVASTATIN CALCIUM 40 MG TABLET PO SCH (21:40)
[2018-11-18] MEDS: CETIRIZINE 5 MG TABLET PO SCH (21:40)
[2018-11-18] MEDS: HYDROCORTISONE 10 MG TABLET PO SCH (21:40)
--- NOTE | 2018-11-19 02:59 | RADIOLOGY REPORT (SQ) ---
CLINICAL HISTORY: Generalized abd pain, chronic diarrhea COMPARISON: None. TECHNIQUE: CT ABDOMEN PELVIS WITHOUT IV CONTRAST on 11/18/2018 12:00 AM CDT This exam was performed according to our departmental dose-optimization program, which includes automated exposure control, adjustment of the mA and/or kV according to patient size and/or use of iterative reconstruction technique. FINDINGS: There is patchy mostly right basilar airspace disease. There is a minimal right pleural effusion. There is a moderate left pleural effusion. Abdomen: The liver is normal in appearance. There is no biliary dilatation. Gallbladder is normal in appearance. IVC filter is in place. The pancreas and spleen are normal in appearance. Adrenal glands are normal. Kidneys are mildly atrophic containing scattered likely vascular calcifications. Abdominal aorta is normal in course and caliber without aneurysm. There is no free air. There is no retroperitoneal adenopathy.There is diffuse severe body wall anasarca. Pelvis: There is no bowel obstruction. Urinary bladder is unremarkable. There is no free fluid. Uterus is normal in size. Appendix is normal. Bladder contains a Farris catheter and small amount of air. Skeleton: There are no acute osseous findings. No suspicious bony lesions. IMPRESSION: Diffuse body wall anasarca. Pleural effusions. Possible right basilar airspace disease.
[2018-11-19 04:50] LABS: HEMATOCRIT 25.7 % (36.0-47.0); MEAN CORPUSCULAR HEMOGLOBIN 26.9 pg (27.0-33.4); MEAN CORPUSCULAR HGB CONC 31.1 g/dL (32.0-36.0); MEAN CORPUSCULAR VOLUME 87 fl (80-97); PLATELET COUNT 312 10^3/uL (150-450); RED BLOOD COUNT 2.97 10^6/uL (3.72-5.28); RED CELL DISTRIBUTION WIDTH 20.2 % (11.5-14.0); WHITE BLOOD COUNT 13.6 10^3/uL (4.0-10.5)
[2018-11-19 05:08] LABS: ANION GAP 12 (5-19); BLOOD UREA NITROGEN 47 mg/dL (7-20); CALCIUM 8.3 mg/dL (8.4-10.2); CARBON DIOXIDE 21 mmol/L (22-30); CHLORIDE 100 mmol/L (98-107); GLUCOSE 282 mg/dL (75-110); POTASSIUM 3.5 mmol/L (3.6-5.0)
[2018-11-19] MEDS: HEPARIN SOD (PORCINE) 5,000 UNIT/ML 1 ML VIAL SUBCUT SCH ×3 (05:42→23:02)
[2018-11-19] MEDS: MEROPENEM 500 MG in NORMAL SALINE 50 ML IV SCH ×2 (05:42→18:09)
[2018-11-19] MEDS: OXYCODONE HCL IR 5 MG TABLET PO PRN ×2 (06:03→18:09)
[2018-11-19] MEDS: IPRATROPIUM/ALBUTEROL 0.5-2.5 MG/3 ML AMPUL NEB SCH ×2 (08:15→20:36)
[2018-11-19] MEDS: INSULIN GLARGINE,HUM.REC.ANLOG 1,000 UNIT/10 ML VIAL SUBCUT SCH (09:00)
[2018-11-19] MEDS: INSULIN LISPRO 100 UNIT/ML 3 ML VIAL SUBCUT SCH ×4 (10:13→23:02)
[2018-11-19] MEDS: FLUOXETINE HCL 20 MG CAPSULE PO SCH (10:15)
[2018-11-19] MEDS: CARVEDILOL 12.5 MG TABLET PO SCH ×2 (10:18→23:06)
[2018-11-19] MEDS: PANTOPRAZOLE SODIUM 40 MG VIAL IV SCH (10:18)
[2018-11-19] MEDS: ASPIRIN 81 MG TABLET, CHEWABLE PO SCH (10:18)
[2018-11-19] MEDS: LACTOBACILLUS ACIDOPHILUS 250 MG TAB PO SCH ×2 (10:18→18:09)
--- NOTE | 2018-11-19 13:56 | PDOC PROGRESS REPORT ---
Subjective Progress Note for:: 11/19/18 Reason For Visit: Patient seen on dialysis. Abdominal pains are better but still still has some residual pains. She denies any history of fever or chills but then recalls she had some fever earlier in the floor. No complaints of dysuria. No complaints of hematuria. Labs and medications were reviewed with the patient. Dialysis orders were reviewed with the treating dialysis nurse. Physical Exam Vital Signs: Temp Pulse Resp BP Pulse Ox 98.3 F 69 16 112/56 L 95 11/19/18 11:44 11/19/18 11:44 11/19/18 11:44 11/19/18 11:44 11/19/18 11:44 Intake & Output 11/18/18 11/19/18 11/20/18 06:59 06:59 06:59 Intake Total 700 800 Output Total 100 100 Balance 600 700 Weight 79.8 kg 81.3 kg General appearance: PRESENT: no acute distress Respiratory exam: PRESENT: clear to auscultation linda, decreased breath sounds. ABSENT: crackles Cardiovascular exam: PRESENT: +S1, +S2 GI/Abdominal exam: PRESENT: normal bowel sounds, rebound - Mild., soft, tenderness - In the lower quadrants.. ABSENT: distended, guarding, organomegaly Extremities exam: PRESENT: pedal edema Neurological exam: PRESENT: alert, altered, oriented to person, oriented to place, oriented to time Psychiatric exam: PRESENT: appropriate affect Results Laboratory Results: 11/19/18 04:25 11/19/18 04:25 11/19/18 11/19/18 04:25 04:25 WBC 13.6 H RBC 2.97 L Hgb 8.0 L Hct 25.7 L MCV 87 MCH 26.9 L MCHC 31.1 L RDW 20.2 H Plt Count 312 Sodium 133.4 L Potassium 3.5 L Chloride 100 Carbon Dioxide 21 L Anion Gap 12 BUN 47 H Creatinine 4.80 H Est GFR ( Amer) 11 L Glucose 282 H Calcium 8.3 L Impressions: Chest X-Ray 11/14/18 15:07 IMPRESSION: No focal consolidation or other evidence of acute cardiopulmonary process. Foot X-Ray 11/17/18 00:00 IMPRESSION: NEGATIVE STUDY OF THE RIGHT FOOT. NO RADIOGRAPHIC EVIDENCE OF ACUTE INJURY. Abdomen/Pelvis CT 11/18/18 00:00 IMPRESSION: Diffuse body wall anasarca. Pleural effusions. Possible right basilar airspace disease. Assessment & Plan - Diagnosis (1) Septic shock Plan: Patient growing ESBL E. coli UTI/pyelonephritis. Septic shock status resolved. (2) Diarrhea Qualifiers: Diarrhea type: unspecified type Qualified Code(s): R19.7 - Diarrhea, unspecified Is this a current diagnosis for this admission?: Yes Plan: Intermittent. As per hospitalist. (3) Pyelonephritis Is this a current diagnosis for this admission?: Yes Plan: Now growing ESBL E. coli. In septic shock. Off pressors and stable now. (4) Altered mental status Plan: Resolved. (5) ESRD (end stage renal disease) Is this a current diagnosis for this admission?: Yes Plan: Patient is back on the floor as a septic shock status has resolved with appropriate antibiotics being employed to treat ESBL E. coli. Patient currently undergoing dialysis. Vital signs are stable. Dialysis is being supervised to ensure safe and smooth procedure. Plan to remove 1 and 2 L as tolerated. Di alysis orders were reviewed with the treating dialysis nurse. (6) Hypoglycemia Plan: Much improved with discontinuation of D5W. (7) UTI (urinary tract infection) Qualifiers: Urinary tract infection type: site unspecified Hematuria presence: without hematuria Qualified Code(s): N39.0 - Urinary tract infection, site not specified Plan: Now growing ESBL E. coli in the urine. Medications to be adjusted accordingly as per culture and sensitivities. 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 (9) Anemia due to end stage renal disease Is this a current diagnosis for this admission?: Yes Plan: Will adjust erythropoietin during dialysis (10) Unstageable pressure ulcer of heel Qualifiers: Laterality: right Qualified Code(s): L89.610 - Pressure ulcer of right heel, unstageable Is this a current diagnosis for this admission?: Yes Plan: As per hospitalist.
[2018-11-19] MEDS: EPOETIN ALFA-EPBX 20,000 UNIT in SYRINGE, DISPOSABLE, 1 EACH IV PRN (14:36)
--- NOTE | 2018-11-19 17:53 | PDOC PROGRESS REPORT ---
Subjective Progress Note for:: 11/19/18 Subjective:: SOLANGE JOHNSON is a 58 year old female with a past medical history significant for ESRD on dialysis Monday, anemia, hypertension, hyperlipidemia, CAD, PAF, COPD, IDDM, GERD, bedbound status at baseline, and opiate dependent chronic pain who was admitted with sepsis secondary to pyelonephritis. Patient was seen on morning rounds; no family members present. She was found resting in bed comfortably on room air. She is A&Ox4; initially sleeping but w suzy easily when I said her name. Her only complaint remains her chronic abd pain; primarily to RUQ today and improves with external pressure/palpation. She continues to have frequent stools. Otherwise, she denies fever, chills, chest pain, palpitations, dyspnea, nausea, vomiting. She has no other questions or concerns at this time. No concerns per nursing. Reason For Visit: PYELONEPHRITIS, SEPSIS Physical Exam Vital Signs: Temp Pulse Resp BP Pulse Ox 98.3 F 69 16 112/56 L 95 11/19/18 11:44 11/19/18 11:44 11/19/18 11:44 11/19/18 11:44 11/19/18 11:44 Intake & Output 11/18/18 11/19/18 11/20/18 06:59 06:59 06:59 Intake Total 700 800 715 Output Total 100 100 700 Balance 600 700 15 Weight 79.8 kg 81.3 kg General appearance: PRESENT: no acute distress, cooperative, obese, well- developed, well-nourished Head exam: PRESENT: atraumatic, normocephalic Eye exam: PRESENT: conjunctiva pink, EOMI, PERRLA. ABSENT: scleral icterus Mouth exam: PRESENT: moist, tongue midline Teeth exam: PRESENT: poor dentation Neck exam: ABSENT: carotid bruit, JVD, lymphadenopathy, thyromegaly Respiratory exam: PRESENT: clear to auscultation linda, symmetrical, unlabored. ABSENT: rales, rhonchi, wheezes Cardiovascular exam: PRESENT: RRR, +S1, +S2. ABSENT: diastolic murmur, rubs, systolic murmur Pulses: PRESENT: normal dorsalis pedis pul Vascular exam: PRESENT: normal capillary refill GI/Abdominal exam: PRESENT: normal bowel sounds, soft, tenderness. ABSENT: distended, guarding, mass, organolmegaly, rebound Rectal exam: PRESENT: deferred Extremities exam: PRESENT: full ROM. ABSENT: calf tenderness, clubbing, pedal edema Neurological exam: PRESENT: alert, awake, oriented to person, oriented to place, oriented to time, oriented to situation, CN II-XII grossly intact. ABSENT: motor sensory deficit Psychiatric exam: PRESENT: appropriate affect, normal mood. ABSENT: homicidal ideation, suicidal ideation Skin exam: PRESENT: dry, warm, other - tage I pressure wound to left heel, unstageable wound to right heel.. ABSENT: cyanosis, intact, rash Results Laboratory Results: 11/19/18 04:25 11/19/18 04:25 11/19/18 11/19/18 04:25 04:25 WBC 13.6 H RBC 2.97 L Hgb 8.0 L Hct 25.7 L MCV 87 MCH 26.9 L MCHC 31.1 L RDW 20.2 H Plt Count 312 Sodium 133.4 L Potassium 3.5 L Chloride 100 Carbon Dioxide 21 L Anion Gap 12 BUN 47 H Creatinine 4.80 H Est GFR ( Amer) 11 L Glucose 282 H Calcium 8.3 L 11/14/18 15:00 Blood Blood Culture - Final NO GROWTH IN 5 DAYS 11/14/18 14:05 Blood Blood Culture - Final NO GROWTH IN 5 DAYS Impressions: Chest X-Ray 11/14/18 15:07 IMPRESSION: No focal consolidation or other evidence of acute cardiopulmonary process. Foot X-Ray 11/17/18 00:00 IMPRESSION: NEGATIVE STUDY OF THE RIGHT FOOT. NO RADIOGRAPHIC EVIDENCE OF ACUTE INJURY. Abdomen/Pelvis CT 11/18/18 00:00 IMPRESSION: Diffuse body wall anasarca. Pleural effusions. Possible right basilar airspace disease. Assessment and Plan - Diagnosis (1) Sepsis Qualifiers: Sepsis type: sepsis due to unspecified organism Sepsis acute organ dysfunction status: without acute organ dysfunction Qualified Code(s): A41.9 - Sepsis, unspecified organism Is this a current diagnosis for this admission?: Yes Plan: Improved; afebrile >48 hours, blood pressures are improved, leukocytosis trending down overall Sepsis present on admission, due to UTI/pyelonephritis, evidenced by with fever, hypotension, leukopenia (WBCs 2.9), elevated INR (1.85; does not appear the patient is chronically anticoagulated on review of MAR), and lethargy. Urinalysis positive for UTI. Blood cultures negative Urine culture reveals ESBL E. coli; unfortunately resistant to Zosyn. The patient does have copious amounts of diarrhea. C. difficile PCR was negative and stool cultures negative Lactic acid 1.7; follow-up 1.5 Received adequate IV fluid resuscitation. The patient is admitted to [facility] on continuous pulse oximetry and cardiac telemetry. She has no prior history of MRSA, she does have a history of E. coli ESBL sensitive to Zosyn. Unfortunately, culture was resistant to Zosyn. Zosyn discontinued and started on IV meropenem; Day #4. Tylenol as needed fever control. (2) Pyelonephritis Is this a current diagnosis for this admission?: Yes Plan: Urinalysis reveals UTI. CT abdomen/pelvis demonstrates chronic hydroureter nephrosis. Chest x-ray is benign. Blood cultures negative Urine culture reveals ESBL E. coli; unfortunately resistant to Zosyn. IV Zosyn discontinued; start on meropenem; Day #4 (3) Anemia due to end stage renal disease Is this a current diagnosis for this admission?: Yes Plan: Hemoglobin of 8.9; overall stable. Improved from prior labs and at baseline. No evidence of active bleeding. Continue home dose Nephrocaps. Nephrology is consulted; appreciate their assistance. (4) ESRD (end stage renal disease) Is this a current diagnosis for this admission?: Yes Plan: Patient on Monday, Monday, Monday dialysis schedule. Nephrology is consulted; appreciate their assistance. 1.5 L off on Monday (5) Diarrhea Qualifiers: Diarrhea type: unspecified type Qualified Code(s): R19.7 - Diarrhea, unspecified Is this a current diagnosis for this admission?: Yes Plan: CT abdomen pelvis did not demonstrate moderate fecal load in the rectum, but without obstruction. CT abdomen pelvis with oral contrast also benign. Patient family reports abdominal discomfort and diarrhea have been ongoing for several months. C. difficile is negative. Stool cultures negative Hepatits panel (09/2018) was negative. CT ABD/Pelvis w/ oral contrast pending Continue Bentyl for abdominal discomfort. Continue lactobacillus. Start Cholestyramine w/ meals Outpatient GI follow up (6) Diabetes mellitus Qualifiers: Diabetes mellitus type: type 2 Diabetes mellitus [facility] insulin use: with assistant terminal manager use Chronic kidney disease stage: on chronic dialysis Is this a current diagnosis for this admission?: Yes Plan: A1c 6.4% (09/2018) Holding long-acting insulin related to family report of multiple episodes of hypoglycemia; recommend discontinuing at discharge. Consistent carb/dialysis diet. Accu-Cheks before meals and at bedtime with Humalog for sliding coverage. Hypoglycemia protocol in place. (7) Unstageable pressure ulcer of heel Qualifiers: Laterality: right Qualified Code(s): L89.610 - Pressure ulcer of right heel, unstageable Is this a current diagnosis for this admission?: Yes Plan: X-rays are negative for acute process; no evidence of bone involvement. Float heel. Now on specialty mattress Allevyn dressing. Close monitoring. Consider surgical evaluation. - Time Time Spent with patient: 25-34 minutes Medications reviewed and adjusted accordingly: Yes Anticipated discharge: SNF Within: within 48 hours
[2018-11-19] MEDS: ATORVASTATIN CALCIUM 40 MG TABLET PO SCH (23:06)
[2018-11-19] MEDS: CHOLESTYRAMINE/ASPARTAME 4 GM PACKET PO SCH (23:06)
[2018-11-19] MEDS: HYDROCORTISONE 10 MG TABLET PO SCH (23:06)
[2018-11-19] MEDS: CETIRIZINE 5 MG TABLET PO SCH (23:06)
[2018-11-19] MEDS: FOLIC ACID/VITAMIN B COMP W-C CAPSULE PO SCH (23:06)
[2018-11-19] MEDS: ACETAMINOPHEN 325 MG TABLET PO PRN (23:10)
[2018-11-20] MEDS: HEPARIN SOD (PORCINE) 5,000 UNIT/ML 1 ML VIAL SUBCUT SCH ×3 (05:19→21:26)
[2018-11-20] MEDS: MEROPENEM 500 MG in NORMAL SALINE 50 ML IV SCH ×2 (05:20→18:33)
[2018-11-20 05:35] LABS: HEMOGLOBIN 8.1 g/dL (12.0-15.5); MEAN CORPUSCULAR HEMOGLOBIN 26.6 pg (27.0-33.4); MEAN CORPUSCULAR VOLUME 86 fl (80-97); PLATELET COUNT 293 10^3/uL (150-450); RED BLOOD COUNT 3.03 10^6/uL (3.72-5.28); RED CELL DISTRIBUTION WIDTH 20.6 % (11.5-14.0); WHITE BLOOD COUNT 16.1 10^3/uL (4.0-10.5)
[2018-11-20 05:52] LABS: ANION GAP 8 (5-19); BLOOD UREA NITROGEN 29 mg/dL (7-20); CALCIUM 8.3 mg/dL (8.4-10.2); CARBON DIOXIDE 27 mmol/L (22-30); CHLORIDE 100 mmol/L (98-107); GLUCOSE 220 mg/dL (75-110); POTASSIUM 3.5 mmol/L (3.6-5.0)
[2018-11-20] MEDS: IPRATROPIUM/ALBUTEROL 0.5-2.5 MG/3 ML AMPUL NEB SCH ×2 (08:30→20:53)
[2018-11-20] MEDS: INSULIN LISPRO 100 UNIT/ML 3 ML VIAL SUBCUT SCH ×4 (09:35→21:26)
[2018-11-20] MEDS: INSULIN GLARGINE,HUM.REC.ANLOG 1,000 UNIT/10 ML VIAL SUBCUT SCH (09:38)
[2018-11-20] MEDS: CARVEDILOL 12.5 MG TABLET PO SCH ×2 (09:39→21:26)
[2018-11-20] MEDS: FLUOXETINE HCL 20 MG CAPSULE PO SCH (09:39)
[2018-11-20] MEDS: ASPIRIN 81 MG TABLET, CHEWABLE PO SCH (09:40)
[2018-11-20] MEDS: OXYCODONE HCL IR 5 MG TABLET PO PRN ×2 (09:40→15:39)
[2018-11-20] MEDS: LACTOBACILLUS ACIDOPHILUS 250 MG TAB PO SCH ×2 (09:40→18:33)
[2018-11-20] MEDS: PANTOPRAZOLE SODIUM 40 MG VIAL IV SCH (09:45)
[2018-11-20] MEDS: CHOLESTYRAMINE/ASPARTAME 4 GM PACKET PO SCH ×4 (12:38→21:38)
--- NOTE | 2018-11-20 15:04 | PDOC PROGRESS REPORT ---
Subjective Progress Note for:: 11/20/18 Subjective:: Still with abdominal pain mostly right lower quadrant. Also complaining of left shoulder pain. Reason For Visit: PYELONEPHRITIS, SEPSIS Physical Exam Vital Signs: Temp Pulse Resp BP Pulse Ox 98.6 F 72 14 116/60 92 11/20/18 08:21 11/20/18 08:30 11/20/18 08:30 11/20/18 08:21 11/20/18 08:30 Intake & Output 11/19/18 11/20/18 11/21/18 06:59 06:59 06:59 Intake Total 800 1390 Output Total 100 725 Balance 700 665 Weight 81.3 kg 72.4 kg General appearance: PRESENT: cooperative, mild distress, well-developed Head exam: PRESENT: atraumatic, normocephalic Mouth exam: PRESENT: moist, tongue midline Respiratory exam: PRESENT: symmetrical, unlabored. ABSENT: rales, rhonchi, tachypnea, wheezes Cardiovascular exam: PRESENT: RRR, +S1, +S2 GI/Abdominal exam: PRESENT: normal bowel sounds, soft, tenderness - Especially right lower quadrant. ABSENT: distended, guarding Neurological exam: PRESENT: alert, awake, oriented to person, oriented to place, oriented to time, oriented to situation, CN II-XII grossly intact Psychiatric exam: PRESENT: flat affect. ABSENT: agitated, anxious Focused psych exam: ABSENT: delusional, restlessness Results Laboratory Results: 11/20/18 05:04 11/20/18 05:04 11/20/18 11/20/18 05:04 05:04 WBC 16.1 H RBC 3.03 L Hgb 8.1 L Hct 26.0 L MCV 86 MCH 26.6 L MCHC 31.0 L RDW 20.6 H Plt Count 293 Sodium 134.6 L Potassium 3.5 L Chloride 100 Carbon Dioxide 27 Anion Gap 8 BUN 29 H Creatinine 3.05 H Est GFR ( Amer) 19 L Glucose 220 H Calcium 8.3 L 11/14/18 15:00 Blood Blood Culture - Final NO GROWTH IN 5 DAYS 11/14/18 14:05 Blood Blood Culture - Final NO GROWTH IN 5 DAYS Impressions: Chest X-Ray 11/14/18 15:07 IMPRESSION: No focal consolidation or other evidence of acute cardiopulmonary process. Foot X-Ray 11/17/18 00:00 IMPRESSION: NEGATIVE STUDY OF THE RIGHT FOOT. NO RADIOGRAPHIC EVIDENCE OF ACUTE INJURY. Abdomen/Pelvis CT 11/18/18 00:00 IMPRESSION: Diffuse body wall anasarca. Pleural effusions. Possible right basilar airspace disease. Assessment and Plan - Diagnosis (1) Sepsis Qualifiers: Sepsis type: Escherichia coli Sepsis acute organ dysfunction status: without acute organ dysfunction Qualified Code(s): A41.51 - Sepsis due to Escherichia coli [E. coli] Is this a current diagnosis for this admission?: Yes Plan: Improved; afebrile >48 hours, blood pressures are improved, leukocytosis trending down overall Sepsis present on admission, due to UTI/pyelonephritis, evidenced by with fever, hypotension, leukopenia (WBCs 2.9), elevated INR (1.85; does not appear the patient is chronically anticoagulated on review of MAR), and lethargy. Urinalysis positive for UTI. Blood cultures negative Urine culture reveals ESBL E. coli; unfortunately resistant to Zosyn. The patient does have copious amounts of diarrhea. C. difficile PCR was negative and stool cultures negative Lactic acid 1.7; follow-up 1.5 Received adequate IV fluid resuscitation. The patient is admitted to [facility] on continuous pulse oximetry and cardiac telemetry. She has no prior history of MRSA, she does have a history of E. coli ESBL sensitive to Zosyn. Unfortunately, culture was resistant to Zosyn. Zosyn discontinued and started on IV meropenem; Day #4. Tylenol as needed fever control. 11/20/2018-3 more days of meropenem therapy remaining. Sepsis resolved. (2) Pyelonephritis Is this a current diagnosis for this admission?: Yes Plan: Urinalysis reveals UTI. CT abdomen/pelvis demonstrates chronic hydroureter nephrosis. Chest x-ray is benign. Blood cultures negative Urine culture reveals ESBL E. coli; unfortunately resistant to Zosyn. IV Zosyn discontinued; start on meropenem; Day #4 11/20/2018-3 more days of meropenem as noted above. Abdominal discomfort most likely due to the pyelonephritis. (3) Anemia due to end stage renal disease Is this a current diagnosis for this admission?: Yes Plan: Hemoglobin of 8.9; overall stable. Improved from prior labs and at baseline. No evidence of active bleeding. Continue home dose Nephrocaps. Nephrology is consulted; appreciate their assistance. 11/20/2018-erythropoietin administered during dialysis. Continue renal vitamin. (4) ESRD (end stage renal disease) Is this a current diagnosis for this admission?: Yes Plan: Patient on Monday, Monday, Monday dialysis schedule. Nephrology is consulted; appreciate their assistance. 1.5 L off on Monday11/20/2018-continue hemodialysis on Monday, Monday and Monday. 700 mL removed yesterday. (5) Diarrhea Qualifiers: Diarrhea type: unspecified type Qualified Code(s): R19.7 - Diarrhea, unspecified Is this a current diagnosis for this admission?: Yes Plan: CT abdomen pelvis did not demonstrate moderate fecal load in the rectum, but without obstruction. CT abdomen pelvis with oral contrast also benign. Patient family reports abdominal discomfort and diarrhea have been ongoing for several months. C. difficile is negative. Stool cultures negative Hepatits panel (09/2018) was negative. CT ABD/Pelvis w/ oral contrast pending Continue Bentyl for abdominal discomfort. Continue lactobacillus. Start Cholestyramine w/ meals Outpatient GI follow up 11/20/2018-as noted above the diarrhea is not acute. Continue probiotics as well as initiate cholestyramine therapy. Stool culture and C. difficile testing were negative. (6) Diabetes mellitus Qualifiers: Diabetes mellitus type: type 2 Diabetes mellitus admeasurer insulin use: with admeasurer use Chronic kidney disease stage: on chronic dialysis Is this a current diagnosis for this admission?: Yes Plan: A1c 6.4% (09/2018) Holding long-acting insulin related to family report of multiple episodes of hypoglycemia; recommend discontinuing at discharge. Consistent carb/dialysis diet. Accu-Cheks before meals and at bedtime with Humalog for sliding coverage. Hypoglycemia protocol in place. 11/20/[id number] still variable. Consider increase Lantus. (7) Unstageable pressure ulcer of heel Qualifiers: Laterality: right Qualified Code(s): L89.610 - Pressure ulcer of right heel, unstageable Is this a current diagnosis for this admission?: Yes Plan: X-rays are negative for acute process; no evidence of bone involvement. Float heel. Now on specialty mattress Allevyn dressing. Close monitoring. Consider surgical evaluation. 11/20/2018-Ensure offloading of the heel. Possible surgical evaluation. - Time Time Spent with patient: 15-24 minutes Medications reviewed and adjusted accordingly: Yes
[2018-11-20] MEDS: FOLIC ACID/VITAMIN B COMP W-C CAPSULE PO SCH (21:26)
[2018-11-20] MEDS: ATORVASTATIN CALCIUM 40 MG TABLET PO SCH (21:26)
[2018-11-20] MEDS: CETIRIZINE 5 MG TABLET PO SCH (21:38)
[2018-11-20] MEDS: HYDROCORTISONE 10 MG TABLET PO SCH (21:40)
[2018-11-21] MEDS: OXYCODONE HCL IR 5 MG TABLET PO PRN ×3 (00:22→23:28)
[2018-11-21] MEDS: HEPARIN SOD (PORCINE) 5,000 UNIT/ML 1 ML VIAL SUBCUT SCH ×3 (05:05→21:54)
[2018-11-21] MEDS: MEROPENEM 500 MG in NORMAL SALINE 50 ML IV SCH ×2 (05:39→18:03)
[2018-11-21 06:32] LABS: HEMATOCRIT 29.5 % (36.0-47.0); MEAN CORPUSCULAR HEMOGLOBIN 26.5 pg (27.0-33.4); MEAN CORPUSCULAR HGB CONC 30.5 g/dL (32.0-36.0); MEAN CORPUSCULAR VOLUME 87 fl (80-97); PLATELET COUNT 369 10^3/uL (150-450); RED CELL DISTRIBUTION WIDTH 20.8 % (11.5-14.0); WHITE BLOOD COUNT 16.5 10^3/uL (4.0-10.5)
[2018-11-21 06:47] LABS: ANION GAP 10 (5-19); BLOOD UREA NITROGEN 38 mg/dL (7-20); CALCIUM 8.9 mg/dL (8.4-10.2); CARBON DIOXIDE 26 mmol/L (22-30); CHLORIDE 100 mmol/L (98-107); GLUCOSE 223 mg/dL (75-110); POTASSIUM 3.6 mmol/L (3.6-5.0)
[2018-11-21] MEDS: IPRATROPIUM/ALBUTEROL 0.5-2.5 MG/3 ML AMPUL NEB SCH ×2 (08:16→20:25)
[2018-11-21] MEDS: INSULIN LISPRO 100 UNIT/ML 3 ML VIAL SUBCUT SCH ×4 (10:01→21:54)
[2018-11-21] MEDS: INSULIN GLARGINE,HUM.REC.ANLOG 1,000 UNIT/10 ML VIAL SUBCUT SCH (10:02)
[2018-11-21] MEDS: CARVEDILOL 12.5 MG TABLET PO SCH ×2 (10:03→21:52)
[2018-11-21] MEDS: FLUOXETINE HCL 20 MG CAPSULE PO SCH (10:03)
[2018-11-21] MEDS: ASPIRIN 81 MG TABLET, CHEWABLE PO SCH (10:03)
[2018-11-21] MEDS: LACTOBACILLUS ACIDOPHILUS 250 MG TAB PO SCH ×2 (10:03→18:03)
[2018-11-21] MEDS: CHOLESTYRAMINE/ASPARTAME 4 GM PACKET PO SCH ×4 (10:03→21:52)
[2018-11-21] MEDS: PANTOPRAZOLE SODIUM 40 MG VIAL IV SCH (10:05)
[2018-11-21] MEDS: ERGOCALCIFEROL (VITAMIN D2) 50000 UNIT (1.25 MG) CAPSULE PO SCH (10:05)
--- NOTE | 2018-11-21 15:51 | PDOC PROGRESS REPORT ---
Subjective Progress Note for:: 11/21/18 Reason For Visit: Patient seen on dialysis. She was admitted for acute pyelonephritis with sepsis. She still has pain in the lower abdomen though some better. She denies any history of fever or chills. No complaints of any chest pains. Labs and medications were reviewed with the patient. White count is persistently high. No differential was done. Dialysis orders were reviewed with the treating dialysis nurse. Physical Exam Vital Signs: Temp Pulse Resp BP Pulse Ox 98.3 F 73 16 114/68 96 11/21/18 11:28 11/21/18 11:28 11/21/18 08:15 11/21/18 11:28 11/21/18 11:28 Intake & Output 11/20/18 11/21/18 11/22/18 06:59 06:59 06:59 Intake Total 1390 1440 400 Output Total 725 165 Balance 665 1275 400 Weight 72.4 kg 81.4 kg General appearance: PRESENT: no acute distress Respiratory exam: PRESENT: clear to auscultation linda, decreased breath sounds. ABSENT: crackles Cardiovascular exam: PRESENT: +S1, +S2 GI/Abdominal exam: PRESENT: normal bowel sounds, rebound - Mild., soft, tenderness - In the lower quadrants.. ABSENT: distended, guarding, organomegaly Extremities exam: ABSENT: pedal edema Neurological exam: PRESENT: alert, awake, oriented to person, oriented to place Psychiatric exam: PRESENT: anxious Skin exam: ABSENT: cyanosis, erythema, mottled Results Laboratory Results: 11/21/18 06:15 11/21/18 06:15 11/21/18 11/21/18 06:15 06:15 WBC 16.5 H RBC 3.40 L Hgb 9.0 L Hct 29.5 L MCV 87 MCH 26.5 L MCHC 30.5 L RDW 20.8 H Plt Count 369 Sodium 136.3 L Potassium 3.6 Chloride 100 Carbon Dioxide 26 Anion Gap 10 BUN 38 H Creatinine 3.99 H Est GFR ( Amer) 14 L Glucose 223 H Calcium 8.9 Impressions: Chest X-Ray 11/14/18 15:07 IMPRESSION: No focal consolidation or other evidence of acute cardiopulmonary process. Foot X-Ray 11/17/18 00:00 IMPRESSION: NEGATIVE STUDY OF THE RIGHT FOOT. NO RADIOGRAPHIC EVIDENCE OF ACUTE INJURY. Abdomen/Pelvis CT 11/18/18 00:00 IMPRESSION: Diffuse body wall anasarca. Pleural effusions. Possible right basilar airspace disease. Assessment & Plan - Diagnosis (1) Septic shock Plan: Patient growing ESBL E. coli UTI/pyelonephritis. Septic shock status resolved. (2) Diarrhea Qualifiers: Diarrhea type: unspecified type Qualified Code(s): R19.7 - Diarrhea, unspecified Is this a current diagnosis for this admission?: Yes Plan: Intermittent. As per hospitalist. (3) Pyelonephritis Is this a current diagnosis for this admission?: Yes Plan: Now growing ESBL E. coli. Was in septic shock. Off pressors and stable now.However persistently high white count is concerning. Patient continues on IV antibiotics. (4) Altered mental status Plan: Resolved. (5) ESRD (end stage renal disease) Is this a current diagnosis for this admission?: Yes Plan: Patient currently undergoing dialysis. Vital signs are stable. Dialysis is being supervised to ensure safe and smooth procedure. Plan to remove 1 and 2 L as tolerated. Dialysis orders were reviewed with the treating dialysis nurse. (6) Hypoglycemia Plan: Resolved. (7) UTI (urinary tract infection) Qualifiers: Urinary tract infection type: site unspecified Hematuria presence: without hematuria Qualified Code(s): N39.0 - Urinary tract infection, site not specified Plan: Now growing ESBL E. coli in the urine. Medications to be adjusted accordingly as per culture and sensitivities. (8) Diabetes mellitus Qualifiers: Diabetes mellitus type: type 2 Diabetes mellitus [facility] insulin use: with ocean transportation intermediary use Chronic kidney disease stage: on chronic dialysis Is this a current diagnosis for this admission?: Yes Plan: Need close monitoring given her recent hypoglycemia in the setting of septic shock. (9) Anemia due to end stage renal disease Is this a current diagnosis for this admission?: Yes Plan: Will adjust erythropoietin during dialysis (10) Unstageable pressure ulcer of heel Qualifiers: Laterality: right Qualified Code(s): L89.610 - Pressure ulcer of right heel, unstageable Is this a current diagnosis for this admission?: Yes Plan: As per hospitalist.
[2018-11-21] MEDS: EPOETIN ALFA-EPBX 20,000 UNIT in SYRINGE, DISPOSABLE, 1 EACH IV PRN (15:59)
--- NOTE | 2018-11-21 20:57 | PDOC PROGRESS REPORT ---
Subjective Progress Note for:: 11/21/18 Subjective:: The patient is seen while on hemodialysis. Her left shoulder is not as painful. She is still having abdominal pain and loose stool. Her white blood cell count still remains elevated despite antibiotic therapy. Reason For Visit: PYELONEPHRITIS, SEPSIS Physical Exam Vital Signs: Temp Pulse Resp BP Pulse Ox 98.9 F 72 19 120/62 92 11/21/18 20:05 11/21/18 20:05 11/21/18 20:05 11/21/18 20:05 11/21/18 20:05 Intake & Output 11/20/18 11/21/18 11/22/18 06:59 06:59 06:59 Intake Total 1390 1440 810 Output Total 915 988 5478 Balance 665 1275 -1190 Weight 72.4 kg 81.4 kg General appearance: PRESENT: cooperative, mild distress, well-developed Head exam: PRESENT: atraumatic, normocephalic Eye exam: PRESENT: conjunctiva pale Ear exam: PRESENT: normal external ear exam. ABSENT: bleeding, drainage Mouth exam: PRESENT: dry mucosa, tongue midline Cardiovascular exam: PRESENT: RRR, +S1, +S2 GI/Abdominal exam: PRESENT: normal bowel sounds, soft, tenderness - Tenderness less pronounced than yesterday. Patient reports right lower quadrant but does wince with palpation across the lower abdomen.. ABSENT: distended Extremities exam: ABSENT: pedal edema Musculoskeletal exam: PRESENT: normal inspection - Left shoulder. ABSENT: deformity, tenderness - Left shoulder Neurological exam: PRESENT: alert, awake, oriented to person, oriented to place, oriented to time, oriented to situation, CN II-XII grossly intact Psychiatric exam: PRESENT: flat affect. ABSENT: agitated, anxious Focused psych exam: ABSENT: delusional, restlessness Skin exam: PRESENT: dry, pallor, warm. ABSENT: rash Results Laboratory Results: 11/21/18 06:15 11/21/18 06:15 11/21/18 11/21/18 06:15 06:15 WBC 16.5 H RBC 3.40 L Hgb 9.0 L Hct 29.5 L MCV 87 MCH 26.5 L MCHC 30.5 L RDW 20.8 H Plt Count 369 Sodium 136.3 L Potassium 3.6 Chloride 100 Carbon Dioxide 26 Anion Gap 10 BUN 38 H Creatinine 3.99 H Est GFR ( Amer) 14 L Glucose 223 H Calcium 8.9 Impressions: Chest X-Ray 11/14/18 15:07 IMPRESSION: No focal consolidation or other evidence of acute cardiopulmonary process. Foot X-Ray 11/17/18 00:00 IMPRESSION: NEGATIVE STUDY OF THE RIGHT FOOT. NO RADIOGRAPHIC EVIDENCE OF ACUTE INJURY. Abdomen/Pelvis CT 11/18/18 00:00 IMPRESSION: Diffuse body wall anasarca. Pleural effusions. Possible right basilar airspace disease. Assessment and Plan - Diagnosis (1) Sepsis Qualifiers: Sepsis type: Escherichia coli Sepsis acute organ dysfunction status: without acute organ dysfunction Qualified Code(s): A41.51 - Sepsis due to Escherichia coli [E. 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 Is this a current diagnosis for this admission?: Yes (4) ESRD (end stage renal disease) Is this a current diagnosis for this admission?: Yes (5) Diarrhea Qualifiers: Diarrhea type: unspecified type Qualified Code(s): R19.7 - Diarrhea, unspecified Is this a current diagnosis for this admission?: Yes (6) Diabetes mellitus Qualifiers: Diabetes mellitus type: type 2 Diabetes mellitus [facility] insulin use: with [facility] use Chronic kidney disease stage: on chronic dialysis Is this a current diagnosis for this admission?: Yes (7) Unstageable pressure ulcer of heel Qualifiers: Laterality: right Qualified Code(s): L89.610 - Pressure ulcer of right heel, unstageable Is this a current diagnosis for this admission?: Yes (8) Left shoulder pain Qualifiers: Chronicity: acute Qualified Code(s): M25.512 - Pain in left shoulder Is this a current diagnosis for this admission?: Yes (9) Abdominal pain Qualifiers: Abdominal location: right lower quadrant Qualified Code(s): R10.31 - Right lower quadrant pain Is this a current diagnosis for this admission?: Yes - Plan Summary Summary: Patient is currently on hemodialysis. Continue Monday, Monday and Monday schedule. Continue current diabetes regimen. The abdominal pain is not acute. She has a history of diverticular disease but CT scan showed no evidence of diverticulitis. We discussed several other possible etiologies including irritable bowel and inflammatory bowel disease. She has never had a colonoscopy. She has Bentyl available as well as scheduled cholestyramine to help with loose stool. She will need further GI work-up as an outpatient. Sepsis is resolved. She is near completion of antibiotic therapy for the ESBL E. coli. Left shoulder pain is not as bad today. We will obtain an x-ray. It may very well be osteoarthritis. - Time Time Spent with patient: 15-24 minutes Medications reviewed and adjusted accordingly: Yes
[2018-11-21] MEDS: ATORVASTATIN CALCIUM 40 MG TABLET PO SCH (21:52)
[2018-11-21] MEDS: ACETAMINOPHEN 325 MG TABLET PO PRN (21:52)
[2018-11-21] MEDS: FOLIC ACID/VITAMIN B COMP W-C CAPSULE PO SCH (21:52)
[2018-11-21] MEDS: HYDROCORTISONE 10 MG TABLET PO SCH (21:54)
[2018-11-21] MEDS: CETIRIZINE 5 MG TABLET PO SCH (21:54)
[2018-11-22] MEDS: MEROPENEM 500 MG in NORMAL SALINE 50 ML IV SCH ×2 (05:37→18:38)
[2018-11-22] MEDS: HEPARIN SOD (PORCINE) 5,000 UNIT/ML 1 ML VIAL SUBCUT SCH ×3 (05:37→21:10)
[2018-11-22 06:46] LABS: HEMATOCRIT 24.2 % (36.0-47.0); MEAN CORPUSCULAR HEMOGLOBIN 27.2 pg (27.0-33.4); MEAN CORPUSCULAR HGB CONC 31.3 g/dL (32.0-36.0); MEAN CORPUSCULAR VOLUME 87 fl (80-97); PLATELET COUNT 334 10^3/uL (150-450); RED BLOOD COUNT 2.79 10^6/uL (3.72-5.28); RED CELL DISTRIBUTION WIDTH 20.5 % (11.5-14.0); WHITE BLOOD COUNT 12.4 10^3/uL (4.0-10.5)
[2018-11-22 07:06] LABS: ALBUMIN 2.2 g/dL (3.5-5.0); ALKALINE PHOSPHATASE 96 U/L (38-126); ANION GAP 10 (5-19); ASPARTATE AMINO TRANSFERASE 12 U/L (14-36); BILIRUBIN,DIRECT 0.4 mg/dL (0.0-0.4); BILIRUBIN,TOTAL 0.4 mg/dL (0.2-1.3); BLOOD UREA NITROGEN 27 mg/dL (7-20); CALCIUM 8.5 mg/dL (8.4-10.2); CARBON DIOXIDE 28 mmol/L (22-30); CHLORIDE 99 mmol/L (98-107); GLUCOSE 164 mg/dL (75-110); POTASSIUM 3.4 mmol/L (3.6-5.0); TOTAL PROTEIN 5.8 g/dL (6.3-8.2)
[2018-11-22 07:53] LABS: HEMOGLOBIN 7.6 g/dL (12.0-15.5)
[2018-11-22 07:55] LABS: ABSOLUTE LYMPHOCYTES# (MANUAL) 1.4 10^3/uL (0.5-4.7); BAND NEUTROPHILS % (MANUAL) 3 % (3-5); BASOPHILS % (MANUAL) 0 % (0-2); EOSINOPHILS % (MANUAL) 0 % (0-6); LYMPHOCYTES % (MANUAL) 11 % (13-45); MONOCYTES % (MANUAL) 8 % (3-13); SEGMENTED NEUTROPHILS % (MAN) 78 % (42-78); TOTAL CELLS COUNTED 100
[2018-11-22 07:57] LABS: PLATELET COMMENT ADEQUATE
[2018-11-22 07:58] LABS: ANISOCYTOSIS 3+; POIKILOCYTOSIS SLIGHT; TARGET CELLS SLIGHT
[2018-11-22] MEDS: IPRATROPIUM/ALBUTEROL 0.5-2.5 MG/3 ML AMPUL NEB SCH ×2 (08:08→19:57)
[2018-11-22] MEDS: INSULIN LISPRO 100 UNIT/ML 3 ML VIAL SUBCUT SCH ×4 (08:32→21:11)
[2018-11-22] MEDS: CHOLESTYRAMINE/ASPARTAME 4 GM PACKET PO SCH ×4 (08:33→21:12)
[2018-11-22] MEDS: FLUOXETINE HCL 20 MG CAPSULE PO SCH (08:33)
[2018-11-22] MEDS: OXYCODONE HCL IR 5 MG TABLET PO PRN ×3 (08:34→21:21)
[2018-11-22] MEDS: INSULIN GLARGINE,HUM.REC.ANLOG 1,000 UNIT/10 ML VIAL SUBCUT SCH (08:34)
[2018-11-22] MEDS: CARVEDILOL 12.5 MG TABLET PO SCH ×2 (09:44→21:07)
[2018-11-22] MEDS: LACTOBACILLUS ACIDOPHILUS 250 MG TAB PO SCH ×2 (09:44→18:38)
[2018-11-22] MEDS: ASPIRIN 81 MG TABLET, CHEWABLE PO SCH (09:44)
[2018-11-22] MEDS: PANTOPRAZOLE SODIUM 40 MG VIAL IV SCH (09:45)
--- NOTE | 2018-11-22 10:00 | RADIOLOGY REPORT (SQ) ---
EXAM DESCRIPTION: SHOULDER LEFT 1 VIEW COMPLETED DATE/TIME: 11/22/2018 9:13 am REASON FOR STUDY: Left shoulder pain COMPARISON: None. NUMBER OF VIEWS: One view. TECHNIQUE: AP portable image acquired of the left shoulder. LIMITATIONS: None. FINDINGS: MINERALIZATION: Osteopenic BONES: No acute fracture. No worrisome bone lesions. JOINTS: No glenohumeral dislocation. Acromioclavicular joint is unremarkable. VISUALIZED LUNGS AND RIBS: No pneumothorax. No rib fracture. SOFT TISSUES: No radiopaque foreign body. OTHER: No other significant finding. IMPRESSION: No acute findings TECHNICAL DOCUMENTATION: JOB ID: [id number] [employer]- All Rights Reserved Reading location - IP/workstation name: [email or web address]
[2018-11-22 10:15] LABS: HEMATOCRIT 25.1 % (36.0-47.0); MEAN CORPUSCULAR HEMOGLOBIN 26.8 pg (27.0-33.4); MEAN CORPUSCULAR HGB CONC 30.8 g/dL (32.0-36.0); MEAN CORPUSCULAR VOLUME 87 fl (80-97); PLATELET COUNT 357 10^3/uL (150-450); RED BLOOD COUNT 2.88 10^6/uL (3.72-5.28); RED CELL DISTRIBUTION WIDTH 21.1 % (11.5-14.0)
[2018-11-22] MEDS ORDERED: INFLUENZA QUAD (6MOS+) 2019-20 VAC 0.5 ML SYR IM ONE (10:15)
[2018-11-22 10:23] LABS: HEMOGLOBIN 7.7 g/dL (12.0-15.5)
[2018-11-22 10:38] LABS: ABSOLUTE MONOCYTES # (MANUAL) 0.4 10^3/uL (0.1-1.4); BAND NEUTROPHILS % (MANUAL) 2 % (3-5); BASOPHILS % (MANUAL) 0 % (0-2); EOSINOPHILS % (MANUAL) 0 % (0-6); LYMPHOCYTES % (MANUAL) 8 % (13-45); MONOCYTES % (MANUAL) 3 % (3-13); NUCLEATED RED BLOOD CELLS 1 /100 WBC (0); SEGMENTED NEUTROPHILS % (MAN) 87 % (42-78); TOTAL CELLS COUNTED 100
[2018-11-22 10:41] LABS: ANISOCYTOSIS 3+; HYPOCHROMASIA SLIGHT; PLATELET COMMENT ADEQUATE; POIKILOCYTOSIS SLIGHT; TARGET CELLS SLIGHT
[2018-11-22] MEDS ORDERED: NORMAL SALINE 250 ML IV PRN ×2 (16:03)
[2018-11-22] MEDS ORDERED: FUROSEMIDE INJ/PF 20 MG/2 ML SDV IV PRN (16:03)
--- NOTE | 2018-11-22 16:09 | PDOC PROGRESS REPORT ---
Subjective Progress Note for:: 11/22/18 Subjective:: Reports that the abdominal pain is a little better. Left shoulder is still painful. There is an area of irritation on the inner thighs adjacent to the Farris catheter. Reason For Visit: PYELONEPHRITIS, SEPSIS Physical Exam Vital Signs: Temp Pulse Resp BP Pulse Ox 98.3 F 69 17 129/64 H 94 11/22/18 08:23 11/22/18 14:00 11/22/18 08:23 11/22/18 08:23 11/22/18 08:23 Intake & Output 11/21/18 11/22/18 11/23/18 06:59 06:59 06:59 Intake Total 1440 860 360 Output Total 165 2020 Balance 1275 -1160 360 Weight 81.4 kg 81.8 kg General appearance: PRESENT: no acute distress, well-developed Head exam: PRESENT: atraumatic, normocephalic Eye exam: PRESENT: conjunctiva pale Ear exam: PRESENT: normal external ear exam. ABSENT: bleeding, drainage Mouth exam: PRESENT: moist, tongue midline Respiratory exam: PRESENT: clear to auscultation linda, symmetrical, unlabored. ABSENT: rales, rhonchi, tachypnea, wheezes Cardiovascular exam: PRESENT: RRR, +S1, +S2 GI/Abdominal exam: PRESENT: soft, tenderness - Improved tenderness Rectal exam: PRESENT: other - Incontinent of brown stool. Pasty in consistency not liquid. Gentrourinary exam: PRESENT: indwelling catheter Extremities exam: ABSENT: pedal edema Musculoskeletal exam: PRESENT: normal inspection. ABSENT: deformity Neurological exam: PRESENT: alert, awake, oriented to person, oriented to place, oriented to time, oriented to situation Psychiatric exam: PRESENT: flat affect. ABSENT: agitated, anxious Skin exam: PRESENT: erythema, other - Erythema and petechiae in her thighs possibly from the Farris catheter combined with fecal incontinence. Results Laboratory Results: 11/22/18 09:57 11/22/18 06:09 11/22/18 11/22/18 11/22/18 06:09 06:09 09:57 WBC 12.4 H 12.0 H RBC 2.79 L 2.88 L Hgb 7.6 L 7.7 L Hct 24.2 L 25.1 L MCV 87 87 MCH 27.2 26.8 L MCHC 31.3 L 30.8 L RDW 20.5 H 21.1 H Plt Count 334 357 Seg Neutrophils % Not Reportable Not Reportable Sodium 136.8 L Potassium 3.4 L Chloride 99 Carbon Dioxide 28 Anion Gap 10 BUN 27 H Creatinine 3.05 H Est GFR ( Amer) 19 L Glucose 164 H Calcium 8.5 Total Bilirubin 0.4 AST 12 L Alkaline Phosphatase 96 Total Protein 5.8 L Albumin 2.2 L Impressions: Chest X-Ray 11/14/18 15:07 IMPRESSION: No focal consolidation or other evidence of acute cardiopulmonary process. Foot X-Ray 11/17/18 00:00 IMPRESSION: NEGATIVE STUDY OF THE RIGHT FOOT. NO RADIOGRAPHIC EVIDENCE OF ACUTE INJURY. Abdomen/Pelvis CT 11/18/18 00:00 IMPRESSION: Diffuse body wall anasarca. Pleural effusions. Possible right basilar airspace disease. Shoulder X-Ray 11/22/18 00:00 IMPRESSION: No acute findings Assessment and Plan - Diagnosis (1) Sepsis Qualifiers: Sepsis type: Escherichia coli Sepsis acute organ dysfunction status: without acute organ dysfunction Qualified Code(s): A41.51 - Sepsis due to Escherichia coli [E. 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 Is this a current diagnosis for this admission?: Yes (4) ESRD (end stage renal disease) Is this a current diagnosis for this admission?: Yes (5) Diarrhea Qualifiers: Diarrhea type: unspecified type Qualified Code(s): R19.7 - Diarrhea, unspecified Is this a current diagnosis for this admission?: Yes (6) Diabetes mellitus Qualifiers: Diabetes mellitus type: type 2 Diabetes mellitus residential insulin use: with superintendent terminal use Chronic kidney disease stage: on chronic dialysis Is this a current diagnosis for this admission?: Yes (7) Unstageable pressure ulcer of heel Qualifiers: Laterality: right Qualified Code(s): L89.610 - Pressure ulcer of right heel, unstageable Is this a current diagnosis for this admission?: Yes (8) Left shoulder pain Qualifiers: Chronicity: acute Qualified Code(s): M25.512 - Pain in left shoulder Is this a current diagnosis for this admission?: Yes (9) Abdominal pain Qualifiers: Abdominal location: right lower quadrant Qualified Code(s): R10.31 - Right lower quadrant pain Is this a current diagnosis for this admission?: Yes (10) Incontinence associated dermatitis Is this a current diagnosis for this admission?: Yes - Plan Summary Summary: Patient is currently on hemodialysis. Continue Monday, Monday and Monday schedule. Continue current diabetes regimen. The abdominal pain is not acute. She has a history of diverticular disease but CT scan showed no evidence of diverticulitis. We discussed several other possible etiologies including irritable bowel and inflammatory bowel disease. She has never had a colonoscopy. She has Bentyl available as well as scheduled cholestyramine to help with loose stool. She will need further GI work-up as an outpatient. Sepsis is resolved. She is near completion of antibiotic therapy for the ESBL E. coli. Left shoulder pain is not as bad today. We will obtain an x-ray. It may very well be osteoarthritis. 11/22/2018- End-stage kidney disease-patient is stable and tolerating hemodialysis. Dialysis due for tomorrow. Abdominal pain-this is been a chronic issue. It is somewhat better today. Could be related to the chronic diarrhea such as an irritable bowel syndrome. Pyelonephritis-antibiotic therapy is complete. The urine is still turbid. I have submitted another culture. Await results before transferring back to long- term facility Left shoulder pain-x-rays do not reveal any acute cause. I have asked physical therapy to incorporate her left shoulder into their treatment plan. Sepsis is resolved Incontinence associated dermatitis-when attempting to examine the patient today she was sitting in stool. Stool and developed the area of the vagina and surrounded the Farris catheter tubing between her thighs. After cleaning the patient it was noted that she had some reddened areas with petechia on the inner thighs adjacent to the catheter. I believe this is related to her incontinence. Unfortunately she does not summon staff when she has had a bowel movement. - Time Time Spent with patient: 15-24 minutes Medications reviewed and adjusted accordingly: Yes Anticipated discharge: Other - Return to long-term care Within: within 48 hours
[2018-11-22] MEDS: NYSTATIN TOPICAL POWDER 15 GM TP SCH (18:38)
[2018-11-22] MEDS: LOPERAMIDE HCL 2 MG CAPSULE PO PRN (18:38)
[2018-11-22] MEDS: FOLIC ACID/VITAMIN B COMP W-C CAPSULE PO SCH (21:09)
[2018-11-22] MEDS: HYDROCORTISONE 10 MG TABLET PO SCH (21:09)
[2018-11-22] MEDS: CETIRIZINE 5 MG TABLET PO SCH (21:10)
[2018-11-22] MEDS: ATORVASTATIN CALCIUM 40 MG TABLET PO SCH (21:10)
[2018-11-22 23:19] LABS: APPEARANCE,URINE TURBID; BILIRUBIN,URINE NEGATIVE (NEGATIVE); COLOR,URINE AMBER; GLUCOSE, URINE NEGATIVE (NEGATIVE); KETONES,URINE TRACE mg/dL (NEGATIVE); LEUKOCYTE ESTERASE,URINE MODERATE (NEGATIVE); NITRITE,URINE NEGATIVE (NEGATIVE); PROTEIN,URINE 100 mg/dL (NEGATIVE); UROBILINOGEN,URINE NEGATIVE mg/dL (<2.0)
[2018-11-23] MEDS: OXYCODONE HCL IR 5 MG TABLET PO PRN ×4 (01:23→22:45)
[2018-11-23] MEDS: ACETAMINOPHEN 325 MG TABLET PO PRN ×2 (01:30→20:00)
[2018-11-23] MEDS: MEROPENEM 500 MG in NORMAL SALINE 50 ML IV SCH ×2 (05:33→17:59)
[2018-11-23] MEDS: HEPARIN SOD (PORCINE) 5,000 UNIT/ML 1 ML VIAL SUBCUT SCH ×3 (05:33→21:45)
[2018-11-23 07:00] LABS: HEMATOCRIT 30.7 % (36.0-47.0); HEMOGLOBIN 9.5 g/dL (12.0-15.5); MEAN CORPUSCULAR HEMOGLOBIN 26.9 pg (27.0-33.4); MEAN CORPUSCULAR VOLUME 87 fl (80-97); PLATELET COUNT 381 10^3/uL (150-450); RED BLOOD COUNT 3.54 10^6/uL (3.72-5.28); RED CELL DISTRIBUTION WIDTH 19.9 % (11.5-14.0); WHITE BLOOD COUNT 16.1 10^3/uL (4.0-10.5)
[2018-11-23 07:20] LABS: ANION GAP 13 (5-19); BLOOD UREA NITROGEN 38 mg/dL (7-20); CALCIUM 8.8 mg/dL (8.4-10.2); CARBON DIOXIDE 23 mmol/L (22-30); CHLORIDE 100 mmol/L (98-107); GLUCOSE 204 mg/dL (75-110); POTASSIUM 3.6 mmol/L (3.6-5.0)
[2018-11-23] MEDS: IPRATROPIUM/ALBUTEROL 0.5-2.5 MG/3 ML AMPUL NEB SCH ×2 (07:50→20:57)
[2018-11-23] MEDS: INSULIN LISPRO 100 UNIT/ML 3 ML VIAL SUBCUT SCH ×4 (08:35→21:52)
[2018-11-23] MEDS: CHOLESTYRAMINE/ASPARTAME 4 GM PACKET PO SCH ×3 (08:35→21:50)
[2018-11-23] MEDS: INSULIN GLARGINE,HUM.REC.ANLOG 1,000 UNIT/10 ML VIAL SUBCUT SCH (08:39)
[2018-11-23] MEDS: FLUOXETINE HCL 20 MG CAPSULE PO SCH (08:39)
--- NOTE | 2018-11-23 11:31 | PDOC PROGRESS REPORT ---
Subjective Progress Note for:: 11/23/18 Subjective:: The patient appears to be doing poorly. Her blood pressures been on the low side. She still has abdominal pain and her white blood cell count in fact is increasing after 6 days of meropenem therapy. Reason For Visit: PYELONEPHRITIS, SEPSIS Physical Exam Vital Signs: Temp Pulse Resp BP Pulse Ox 99.4 F 78 20 114/54 L 91 L 11/23/18 05:41 11/23/18 07:53 11/23/18 07:53 11/23/18 05:41 11/23/18 07:53 Intake & Output 11/22/18 11/23/18 11/24/18 06:59 06:59 06:59 Intake Total 860 950 Output Total 2020 65 Balance -1160 885 Weight 81.8 kg 82.6 kg General appearance: PRESENT: mild distress, well-developed Respiratory exam: PRESENT: clear to auscultation linda - Anteriorly, symmetrical, unlabored. ABSENT: rales, rhonchi, tachypnea, wheezes Cardiovascular exam: PRESENT: RRR, +S1, +S2 GI/Abdominal exam: PRESENT: diminished bowel sounds, soft, tenderness - mixer tender across the abdomen right greater than left. Musculoskeletal exam: ABSENT: ambulatory Neurological exam: PRESENT: alert, awake, oriented to person, oriented to place, oriented to situation Psychiatric exam: PRESENT: flat affect. ABSENT: agitated, anxious Skin exam: PRESENT: pallor Results Laboratory Results: 11/23/18 06:42 11/23/18 06:42 11/22/18 11/22/18 11/23/18 17:00 22:50 06:42 WBC RBC Hgb Hct MCV MCH MCHC RDW Plt Count Sodium 136.0 L Potassium 3.6 Chloride 100 Carbon Dioxide 23 Anion Gap 13 BUN 38 H Creatinine 3.77 H Est GFR ( Amer) 15 L Glucose 204 H Calcium 8.8 Magnesium 1.6 Urine Color AILEEN Urine Appearance TURBID Urine pH 5.0 Ur Specific [place] 1.020 Urine Protein 100 H Urine Glucose (UA) NEGATIVE Urine Ketones TRACE H Urine Blood LARGE H Urine Nitrite NEGATIVE Ur Leukocyte Esterase MODERATE H Urine WBC (Auto) >182 Urine RBC (Auto) >182 Blood Type O POSITIVE Antibody Screen NEGATIVE 11/23/18 06:42 WBC 16.1 H RBC 3.54 L Hgb 9.5 L Hct 30.7 L MCV 87 MCH 26.9 L MCHC 31.0 L RDW 19.9 H Plt Count 381 Sodium Potassium Chloride Carbon Dioxide Anion Gap BUN Creatinine Est GFR ( Amer) Glucose Calcium Magnesium Urine Color Urine Appearance Urine pH Ur Specific [place] Urine Protein Urine Glucose (UA) Urine Ketones Urine Blood Urine Nitrite Ur Leukocyte Esterase Urine WBC (Auto) Urine RBC (Auto) Blood Type Antibody Screen Impressions: Chest X-Ray 11/14/18 15:07 IMPRESSION: No focal consolidation or other evidence of acute cardiopulmonary process. Foot X-Ray 11/17/18 00:00 IMPRESSION: NEGATIVE STUDY OF THE RIGHT FOOT. NO RADIOGRAPHIC EVIDENCE OF ACUTE INJURY. Abdomen/Pelvis CT 11/18/18 00:00 IMPRESSION: Diffuse body wall anasarca. Pleural effusions. Possible right basilar airspace disease. Shoulder X-Ray 11/22/18 00:00 IMPRESSION: No acute findings Assessment and Plan - Diagnosis (1) Sepsis Qualifiers: Sepsis type: Escherichia coli Sepsis acute organ dysfunction status: without acute organ dysfunction Qualified Code(s): A41.51 - Sepsis due to Escherichia coli [E. 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 Is this a current diagnosis for this admission?: Yes (4) ESRD (end stage renal disease) Is this a current diagnosis for this admission?: Yes (5) Diarrhea Qualifiers: Diarrhea type: unspecified type Qualified Code(s): R19.7 - Diarrhea, unspecified Is this a current diagnosis for this admission?: Yes (6) Diabetes mellitus Qualifiers: Diabetes mellitus type: type 2 Diabetes mellitus alf insulin use: with alf use Chronic kidney disease stage: on chronic dialysis Is this a current diagnosis for this admission?: Yes (7) Unstageable pressure ulcer of heel Qualifiers: Laterality: right Qualified Code(s): L89.610 - Pressure ulcer of right heel, unstageable Is this a current diagnosis for this admission?: Yes (8) Left shoulder pain Qualifiers: Chronicity: acute Qualified Code(s): M25.512 - Pain in left shoulder Is this a current diagnosis for this admission?: Yes (9) Abdominal pain Qualifiers: Abdominal location: right lower quadrant Qualified Code(s): R10.31 - Right lower quadrant pain Is this a current diagnosis for this admission?: Yes (10) Incontinence associated dermatitis Is this a current diagnosis for this admission?: Yes - Plan Summary Summary: Patient is currently on hemodialysis. Continue Monday, Monday and Monday schedule. Continue current diabetes regimen. The abdominal pain is not acute. She has a history of diverticular disease but CT scan showed no evidence of diverticulitis. We discussed several other possible etiologies including irritable bowel and inflammatory bowel disease. She has never had a colonoscopy. She has Bentyl available as well as scheduled cholestyramine to help with loose stool. She will need further GI work-up as an outpatient. Sepsis is resolved. She is near completion of antibiotic therapy for the ESBL E. coli. Left shoulder pain is not as bad today. We will obtain an x-ray. It may very well be osteoarthritis. 11/22/2018- End-stage kidney disease-patient is stable and tolerating hemodialysis. Dialysis due for tomorrow. Abdominal pain-this is been a chronic issue. It is somewhat better today. Could be related to the chronic diarrhea such as an irritable bowel syndrome. Pyelonephritis-antibiotic therapy is complete. The urine is still turbid. I have submitted another culture. Await results before transferring back to long- term facility Left shoulder pain-x-rays do not reveal any acute cause. I have asked physical therapy to incorporate her left shoulder into their treatment plan. Sepsis is resolved Incontinence associated dermatitis-when attempting to examine the patient today she was sitting in stool. Stool and developed the area of the vagina and surrounded the Farris catheter tubing between her thighs. After cleaning the patient it was noted that she had some reddened areas with petechia on the inner thighs adjacent to the catheter. I believe this is related to her incontinence. Unfortunately she does not summon staff when she has had a bowel movement. Anemia with chronic kidney disease-it is unclear why her hemoglobin would drop but her hemoglobin was less than 8 today. She states that she has had transfusions in the past. This could be related to acute illness on top of her chronic kidney disease. I have ordered 1 unit of packed red cells today and will recheck hemoglobin tomorrow. 11/23/2018- The patient was supposed to complete her meropenem therapy today. It is worrisome that her white blood cell count is now climbing. Her urinalysis still had significant turbidity with lots of white blood cells. Review of CT scan showed some hydroureter and hydronephrosis on initial CAT scan. The second CAT scan did not remark or report any such findings. A third CT scan was ordered today. It showed nonobstructing stones but no evidence of renal cyst or severe hydronephrosis. I ordered another set of blood cultures and added vancomycin to the meropenem. We will hold blood pressure medicines for hypotension. Lactic acid was normal but there is always a concern for septic shock. Await further results on the urine and blood cultures. Since she has been on antibiotic therapy it is possible for a fungal cystitis. - Time Time Spent with patient: 15-24 minutes Medications reviewed and adjusted accordingly: Yes
[2018-11-23] MEDS: PANTOPRAZOLE SODIUM 40 MG VIAL IV SCH (11:49)
[2018-11-23] MEDS: ASPIRIN 81 MG TABLET, CHEWABLE PO SCH (11:49)
[2018-11-23] MEDS: LACTOBACILLUS ACIDOPHILUS 250 MG TAB PO SCH ×2 (11:49→17:59)
[2018-11-23] MEDS: CARVEDILOL 12.5 MG TABLET PO SCH ×2 (11:49→21:44)
[2018-11-23] MEDS: NYSTATIN TOPICAL POWDER 15 GM TP SCH ×2 (11:52→18:04)
--- NOTE | 2018-11-23 13:04 | RADIOLOGY REPORT (SQ) ---
EXAM DESCRIPTION: CT ABD/PELVIS WITH IV ONLY COMPLETED DATE/TIME: 11/23/2018 12:36 pm REASON FOR STUDY: possible renal abscess COMPARISON: 11/19/2018 TECHNIQUE: CT scan of the abdomen and pelvis performed using helical scanning technique with dynamic intravenous contrast injection. No oral contrast. Images reviewed with lung, soft tissue, and bone windows. Reconstructed coronal and sagittal MPR images reviewed. Delayed images for evaluation of the urinary system also acquired. All images stored on PACS. All CT scanners at this facility use dose modulation, iterative reconstruction, and/or weight based d osing when appropriate to reduce radiation dose to as low as reasonably achievable (ALARA). [facility]: Dose Right [facility]: CareDose [facility]: Dose Right [facility]: Teradose 4D [facility]: KeyCAPTCHA CONTRAST TYPE AND DOSE: contrast/concentration: Isovue 350.00 mg/ml; Total Contrast Delivered: 95.0 ml; Total Saline Delivered: 71.0 ml RENAL FUNCTION: Creatinine 3.77 RADIATION DOSE: CT Rad equipment meets quality standard of care and radiation dose reduction techniq ues were employed. CTDIvol: 8.9 - 10.6 mGy. DLP: 1048 mGy-cm.. LIMITATIONS: None. FINDINGS: LOWER CHEST: Small bilateral pleural effusions, left greater than right with associated at electasis. Additional patchy ground-glass attenuation within the right lung base. Scattered coronar y atherosclerosis. LIVER: Heterogeneous hepatic attenuation, possibly secondary to contrast timing. No discrete lesion. SPLEEN: Normal size. No focal lesions. PANCREAS: Fatty replacement. GALLBLADDER: No identified stones by CT criteria. No inflammatory changes to suggest cholecystitis. ADRENAL GLANDS: No significant masses or asymmetry. RIGHT KIDNEY AND URETER: No solid masses. Mildly atrophic. Nonobstructing renal stones, largest alfredito suring 5 mm in the interpolar region. No hydronephrosis or hydroureter. LEFT KIDNEY AND URETER: No solid masses. Mildly atrophic. Nonobstructing renal stones, largest angelique uring 3 mm. Scattered additional vascular calcifications. No hydronephrosis or hydroureter. AORTA AND VESSELS: Aortoiliac atherosclerosis without aneurysm. Evidence of prior SMA is stent place ment which appears patent. IVC filter in place below the level of the renal veins. RETROPERITONEUM: No retroperitoneal adenopathy, hemorrhage or masses. BOWEL AND PERITONEAL CAVITY: No evidence of intestinal obstruction. No focal bowel wall thickening. Mild volume ascites with no significant change compared to prior. APPENDIX: Partially visualized. Normal caliber. PELVIS: Farris catheter retention balloon within the bladder lumen. ABDOMINAL WALL: Diffuse anasarca. BONES: No acute bony abnormality. No suspicious lytic or blastic osseous lesions. OTHER: No other significant finding. IMPRESSION: 1. Mild bilateral pleural effusions, left greater than right. Increased right basilar ground-glass attenuation likely infectious/inflammatory. 2. No evidence of renal abscess. No significant hydronephrosis. 3. Diffuse anasarca with mild volume ascites suggestive of volume overload. 4. No significant contrast excretion on delayed imaging compatible with renal failure. TECHNICAL DOCUMENTATION: JOB ID: [id number] Quality ID # [id number]: Final reports with documentation of one or more dose reduction techniques (e.g., Au tomated exposure control, adjustment of the mA and/or kV according to patient size, use of iterative reconstruction technique) 2010 [email or web address]- All Rights Reserved Reading location - IP/workstation name: [email or web address]
[2018-11-23] MEDS ORDERED: PHARMACY COMMUNICATION ORDER MC NR (14:30)
[2018-11-23] MEDS ORDERED: VANCOMYCIN HCL 0 MG in DEXTROSE 5%-WATER 250 ML IV NR (14:30)
[2018-11-23] MEDS: EPOETIN ALFA-EPBX 20,000 UNIT in SYRINGE, DISPOSABLE, 1 EACH IV PRN (14:36)
--- NOTE | 2018-11-23 14:40 | PDOC PROGRESS REPORT ---
Subjective Progress Note for:: 11/23/18 Reason For Visit: Patient seen on dialysis today. She was seen earlier on the floor. She states she still has lower abdominal especially more towards the right side towards the flank area. She thinks she might have intermittent chills but no fever. She is still anorexic. No complaints of any chest pains or shortness of breath. She is not standing up to see if she has orthostasis. She had a repeat CT scan with contrast prior to her dialysis which are reviewed which is rather unremarkable for any abscess involving the kidneys. Labs and medications were reviewed with the patient. Labs shows increasing white count. Patient was subsequently seen on dialysis. She is undergoing dialysis without any issues. Vital signs are stable. Plan to remove no fluid given the fact that she seems to be dropping her blood pressure slowly and she is having features suggestive of ongoing sepsis. Dialysis orders were reviewed with the treating dialysis nurse. Physical Exam Vital Signs: Temp Pulse Resp BP Pulse Ox 99.4 F 78 20 114/54 L 91 L 11/23/18 05:41 11/23/18 07:53 11/23/18 07:53 11/23/18 05:41 11/23/18 07:53 Intake & Output 11/22/18 11/23/18 11/24/18 06:59 06:59 06:59 Intake Total 860 950 360 Output Total 2020 65 Balance -1160 885 360 Weight 81.8 kg 82.6 kg General appearance: PRESENT: mild distress Respiratory exam: PRESENT: clear to auscultation linda. ABSENT: crackles Cardiovascular exam: PRESENT: +S1, +S2 GI/Abdominal exam: PRESENT: normal bowel sounds, rebound - Mild., soft, tenderness - In the lower quadrants.. ABSENT: distended, guarding, organomegaly Extremities exam: ABSENT: pedal edema Neurological exam: PRESENT: alert, awake, oriented to person, oriented to place Psychiatric exam: PRESENT: anxious Skin exam: ABSENT: cyanosis, erythema, jaundice, mottled, rash Results Laboratory Results: 11/23/18 06:42 11/23/18 06:42 11/22/18 11/22/18 11/23/18 17:00 22:50 06:42 WBC RBC Hgb Hct MCV MCH MCHC RDW Plt Count Sodium 136.0 L Potassium 3.6 Chloride 100 Carbon Dioxide 23 Anion Gap 13 BUN 38 H Creatinine 3.77 H Est GFR ( Amer) 15 L Glucose 204 H Calcium 8.8 Magnesium 1.6 Urine Color AILEEN Urine Appearance TURBID Urine pH 5.0 Ur Specific [place] 1.020 Urine Protein 100 H Urine Glucose (UA) NEGATIVE Urine Ketones TRACE H Urine Blood LARGE H Urine Nitrite NEGATIVE Ur Leukocyte Esterase MODERATE H Urine WBC (Auto) >182 Urine RBC (Auto) >182 Blood Type O POSITIVE Antibody Screen NEGATIVE 11/23/18 06:42 WBC 16.1 H RBC 3.54 L Hgb 9.5 L Hct 30.7 L MCV 87 MCH 26.9 L MCHC 31.0 L RDW 19.9 H Plt Count 381 Sodium Potassium Chloride Carbon Dioxide Anion Gap BUN Creatinine Est GFR ( Amer) Glucose Calcium Magnesium Urine Color Urine Appearance Urine pH Ur Specific [place] Urine Protein Urine Glucose (UA) Urine Ketones Urine Blood Urine Nitrite Ur Leukocyte Esterase Urine WBC (Auto) Urine RBC (Auto) Blood Type Antibody Screen Impressions: Chest X-Ray 11/14/18 15:07 IMPRESSION: No focal consolidation or other evidence of acute cardiopulmonary process. Foot X-Ray 11/17/18 00:00 IMPRESSION: NEGATIVE STUDY OF THE RIGHT FOOT. NO RADIOGRAPHIC EVIDENCE OF ACUTE INJURY. Shoulder X-Ray 11/22/18 00:00 IMPRESSION: No acute findings Abdomen/Pelvis CT 11/23/18 00:00 IMPRESSION: 1. Mild bilateral pleural effusions, left greater than right. Increased right basilar ground-glass attenuation likely infectious/inflammatory. 2. No evidence of renal abscess. No significant hydronephrosis. 3. Diffuse anasarca with mild volume ascites suggestive of volume overload. 4. No significant contrast excretion on delayed imaging compatible with renal failure. Assessment & Plan - Diagnosis (1) Septic shock Plan: Patient growing ESBL E. coli UTI/pyelonephritis. Septic shock status resolved.However her blood pressure is trending downwards in the face of rising white count which is concerning. Discussed with Dr. Alfaro/hospitalist. (2) Diarrhea Qualifiers: Diarrhea type: unspecified type Qualified Code(s): R19.7 - Diarrhea, unspecified Is this a current diagnosis for this admission?: Yes Plan: Intermittent. C. difficile is negative. Wonder if she may have underlying colitis as a cause for her unexplained abdominal pains. As per hospitalist. (3) Pyelonephritis Is this a current diagnosis for this admission?: Yes Plan: Now growing ESBL E. coli. Was in septic shock. Off pressors and stable now.However persistently high white count is concerning. Patient continues on IV antibiotics. (4) Altered mental status Plan: Resolved. (5) ESRD (end stage renal disease) Is this a current diagnosis for this admission?: Yes Plan: Patient currently undergoing dialysis. Vital signs are stable. Dialysis is being supervised to ensure safe and smooth procedure. Plan to remove no fluid today given \her rising white count and slowly dropping BP. Dialysis orders were reviewed with the treating dialysis nurse. (6) Hypoglycemia Plan: Resolved. (7) UTI (urinary tract infection) Qualifiers: Urinary tract infection type: site unspecified Hematuria presence: without hematuria Qualified Code(s): N39.0 - Urinary tract infection, site not specified Plan: Now growing ESBL E. coli in the urine. Medications to be adjusted accordingly as per culture and sensitivities. (8) Diabetes mellitus Qualifiers: Diabetes mellitus type: type 2 Diabetes mellitus residential insulin use: with long winder tender use Chronic kidney disease stage: on chronic dialysis Is this a current diagnosis for this admission?: Yes Plan: Need close monitoring given her recent hypoglycemia in the setting of septic shock. (9) Anemia due to end stage renal disease Is this a current diagnosis for this admission?: Yes Plan: Was transfused a pint yesterday. Will adjust erythropoietin during dialysis (10) Unstageable pressure ulcer of heel Qualifiers: Laterality: right Qualified Code(s): L89.610 - Pressure ulcer of right heel, unstageable Is this a current diagnosis for this admission?: Yes Plan: As per hospitalist.
[2018-11-23] MEDS: LOPERAMIDE HCL 2 MG CAPSULE PO PRN (17:59)
[2018-11-23] MEDS ORDERED: VANCOMYCIN HCL 1,500 MG in DEXTROSE 5%-WATER 250 ML IV ONE (18:00)
[2018-11-23] MEDS: HYDROCORTISONE 10 MG TABLET PO SCH (21:42)
[2018-11-23] MEDS: CETIRIZINE 5 MG TABLET PO SCH (21:43)
[2018-11-23] MEDS: ATORVASTATIN CALCIUM 40 MG TABLET PO SCH (21:43)
[2018-11-23] MEDS: FOLIC ACID/VITAMIN B COMP W-C CAPSULE PO SCH (21:43)
[2018-11-23] MEDS: MORPHINE SULFATE 10 MG/ML INJ IV PRN (23:19)
[2018-11-24] MEDS: HEPARIN SOD (PORCINE) 5,000 UNIT/ML 1 ML VIAL SUBCUT SCH ×3 (05:21→21:40)
[2018-11-24] MEDS: MEROPENEM 500 MG in NORMAL SALINE 50 ML IV SCH ×2 (05:21→17:45)
[2018-11-24 06:13] LABS: ABSOLUTE EOSINOPHILS # (AUTO) 0.2 10^3/uL (0.0-0.6); ABSOLUTE LYMPHOCYTES (AUTO) 0.9 10^3/uL (0.5-4.7); ABSOLUTE MONOCYTES (AUTO) 0.7 10^3/uL (0.1-1.4); ABSOLUTE NEUT (AUTO) 12.7 10^3/uL (1.7-8.2); BASOPHILS % (AUTO) 0.3 % (0-2); EOSINOPHILS % (AUTO) 1.6 % (0-6); HEMATOCRIT 30.2 % (36.0-47.0); HEMOGLOBIN 9.5 g/dL (12.0-15.5); LYMPHOCYTES % (AUTO) 6.2 % (13-45); MEAN CORPUSCULAR HEMOGLOBIN 27.4 pg (27.0-33.4); MEAN CORPUSCULAR HGB CONC 31.4 g/dL (32.0-36.0); MEAN CORPUSCULAR VOLUME 87 fl (80-97); MONOCYTES % (AUTO) 4.9 % (3-13); PLATELET COUNT 362 10^3/uL (150-450); RED BLOOD COUNT 3.46 10^6/uL (3.72-5.28); RED CELL DISTRIBUTION WIDTH 20.7 % (11.5-14.0); TOTAL CELLS COUNTED % (AUTO) 100 %; WHITE BLOOD COUNT 14.6 10^3/uL (4.0-10.5)
[2018-11-24] MEDS: IPRATROPIUM/ALBUTEROL 0.5-2.5 MG/3 ML AMPUL NEB SCH ×2 (08:28→20:49)
[2018-11-24] MEDS: OXYCODONE HCL IR 5 MG TABLET PO PRN ×2 (08:59→19:33)
[2018-11-24] MEDS: FLUOXETINE HCL 20 MG CAPSULE PO SCH (08:59)
[2018-11-24] MEDS: INSULIN LISPRO 100 UNIT/ML 3 ML VIAL SUBCUT SCH ×4 (09:00→21:50)
[2018-11-24] MEDS: CHOLESTYRAMINE/ASPARTAME 4 GM PACKET PO SCH ×4 (09:02→21:41)
[2018-11-24] MEDS: CARVEDILOL 12.5 MG TABLET PO SCH ×2 (10:13→21:40)
[2018-11-24] MEDS: LACTOBACILLUS ACIDOPHILUS 250 MG TAB PO SCH ×2 (10:13→17:45)
[2018-11-24] MEDS: PANTOPRAZOLE SODIUM 40 MG VIAL IV SCH (10:13)
[2018-11-24] MEDS: ASPIRIN 81 MG TABLET, CHEWABLE PO SCH (10:13)
[2018-11-24] MEDS: INSULIN GLARGINE,HUM.REC.ANLOG 1,000 UNIT/10 ML VIAL SUBCUT SCH (10:13)
[2018-11-24] MEDS: NYSTATIN TOPICAL POWDER 15 GM TP SCH ×2 (10:14→17:45)
[2018-11-24] MEDS: MORPHINE SULFATE 10 MG/ML INJ IV PRN ×2 (10:23→21:36)
--- NOTE | 2018-11-24 12:41 | PDOC PROGRESS REPORT ---
Subjective Progress Note for:: 11/24/18 Subjective:: The patient feels better now that she is receiving premedication when they move her around in bed. She still has the right-sided discomfort. CT scan did not show any renal issues. I have asked surgery to assess the patient for other causes of pain such as appendicitis. Reason For Visit: PYELONEPHRITIS, SEPSIS Physical Exam Vital Signs: Temp Pulse Resp BP Pulse Ox 98.7 F 73 16 132/58 H 96 11/24/18 10:20 11/24/18 10:20 11/24/18 10:20 11/24/18 10:20 11/24/18 10:20 Intake & Output 11/23/18 11/24/18 11/25/18 06:59 06:59 06:59 Intake Total 1000 1290 50 Output Total 65 40 Balance 935 1250 50 Weight 82.6 kg 83 kg General appearance: PRESENT: cooperative, mild distress, well-developed Head exam: PRESENT: atraumatic, normocephalic Respiratory exam: PRESENT: clear to auscultation linda, symmetrical, unlabored. ABSENT: rales, rhonchi, tachypnea, wheezes Cardiovascular exam: PRESENT: RRR, +S1, +S2 GI/Abdominal exam: PRESENT: diminished bowel sounds, soft, tenderness - Especially right mid to lower abdomen. ABSENT: distended Extremities exam: PRESENT: pedal edema Neurological exam: PRESENT: alert, awake, oriented to person, oriented to place, oriented to time, oriented to situation, CN II-XII grossly intact Psychiatric exam: ABSENT: agitated, anxious Results Laboratory Results: 11/24/18 05:27 11/23/18 06:42 11/23/18 11/24/18 17:08 05:27 WBC 14.6 H RBC 3.46 L Hgb 9.5 L Hct 30.2 L MCV 87 MCH 27.4 MCHC 31.4 L RDW 20.7 H Plt Count 362 Seg Neutrophils % 87.0 H Lactic Acid 0.9 Impressions: Chest X-Ray 11/14/18 15:07 IMPRESSION: No focal consolidation or other evidence of acute cardiopulmonary process. Foot X-Ray 11/17/18 00:00 IMPRESSION: NEGATIVE STUDY OF THE RIGHT FOOT. NO RADIOGRAPHIC EVIDENCE OF ACUTE INJURY. Shoulder X-Ray 11/22/18 00:00 IMPRESSION: No acute findings Abdomen/Pelvis CT 11/23/18 00:00 IMPRESSION: 1. Mild bilateral pleural effusions, left greater than right. Increased right basilar ground-glass attenuation likely infectious/inflammatory. 2. No evidence of renal abscess. No significant hydronephrosis. 3. Diffuse anasarca with mild volume ascites suggestive of volume overload. 4. No significant contrast excretion on delayed imaging compatible with renal failure. Assessment and Plan - Diagnosis (1) Sepsis Qualifiers: Sepsis type: Escherichia coli Sepsis acute organ dysfunction status: without acute organ dysfunction Qualified Code(s): A41.51 - Sepsis due to Escherichia coli [E. 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 Is this a current diagnosis for this admission?: Yes (4) ESRD (end stage renal disease) Is this a current diagnosis for this admission?: Yes (5) Diarrhea Qualifiers: Diarrhea type: unspecified type Qualified Code(s): R19.7 - Diarrhea, unspecified Is this a current diagnosis for this admission?: Yes (6) Diabetes mellitus Qualifiers: Diabetes mellitus type: type 2 Diabetes mellitus alf insulin use: with alf use Chronic kidney disease stage: on chronic dialysis Is this a current diagnosis for this admission?: Yes (7) Unstageable pressure ulcer of heel Qualifiers: Laterality: right Qualified Code(s): L89.610 - Pressure ulcer of right heel, unstageable Is this a current diagnosis for this admission?: Yes (8) Left shoulder pain Qualifiers: Chronicity: acute Qualified Code(s): M25.512 - Pain in left shoulder Is this a current diagnosis for this admission?: Yes (9) Abdominal pain Qualifiers: Abdominal location: right lower quadrant Qualified Code(s): R10.31 - Right lower quadrant pain Is this a current diagnosis for this admission?: Yes (10) Incontinence associated dermatitis Is this a current diagnosis for this admission?: Yes - Plan Summary Summary: Patient is currently on hemodialysis. Continue Monday, Monday and Monday schedule. Continue current diabetes regimen. The abdominal pain is not acute. She has a history of diverticular disease but CT scan showed no evidence of diverticulitis. We discussed several other possible etiologies including irritable bowel and inflammatory bowel disease. She has never had a colonoscopy. She has Bentyl available as well as scheduled cholestyramine to help with loose stool. She will need further GI work-up as an outpatient. Sepsis is resolved. She is near completion of antibiotic therapy for the ESBL E. coli. Left shoulder pain is not as bad today. We will obtain an x-ray. It may very well be osteoarthritis. 11/22/2018- End-stage kidney disease-patient is stable and tolerating hemodialysis. Dialy sis due for tomorrow. Abdominal pain-this is been a chronic issue. It is somewhat better today. Co uld be related to the chronic diarrhea such as an irritable bowel syndrome. Pyelonephritis-antibiotic therapy is complete. The urine is still turbid. I have submitted another culture. Await results before transferring back to long- term facility Left shoulder pain-x-rays do not reveal any acute cause. I have asked physical therapy to incorporate her left shoulder into their treatment plan. Sepsis is resolved Incontinence associated dermatitis-when attempting to examine the patient today she was sitting in stool. Stool and developed the area of the vagina and surrounded the Farris catheter tubing between her thighs. After cleaning the patient it was noted that she had some reddened areas with petechia on the inner thighs adjacent to the catheter. I believe this is related to her incontinence. Unfortunately she does not summon staff when she has had a bowel movement. Anemia with chronic kidney disease-it is unclear why her hemoglobin would drop but her hemoglobin was less than 8 today. She states that she has had transfusions in the past. This could be related to acute illness on top of her chronic kidney disease. I have ordered 1 unit of packed red cells today and will recheck hemoglobin tomorrow. 11/23/2018- The patient was supposed to complete her meropenem therapy today. It is worrisome that her white blood cell count is now climbing. Her urinalysis still had significant turbidity with lots of white blood cells. Review of CT scan showed some hydroureter and hydronephrosis on initial CAT scan. The second CAT scan did not remark or report any such findings. A third CT scan was ordered today. It showed nonobstructing stones but no evidence of renal cyst or severe hydronephrosis. I ordered another set of blood cultures and added vancomycin to the meropenem. We will hold blood pressure medicines for hypotension. Lactic acid was normal but there is always a concern for septic shock. Await further results on the urine and blood cultures. Since she has been on antibiotic therapy it is possible for a fungal cystitis. 11/24/2018- I will have surgery assess the patient for ongoing right-sided abdominal pain. I do not believe it is related to the kidneys based on the CT scan reported yesterday. I have added vancomycin to the regimen since her white blood cell count did go up on meropenem alone. Repeat blood cultures were drawn. Her renal function is stable and she is tolerating hemodialysis. She has had abdominal pain from a chronic basis. We will continue current antibiotics and monitor cultures. Her diarrhea is improving and her white blood cell count has come down somewhat on the addition of vancomycin. - Time Time Spent with patient: 15-24 minutes Medications reviewed and adjusted accordingly: Yes
--- NOTE | 2018-11-24 14:13 | PDOC CONSULTATION ---
Consultation Consult Date: 11/24/18 Provider Consulted: CHRISTOPHER WATSON Consult reason:: Diffuse right more than left abdominal pain History of Present Illness Admission Date/PCP: 11/14/18 17:37 ADITYA HARDING MD History of Present Illness: ENEIDA JOHNSON is a 58 year old female ESRD on dialysis Monday, anemia, hypertension, hyperlipidemia, CAD, PAF, COPD, IDDM, GERD, bedbound s tatus at baseline, and opiate dependent chronic pain who presented to the emergency department from [facility] where she is an established [facility] resident with a complaint of increased lethargy and fever. Urine culture was obtained significant for E. coli ESBL and treated appropriately with antibiotics. I been consulted because the patient now complains of diffuse abdominal pain on the right more than the left, exacerbated by movement to the right upper extremity, coughing, present for about 3 months, it waxes and wanes, with minimal relief from rest. The patient denies a previous history of abdominal discomfort, previous endoscopies, surgery, or abdominal pathologies. Upon review of the history, the patient also has a chronic addiction to narcotics which has been present for quite some time. The patient has undergone a CT scan of the abdomen pelvis on November 18 which demonstrated normal intra-abdominal organs, anasarca, and bilateral pleural effusion. CT scan of the abdomen pelvis done on November 24, 2018 demonstrates similar findings, in addition bilateral small nonobstructing kidney stones identified, there is no kidney pathology identified, there is normal gallbladder, appendix, and bowel. Finally, the patient is tolerating p.o. well even though she is not very fond of the hospital diet Past Medical History Cardiac Medical History: Reports: Atrial Fibrillation, Coronary Artery Disease, DVT, Hyperlipidema, Hypertension Pulmonary Medical History: Reports: Bronchitis, Chronic Obstructive Pulmonary D isease (COPD), Pneumonia Denies: Asthma Neurological Medical History: Denies: Ischemic CVA, Seizures Endocrine Medical History: Reports: Diabetes Mellitus Type 2, Obesity Denies: Diabetes Mellitus Type 1, Hyperthyroidism, Hypothyroidism Renal/ Medical History: Reports: End Stage Renal Disease GI Medical History: Reports: Gastroesophageal Reflux Disease Denies: Cirrhosis, Hepatitis Musculoskeltal Medical History: Denies: Arthritis, Fibromyalgia Skin Medical History: Denies: Eczema, Psoriasis Psychiatric Medical History: Reports: Depression Hematology: Reports: Anemia - Chronic secondary to renal disease Denies: Bleeding Tendencies Past Surgical History Past Surgical History: Reports: Section - x3, Coronary Artery Bypass Graft, Other - Vena cava filter, abdominal surgery for repair of perforated stomach ulcer Social History Lives with: Detention Smoking Status: Never Smoker Frequency of Alcohol Use: None Hx Recreational Drug Use: No Drugs: None Hx Prescription Drug Abuse: No - Advance Directive Resuscitation Status: Do Not Resuscitate Family History Family History: CAD, DM, Hypertension. denies: Malignancy Parental Family History Reviewed: No Children Family History Reviewed: No Sibling(s) Family History Reviewed.: No Medication/Allergy Home Medications: Acetaminophen [Tylenol 325 mg Tablet] 650 mg PO Q6HP PRN 11/14/18 Amino Acids/Protein Hydrolys [Pro-Stat Awc Liquid Packet] 30 ml PO DAILY 11/14/18 Aspirin [Aspirin 81 mg Chewable Tablet] 81 mg PO DAILY 11/14/18 Atorvastatin Calcium [Lipitor 40 mg Tablet] 40 mg PO QHS 11/14/18 Carvedilol [Coreg 25 mg Tablet] 25 mg PO Q12 11/14/18 Diphenhydramine HCl [Allergy Cream] 1 applic TOP TIDP PRN 11/14/18 Ergocalciferol (Vitamin D2) [Drisdol 50,000 unit (1.25MG) Capsule] 50,000 unit PO WE@0800 11/14/18 Fluoxetine HCl [Prozac 20 mg Capsule] 20 mg PO QAM 11/14/18 Folic Acid/Vitamin B Comp W-C [Nephrocaps Softgel] 1 cap PO QHS 11/14/18 Insulin Glargine,Hum.rec.anlog [Lantus Insulin 100 Unit/1 ml 10 ml] 10 units SQ QAM 11/14/18 Insulin Lispro [Humalog Insulin (Lispro) 100 unit/mL] 0 units SQ .SLIDING SCALE 11/14/18 Levocetirizine Dihydrochloride [Xyzal] 5 mg PO QHS 11/14/18 Omeprazole 20 mg PO Q6AM 11/14/18 Oxycodone HCl [Oxy-Ir 5 mg Tablet] 5 mg PO Q6HP PRN 11/14/18 Petrolatum,White [Petrolatum] 1 applic TOP DAILYP PRN 11/14/18 Pregabalin [Lyrica 75 mg Capsule] 75 mg PO Q12 11/14/18 Allergies/Adverse Reactions: aloe vera Allergy (Verified 09/11/18 08:46) No Known Drug Allergies Allergy (Verified 09/11/18 08:46) Physical Exam Vital Signs: Temp Pulse Resp BP Pulse Ox 98.7 F 77 17 132/58 H 95 11/24/18 10:20 11/24/18 12:58 11/24/18 12:58 11/24/18 10:20 11/24/18 12:58 Intake & Output 11/23/18 11/24/18 11/25/18 06:59 06:59 06:59 Intake Total 1000 1290 50 Output Total 65 40 Balance 935 1250 50 Weight 82.6 kg 83 kg General appearance: PRESENT: no acute distress Head exam: PRESENT: atraumatic, normocephalic Eye exam: PRESENT: EOMI Mouth exam: PRESENT: neck supple Respiratory exam: PRESENT: clear to auscultation linda Cardiovascular exam: PRESENT: RRR, other - Right upper chest permacath GI/Abdominal exam: PRESENT: normal bowel sounds, soft, tenderness - Tender in the right and the right more the left upper abdomen as well as the lower abdomen along the midline, other - No guarding or peritoneal signs identified, only grimacing throughout the palpation of the entire abdomen Extremities exam: PRESENT: full ROM Musculoskeletal exam: PRESENT: full ROM Results Laboratory Results: 11/24/18 05:27 11/23/18 06:42 11/23/18 11/24/18 17:08 05:27 WBC 14.6 H RBC 3.46 L Hgb 9.5 L Hct 30.2 L MCV 87 MCH 27.4 MCHC 31.4 L RDW 20.7 H Plt Count 362 Seg Neutrophils % 87.0 H Lactic Acid 0.9 Impressions: Chest X-Ray 11/14/18 15:07 IMPRESSION: No focal consolidation or other evidence of acute cardiopulmonary process. Foot X-Ray 11/17/18 00:00 IMPRESSION: NEGATIVE STUDY OF THE RIGHT FOOT. NO RADIOGRAPHIC EVIDENCE OF ACUTE INJURY. Shoulder X-Ray 11/22/18 00:00 IMPRESSION: No acute findings Abdomen/Pelvis CT 11/23/18 00:00 IMPRESSION: 1. Mild bilateral pleural effusions, left greater than right. Increased right basilar ground-glass attenuation likely infectious/inflammatory. 2. No evidence of renal abscess. No significant hydronephrosis. 3. Diffuse anasarca with mild volume ascites suggestive of volume overload. 4. No significant contrast excretion on delayed imaging compatible with renal failure. Assessment & Plan - Diagnosis (1) Abdominal pain Qualifiers: Abdominal location: right lower quadrant Qualified Code(s): R10.31 - Right lower quadrant pain Is this a current diagnosis for this admission?: Yes (2) Diabetes mellitus Qualifiers: Diabetes mellitus type: type 2 Diabetes mellitus [facility] insulin use: with technician terminal and repeater use Chronic kidney disease stage: on chronic dialysis Is this a current diagnosis for this admission?: Yes (3) Diarrhea Qualifiers: Diarrhea type: unspecified type Qualified Code(s): R19.7 - Diarrhea, unspecified Is this a current diagnosis for this admission?: Yes (4) Pyelonephritis Is this a current diagnosis for this admission?: Yes - Plan Summary Plan Summary: Assessment: 58-year-old obese female with multiple medical problems including end-stage renal disease on hemodialysis, diabetes, narcotic abuse, and other medical problems Severe UTI secondary to E. coli ESBL currently treated with meropenem The patient has been complaining of abdominal pain for more than 3 months, the character the pain is somewhat unusual as it is diffuse, right side pain more than the left side one, exacerbated by movement, coughing, it waxes and wanes: However, the patient he has no peritoneal signs on physical exam Two CT scans of the abdomen pelvis (November 18 and November 24, 2018) showed no intra-abdominal process or process occurring on the abdominal wall on the right side, in particular both gallbladder and appendix of the well-visualized, no stones are seen, and then do not display features of inflammatory changes. Physical exam the patient is somewhat inconclusive as she displays no peritoneal signs, yet she is complaining of diffuse abdominal pain on palpation both superficial and deep In my opinion, the patient does not suffer of any acute or chronic abdominal condition based on the current physical exam, blood work, and CT scan findings. However, other conditions can be present but not evident at this time. In addition, malingering should be considered as the patient has a history of narcotic abuse in the past. Plan: I am recommending no further tests at this point Psychological reassurance should be enough for this patient with multiple medical problems but not obviously abdominal pathology I will sign off, please call us back as needed.
[2018-11-24] MEDS: ATORVASTATIN CALCIUM 40 MG TABLET PO SCH (21:40)
[2018-11-24] MEDS: FOLIC ACID/VITAMIN B COMP W-C CAPSULE PO SCH (21:40)
[2018-11-24] MEDS: HYDROCORTISONE 10 MG TABLET PO SCH (21:41)
[2018-11-24] MEDS: CETIRIZINE 5 MG TABLET PO SCH (21:41)
[2018-11-25] MEDS: OXYCODONE HCL IR 5 MG TABLET PO PRN ×2 (02:14→20:07)
[2018-11-25] MEDS: MEROPENEM 500 MG in NORMAL SALINE 50 ML IV SCH ×2 (05:25→20:26)
[2018-11-25] MEDS: HEPARIN SOD (PORCINE) 5,000 UNIT/ML 1 ML VIAL SUBCUT SCH ×3 (05:26→21:49)
[2018-11-25] MEDS: MORPHINE SULFATE 10 MG/ML INJ IV PRN ×3 (07:15→22:38)
[2018-11-25] MEDS: CHOLESTYRAMINE/ASPARTAME 4 GM PACKET PO SCH ×4 (07:15→21:51)
[2018-11-25] MEDS: FLUOXETINE HCL 20 MG CAPSULE PO SCH (07:16)
[2018-11-25] MEDS: INSULIN LISPRO 100 UNIT/ML 3 ML VIAL SUBCUT SCH ×4 (08:08→21:59)
[2018-11-25] MEDS: INSULIN GLARGINE,HUM.REC.ANLOG 1,000 UNIT/10 ML VIAL SUBCUT SCH (08:25)
[2018-11-25] MEDS: IPRATROPIUM/ALBUTEROL 0.5-2.5 MG/3 ML AMPUL NEB SCH ×2 (08:58→20:21)
[2018-11-25] MEDS: LACTOBACILLUS ACIDOPHILUS 250 MG TAB PO SCH ×2 (09:07→20:27)
[2018-11-25] MEDS: ASPIRIN 81 MG TABLET, CHEWABLE PO SCH (09:07)
[2018-11-25] MEDS: NYSTATIN TOPICAL POWDER 15 GM TP SCH ×2 (09:07→22:46)
[2018-11-25] MEDS: CARVEDILOL 12.5 MG TABLET PO SCH ×2 (09:07→21:48)
[2018-11-25] MEDS: PANTOPRAZOLE SODIUM 40 MG VIAL IV SCH (09:07)
--- NOTE | 2018-11-25 12:57 | PDOC PROGRESS REPORT ---
Subjective Progress Note for:: 11/25/18 Subjective:: Patient states that the pain on the right side of the abdomen is improved. Bowel movement frequency is decreasing. Poor appetite today. Reason For Visit: PYELONEPHRITIS, SEPSIS Physical Exam Vital Signs: Temp Pulse Resp BP Pulse Ox 98.3 F 70 16 125/69 95 11/25/18 07:48 11/25/18 08:58 11/25/18 08:58 11/25/18 07:48 11/25/18 08:58 Intake & Output 11/24/18 11/25/18 11/26/18 06:59 06:59 06:59 Intake Total 1290 570 Output Total 40 155 Balance 1250 415 Weight 83 kg 83.8 kg General appearance: PRESENT: cooperative, mild distress, well-developed Head exam: PRESENT: atraumatic, normocephalic Eye exam: PRESENT: conjunctiva pale Ear exam: PRESENT: normal external ear exam. ABSENT: bleeding, drainage Respiratory exam: PRESENT: clear to auscultation linda, symmetrical, unlabored. ABSENT: accessory muscle use, rales, rhonchi, tachypnea, wheezes Cardiovascular exam: PRESENT: RRR, +S1, +S2. ABSENT: bradycardia, tachycardia GI/Abdominal exam: PRESENT: normal bowel sounds, soft, tenderness - Minimal tenderness on the right side of the abdomen. ABSENT: distended, guarding Extremities exam: PRESENT: pedal edema Neurological exam: PRESENT: alert, awake, oriented to person, oriented to place, oriented to time, oriented to situation, CN II-XII grossly intact Psychiatric exam: PRESENT: flat affect. ABSENT: agitated, anxious Focused psych exam: ABSENT: delusional, restlessness Results Laboratory Results: 11/24/18 05:27 11/23/18 06:42 11/22/18 22:50 Catheterized Urine Urine Culture - Final C.albicans/C.dubliniensis Impressions: Chest X-Ray 11/14/18 15:07 IMPRESSION: No focal consolidation or other evidence of acute cardiopulmonary process. Foot X-Ray 11/17/18 00:00 IMPRESSION: NEGATIVE STUDY OF THE RIGHT FOOT. NO RADIOGRAPHIC EVIDENCE OF ACUTE INJURY. Shoulder X-Ray 11/22/18 00:00 IMPRESSION: No acute findings Abdomen/Pelvis CT 11/23/18 00:00 IMPRESSION: 1. Mild bilateral pleural effusions, left greater than right. Increased right basilar ground-glass attenuation likely infectious/inflammatory. 2. No evidence of renal abscess. No significant hydronephrosis. 3. Diffuse anasarca with mild volume ascites suggestive of volume overload. 4. No significant contrast excretion on delayed imaging compatible with renal failure. Assessment and Plan - Diagnosis (1) Sepsis Qualifiers: Sepsis type: Escherichia coli Sepsis acute organ dysfunction status: without acute organ dysfunction Qualified Code(s): A41.51 - Sepsis due to Escherichia coli [E. 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 Is this a current diagnosis for this admission?: Yes (4) ESRD (end stage renal disease) Is this a current diagnosis for this admission?: Yes (5) Diarrhea Qualifiers: Diarrhea type: unspecified type Qualified Code(s): R19.7 - Diarrhea, unspecified Is this a current diagnosis for this admission?: Yes (6) Diabetes mellitus Qualifiers: Diabetes mellitus type: type 2 Diabetes mellitus intermediate insulin use: with coil tier use Chronic kidney disease stage: on chronic dialysis Is this a current diagnosis for this admission?: Yes (7) Unstageable pressure ulcer of heel Qualifiers: Laterality: right Qualified Code(s): L89.610 - Pressure ulcer of right heel, unstageable Is this a current diagnosis for this admission?: Yes (8) Left shoulder pain Qualifiers: Chronicity: acute Qualified Code(s): M25.512 - Pain in left shoulder Is this a current diagnosis for this admission?: Yes (9) Abdominal pain Qualifiers: Abdominal location: right lower quadrant Qualified Code(s): R10.31 - Right lower quadrant pain Is this a current diagnosis for this admission?: Yes (10) Incontinence associated dermatitis Is this a current diagnosis for this admission?: Yes - Plan Summary Summary: Patient is currently on hemodialysis. Continue Monday, Monday and Monday schedule. Continue current diabetes regimen. The abdominal pain is not acute. She has a history of diverticular disease but CT scan showed no evidence of diverticulitis. We discussed several other possible etiologies including irritable bowel and inflammatory bowel disease. She has never had a colonoscopy. She has Bentyl available as well as scheduled cholestyramine to help with loose stool. She will need further GI work-up as an outpatient. Sepsis is resolved. She is near completion of antibiotic therapy for the ESBL E. coli. Left shoulder pain is not as bad today. We will obtain an x-ray. It may very well be osteoarthritis. 11/22/2018- End-stage kidney disease-patient is stable and tolerating hemodialysis. Dialysis due for tomorrow. Abdominal pain-this is been a chronic issue. It is somewhat better today. Could be related to the chronic diarrhea such as an irritable bowel syndrome. Pyelonephritis-antibiotic therapy is complete. The urine is still turbid. I have submitted another culture. Await results before transferring back to long- term facility Left shoulder pain-x-rays do not reveal any acute cause. I have asked physical therapy to incorporate her left shoulder into their treatment plan. Sepsis is resolved Incontinence associated dermatitis-when attempting to examine the patient today she was sitting in stool. Stool and developed the area of the vagina and surrounded the Farris catheter tubing between her thighs. After cleaning the patient it was noted that she had some reddened areas with petechia on the inner thighs adjacent to the catheter. I believe this is related to her incontinence. Unfortunately she does not summon staff when she has had a bowel movement. Anemia with chronic kidney disease-it is unclear why her hemoglobin would drop but her hemoglobin was less than 8 today. She states that she has had transfusions in the past. This could be related to acute illness on top of her chronic kidney disease. I have ordered 1 unit of packed red cells today and will recheck hemoglobin tomorrow. 11/23/2018- The patient was supposed to complete her meropenem therapy today. It is worrisome that her white blood cell count is now climbing. Her urinalysis still had significant turbidity with lots of white blood cells. Review of CT scan showed some hydroureter and hydronephrosis on initial CAT scan. The second CAT scan did not remark or report any such findings. A third CT scan was ordered today. It showed nonobstructing stones but no evidence of renal cyst or severe hydronephrosis. I ordered another set of blood cultures and added vancomycin to the meropenem. We will hold blood pressure medicines for hypotension. Lactic acid was normal but there is always a concern for septic shock. Await further results on the urine and blood cultures. Since she has been on antibiotic therapy it is possible for a fungal cystitis. 11/24/2018- I will have surgery assess the patient for ongoing right-sided abdominal pain. I do not believe it is related to the kidneys based on the CT scan reported yesterday. I have added vancomycin to the regimen since her white blood cell count did go up on meropenem alone. Repeat blood cultures were drawn. Her renal function is stable and she is tolerating hemodialysis. She has had abdominal pain from a chronic basis. We will continue current antibiotics and monitor cultures. Her diarrhea is improving and her white blood cell count has come down somewhat on the addition of vancomycin. 11/25/2018- Abdominal pain slowly improving. Likely irritable bowel. She states that she had constipation predominant irritable bowel in the past. Appreciate surgical consultation. No evidence of appendicitis. Scheduled for dialysis tomorrow. Hemoglobin appears to be stable. We will continue to monitor. She reports that there is no discomfort in the inner thighs from the Farris catheter. White blood cell count was improved yesterday. Will recheck tomorrow. Continue current antibiotics. - Time Time Spent with patient: 15-24 minutes Medications reviewed and adjusted accordingly: Yes Anticipated discharge: Other - Return to long-term care
[2018-11-25] MEDS ORDERED: DEXTROSE 5%-NORMAL SALINE 1,000 ML IV PRN (17:30)
[2018-11-25] MEDS ORDERED: PHARMACY COMMUNICATION ORDER MC NR (17:30)
[2018-11-25 17:43] LABS: ABSOLUTE BASOPHILS # (AUTO) 0.1 10^3/uL (0.0-0.2); ABSOLUTE EOSINOPHILS # (AUTO) 0.2 10^3/uL (0.0-0.6); ABSOLUTE LYMPHOCYTES (AUTO) 0.8 10^3/uL (0.5-4.7); ABSOLUTE MONOCYTES (AUTO) 0.6 10^3/uL (0.1-1.4); ABSOLUTE NEUT (AUTO) 13.3 10^3/uL (1.7-8.2); BASOPHILS % (AUTO) 0.4 % (0-2); EOSINOPHILS % (AUTO) 1.2 % (0-6); HEMATOCRIT 30.2 % (36.0-47.0); HEMOGLOBIN 9.4 g/dL (12.0-15.5); LYMPHOCYTES % (AUTO) 5.5 % (13-45); MEAN CORPUSCULAR HEMOGLOBIN 27.6 pg (27.0-33.4); MEAN CORPUSCULAR HGB CONC 31.2 g/dL (32.0-36.0); MEAN CORPUSCULAR VOLUME 88 fl (80-97); MONOCYTES % (AUTO) 3.9 % (3-13); PLATELET COUNT 451 10^3/uL (150-450); RED BLOOD COUNT 3.42 10^6/uL (3.72-5.28); RED CELL DISTRIBUTION WIDTH 20.5 % (11.5-14.0); TOTAL CELLS COUNTED % (AUTO) 100 %
[2018-11-25 17:50] LABS: ALBUMIN 2.3 g/dL (3.5-5.0); ALKALINE PHOSPHATASE 100 U/L (38-126); ANION GAP 10 (5-19); ASPARTATE AMINO TRANSFERASE 16 U/L (14-36); BILIRUBIN,DIRECT 0.3 mg/dL (0.0-0.4); BILIRUBIN,TOTAL 0.3 mg/dL (0.2-1.3); BLOOD UREA NITROGEN 35 mg/dL (7-20); CALCIUM 8.9 mg/dL (8.4-10.2); CARBON DIOXIDE 26 mmol/L (22-30); CHLORIDE 99 mmol/L (98-107); GLUCOSE 231 mg/dL (75-110); PHOSPHORUS 5.7 mg/dL (2.5-4.5); POTASSIUM 3.5 mmol/L (3.6-5.0)
--- NOTE | 2018-11-25 17:58 | PDOC PROGRESS REPORT ---
Subjective Progress Note for:: 11/25/18 Subjective:: A rapid response was called for decreased level of consciousness. Nursing reports that when they went to check on the patient she was unresponsive and drooling. Attempts to wake her were unsuccessful. A fingerstick glucose was obtained and the sugar was 16. She was given 2 A of D50. When I arrived in the room the patient was waking up. Reason For Visit: PYELONEPHRITIS, SEPSIS Physical Exam Vital Signs: Temp Pulse Resp BP Pulse Ox 97.2 F 63 16 141/83 H 97 11/25/18 13:26 11/25/18 14:00 11/25/18 13:26 11/25/18 13:26 11/25/18 13:26 Intake & Output 11/24/18 11/25/18 11/26/18 06:59 06:59 06:59 Intake Total 1290 570 Output Total 40 155 Balance 1250 415 Weight 83 kg 83.8 kg General appearance: PRESENT: other - Lethargic but gaining some responsiveness. Able to keep her eyes open. Head exam: PRESENT: atraumatic, normocephalic Eye exam: PRESENT: conjunctiva pale Ear exam: PRESENT: normal external ear exam. ABSENT: bleeding, drainage Respiratory exam: PRESENT: clear to auscultation linda, decreased breath sounds - Shallow respirations, symmetrical. ABSENT: accessory muscle use, rales, rhonch i, wheezes Cardiovascular exam: PRESENT: RRR, +S1, +S2 GI/Abdominal exam: PRESENT: soft, tenderness - Still with slight tenderness to palpation on the right. ABSENT: distended Rectal exam: PRESENT: other - Still with diarrhea Neurological exam: PRESENT: awake, oriented to person, oriented to place. ABSENT: alert - Level of alertness is improving Psychiatric exam: PRESENT: flat affect. ABSENT: agitated Skin exam: PRESENT: pallor Results Laboratory Results: 11/25/18 17:15 11/25/18 17:15 WBC 15.0 H RBC 3.42 L Hgb 9.4 L Hct 30.2 L MCV 88 MCH 27.6 MCHC 31.2 L RDW 20.5 H Plt Count 451 H Seg Neutrophils % 89.0 H 11/22/18 22:50 Catheterized Urine Urine Culture - Final C.albicans/C.dubliniensis Impressions: Chest X-Ray 11/14/18 15:07 IMPRESSION: No focal consolidation or other evidence of acute cardiopulmonary process. Foot X-Ray 11/17/18 00:00 IMPRESSION: NEGATIVE STUDY OF THE RIGHT FOOT. NO RADIOGRAPHIC EVIDENCE OF ACUTE INJURY. Shoulder X-Ray 11/22/18 00:00 IMPRESSION: No acute findings Abdomen/Pelvis CT 11/23/18 00:00 IMPRESSION: 1. Mild bilateral pleural effusions, left greater than right. Increased right basilar ground-glass attenuation likely infectious/inflammatory. 2. No evidence of renal abscess. No significant hydronephrosis. 3. Diffuse anasarca with mild volume ascites suggestive of volume overload. 4. No significant contrast excretion on delayed imaging compatible with renal failure. Assessment and Plan - Diagnosis (1) Sepsis Qualifiers: Sepsis type: Escherichia coli Sepsis acute organ dysfunction status: without acute organ dysfunction Qualified Code(s): A41.51 - Sepsis due to Escherichia coli [E. 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 Is this a current diagnosis for this admission?: Yes (4) ESRD (end stage renal disease) Is this a current diagnosis for this admission?: Yes (5) Diarrhea Qualifiers: Diarrhea type: unspecified type Qualified Code(s): R19.7 - Diarrhea, unspec ified Is this a current diagnosis for this admission?: Yes (6) Diabetes mellitus Qualifiers: Diabetes mellitus type: type 2 Diabetes mellitus long filler cigar roller machine insulin use: with long filler cigar roller machine use Chronic kidney disease stage: on chronic dialysis Is this a current diagnosis for this admission?: Yes (7) Unstageable pressure ulcer of heel Qualifiers: Laterality: right Qualified Code(s): L89.610 - Pressure ulcer of right heel, unstageable Is this a current diagnosis for this admission?: Yes (8) Left shoulder pain Qualifiers: Chronicity: acute Qualified Code(s): M25.512 - Pain in left shoulder Is this a current diagnosis for this admission?: Yes (9) Abdominal pain Qualifiers: Abdominal location: right lower quadrant Qualified Code(s): R10.31 - Right lower quadrant pain Is this a current diagnosis for this admission?: Yes (10) Incontinence associated dermatitis Is this a current diagnosis for this admission?: Yes - Plan Summary Summary: Patient is currently on hemodialysis. Continue Monday, Monday and Monday schedule. Continue current diabetes regimen. The abdominal pain is not acute. She has a history of diverticular disease but CT scan showed no evidence of diverticulitis. We discussed several other possible etiologies including irritable bowel and inflammatory bowel disease. She has never had a colonoscopy. She has Bentyl available as well as scheduled cholestyramine to help with loose stool. She will need further GI work-up as an outpatient. Sepsis is resolved. She is near completion of antibiotic therapy for the ESBL E. coli. Left shoulder pain is not as bad today. We will obtain an x-ray. It may very well be osteoarthritis. 11/22/2018- End-stage kidney disease-patient is stable and tolerating hemodialysis. Dialysis due for tomorrow. Abdominal pain-this is been a chronic issue. It is somewhat better today. Could be related to the chronic diarrhea such as an irritable bowel syndrome. Pyelonephritis-antibiotic therapy is complete. The urine is still turbid. I have submitted another culture. Await results before transferring back to long- term facility Left shoulder pain-x-rays do not reveal any acute cause. I have asked physical therapy to incorporate her left shoulder into their treatment plan. Sepsis is resolved Incontinence associated dermatitis-when attempting to examine the patient today she was sitting in stool. Stool and developed the area of the vagina and surrounded the Farris catheter tubing between her thighs. After cleaning the patient it was noted that she had some reddened areas with petechia on the inner thighs adjacent to the catheter. I believe this is related to her incontinence. Unfortunately she does not summon staff when she has had a bowel movement. Anemia with chronic kidney disease-it is unclear why her hemoglobin would drop but her hemoglobin was less than 8 today. She states that she has had transfusions in the past. This could be related to acute illness on top of her chronic kidney disease. I have ordered 1 unit of packed red cells today and will recheck hemoglobin tomorrow. 11/23/2018- The patient was supposed to complete her meropenem therapy today. It is worris ome that her white blood cell count is now climbing. Her urinalysis still had significant turbidity with lots of white blood cells. Review of CT scan showed some hydroureter and hydronephrosis on initial CAT scan. The second CAT scan did not remark or report any such findings. A third CT scan was ordered today. It showed nonobstructing stones but no evidence of renal cyst or severe hydronephrosis. I ordered another set of blood cultures and added vancomycin to the meropenem. We will hold blood pressure medicines for hypotension. Lactic acid was normal but there is always a concern for septic shock. Await further results on the urine and blood cultures. Since she has been on antibiotic therapy it is possible for a fungal cystitis. 11/24/2018- I will have surgery assess the patient for ongoing right-sided abdominal pain. I do not believe it is related to the kidneys based on the CT scan reported yesterday. I have added vancomycin to the regimen since her white blood cell count did go up on meropenem alone. Repeat blood cultures were drawn. Her renal function is stable and she is tolerating hemodialysis. She has had abdominal pain from a chronic basis. We will continue current antibiotics and monitor cultures. Her diarrhea is improving and her white blood cell count has come down somewhat on the addition of vancomycin. 11/25/2018- Abdominal pain slowly improving. Likely irritable bowel. She states that she had constipation predominant irritable bowel in the past. Appreciate surgical consultation. No evidence of appendicitis. Scheduled for dialysis tomorrow. Hemoglobin appears to be stable. We will continue to monitor. She reports that there is no discomfort in the inner thighs from the Farris catheter. White blood cell count was improved yesterday. Will recheck tomorrow. Continue current antibiotics. 11/25/2018-critical care note The patient's glucose readings have for the most part been in the mid to high 100s and low 200s. The patient was found obtunded and a fingerstick revealed a glucose of 16. She was given 2 A of D50. Within an hour she dropped from 359 down to the low 200s. She was not tachycardic. Blood pressure was low but map stayed above 65. After the second amp of D50 she began to awaken. She could maintain eye contact. She could start to answer questions. 1 L of 5 normal saline was initiated at 75 mL/h due to the rapid decrease after the 2 A of D50. A core temperature was checked and she was only 94 degrees by rectum. Stat labs were drawn. Her white blood cell count is 15,000 today and it was 14,600 yesterday. Urine was turbid and had lots of white cells. It is growing Talia greater than 100,000 colonies per milliliter as a pure isolate with no bacteria. Because of her elevated white blood cell count 2 days ago vancomycin was added to the meropenem. CT scan the abdomen was obtained yesterday due to ongoing right-sided pain but no acute kidney pathology was noted. No hydroureter or hydronephrosis. No renal abscess. Platelets have shown a jump of 100,000 from yesterday. She was 356,000 and is now 451,000. Fluconazole was added to the vancomycin and meropenem. Micafungin is also a consideration. With her core temperature being low, acute spike in her platelets and comprehensive metabolic panel and lactic acid pending I believe the patient is septic. I have reached out to Dr. Hudson in the ICU. She has agreed to accept the patient into the ICU for sepsis. I appreciate Dr. Hudson's assistance. - Time Total Critical Time (Minutes): 40 Medications reviewed and adjusted accordingly: Yes
[2018-11-25] MEDS ORDERED: FLUCONAZOLE 200 MG/NS RTU 200 MG/100 ML RTUPB IV SCH (18:00)
--- NOTE | 2018-11-25 18:28 | PDOC PROGRESS REPORT ---
Subjective Progress Note for:: 11/25/18 Subjective:: ICU Progress Note. Pt was transfered to ICU after a rapid response was called for hypoglycemia and hypothermia. Pt was given IV dextrose and transferred to the ICU b/c it was thought that her sepsis is getting worse. Reason For Visit: PYELONEPHRITIS, SEPSIS Physical Exam Vital Signs: Temp Pulse Resp BP Pulse Ox 97.2 F 63 16 141/83 H 97 11/25/18 13:26 11/25/18 14:00 11/25/18 13:26 11/25/18 13:26 11/25/18 13:26 Intake & Output 11/24/18 11/25/18 11/26/18 06:59 06:59 06:59 Intake Total 1290 570 Output Total 40 155 Balance 1250 415 Weight 83 kg 83.8 kg General appearance: PRESENT: no acute distress, well-developed, well-nourished Head exam: PRESENT: atraumatic, normocephalic Respiratory exam: PRESENT: clear to auscultation linda, unlabored Cardiovascular exam: PRESENT: RRR GI/Abdominal exam: PRESENT: soft, other - non-tender, non-distended Gentrourinary exam: PRESENT: indwelling catheter Extremities exam: PRESENT: pedal edema Results Laboratory Results: 11/25/18 17:15 11/25/18 17:15 11/25/18 11/25/18 17:15 17:15 WBC 15.0 H RBC 3.42 L Hgb 9.4 L Hct 30.2 L MCV 88 MCH 27.6 MCHC 31.2 L RDW 20.5 H Plt Count 451 H Seg Neutrophils % 89.0 H Sodium 135.0 L Potassium 3.5 L Chloride 99 Carbon Dioxide 26 Anion Gap 10 BUN 35 H Creatinine 4.04 H Est GFR ( Amer) 14 L Glucose 231 H Calcium 8.9 Phosphorus 5.7 H Magnesium 1.7 Total Bilirubin 0.3 AST 16 Alkaline Phosphatase 100 Total Protein 6.0 L Albumin 2.3 L 11/22/18 22:50 Catheterized Urine Urine Culture - Final C.albicans/C.dubliniensis Impressions: Chest X-Ray 11/14/18 15:07 IMPRESSION: No focal consolidation or other evidence of acute cardiopulmonary process. Foot X-Ray 11/17/18 00:00 IMPRESSION: NEGATIVE STUDY OF THE RIGHT FOOT. NO RADIOGRAPHIC EVIDENCE OF ACUTE INJURY. Shoulder X-Ray 11/22/18 00:00 IMPRESSION: No acute findings Abdomen/Pelvis CT 11/23/18 00:00 IMPRESSION: 1. Mild bilateral pleural effusions, left greater than right. Increased right basilar ground-glass attenuation likely infectious/inflammatory. 2. No evidence of renal abscess. No significant hydronephrosis. 3. Diffuse anasarca with mild volume ascites suggestive of volume overload. 4. No significant contrast excretion on delayed imaging compatible with renal failure. Assessment & Plan - Diagnosis (1) Sepsis Qualifiers: Sepsis type: Escherichia coli Sepsis acute organ dysfunction status: without acute organ dysfunction Qualified Code(s): A41.51 - Sepsis due to Escherichia coli [E. 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 Plan: 1. Respiratory: stable on nasal cannula. Monitor closely 2. Pulmonary: HCAP. CT scan of abdomen and pelvis from a few days ago shows right base infiltrate. Pt has been on meropenem. Vanc added. CXR 3. CV: heart rate and BP acceptable 4. Renal: ESRD. HD per renal 5. ID: severe sepsis, E.coli UTI. Urine culture positive for yeast. HCAP. Vanc and diflucan started. Continue meropenem. Repeat blood cultures 6. Endocrine: hypoglycemia. Continue D5NS. Monitor blood sugars. Adrenal insuf ficiency, continue steroids 7. Nutrition: renal diet 8. Prophylaxis: sq heparin Critical care time= 40 min, excluding procedures
[2018-11-25] MEDS: FOLIC ACID/VITAMIN B COMP W-C CAPSULE PO SCH (21:48)
[2018-11-25] MEDS: CETIRIZINE 5 MG TABLET PO SCH (21:48)
[2018-11-25] MEDS: ATORVASTATIN CALCIUM 40 MG TABLET PO SCH (21:49)
[2018-11-25] MEDS: HYDROCORTISONE 10 MG TABLET PO SCH (21:50)
[2018-11-26] MEDS: OXYCODONE HCL IR 5 MG TABLET PO PRN (01:04)
[2018-11-26] MEDS: MORPHINE SULFATE 10 MG/ML INJ IV PRN (04:21)
[2018-11-26 07:04] LABS: HEMATOCRIT 28.7 % (36.0-47.0); MEAN CORPUSCULAR HEMOGLOBIN 27.4 pg (27.0-33.4); MEAN CORPUSCULAR HGB CONC 31.2 g/dL (32.0-36.0); MEAN CORPUSCULAR VOLUME 88 fl (80-97); RED BLOOD COUNT 3.28 10^6/uL (3.72-5.28); RED CELL DISTRIBUTION WIDTH 20.4 % (11.5-14.0); WHITE BLOOD COUNT 14.1 10^3/uL (4.0-10.5)
[2018-11-26 07:15] LABS: ALBUMIN 2.4 g/dL (3.5-5.0); ANION GAP 12 (5-19); BLOOD UREA NITROGEN 37 mg/dL (7-20); CALCIUM 9.1 mg/dL (8.4-10.2); CARBON DIOXIDE 24 mmol/L (22-30); CHLORIDE 100 mmol/L (98-107); GLUCOSE 194 mg/dL (75-110); PHOSPHORUS 5.9 mg/dL (2.5-4.5); POTASSIUM 3.9 mmol/L (3.6-5.0)
[2018-11-26] MEDS: MEROPENEM 500 MG in NORMAL SALINE 50 ML IV SCH ×2 (07:19→17:47)
[2018-11-26] MEDS: HEPARIN SOD (PORCINE) 5,000 UNIT/ML 1 ML VIAL SUBCUT SCH ×3 (07:19→22:16)
[2018-11-26 07:30] LABS: ABSOLUTE LYMPHOCYTES# (MANUAL) 0.3 10^3/uL (0.5-4.7); ABSOLUTE MONOCYTES # (MANUAL) 0.6 10^3/uL (0.1-1.4); BASOPHILS % (MANUAL) 0 % (0-2); EOSINOPHILS % (MANUAL) 2 % (0-6); LYMPHOCYTES % (MANUAL) 2 % (13-45); MONOCYTES % (MANUAL) 4 % (3-13); SEGMENTED NEUTROPHILS % (MAN) 92 % (42-78); TOTAL CELLS COUNTED 100
[2018-11-26 07:32] LABS: ANISOCYTOSIS 2+; HYPOCHROMASIA SLIGHT; PLATELET CLUMPS PRESENT; PLATELET COMMENT ADEQUATE; PLATELET COUNT 449 10^3/uL (150-450); POLYCHROMASIA 1+
[2018-11-26] MEDS: IPRATROPIUM/ALBUTEROL 0.5-2.5 MG/3 ML AMPUL NEB SCH ×2 (07:36→19:20)
[2018-11-26] MEDS: INSULIN LISPRO 100 UNIT/ML 3 ML VIAL SUBCUT SCH ×4 (08:24→22:16)
--- NOTE | 2018-11-26 08:57 | RADIOLOGY REPORT (SQ) ---
EXAM DESCRIPTION: CHEST SINGLE VIEW COMPLETED DATE/TIME: 11/25/2018 7:29 pm REASON FOR STUDY: PNA COMPARISON: CT chest 06/24/2018 Chest films 09/11/2018, 11/14/2018 EXAM PARAMETERS: NUMBER OF VIEWS: One view. TECHNIQUE: Single frontal radiographic view of the chest acquired. RADIATION DOSE: NA LIMITATIONS: None. FINDINGS: LUNGS AND PLEURA: There is pulmonary vascular congestion with mild alveolar and interstiti al edema. Small right pleural effusion. No pneumothorax MEDIASTINUM AND HILAR STRUCTURES: No masses. Contour normal. HEART AND VASCULAR STRUCTURES: Mild cardiomegaly. Post sternotomy and CABG BONES: No acute findings. HARDWARE: Right-sided central venous dialysis catheter tip in the right atrium OTHER: No other significant finding. IMPRESSION: Fluid overload or congestive failure TECHNICAL DOCUMENTATION: JOB ID: [id number] [employer]- All Rights Reserved Reading location - IP/workstation name: [email or web address]
[2018-11-26] MEDS: DIPHENHYDRAMINE HCL 2% CREAM 30 GM TP PRN (09:15)
[2018-11-26] MEDS ORDERED: EPOETIN ALFA-EPBX 20,000 UNITS (ESRD) in SYRINGE IV SCH (10:00)
--- NOTE | 2018-11-26 10:18 | PDOC PROGRESS REPORT ---
Subjective Progress Note for:: 11/26/18 Subjective:: I am seeing the patient during dialysis this morning. Patient was transferred to the ICU yesterday because of severe hypoglycemia with blood sugar of 16. There was also report of hypothermia so patient was transferred during the ICU for possible worsening sepsis. This morning the patient is awake and alert and she continues to receive D5 normal saline. Her blood pressure is on the low side during the start of dialysis so currently we are very careful with ult rafiltration. She continues to complain of abdominal pain more so on the right lower quadrant area but actually having pain in all other quadrants. Currently she is tolerating dialysis with acceptable blood pressure with very minimal ultrafiltration. Reason For Visit: PYELONEPHRITIS, SEPSIS Physical Exam Vital Signs: Temp Pulse Resp BP Pulse Ox 99.1 F 78 16 92/86 H 92 11/26/18 08:00 11/26/18 08:00 11/26/18 08:00 11/26/18 08:00 11/26/18 08:00 Intake & Output 11/25/18 11/26/18 11/27/18 06:59 06:59 06:59 Intake Total 570 463 Output Total 155 25 Balance 415 438 Weight 83.8 kg 82.2 kg Vitals currently during dialysis: Blood pressure of 119/70, heart rate of 73, respiratory rate of 12, oxygen saturation of 98%, blood flow rate of 350 mL/min and dialysate flow rate of 800ml/min. Exam: General appearance: PRESENT: no acute distress, cooperative, well-developed, well-nourished Head exam: PRESENT: atraumatic, normocephalic Eye exam: PRESENT: conjunctiva pale, PERRLA. ABSENT: scleral icterus Neck exam: ABSENT: JVD Respiratory exam: PRESENT: Diminished breath sounds. ABSENT: crackles, rales, rhonchi, unlabored, wheezes Cardiovascular exam: PRESENT: Regular rate rhythm -+S1, +S2. ABSENT: diastolic murmur, systolic murmur GI/Abdominal exam: PRESENT: normal bowel sounds, soft. Positive diffuse abdominal tenderness more under the right upper and right lower quadrants. ABSENT: guarding, mass Extremities exam: Left upper extremity edema and grade 2 bilateral lower extremity pitting edema Neurological exam: PRESENT: alert, awake, oriented to person, place and time. Skin exam: PRESENT: dry, warm, Cardiovascular exam: PRESENT: +S1, +S2 GI/Abdominal exam: PRESENT: normal bowel sounds, rebound - Mild., soft, tenderness - In the lower quadrants.. ABSENT: distended, guarding, organomegaly Results Laboratory Results: 11/26/18 06:35 11/26/18 06:35 11/25/18 11/25/18 11/25/18 17:15 17:15 17:15 WBC 15.0 H RBC 3.42 L Hgb 9.4 L Hct 30.2 L MCV 88 MCH 27.6 MCHC 31.2 L RDW 20.5 H Plt Count 451 H Seg Neutrophils % 89.0 H Sodium 135.0 L Potassium 3.5 L Chloride 99 Carbon Dioxide 26 Anion Gap 10 BUN 35 H Creatinine 4.04 H Est GFR ( Amer) 14 L Glucose 231 H Lactic Acid 0.6 L Calcium 8.9 Phosphorus 5.7 H Magnesium 1.7 Total Bilirubin 0.3 AST 16 Alkaline Phosphatase 100 Total Protein 6.0 L Albumin 2.3 L 11/26/18 11/26/18 06:35 06:35 WBC 14.1 H RBC 3.28 L Hgb 9.0 L Hct 28.7 L MCV 88 MCH 27.4 MCHC 31.2 L RDW 20.4 H Plt Count 449 Seg Neutrophils % Not Reportable Sodium 135.9 L Potassium 3.9 Chloride 100 Carbon Dioxide 24 Anion Gap 12 BUN 37 H Creatinine 4.13 H Est GFR ( Amer) 14 L Glucose 194 H Lactic Acid Calcium 9.1 Phosphorus 5.9 H Magnesium 1.6 Total Bilirubin AST Alkaline Phosphatase Total Protein Albumin 2.4 L Impressions: Foot X-Ray 11/17/18 00:00 IMPRESSION: NEGATIVE STUDY OF THE RIGHT FOOT. NO RADIOGRAPHIC EVIDENCE OF ACUTE INJURY. Shoulder X-Ray 11/22/18 00:00 IMPRESSION: No acute findings Abdomen/Pelvis CT 11/23/18 00:00 IMPRESSION: 1. Mild bilateral pleural effusions, left greater than right. Increased right basilar ground-glass attenuation likely infectious/inflammatory. 2. No evidence of renal abscess. No significant hydronephrosis. 3. Diffuse anasarca with mild volume ascites suggestive of volume overload. 4. No significant contrast excretion on delayed imaging compatible with renal failure. Chest X-Ray 11/25/18 18:18 IMPRESSION: Fluid overload or congestive failure Assessment & Plan - Diagnosis (1) Sepsis Qualifiers: Sepsis type: Escherichia coli Sepsis acute organ dysfunction status: without acute organ dysfunction Qualified Code(s): A41.51 - Sepsis due to Escherichia coli [E. coli] Is this a current diagnosis for this admission?: Yes Plan: Patient with positive urine culture with ESBL E. coli and presumed acute pyelonephritis and pneumonia. Currently on meropenem, vancomycin and fluconazole per financial aid manager service. (2) Pyelonephritis Is this a current diagnosis for this admission?: Yes Plan: CT scan of the abdomen reveals no renal abscess. Continue IV antibiotics. (3) HCAP (healthcare-associated pneumonia) Is this a current diagnosis for this admission?: Yes Plan: On antibiotics. (4) ESRD (end stage renal disease) Is this a current diagnosis for this admission?: Yes Plan: We will do dialysis today for 3 hours, using the patient's [AV fistula], with 3 potassium bath, blood flow rate of 350 mL per minute, dialysate flow rate of 800 mL per minute, ultrafiltration 0 to 1 L as tolerated, no heparin and Procrit with 20,000 units during dialysis intravenously. Discussed dialysis treatment plan with her dialysis nurse. Ultrafiltration will be adjusted accordingly depending on the patient's blood pressure. Patient will be monitored to have a safe and appropriate dialysis treatment today. (5) Hyperphosphatemia Is this a current diagnosis for this admission?: Yes (6) Hypoalbuminemia Is this a current diagnosis for this admission?: Yes Plan: Patient does have associated third spacing. She might need some albumin infusion. (7) Anemia due to end stage renal disease Is this a current diagnosis for this admission?: Yes Plan: We will give Procrit during dialysis treatment. (8) Abdominal pain Qualifiers: Abdominal location: right lower quadrant Qualified Code(s): R10.31 - Right lower quadrant pain Is this a current diagnosis for this admission?: Yes Plan: CT scan of the abdomen did not really reveal any specific pathology that could explain her diffuse abdominal pain. (9) Hypoadrenalism Is this a current diagnosis for this admission?: Yes Plan: Patient on hydrocortisone. (10) Hypoglycemia Is this a current diagnosis for this admission?: Yes Plan: Currently on D5 normal saline. With consideration of developing fluid overload in dialysis patient, if hypoglycemia is persistent she may need a D10 with less volume. - Time Time with patient: 15-25 minutes
[2018-11-26] MEDS ORDERED: HYDROMORPHONE HCL INJ/PF 2 MG/ML AMPULE IV PRN (10:33)
[2018-11-26] MEDS: CARVEDILOL 12.5 MG TABLET PO SCH ×2 (11:26→22:16)
[2018-11-26] MEDS: LACTOBACILLUS ACIDOPHILUS 250 MG TAB PO SCH ×2 (11:26→17:46)
[2018-11-26] MEDS: FLUOXETINE HCL 20 MG CAPSULE PO SCH (11:27)
[2018-11-26] MEDS: ASPIRIN 81 MG TABLET, CHEWABLE PO SCH (11:27)
[2018-11-26] MEDS: HYDROMORPHONE HCL INJ/PF 2 MG/ML AMPULE IV PRN (11:27)
[2018-11-26] MEDS: CHOLESTYRAMINE/ASPARTAME 4 GM PACKET PO SCH ×2 (12:32→22:19)
[2018-11-26] MEDS: VANCOMYCIN HCL 750 MG in DEXTROSE 5%-WATER 250 ML IV SCH (19:43)
--- NOTE | 2018-11-26 21:25 | PDOC PROGRESS REPORT ---
Subjective Progress Note for:: 11/26/18 Subjective:: Patient admitted late yesterday afternoon for hypoglycemia and hypothermia. Hemodynamics have been non-labile glucose and temperatures have improved. Notably in review of her medications it appears that her steroids have been reduced which may have been a contributing factor in her hypoglycemia and hypothermia. This morning she has no complaints other than her chronic abdominal discomfort. Review of the CT scan shows no significant abnormalities which would suggest an organic pathology. Patient does have significant renal dysfunction with assumption of vascular disease raising the suspicion for abdominal vascular insufficiency. She tolerated dialysis this morning without any hypotension and tolerated the oral Coreg that she was given. Reason For Visit: PYELONEPHRITIS, SEPSIS Physical Exam Vital Signs: Temp Pulse Resp BP Pulse Ox 98.4 F 77 16 106/59 L 97 11/26/18 16:00 11/26/18 19:20 11/26/18 19:20 11/26/18 16:00 11/26/18 19:20 Intake & Output 11/25/18 11/26/18 11/27/18 06:59 06:59 06:59 Intake Total 570 463 410 Output Total 189 64 0569 Balance 415 438 -1590 Weight 83.8 kg 82.2 kg Physical Exam: Chronically ill appearing 58-year-old female who appears older than stated age. She appears unwell chronically General appearance: PRESENT: no acute distress, cooperative, disheveled Head exam: PRESENT: atraumatic, normocephalic Eye exam: PRESENT: conjunctiva pink, EOMI, PERRLA. ABSENT: conjunctival injecti on, nystagmus, periorbital swelling, scleral icterus Ear exam: PRESENT: normal external ear exam Mouth exam: PRESENT: moist, neck supple Neck exam: ABSENT: carotid bruit, JVD, lymphadenopathy, meningismus, tenderness, thyromegaly, tracheal deviation Respiratory exam: PRESENT: clear to auscultation linda, unlabored. ABSENT: accessory muscle use, chest wall tenderness Cardiovascular exam: PRESENT: RRR, +S1, +S2. ABSENT: clicks, diastolic murmur, gallop, systolic murmur Vascular exam: PRESENT: normal capillary refill GI/Abdominal exam: PRESENT: hypoactive bowel sounds. ABSENT: distended, firm, mass, organolmegaly, rebound Rectal exam: PRESENT: deferred Musculoskeletal exam: PRESENT: normal inspection Neurological exam: PRESENT: alert, awake, oriented to person, oriented to place, oriented to time, oriented to situation, CN II-XII grossly intact. ABSENT: motor sensory deficit, aphasic Psychiatric exam: PRESENT: appropriate affect Skin exam: PRESENT: intact, normal color, warm. ABSENT: abrasion, cyanosis, erythema, jaundice, mottled, petechiae, rash, urticaria, vesicles Results Laboratory Results: 11/26/18 06:35 11/26/18 06:35 11/26/18 11/26/18 06:35 06:35 WBC 14.1 H RBC 3.28 L Hgb 9.0 L Hct 28.7 L MCV 88 MCH 27.4 MCHC 31.2 L RDW 20.4 H Plt Count 449 Seg Neutrophils % Not Reportable Sodium 135.9 L Potassium 3.9 Chloride 100 Carbon Dioxide 24 Anion Gap 12 BUN 37 H Creatinine 4.13 H Est GFR ( Amer) 14 L Glucose 194 H Calcium 9.1 Phosphorus 5.9 H Magnesium 1.6 Albumin 2.4 L Impressions: Foot X-Ray 11/17/18 00:00 IMPRESSION: NEGATIVE STUDY OF THE RIGHT FOOT. NO RADIOGRAPHIC EVIDENCE OF ACUTE INJURY. Shoulder X-Ray 11/22/18 00:00 IMPRESSION: No acute findings Abdomen/Pelvis CT 11/23/18 00:00 IMPRESSION: 1. Mild bilateral pleural effusions, left greater than right. Increased right basilar ground-glass attenuation likely infectious/inflammatory. 2. No evidence of renal abscess. No significant hydronephrosis. 3. Diffuse anasarca with mild volume ascites suggestive of volume overload. 4. No significant contrast excretion on delayed imaging compatible with renal failure. Chest X-Ray 11/25/18 18:18 IMPRESSION: Fluid overload or congestive failure Status: Image reviewed by me - Agree with findings Assessment & Plan - Diagnosis (1) Hypoglycemia Is this a current diagnosis for this admission?: Yes (2) Abdominal pain Qualifiers: Abdominal location: generalized Qualified Code(s): R10.84 - Generalized abdominal pain Is this a current diagnosis for this admission?: Yes (3) Diabetes mellitus Qualifiers: Diabetes mellitus type: type 2 Diabetes mellitus intermediate designer insulin use: with jail use Chronic kidney disease stage: on chronic dialysis Is this a current diagnosis for this admission?: Yes - Time Time Spent with patient: 35 or more minutes Total Critical Time (Minutes): 40 Medications reviewed and adjusted accordingly: Yes Anticipated discharge: SNF Within: within 24 hours - Inpatient Certification Based on my medical assessment, after consideration of the patient's comorbidities, presenting symptoms, or acuity I expect that the services needed warrant INPATIENT care.: Yes I certify that my determination is in accordance with my understanding of Medicare's requirements for reasonable and necessary INPATIENT services [42 CFR 412.3e].: Yes Medical Necessity: Failure to Improve With Outpatient Therapy, Significant Comorbidiites Make Outpatient Treatment Too Risky, Need Close Monitoring Due to Risk of Patient Decompensation, Need For Continuous Telemetry Monitoring, Risk of Complication if Not Cared For in Hospital - Plan Summary Plan Summary: Evaluated the patient's medications and this appears to be a combination of reduction and steroids. I have discontinued the antifungals. In general classic infectious disease teaching is that single site fungal process especially with someone who has been on antibiotics does not require treatment unless patient is immunocompromised. He has tolerated her dialysis and we have met maintained her in the ICU to assure hemodynamic stability. I am concerned about her abdominal discomfort and she has been worked up multiple times for this. 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 Will discuss with nephrology as well. Follow her hemodynamics postdialysis, increase her hydrocortisone to twice a day for physiologic diurnal variation, evaluate for sepsis. Patient does have a indwelling dialysis catheter and consideration for this as a source including endocarditis will need to be on the differential. Given her stability there does not appear to be an acute sepsis crisis at this time. We will continue antibiotics nonetheless because of the possible findings of infiltrate on CT scan. Unfortunately we are I able to obtain procalcitonin which would guide us in therapy.
[2018-11-26] MEDS: FOLIC ACID/VITAMIN B COMP W-C CAPSULE PO SCH (22:16)
[2018-11-26] MEDS: ATORVASTATIN CALCIUM 40 MG TABLET PO SCH (22:16)
[2018-11-26] MEDS: CETIRIZINE 5 MG TABLET PO SCH (22:18)
[2018-11-26] MEDS: HYDROCORTISONE SOD SUCCINATE INJ/PF 100 MG/2 ML SDV IV SCH (22:18)
[2018-11-27] MEDS: HYDROMORPHONE HCL INJ/PF 2 MG/ML AMPULE IV PRN (03:01)
[2018-11-27] MEDS: MEROPENEM 500 MG in NORMAL SALINE 50 ML IV SCH ×2 (06:37→17:00)
[2018-11-27] MEDS: HEPARIN SOD (PORCINE) 5,000 UNIT/ML 1 ML VIAL SUBCUT SCH ×3 (06:37→22:51)
[2018-11-27] MEDS: NYSTATIN TOPICAL POWDER 15 GM TP SCH ×3 (07:54→17:01)
[2018-11-27] MEDS: CHOLESTYRAMINE/ASPARTAME 4 GM PACKET PO SCH ×5 (07:55→22:54)
[2018-11-27] MEDS: IPRATROPIUM/ALBUTEROL 0.5-2.5 MG/3 ML AMPUL NEB SCH (08:00)
[2018-11-27] MEDS: PANTOPRAZOLE SODIUM 40 MG VIAL IV SCH (08:00)
[2018-11-27] MEDS: FLUOXETINE HCL 20 MG CAPSULE PO SCH (08:31)
[2018-11-27] MEDS: INSULIN LISPRO 100 UNIT/ML 3 ML VIAL SUBCUT SCH ×4 (08:31→23:15)
[2018-11-27] MEDS: ASPIRIN 81 MG TABLET, CHEWABLE PO SCH (10:05)
[2018-11-27] MEDS: DIPHENHYDRAMINE HCL 2% CREAM 30 GM TP PRN (10:05)
[2018-11-27] MEDS: HYDROCORTISONE SOD SUCCINATE INJ/PF 100 MG/2 ML SDV IV SCH ×2 (10:05→22:50)
[2018-11-27] MEDS: LACTOBACILLUS ACIDOPHILUS 250 MG TAB PO SCH ×2 (10:05→17:00)
[2018-11-27] MEDS: CARVEDILOL 12.5 MG TABLET PO SCH ×2 (10:05→22:50)
[2018-11-27] MEDS: CALCIUM ACETATE 667 MG CAPSULE PO SCH ×2 (12:51→16:17)
--- NOTE | 2018-11-27 17:28 | PDOC PROGRESS REPORT ---
Subjective Progress Note for:: 11/27/18 Subjective:: 11.27.2018: Patient continues to have non-labile pressure. Introduction of higher dose of mineralocorticoid (hydrocortisone) appears to have improved her hemodynamic instability. Unfortunately, her blood sugars have increased however her initial presentation was with significant hypoglycemia. Her abdominal discomfort has improved as well. She has had this for some time but it has improved. Currently she has no acute complaints. 11.26.2018: Patient admitted late yesterday afternoon for hypoglycemia and hypo thermia. Hemodynamics have been non-labile glucose and temperatures have improved. Notably in review of her medications it appears that her steroids have been reduced which may have been a contributing factor in her hypoglycemia and hypothermia. This morning she has no complaints other than her chronic abdominal discomfort. Review of the CT scan shows no significant abnormalities which would suggest an organic pathology. Patient does have significant renal dysfunction with assumption of vascular disease raising the suspicion for abdominal vascular insufficiency. She tolerated dialysis this morning without any hypotension and tolerated the oral Coreg that she was given. Reason For Visit: PYELONEPHRITIS, SEPSIS Physical Exam Vital Signs: Temp Pulse Resp BP Pulse Ox 97.6 F 69 13 129/66 H 98 11/27/18 12:00 11/27/18 14:00 11/27/18 14:00 11/27/18 14:00 11/27/18 14:00 Intake & Output 11/26/18 11/27/18 11/28/18 06:59 06:59 06:59 Intake Total 406 482 6644 Output Total 25 2200 25 Balance 438 -1710 975 Weight 82.2 kg 80.9 kg Physical Exam: Weak chronically and ill appearing, appears older than stated age. No active distress General appearance: PRESENT: no acute distress, cooperative, obese Head exam: PRESENT: atraumatic, normocephalic Eye exam: PRESENT: conjunctiva pink, EOMI, PERRLA. ABSENT: conjunctival injection, nystagmus, scleral icterus Mouth exam: PRESENT: dry mucosa, neck supple Teeth exam: PRESENT: poor dentation Neck exam: ABSENT: carotid bruit, JVD, lymphadenopathy, meningismus, tenderness, thyromegaly, tracheal deviation Respiratory exam: PRESENT: clear to auscultation linda. ABSENT: accessory muscle use Cardiovascular exam: PRESENT: RRR, +S1, +S2 Murmur grade: 3 Pulses: ABSENT: normal dorsalis pedis pul Vascular exam: PRESENT: normal capillary refill GI/Abdominal exam: PRESENT: normal bowel sounds, tenderness - Improved from yesterday's exam. ABSENT: ascites, distended, guarding, mass, Wright's sign, organolmegaly, rebound Rectal exam: PRESENT: deferred Gentrourinary exam: PRESENT: indwelling catheter Musculoskeletal exam: ABSENT: ambulatory, deformity, dislocation Neurological exam: PRESENT: alert, awake, oriented to person, oriented to place, oriented to time, oriented to situation, CN II-XII grossly intact. ABSENT: motor sensory deficit, aphasic Psychiatric exam: PRESENT: appropriate affect, normal mood Focused psych exam: ABSENT: delusional, pressured speech, psychomotor agitation, restlessness Skin exam: PRESENT: dry, pallor. ABSENT: abrasion, cyanosis, erythema, jaundice, mottled, petechiae, rash, urticaria, vesicles Results Laboratory Results: 11/26/18 06:35 11/26/18 06:35 Impressions: Foot X-Ray 11/17/18 00:00 IMPRESSION: NEGATIVE STUDY OF THE RIGHT FOOT. NO RADIOGRAPHIC EVIDENCE OF ACUTE INJURY. Shoulder X-Ray 11/22/18 00:00 IMPRESSION: No acute findings Abdomen/Pelvis CT 11/23/18 00:00 IMPRESSION: 1. Mild bilateral pleural effusions, left greater than right. I ncreased right basilar ground-glass attenuation likely infectious/inflammatory. 2. No evidence of renal abscess. No significant hydronephrosis. 3. Diffuse anasarca with mild volume ascites suggestive of volume overload. 4. No significant contrast excretion on delayed imaging compatible with renal failure. Chest X-Ray 11/25/18 18:18 IMPRESSION: Fluid overload or congestive failure Assessment & Plan - Diagnosis (1) Hypoglycemia Is this a current diagnosis for this admission?: Yes (2) Abdominal pain Qualifiers: Abdominal location: generalized Qualified Code(s): R10.84 - Generalized abdominal pain Is this a current diagnosis for this admission?: Yes (3) Sepsis associated hypotension Is this a current diagnosis for this admission?: Yes Plan: Patient has improved with an increase in steroids. Given her renal failure it is conceivable that she has adrenal insufficiency as well. Patient has peripheral edema in her lower extremities and has an IVC filter in. The possibility that her pain is caused by pelvic venous congestion is of diagnostic consideration. Of note there is minimal that can be done to improve this. Given the timeframe for the IVC filter placement it does not appear to be retrievable. Patient was brought down to the ICU for hypoglycemia and hypotension all of which have responded and improved with steroids. She was placed on broad- spectrum antibiotics and an antifungal. At this point the antifungal has been discontinued and is not necessary. Stop dates for the vancomycin has been made for a total of 5 days. Presumably, she has been treated for an ESBL organism in her urine and the possibility of pneumonia. No bacterial specimens were able to be obtained and we do not have the ability to obtain a procalcitonin. I had a lengthy discussion with the patient about her abdominal pain. It has been chronic and ongoing and there are several diagnostic considerations besides the above. She does have a cyst on her kidneys which may be a source. Given her renal failure the possibility of vascular insufficiency is of concern. It is difficult to give develop a differential based on palliative and provocative factors. When asked what would be a palliative factor she states "an amputation below her neck". (4) Diabetes mellitus Qualifiers: Diabetes mellitus type: type 2 Diabetes mellitus longterm insulin use: with intermission coordinator use Chronic kidney disease stage: on chronic dialysis Is this a current diagnosis for this admission?: Yes (5) CKD stage 5 due to type 2 diabetes mellitus Is this a current diagnosis for this admission?: Yes (6) CKD (chronic kidney disease) requiring chronic dialysis Is this a current diagnosis for this admission?: Yes (7) Pelvic congestion syndrome Is this a current diagnosis for this admission?: Yes - Time Time Spent with patient: 35 or more minutes Total Critical Time (Minutes): 35 - [id number] Medications reviewed and adjusted accordingly: Yes Anticipated discharge: SNF Within: within 48 hours - Inpatient Certification Based on my medical assessment, after consideration of the patient's comorbidities, presenting symptoms, or acuity I expect that the services needed warrant INPATIENT care.: Yes I certify that my determination is in accordance with my understanding of Medicare's requirements for reasonable and necessary INPATIENT services [42 CFR 412.3e].: Yes Medical Necessity: Failure to Improve With Outpatient Therapy, Significant Comorbidiites Make Outpatient Treatment Too Risky, Need Close Monitoring Due to Risk of Patient Decompensation, Need for IV Antibiotics, Other - Need for dialysis in the next 24 hours Post Hospital Care: D/C Mill Controller Documentation - Plan Summary Plan Summary: Patient's overall condition has improved. There is no active hemodynamic instability and she meets criteria for transfer to medical floor. From a system standpoint: 1. Respiratory: Patient is being treated for what appears to be a possible pneumonia. She has had no hypoxia and no shortness of breath. Her lungs are clear today. Have advised to discontinue vancomycin within 5 days. She was started on this because of her hypoglycemia and hypotension prompting her admission. We do not have the capability to obtain procalcitonin to help adjudicate reduction or de-escalation and antibiotics. She has had no hypoxia. 2. Infectious disease: Patient is on meropenem for ESBL from the urine. She is on meropenem and would continue this for total of 10 days. She did have Talia organisms in her urine however this is a common entity for colonization. There is no need for treatment at this point. Farris has been discontinued. 3. Cardiac: Patient's blood pressure has improved with the increase in steroids. No other cardiac or hemodynamic instability is present. 4. Hematologic: Patient has chronic anemia related to renal disease no active bleeding and no requirement for transfusion was necessary for her ICU stay. He is on marrow stimulating medications as per the renal service. 5. Endocrine: Patient has 2 simultaneous issues. She developed hypoglycemia on the floor which may have been a combination of adrenal insufficiency and insulin supplementation. With an increase in her steroids and D5 her glucose levels have actually been elevated requiring insulin therapy. The D5 has been discontinued. We will provide coverage only and no long-acting insulin at this point. Her other issue is her response to steroids and the possibility of poor adrenal reserve. Given her CAT scan findings of cystic disease the possibility of adrenal effect especially in light of her renal failure needs to be considered. With the increase in her mineralocorticoid there has been improvement in her blood pressure. She was also hypothermic on presentation making the possibility of acute adrenal crisis a distinct possibility. Our recommendation is to wean steroids slowly and discharge on mineralocorticoid therapy. We would recommend diurnal therapy to replace physiologic reserve with a higher dose in the morning and a lower dose at night. 6. Renal: Patient had dialysis yesterday with limited volume being taken off. She will need dialysis 11/28/2018. I have added PhosLo to her armamentarium. Nephrology service is aware of her presence and have been following her. 7. Metabolic: Patient has hyperphosphatemia related to her renal failure but has had no significant metabolic acidosis nor hyperkalemia. We will continue to follow and support accordingly. 8. Neurologic: Patient is bedbound secondary to chronic pain and what appears to be lumbar spinal stenosis. No active neurological issues except for neuropathy are present. Is at baseline and chronic. 9. Alimentary: Patient has chronic pain in the abdomen. Multiple etiologic possibilities exist and she has been seen by numerous consultants. She does have an IVC filter which was placed after a gastric surgery and a DVT/PE. She does have significant swelling in her lower extremities in the possibility of pelvic venous congestion syndrome is distinct. She also may have vascular insufficiency as noted above. No acute changes were noted. Patient meets criteria for transfer to regular medical floor with plan for dialysis tomorrow morning. She appears depressed from her illness but holds onto the hope of being with her grandchildren which gives her comfort.
[2018-11-27] MEDS: FOLIC ACID/VITAMIN B COMP W-C CAPSULE PO SCH (22:50)
[2018-11-27] MEDS: ATORVASTATIN CALCIUM 40 MG TABLET PO SCH (22:50)
[2018-11-27] MEDS: CETIRIZINE 5 MG TABLET PO SCH (22:51)
[2018-11-27] MEDS: OXYCODONE HCL IR 5 MG TABLET PO PRN (22:51)
[2018-11-28 04:38] LABS: ABSOLUTE BASOPHILS # (AUTO) 0.1 10^3/uL (0.0-0.2); ABSOLUTE EOSINOPHILS # (AUTO) 0.1 10^3/uL (0.0-0.6); ABSOLUTE LYMPHOCYTES (AUTO) 1.1 10^3/uL (0.5-4.7); ABSOLUTE MONOCYTES (AUTO) 0.7 10^3/uL (0.1-1.4); ABSOLUTE NEUT (AUTO) 9.5 10^3/uL (1.7-8.2); BASOPHILS % (AUTO) 0.6 % (0-2); EOSINOPHILS % (AUTO) 0.6 % (0-6); LYMPHOCYTES % (AUTO) 9.3 % (13-45); MEAN CORPUSCULAR HEMOGLOBIN 27.6 pg (27.0-33.4); MEAN CORPUSCULAR HGB CONC 31.1 g/dL (32.0-36.0); MEAN CORPUSCULAR VOLUME 89 fl (80-97); MONOCYTES % (AUTO) 5.8 % (3-13); PLATELET COUNT 443 10^3/uL (150-450); RED BLOOD COUNT 3.27 10^6/uL (3.72-5.28); RED CELL DISTRIBUTION WIDTH 20.3 % (11.5-14.0); SEGMENTED NEUTROPHILS % (AUTO) 83.7 % (42-78); TOTAL CELLS COUNTED % (AUTO) 100 %; WHITE BLOOD COUNT 11.4 10^3/uL (4.0-10.5)
[2018-11-28] MEDS ORDERED: EPOETIN ALFA-EPBX 20,000 UNIT in SYRINGE, DISPOSABLE, 1 EACH IV PRN (05:00)
[2018-11-28] MEDS ORDERED: NORMAL SALINE 1000 ML 1,000 ML IV PRN (05:00)
[2018-11-28 05:04] LABS: ANION GAP 12 (5-19); BLOOD UREA NITROGEN 39 mg/dL (7-20); CALCIUM 9.4 mg/dL (8.4-10.2); CARBON DIOXIDE 24 mmol/L (22-30); CHLORIDE 99 mmol/L (98-107); GLUCOSE 285 mg/dL (75-110); PHOSPHORUS 6.3 mg/dL (2.5-4.5); POTASSIUM 4.5 mmol/L (3.6-5.0)
[2018-11-28] MEDS: MEROPENEM 500 MG in NORMAL SALINE 50 ML IV SCH (05:58)
[2018-11-28] MEDS: HEPARIN SOD (PORCINE) 5,000 UNIT/ML 1 ML VIAL SUBCUT SCH ×2 (05:58→14:02)
[2018-11-28] MEDS: INSULIN LISPRO 100 UNIT/ML 3 ML VIAL SUBCUT SCH ×3 (08:44→17:55)
[2018-11-28] MEDS: ERGOCALCIFEROL (VITAMIN D2) 50000 UNIT (1.25 MG) CAPSULE PO SCH (08:44)
[2018-11-28] MEDS: FLUOXETINE HCL 20 MG CAPSULE PO SCH (08:45)
[2018-11-28] MEDS: CALCIUM ACETATE 667 MG CAPSULE PO SCH ×3 (08:45→17:59)
[2018-11-28] MEDS: CHOLESTYRAMINE/ASPARTAME 4 GM PACKET PO SCH ×3 (08:51→17:56)
[2018-11-28] MEDS: OXYCODONE HCL IR 5 MG TABLET PO PRN ×2 (08:56→13:58)
[2018-11-28] MEDS ORDERED: HYDROCORTISONE 10 MG TABLET PO SCH ×2 (09:00→22:00)
[2018-11-28] MEDS: ASPIRIN 81 MG TABLET, CHEWABLE PO SCH (09:01)
[2018-11-28] MEDS: CARVEDILOL 12.5 MG TABLET PO SCH (09:01)
[2018-11-28] MEDS: LACTOBACILLUS ACIDOPHILUS 250 MG TAB PO SCH ×2 (09:02→17:59)
[2018-11-28] MEDS: NYSTATIN TOPICAL POWDER 15 GM TP SCH ×2 (09:02→17:59)
[2018-11-28 09:06] LABS: VANCOMYCIN,TROUGH 19.4 ug/mL (5.0-20.0)
[2018-11-28] MEDS ORDERED: INSULIN GLARGINE,HUM.REC.ANLOG 1,000 UNIT/10 ML VIAL SUBCUT SCH (10:00)
--- NOTE | 2018-11-28 14:22 | PDOC PROGRESS REPORT ---
Subjective Progress Note for:: 11/28/18 Subjective:: 11.28.18: Patient has been asymptomatic except for mild abdominal discomfort. Dynamic instability. Of note her glucoses have been significantly elevated and she was started on Lantus this morning. She has no evidence to support sepsis or an ongoing infection. Furthermore no dyspnea, cough, diaphoresis, fever, or night sweats. She does disclose her abdominal discomfort has improved. She is scheduled to undergo undergo dialysis today. 11.27.2018: Patient continues to have non-labile pressure. Introduction of higher dose of mineralocorticoid (hydrocortisone) appears to have improved her hemodynamic instability. Unfortunately, her blood sugars have increased however her initial presentation was with significant hypoglycemia. Her abdominal discomfort has improved as well. She has had this for some time but it has improved. Currently she has no acute complaints. 11.26.2018: Patient admitted late yesterday afternoon for hypoglycemia and hypothermia. Hemodynamics have been non-labile glucose and temperatures have improved. Notably in review of her medications it appears that her steroids have been reduced which may have been a contributing factor in her hypoglycemia and hypothermia. This morning she has no complaints other than her chronic abdominal discomfort. Review of the CT scan shows no significant abnormalities which would suggest an organic pathology. Patient does have significant renal dysfunction with assumption of vascular disease raising the suspicion for abdominal vascular insufficiency. She tolerated dialysis this morning without any hypotension and tolerated the oral Coreg that she was given. Reason For Visit: PYELONEPHRITIS, SEPSIS Physical Exam Vital Signs: Temp Pulse Resp BP Pulse Ox 97.6 F 68 14 121/59 L 98 11/27/18 12:00 11/28/18 11:00 11/28/18 08:00 11/28/18 08:00 11/27/18 14:00 Intake & Output 11/27/18 11/28/18 11/29/18 06:59 06:59 06:59 Intake Total 490 1130 Output Total 2200 25 Balance -1710 1105 Weight 80.9 kg 81.3 kg General appearance: PRESENT: no acute distress, cooperative, disheveled, obese Head exam: PRESENT: atraumatic, normocephalic Eye exam: PRESENT: conjunctiva pink, EOMI, PERRLA. ABSENT: conjunctival injection, nystagmus, periorbital swelling, scleral icterus Mouth exam: PRESENT: dry mucosa Teeth exam: PRESENT: poor dentation Neck exam: ABSENT: carotid bruit, JVD, lymphadenopathy, meningismus, thyromegaly, tracheal deviation Respiratory exam: PRESENT: clear to auscultation linda. ABSENT: accessory muscle use, unlabored Cardiovascular exam: PRESENT: RRR, +S1, +S2 Murmur grade: 3 Pulses: PRESENT: other - Palpable dorsalis pedis pulse but feet are warm no evidence of ischemia or cyanosis Vascular exam: PRESENT: normal capillary refill GI/Abdominal exam: PRESENT: normal bowel sounds, soft, tenderness - Tenderness is inconsistent examination. Able to listen with stethoscope without pain while applying pressure.. ABSENT: ascites, distended, guarding, mass, Wright's sign, rebound, rigid Rectal exam: PRESENT: deferred Extremities exam: PRESENT: pedal edema. ABSENT: tenderness Musculoskeletal exam: ABSENT: tenderness Additional comments: Lower extremity edema is noted Neurological exam: PRESENT: alert, awake, oriented to person, oriented to place, oriented to time, oriented to situation, CN II-XII grossly intact. ABSENT: mot or sensory deficit, aphasic Additional comments: Patient is able to lift her legs although weak 3/5 strength in the lower extremity 5/5 in the upper extremity. Psychiatric exam: PRESENT: appropriate affect, depressed. ABSENT: agitated, anxious Focused psych exam: ABSENT: pressured speech, psychomotor agitation Skin exam: PRESENT: intact, normal color. ABSENT: abrasion, cyanosis, erythema, jaundice, mottled, petechiae, rash, urticaria, vesicles Results Laboratory Results: 11/28/18 03:45 11/28/18 03:45 11/28/18 11/28/18 03:45 03:45 WBC 11.4 H RBC 3.27 L Hgb 9.0 L Hct 29.0 L MCV 89 MCH 27.6 MCHC 31.1 L RDW 20.3 H Plt Count 443 Seg Neutrophils % 83.7 H Sodium 134.6 L Potassium 4.5 Chloride 99 Carbon Dioxide 24 Anion Gap 12 BUN 39 H Creatinine 4.02 H Est GFR ( Amer) 14 L Glucose 285 H Calcium 9.4 Phosphorus 6.3 H Magnesium 1.7 Impressions: Foot X-Ray 11/17/18 00:00 IMPRESSION: NEGATIVE STUDY OF THE RIGHT FOOT. NO RADIOGRAPHIC EVIDENCE OF ACUTE INJURY. Shoulder X-Ray 11/22/18 00:00 IMPRESSION: No acute findings Abdomen/Pelvis CT 11/23/18 00:00 IMPRESSION: 1. Mild bilateral pleural effusions, left greater than right. Increased right basilar ground-glass attenuation likely infectious/inflammatory. 2. No evidence of renal abscess. No significant hydronephrosis. 3. Diffuse anasarca with mild volume ascites suggestive of volume overload. 4. No significant contrast excretion on delayed imaging compatible with renal failure. Chest X-Ray 11/25/18 18:18 IMPRESSION: Fluid overload or congestive failure Assessment & Plan - Diagnosis (1) Hypoglycemia Is this a current diagnosis for this admission?: Yes (2) Abdominal pain Qualifiers: Abdominal location: generalized Qualified Code(s): R10.84 - Generalized abdominal pain Is this a current diagnosis for this admission?: Yes (3) Hypothermia Qualifiers: Encounter type: initial encounter Qualified Code(s): T68.XXXA - Hypothermia, initial encounter Is this a current diagnosis for this admission?: Yes Plan: Resolved. Possibly related to adrenal insufficiency (4) Sepsis associated hypotension Is this a current diagnosis for this admission?: Yes (5) Diabetes mellitus Qualifiers: Diabetes mellitus type: type 2 Diabetes mellitus longterm insulin use: with intermediate designer use Chronic kidney disease stage: on chronic dialysis Is this a current diagnosis for this admission?: Yes (6) CKD stage 5 due to type 2 diabetes mellitus Is this a current diagnosis for this admission?: Yes (7) CKD (chronic kidney disease) requiring chronic dialysis Is this a current diagnosis for this admission?: Yes (8) Pelvic congestion syndrome Is this a current diagnosis for this admission?: Yes (9) Presence of IVC filter Is this a current diagnosis for this admission?: Yes - Time Time Spent with patient: 35 or more minutes Total Critical Time (Minutes): 40 - [id number] Medications reviewed and adjusted accordingly: Yes Anticipated discharge: SNF Within: when bed available - Discharge potentially today - Plan Summary Plan Summary: From a system standpoint: Please see discharge summary done today Plan is for discharge to local SNF. She will require a total of 14 days of Meropenem. 5-7 days of Vancomycin Start Lantus insulin coverage. Start weaning steroids. The care of a critically ill patient is dynamic. This note represents a static time-frame in the admission process. Orders and treatments may be given simultaneously and urgently, and time is not medical claims representative of the treatment process. This patient requires Critical Care secondary to life-threatening organ or limb dysfunction. Without the need for Critical Care services, the patient is at risk for increased mortality and morbidity. MPOA: Lori Hodgson
[2018-11-28] MEDS ORDERED: PREGABALIN 75 MG CAPSULE PO SCH (14:30)
--- NOTE | 2018-11-28 15:46 | PDOC TRANSFER SUMMARY ---
Impression - Admit/DC Date/PCP Admission Date/Primary Care Provider: 11/14/18 17:37 ADITYA HARDING MD Discharge Date: 11/28/18 - Discharge Diagnosis (1) Sepsis associated hypotension Is this a current diagnosis for this admission?: Yes (2) Hypothermia Is this a current diagnosis for this admission?: Yes (3) Hypoglycemia Is this a current diagnosis for this admission?: Yes (5) CKD stage 5 due to type 2 diabetes mellitus Is this a current diagnosis for this admission?: Yes (6) CKD (chronic kidney disease) requiring chronic dialysis Is this a current diagnosis for this admission?: Yes (7) Diabetes mellitus Is this a current diagnosis for this admission?: Yes (8) Pelvic congestion syndrome Is this a current diagnosis for this admission?: Yes (9) Presence of IVC filter Is this a current diagnosis for this admission?: Yes (10) Hyperphosphatemia Is this a current diagnosis for this admission?: Yes (11) Hypoadrenalism Is this a current diagnosis for this admission?: Yes (12) Hypoalbuminemia Is this a current diagnosis for this admission?: Yes (13) Incontinence associated dermatitis Is this a current diagnosis for this admission?: No (14) Left shoulder pain Is this a current diagnosis for this admission?: No (16) Anemia due to end stage renal disease Is this a current diagnosis for this admission?: Yes (18) ESRD (end stage renal disease) Is this a current diagnosis for this admission?: Yes (19) Hypoglycemia Is this a current diagnosis for this admission?: Yes (20) Pneumonia Is this a current diagnosis for this admission?: Yes (21) Toxic metabolic encephalopathy Is this a current diagnosis for this admission?: Yes (23) UTI (urinary tract infection) Is this a current diagnosis for this admission?: Yes (24) Abdominal pain Is this a current diagnosis for this admission?: Yes - Assessment Summary: 2019: Patient admitted late yesterday afternoon for hypoglycemia and hypothermia. Hemodynamics have been non-labile glucose and temperatures have improved. Notably in review of her medications it appears that her steroids have been reduced which may have been a contributing factor in her hypoglycemia and hypothermia. This morning she has no complaints other than her chronic abdominal discomfort. Review of the CT scan shows no significant abnormalities which would suggest an organic pathology. Patient does have significant renal dysfunction with assumption of vascular disease raising the suspicion for abdominal vascular insufficiency. She tolerated dialysis this morning without any hypotension and tolerated the oral Coreg that she was given. 11.27.2018: Patient continues to have non-labile pressure. Introduction of higher dose of mineralocorticoid (hydrocortisone) appears to have improved her hemodynamic instability. Unfortunately, her blood sugars have increased however her initial presentation was with significant hypoglycemia. Her abdominal discomfort has improved as well. She has had this for some time but it has improved. Currently she has no acute complaints. 11.28.18: Patient has been asymptomatic except for mild abdominal discomfort. Dynamic instability. Of note her glucoses have been significantly elevated and she was started on Lantus this morning. She has no evidence to support sepsis or an ongoing infection. Furthermore no dyspnea, cough, diaphoresis, fever, or night sweats. She does disclose her abdominal discomfort has improved. She is scheduled to undergo undergo dialysis today From a systems standpoint: 1. Respiratory: Patient has had no respiratory issues while in the hospital. There was concerned that she had some groundglass appearing changes on x-ray and CAT scan leading to a suspicion of a hospital-acquired pneumonia. We unfortunately have no ability to obtain procalcitonin however her clinical exam and findings were not consistent with this. Clarity we continued her on antibiotics on the off chance that a gram-positive back to area had caused her hypoglycemic and hypothermic event. At this point this appears to be not an infectious cause. 2. Infectious disease: Patient was noted to have a urinary tract infection with E. coli manifested being with ESBL antigenic profile. She has been on meropenem since the 11/16/2018. Because she does have non-obstructing stones current guidelines suggest a 14-day therapy for these infections. Today is day 12 of your meropenem and she will require 2 more days of this antibiotic. All in a box have been adjusted for renal failure. She has been on vancomycin and currently the regimen is 750 mg on the evening post-dialysis. She will only require 2 more days of this for a total of 7 days. Currently the recommendation for ESBL positive patient's is that routine standard precautions would be use it patient can be cohort did any semiprivate room. 3. Cardiac: Patient had some mild hypotension which is resolved. This was felt to be related to a combination of postdialysis adrenal insufficiency and her infection. She has had no untoward hemodynamic effects and blood pressure has remained stable on steroids. 4. Hematologic: Patient has chronic renal insufficiency related anemia and is on her RBC stimulating medication. She did receive RBC transfusion on this admission on medical floor. 5. Endocrine: Patient had been on steroids during this admission and with reduction she developed hypotension, hypothermia, and hypoglycemia. Although this is improved with an increase in her steroids. She has now been hyperglycemic and we have had to start Lantus. Of significant concern is hypoglycemia. We have adjusted her steroids to a more physiologic diurnal approach. We would suggest she be on mineralocorticoid therapy with an increase during stressful times. We would suggest weaning down to at least 5 mg in the morning and 2-1/2 mg at night. With this reduction her glucose levels may decrease and vigilance for hypoglycemia on long-acting insulin will need to be maintained. 6. Renal: Patient receives dialysis Monday and will receive dialysis today before discharge. He has a vascular catheter in the right IJ subclavian region. It has not been erythematous and did not appear to be a source for her infections. She does have a UTI which is complicated by nonobstructing stones. This would necessitate a longer antibiotic use. We have placed her on Probiotics. 7. GI: From a gastroenterology standpoint patient has had chronic abdominal pain. She was evaluated with multiple CTs (both contrast and noncontrast. She was also examined and evaluated by surgery. There appeared to be no organic cause for her pain however consideration for vascular etiology, pelvic congestion syndrome, adrenal insufficiency related. There is some concern that this may be related to chronic narcotic use. Careful attention to this process need to be maintained. 8. Neurologic: Patient has chronic pain syndrome and has become debilitated from chronic deconditioning. States that she is "been bedridden" however her leg movements have improved with the introduction of a higher dose of steroids. She obviously will need advanced and intense rehabilitation. Since that there may be some degree of depression however patient states that she enjoys living to see her grandchildren. There is no evidence to support suicidal ideation. She has had physical therapy and occupational therapy here in the hospital and this should continue. Medications: Medications have been reconciled. Please see list. I have attempted to contact the practitioner who will be caring for this patient. They currently are unavailable but I we have their phone number and will try to contact them when they are available. Total discharge time 42 minutes - Additional Information Resuscitation Status: Do Not Resuscitate Referrals: ADITYA HARDING MD [Primary Care Provider] - Follow up as needed DOM TOSCANO MD [ACTIVE STAFF] - (Follow-up in 4 to 6 weeks for chronic diarrhea and abdominal pain.) Home Medications: Acetaminophen [Tylenol 325 mg Tablet] 650 mg PO Q6HP PRN 11/14/18 Amino Acids/Protein Hydrolys [Pro-Stat Awc Liquid Packet] 30 ml PO DAILY 11/14/18 Aspirin [Aspirin 81 mg Chewable Tablet] 81 mg PO DAILY 11/14/18 Atorvastatin Calcium [Lipitor 40 mg Tablet] 40 mg PO QHS 11/14/18 Carvedilol [Coreg 25 mg Tablet] 25 mg PO Q12 11/14/18 Diphenhydramine HCl [Allergy Cream] 1 applic TOP TIDP PRN 11/14/18 Ergocalciferol (Vitamin D2) [Drisdol 50,000 unit (1.25MG) Capsule] 50,000 unit PO WE@0800 11/14/18 Fluoxetine HCl [Prozac 20 mg Capsule] 20 mg PO QAM 11/14/18 Folic Acid/Vitamin B Comp W-C [Nephrocaps Softgel] 1 cap PO QHS 11/14/18 Insulin Glargine,Hum.rec.anlog [Lantus Insulin 100 Unit/1 ml 10 ml] 10 units SQ QAM 11/14/18 Insulin Lispro [Humalog Insulin (Lispro) 100 unit/mL] 0 units SQ .SLIDING SCALE 11/14/18 Levocetirizine Dihydrochloride [Xyzal] 5 mg PO QHS 11/14/18 Omeprazole 20 mg PO Q6AM 11/14/18 Oxycodone HCl [Oxy-Ir 5 mg Tablet] 5 mg PO Q6HP PRN 11/14/18 Petrolatum,White [Petrolatum] 1 applic TOP DAILYP PRN 11/14/18 Pregabalin [Lyrica 75 mg Capsule] 75 mg PO Q12 11/14/18 History of Present Illiness History of Present Illness: ENEIDA JOHNSON is a 58 year old female with a past medical history significant for ESRD on dialysis Monday, anemia, hypertension, hyperlipidemia, CAD, PAF, COPD, IDDM, GERD, bedbound status at baseline, and opiate dependent chronic pain who presented to the emergency department from [facility] where she is an established [facility] resident with a complaint of increased lethargy and fever. Reportedly 101.8 upon EMSs arrival. Patient denies acute symptoms, however, does endorse chronic abdominal discomfort and diarrhea that has been present for the last several months with unknown prior work-up. Evaluation in the emergency department reveals Sepsis with fever, hypotension, leukopenia (WBCs 2.9), baseline anemia (hgb/hct 8.2/25.9), elevated INR (1.85; does not appear the patient is chronically anticoagulated on review of MAR), unremarkable chemistry given the patient's baseline dialysis dependance, (+) urinalysis, NSR on EKG, benign chest x-ray, and CT ABD/Pelvis showing cardiomegaly, anasarca, small volume ascites, unchanged mild hydroureternephrosis on the left without obstructing lesion, and circumferential bladder wall thickening. The patient was started on IV vancomycin and Zosyn. She is received a 1 L normal saline bolus. She was referred to the hospitalist service and admitted to medical floor. Hospital Course Hospital Course: Patient is currently on hemodialysis. Continue Monday, Monday and Monday schedule. Continue current diabetes regimen. The abdominal pain is not acute. She has a history of diverticular disease but CT scan showed no evidence of diverticulitis. We discussed several other possible etiologies including irritable bowel and inflammatory bowel disease. She has never had a colonoscopy. She has Bentyl available as well as scheduled cholestyramine to help with loose stool. She will need further GI work-up as an outpatient. Sepsis is resolved. She is near completion of antibiotic therapy for the ESBL E. coli. Left shoulder pain is not as bad today. We will obtain an x-ray. It may very well be osteoarthritis. 11/22/2018- End-stage kidney disease-patient is stable and tolerating hemodialysis. Di alysis due for tomorrow. Abdominal pain-this is been a chronic issue. It is somewhat better today. Could be related to the chronic diarrhea such as an irritable bowel syndrome. Pyelonephritis-antibiotic therapy is complete. The urine is still turbid. I have submitted another culture. Await results before transferring back to long- term facility Left shoulder pain-x-rays do not reveal any acute cause. I have asked physical therapy to incorporate her left shoulder into their treatment plan. Sepsis is resolved Incontinence associated dermatitis-when attempting to examine the patient today she was sitting in stool. Stool and developed the area of the vagina and surrounded the Farris catheter tubing between her thighs. After cleaning the patient it was noted that she had some reddened areas with petechia on the inner thighs adjacent to the catheter. I believe this is related to her incontinence. Unfortunately she does not summon staff when she has had a bowel movement. Anemia with chronic kidney disease-it is unclear why her hemoglobin would drop but her hemoglobin was less than 8 today. She states that she has had transfusions in the past. This could be related to acute illness on top of her chronic kidney disease. I have ordered 1 unit of packed red cells today and will recheck hemoglobin tomorrow. 11/23/2018- The patient was supposed to complete her meropenem therapy today. It is worrisome that her white blood cell count is now climbing. Her urinalysis still had significant turbidity with lots of white blood cells. Review of CT scan showed some hydroureter and hydronephrosis on initial CAT scan. The second CAT scan did not remark or report any such findings. A third CT scan was ordered today. It showed nonobstructing stones but no evidence of renal cyst or severe hydronephrosis. I ordered another set of blood cultures and added vancomycin to the meropenem. We will hold blood pressure medicines for hypotension. Lactic acid was normal but there is always a concern for septic shock. Await further results on the urine and blood cultures. Since she has been on antibiotic therapy it is possible for a fungal cystitis. 11/24/2018- I will have surgery assess the patient for ongoing right-sided abdominal pain. I do not believe it is related to the kidneys based on the CT scan reported yesterday. I have added vancomycin to the regimen since her white blood cell count did go up on meropenem alone. Repeat blood cultures were drawn. Her renal function is stable and she is tolerating hemodialysis. She has had abdominal pain from a chronic basis. We will continue current antibiotics and monitor cultures. Her diarrhea is improving and her white blood cell count has come down somewhat on the addition of vancomycin. Surgical consult: "The patient has been complaining of abdominal pain for more than 3 months, the character the pain is somewhat unusual as it is diffuse, right side pain more than the left side one, exacerbated by movement, coughing, it waxes and wanes: However, the patient he has no peritoneal signs on physical exam Two CT scans of the abdomen pelvis (November 18 and November 24, 2018) showed no intra-abdominal process or process occurring on the abdominal wall on the right side, in particular both gallbladder and appendix of the well-visualized, no stones are seen, and then do not display features of inflammatory changes. Physical exam the patient is somewhat inconclusive as she displays no peritoneal signs, yet she is complaining of diffuse abdominal pain on palpation both superficial and deep. In my opinion, the patient does not suffer of any acute or chronic abdominal condition based on the current physical exam, blood work, and CT scan findings. However, other conditions can be present but not evident at this time. In addition, malingering should be considered as the patient has a history of narcotic abuse in the past." Recommended no further tests at this point,Psychological reassurance (should be enough for this patient with multiple medical problems but not obviously abdominal pathology) 11/25/2018- Abdominal pain improving. Likely irritable bowel. Has had constipation predominant irritable bowel in the past. No evidence of appendicitis. Hemoglobin stable. She reports that there is no discomfort in the inner thighs from the Farris catheter. White blood cell count was improved. 11/25/2018-: A rapid response was called for decreased level of consciousness. Nursing reports that when they went to check on the patient she was unresponsive and drooling. Attempts to wake her were unsuccessful. A fingerstick glucose was obtained and the sugar was 16. She was given 2 A of D50 The patient's glucose readings have for the most part been in the mid to high 100s and low 200s. The patient was found obtunded and a fingerstick revealed a glucose of 16. She was given 2 A of D50. Within an hour she dropped from 359 down to the low 200s. She was not tachycardic. Blood pressure was low but map stayed above 65. After the second amp of D50 she began to awaken. She could maintain eye contact. She could start to answer questions. 1 L of 5 normal saline was initiated at 75 mL/h due to the rapid decrease after the 2 A of D50. A core temperature was checked and she was only 94 degrees by rectum. Stat labs were drawn. Her white blood cell count is 15,000 today and it was 14,600 yesterday. Urine was turbid and had lots of white cells. It is growing Talia greater than 100,000 colonies per milliliter as a pure isolate with no bacteria. Because of her elevated white blood cell count 2 days ago vancomycin was added to the meropenem. CT scan the abdomen was obtained yesterday due to ongoing right-sided pain but no acute kidney pathology was noted. No hydroureter or hydronephrosis. No renal abscess. Platelets have shown a jump of 100,000 from yesterday. She was 356,000 and is now 451,000. Fluconazole was added to the vancomycin and meropenem. This was discontinued on 11.26.18. With core temperature hypothermia, acute spike in her platelets it was felt that the patient was septic. She transferred into the ICU for sepsis. 11.26.2018: Patient admitted late yesterday afternoon for hypoglycemia and hypothermia. Hemodynamics have been non-labile glucose and temperatures have improved. Notably in review of her medications it appears that her steroids have been reduced which may have been a contributing factor in her hypoglycemia and hypothermia. This morning she has no complaints other than her chronic abdominal discomfort. Review of the CT scan shows no significant abnormalities which would suggest an organic pathology. Patient does have significant renal dysfunction with assumption of vascular disease raising the suspicion for abdominal vascular insufficiency. She tolerated dialysis this morning without any hypotension and tolerated the oral Coreg that she was given. 11.27.2018: Patient continues to have non-labile pressure. Introduction of higher dose of mineralocorticoid (hydrocortisone) appears to have improved her hemodynamic instability. Unfortunately, her blood sugars have increased however her initial presentation was with significant hypoglycemia. Her abdominal discomfort has improved as well. She has had this for some time but it has improved. Currently she has no acute complaints. 11.28.18: Patient has been asymptomatic except for mild abdominal discomfort. Dynamic instability. Of note her glucoses have been significantly elevated and she was started on Lantus this morning. She has no evidence to support sepsis or an ongoing infection. Furthermore no dyspnea, cough, diaphoresis, fever, or night sweats. She does disclose her abdominal discomfort has improved. She is scheduled to undergo undergo dialysis today . Physical Exam Vital Signs: Temp Pulse Resp BP Pulse Ox 97.6 F 67 14 142/66 H 98 11/27/18 12:00 11/28/18 12:00 11/28/18 12:00 11/28/18 12:00 11/28/18 12:00 Intake & Output 11/27/18 11/28/18 11/29/18 06:59 06:59 06:59 Intake Total 490 1130 200 Output Total 2200 25 Balance -1710 1105 200 Weight 80.9 kg 81.3 kg General appearance: PRESENT: no acute distress, cooperative - Please see exam from today's progress note Results Laboratory Results: WBC 11.4 10^3/uL (4.0-10.5) H 11/28/18 03:45 RBC 3.27 10^6/uL (3.72-5.28) L 11/28/18 03:45 Hgb 9.0 g/dL (12.0-15.5) L 11/28/18 03:45 Hct 29.0 % (36.0-47.0) L 11/28/18 03:45 MCV 89 fl (80-97) 11/28/18 03:45 MCH 27.6 pg (27.0-33.4) 11/28/18 03:45 MCHC 31.1 g/dL (32.0-36.0) L 11/28/18 03:45 RDW 20.3 % (11.5-14.0) H 11/28/18 03:45 Plt Count 443 10^3/uL (150-450) 11/28/18 03:45 Lymph % (Auto) 9.3 % (13-45) L 11/28/18 03:45 [place] % (Auto) 5.8 % (3-13) 11/28/18 03:45 Eos % (Auto) 0.6 % (0-6) 11/28/18 03:45 Baso % (Auto) 0.6 % (0-2) 11/28/18 03:45 Reticulocyte # 0.067 10^6/uL (0.028-0.122) 11/16/18 05:05 Absolute Neuts (auto) 9.5 10^3/uL (1.7-8.2) H 11/28/18 03:45 Absolute Lymphs (auto) 1.1 10^3/uL (0.5-4.7) 11/28/18 03:45 Absolute Monos (auto) 0.7 10^3/uL (0.1-1.4) 11/28/18 03:45 Absolute Eos (auto) 0.1 10^3/uL (0.0-0.6) 11/28/18 03:45 Absolute Basos (auto) 0.1 10^3/uL (0.0-0.2) 11/28/18 03:45 Total Counted 100 11/26/18 06:35 Seg Neutrophils % 83.7 % (42-78) H 11/28/18 03:45 Seg Neuts % (Manual) 92 % (42-78) H 11/26/18 06:35 Band Neutrophils % 2 % (3-5) L 11/22/18 09:57 Lymphocytes % (Manual) 2 % (13-45) L 11/26/18 06:35 Monocytes % (Manual) 4 % (3-13) 11/26/18 06:35 Eosinophils % (Manual) 2 % (0-6) 11/26/18 06:35 Basophils % (Manual) 0 % (0-2) 11/26/18 06:35 Metamyelocytes % 2 % (0) H 11/18/18 04:29 Abs Neuts (Manual) 13.0 10^3/uL (1.7-8.2) H 11/26/18 06:35 Abs Lymphs (Manual) 0.3 10^3/uL (0.5-4.7) L 11/26/18 06:35 Abs Monocytes (Manual) 0.6 10^3/uL (0.1-1.4) 11/26/18 06:35 Absolute Eos (Manual) 0.3 10^3/uL (0.0-0.6) 11/26/18 06:35 Abs Basophils (Manual) 0.0 10^3/uL (0.0-0.2) 11/26/18 06:35 Nucleated RBCs 1 /100 WBC (0) 11/22/18 09:57 Platelet Estimate Cancelled 11/15/18 04:13 Clumped Platelets PRESENT 11/26/18 06:35 Platelet Comment ADEQUATE 11/26/18 06:35 Polychromasia 1+ 11/26/18 06:35 Hypochromasia SLIGHT 11/26/18 06:35 Poikilocytosis SLIGHT 11/22/18 09:57 Basophilic Stippling PRESENT 11/22/18 06:09 Anisocytosis 2+ 11/26/18 06:35 Target Cells SLIGHT 11/22/18 09:57 Retic Count (auto) 2.18 % (0.66-2.85) 11/16/18 05:05 PT 21.6 SEC (11.4-15.4) H 11/14/18 14:05 INR 1.85 11/14/18 14:05 VBG pH 7.40 (7.30-7.42) 11/14/18 15:00 VBG pCO2 40.0 mmHg (35-63) 11/14/18 15:00 VBG HCO3 24.1 mmol/L (20-32) 11/14/18 15:00 VBG Base Excess -0.6 mmol/L 11/14/18 15:00 Sodium 134.6 mmol/L (137-145) L 11/28/18 03:45 Potassium 4.5 mmol/L (3.6-5.0) 11/28/18 03:45 Chloride 99 mmol/L (98-107) 11/28/18 03:45 Carbon Dioxide 24 mmol/L (22-30) 11/28/18 03:45 Anion Gap 12 (5-19) 11/28/18 03:45 BUN 39 mg/dL (7-20) H 11/28/18 03:45 Creatinine 4.02 mg/dL (0.52-1.25) H 11/28/18 03:45 Est GFR ( Amer) 14 (>60) L 11/28/18 03:45 Est GFR (MDRD) Non-Af 12 (>60) L 11/28/18 03:45 Glucose 285 mg/dL (75-110) H 11/28/18 03:45 POC Glucose 316 mg/dL (70-110) H 11/28/18 11:10 Lactic Acid 0.6 mmol/L (0.7-2.1) L 11/25/18 17:15 Calcium 9.4 mg/dL (8.4-10.2) 11/28/18 03:45 Phosphorus 6.3 mg/dL (2.5-4.5) H 11/28/18 03:45 Magnesium 1.7 mg/dL (1.6-2.3) 11/28/18 03:45 Iron 15.7 ug/dL (37-170) L 11/16/18 05:05 TIBC 125 ug/dL (250-450) L 11/16/18 05:05 % Saturation 13 % 11/16/18 05:05 Ferritin 373.00 ng/mL (11.1-264.0) H 11/16/18 05:05 Total Bilirubin 0.3 mg/dL (0.2-1.3) 11/25/18 17:15 Direct Bilirubin 0.3 mg/dL (0.0-0.4) 11/25/18 17:15 Neonat Total Bilirubin Not Reportable 11/25/18 17:15 Neonat Direct Bilirubin Not Reportable 11/25/18 17:15 Neonat Indirect Bili Not Reportable 11/25/18 17:15 AST 16 U/L (14-36) 11/25/18 17:15 ALT 7 U/L (<35) 11/25/18 17:15 Alkaline Phosphatase 100 U/L (38-126) 11/25/18 17:15 Total Protein 6.0 g/dL (6.3-8.2) L 11/25/18 17:15 Albumin 2.4 g/dL (3.5-5.0) L 11/26/18 06:35 Vitamin B12 > 1000.0 pg/mL (239-931) H 11/16/18 05:05 Folate > 20.00 ng/mL (>2.76) 11/16/18 05:05 Random Cortisol 18.70 ug/dL (None Established) 11/16/18 05:05 Urine Color AILEEN 11/22/18 22:50 Urine Appearance TURBID 11/22/18 22:50 Urine pH 5.0 (5.0-9.0) 11/22/18 22:50 Ur Specific [place] 1.020 11/22/18 22:50 Urine Protein 100 mg/dL (NEGATIVE) H 11/22/18 22:50 Urine Glucose (UA) NEGATIVE mg/dL (NEGATIVE) 11/22/18 22:50 Urine Ketones TRACE mg/dL (NEGATIVE) H 11/22/18 22:50 Urine Blood LARGE (NEGATIVE) H 11/22/18 22:50 Urine Nitrite NEGATIVE (NEGATIVE) 11/22/18 22:50 Urine Bilirubin NEGATIVE (NEGATIVE) 11/22/18 22:50 Urine Urobilinogen NEGATIVE mg/dL (<2.0) 11/22/18 22:50 Ur Leukocyte Esterase MODERATE (NEGATIVE) H 11/22/18 22:50 Urine WBC (Auto) >182 /HPF 11/22/18 22:50 Urine RBC (Auto) >182 /HPF 11/22/18 22:50 Urine Bacteria (Auto) 1+ /HPF 11/22/18 22:50 Urine RBC 1-5 /HPF 11/14/18 15:39 Urine WBC TOO NUMEROUS TO CNT /HPF 11/14/18 15:39 Urine WBC Clumps MANY /HPF 11/22/18 22:50 U Non-Squamous Epis Auto 2 /HPF 11/22/18 22:50 Urine Bacteria 4+ /HPF 11/14/18 15:39 Urine Mucus (Auto) RARE /LPF 11/22/18 22:50 Urine Ascorbic Acid NEGATIVE (NEGATIVE) 11/22/18 22:50 Stl C. Difficile GDH Ag NEGATIVE (NEGATIVE) 11/14/18 18:55 Stl C.difficile Tox A&B NEGATIVE (NEGATIVE) 11/14/18 18:55 Time Trough Drawn 0817 11/28/18 08:17 Vancomycin Trough 19.4 ug/mL (5.0-20.0) 11/28/18 08:17 Influenza A (Rapid) NEGATIVE (NEGATIVE) 11/14/18 16:16 Influenza B (Rapid) NEGATIVE (NEGATIVE) 11/14/18 16:16 Slides for Path Review Cancelled 11/15/18 04:13 Blood Type O POSITIVE 11/22/18 17:00 Antibody Screen NEGATIVE 11/22/18 17:00 Crossmatch See Detail 11/22/18 17:00 Impressions: Chest X-Ray 11/14/18 15:07 IMPRESSION: No focal consolidation or other evidence of acute cardiopulmonary process. Abdomen/Pelvis CT 11/14/18 15:08 IMPRESSION: 1. Mild patchy bibasilar opacities and trace bilateral effusions, likely atelectasis although infection not excluded. 2. Moderate formed stool within the rectal vault. No evidence of intestinal obstruction. 3. Findings suggestive of volume overload with cardiomegaly, anasarca and small volume ascites. 4. Unchanged mild hydroureteronephrosis on the left without obstructing lesion identified. 5. Farris catheter within the bladder lumen with circumferential bladder wall thickening. Recommend correlation with urinalysis. Foot X-Ray 11/17/18 00:00 IMPRESSION: NEGATIVE STUDY OF THE LEFT FOOT. NO RADIOGRAPHIC EVIDENCE OF ACUTE INJURY. Foot X-Ray 11/17/18 00:00 IMPRESSION: NEGATIVE STUDY OF THE RIGHT FOOT. NO RADIOGRAPHIC EVIDENCE OF ACUTE INJURY. Abdomen/Pelvis CT 11/18/18 00:00 IMPRESSION: Diffuse body wall anasarca. Pleural effusions. Possible right basilar airspace disease. Shoulder X-Ray 11/22/18 00:00 IMPRESSION: No acute findings Abdomen/Pelvis CT 11/23/18 00:00 IMPRESSION: 1. Mild bilateral pleural effusions, left greater than right. Increased right basilar ground-glass attenuation likely infectious/inflammatory. 2. No evidence of renal abscess. No significant hydronephrosis. 3. Diffuse anasarca with mild volume ascites suggestive of volume overload. 4. No significant contrast excretion on delayed imaging compatible with renal failure. Chest X-Ray 11/25/18 18:18 IMPRESSION: Fluid overload or congestive failure Plan Health Concerns: From a systems standpoint: 1. Respiratory: Patient has had no respiratory issues while in the hospital. There was concerned that she had some groundglass appearing changes on x-ray and CAT scan leading to a suspicion of a hospital-acquired pneumonia. We unfortunately have no ability to obtain procalcitonin however her clinical exam and findings were not consistent with this. Clarity we continued her on antibiotics on the off chance that a gram-positive back to area had caused her hypoglycemic and hypothermic event. At this point this appears to be not an infectious cause. 2. Infectious disease: Patient was noted to have a urinary tract infection with E. coli manifested being with ESBL antigenic profile. She has been on meropenem since the 11/16/2018. Because she does have non-obstructing stones current guidelines suggest a 14-day therapy for these infections. Today is day 12 of your meropenem and she will require 2 more days of this antibiotic. All in a box have been adjusted for renal failure. She has been on vancomycin and currently the regimen is 750 mg on the evening post-dialysis. She will only require 2 more days of this for a total of 7 days. Currently the recommendation for ESBL positive patient's is that routine standard precautions would be use it patient can be cohort did any semiprivate room. 3. Cardiac: Patient had some mild hypotension which is resolved. This was felt to be related to a combination of postdialysis adrenal insufficiency and her infection. She has had no untoward hemodynamic effects and blood pressure has remained stable on steroids. 4. Hematologic: Patient has chronic renal insufficiency related anemia and is on her RBC stimulating medication. She did receive RBC transfusion on this admission on medical floor. 5. Endocrine: Patient had been on steroids during this admission and with reduction she developed hypotension, hypothermia, and hypoglycemia. Although this is improved with an increase in her steroids. She has now been hyperglycemic and we have had to start Lantus. Of significant concern is hypoglycemia. We have adjusted her steroids to a more physiologic diurnal approach. We would suggest she be on mineralocorticoid therapy with an increase during stressful times. We would suggest weaning down to at least 5 mg in the morning and 2-1/2 mg at night. With this reduction her glucose levels may decrease and vigilance for hypoglycemia on long-acting insulin will need to be maintained. 6. Renal: Patient receives dialysis Monday and will receive dialysis today before discharge. He has a vascular catheter in the right IJ subclavian region. It has not been erythematous and did not appear to be a source for her infections. She does have a UTI which is complicated by nonobstructing stones. This would necessitate a longer antibiotic use. We have placed her on Probiotics. 7. GI: From a gastroenterology standpoint patient has had chronic abdominal pain. She was evaluated with multiple CTs (both contrast and noncontrast. She was also examined and evaluated by surgery. There appeared to be no organic cause for her pain however consideration for vascular etiology, pelvic congestion syndrome, adrenal insufficiency related. There is some concern that this may be related to chronic narcotic use. Careful attention to this process need to be maintained. 8. Neurologic: Patient has chronic pain syndrome and has become debilitated from chronic deconditioning. States that she is "been bedridden" however her leg movements have improved with the introduction of a higher dose of steroids. She obviously will need advanced and intense rehabilitation. Since that there may be some degree of depression however patient states that she enjoys living to see her grandchildren. There is no evidence to support suicidal ideation. She has had physical therapy and occupational therapy here in the hospital and this should continue. Medications: Medications have been reconciled. Please see list. I have attempted to contact the practitioner who will be caring for this patient. They currently are unavailable but I we have their phone number and will try to contact them when they are available. Total discharge time 42 minutes Plan of Treatment: From a systems standpoint: 1. Respiratory: Patient has had no respiratory issues while in the hospital. There was concerned that she had some groundglass appearing changes on x-ray and CAT scan leading to a suspicion of a hospital-acquired pneumonia. We unfortunately have no ability to obtain procalcitonin however her clinical exam and findings were not consistent with this. Clarity we continued her on antibiotics on the off chance that a gram-positive back to area had caused her hypoglycemic and hypothermic event. At this point this appears to be not an infectious cause. 2. Infectious disease: Patient was noted to have a urinary tract infection with E. coli manifested being with ESBL antigenic profile. She has been on meropenem since the 11/16/2018. Because she does have non-obstructing stones current guidelines suggest a 14-day therapy for these infections. Today is day 12 of your meropenem and she will require 2 more days of this antibiotic. All in a box have been adjusted for renal failure. She has been on vancomycin and currently the regimen is 750 mg on the evening post-dialysis. She will only require 2 more days of this for a total of 7 days. Currently the recommendation for ESBL positive patient's is that routine standard precautions would be use it patient can be cohort did any semiprivate room. 3. Cardiac: Patient had some mild hypotension which is resolved. This was felt to be related to a combination of postdialysis adrenal insufficiency and her infection. She has had no untoward hemodynamic effects and blood pressure has remained stable on steroids. 4. Hematologic: Patient has chronic renal insufficiency related anemia and is on her RBC stimulating medication. She did receive RBC transfusion on this admission on medical floor. 5. Endocrine: Patient had been on steroids during this admission and with reduction she developed hypotension, hypothermia, and hypoglycemia. Although this is improved with an increase in her steroids. She has now been hyperglycemic and we have had to start Lantus. Of significant concern is hypoglycemia. We have adjusted her steroids to a more physiologic diurnal approach. We would suggest she be on mineralocorticoid therapy with an increase during stressful times. We would suggest weaning down to at least 5 mg in the morning and 2-1/2 mg at night. With this reduction her glucose levels may decrease and vigilance for hypoglycemia on long-acting insulin will need to be maintained. 6. Renal: Patient receives dialysis Monday and will receive dialysis today before discharge. He has a vascular catheter in the right IJ subclavian region. It has not been erythematous and did not appear to be a source for her infections. She does have a UTI which is complicated by nonobstructing stones. This would necessitate a longer antibiotic use. We have placed her on Probiotics. 7. GI: From a gastroenterology standpoint patient has had chronic abdominal pain. She was evaluated with multiple CTs (both contrast and noncontrast. She was also examined and evaluated by surgery. There appeared to be no organic cause for her pain however consideration for vascular etiology, pelvic congestion syndrome, adrenal insufficiency related. There is some concern that this may be related to chronic narcotic use. Careful attention to this process need to be maintained. 8. Neurologic: Patient has chronic pain syndrome and has become debilitated from chronic deconditioning. States that she is "been bedridden" however her leg movements have improved with the introduction of a higher dose of steroids. She obviously will need advanced and intense rehabilitation. Since that there may be some degree of depression however patient states that she enjoys living to see her grandchildren. There is no evidence to support suicidal ideation. She has had physical therapy and occupational therapy here in the hospital and this should continue. Medications: Medications have been reconciled. Please see list. I have attempted to contact the practitioner who will be caring for this patient. They currently are unavailable but I we have their phone number and will try to contact them when they are available. Total discharge time 42 minutes Goals: Hemodialysis Antibiotics X 2 more days Physical therapy to gain strength in legs Follow abdominal pain. May need work up for vascular insufficiency Wean steroids but not to off: Suggest 5 mg in am and 2.5 mg in PM. Watch for recrudescence in symptoms with dose reduction. Pt. is DNR/DNI Time Spent: Greater than 30 Minutes - 40 Stroke Is this a Stroke Patient?: No Acute Heart Failure - Is this a Heart Failure Patient?: No
[2018-11-28] MEDS: VANCOMYCIN HCL 750 MG in DEXTROSE 5%-WATER 250 ML IV SCH (17:59)
[2018-11-28 18:57] VITALS: BP 134/73
--- NOTE | 2018-11-28 19:11 | PDOC PROGRESS REPORT ---
Subjective Progress Note for:: 11/28/18 Subjective:: I am seeing the patient during dialysis this afternoon. She appears to be well and more awake. Interestingly when I entered the room she told me that she has not seen me for a week but that I have actually been seeing her for the last 2 days now. However aside from that she is otherwise answers appropriately to questions. She states that she still have some abdominal pain but has improved. Of note she does not appear to be in pain at all. She is tolerating dialysis currently without any problems no other complaints. Reason For Visit: PYELONEPHRITIS, SEPSIS Physical Exam Vital Signs: Temp Pulse Resp BP Pulse Ox 97.6 F 67 14 142/66 H 98 11/27/18 12:00 11/28/18 12:00 11/28/18 12:00 11/28/18 12:00 11/28/18 12:00 Intake & Output 11/27/18 11/28/18 11/29/18 06:59 06:59 06:59 Intake Total 490 1130 200 Output Total 2200 25 Balance -1710 1105 200 Weight 80.9 kg 81.3 kg Vitals during dialysis: Blood pressure 139/71, pulse rate of 61, blood flow rate of 350 mL/min and dialysate flow rate of 800 mL /min. Exam: General appearance: PRESENT: no acute distress, cooperative, well-developed, well-nourished Head exam: PRESENT: atraumatic, normocephalic Eye exam: PRESENT: conjunctiva pale, PERRLA. ABSENT: scleral icterus Neck exam: ABSENT: JVD Respiratory exam: PRESENT: Diminished breath sounds. ABSENT: crackles, rales, rhonchi, unlabored, wheezes Cardiovascular exam: PRESENT: Regular rate rhythm -+S1, +S2. ABSENT: diastolic murmur, systolic murmur GI/Abdominal exam: PRESENT: normal bowel sounds, soft. There is very mild diffuse tenderness on her abdomen. ABSENT: guarding, mass, Extremities exam: Grade 2 bilateral lower extremity pitting edema Neurological exam: PRESENT: alert, awake, oriented to person, place and time. Skin exam: PRESENT: dry, warm, Cardiovascular exam: PRESENT: +S1, +S2 GI/Abdominal exam: PRESENT: normal bowel sounds, rebound - Mild., soft, tenderness - In the lower quadrants.. ABSENT: distended, guarding, organomegaly Results Laboratory Results: 10/09/19 03:45 11/28/18 03:45 11/28/18 11/28/18 03:45 03:45 WBC 11.4 H RBC 3.27 L Hgb 9.0 L Hct 29.0 L MCV 89 MCH 27.6 MCHC 31.1 L RDW 20.3 H Plt Count 443 Seg Neutrophils % 83.7 H Sodium 134.6 L Potassium 4.5 Chloride 99 Carbon Dioxide 24 Anion Gap 12 BUN 39 H Creatinine 4.02 H Est GFR ( Amer) 14 L Glucose 285 H Calcium 9.4 Phosphorus 6.3 H Magnesium 1.7 11/23/18 14:30 Blood Blood Culture - Final NO GROWTH IN 5 DAYS 11/23/18 15:00 Blood Blood Culture - Final NO GROWTH IN 5 DAYS Impressions: Foot X-Ray 11/17/18 00:00 IMPRESSION: NEGATIVE STUDY OF THE RIGHT FOOT. NO RADIOGRAPHIC EVIDENCE OF ACUTE INJURY. Shoulder X-Ray 11/22/18 00:00 IMPRESSION: No acute findings Abdomen/Pelvis CT 11/23/18 00:00 IMPRESSION: 1. Mild bilateral pleural effusions, left greater than right. Increased right basilar ground-glass attenuation likely infectious/inflammatory. 2. No evidence of renal abscess. No significant hydronephrosis. 3. Diffuse anasarca with mild volume ascites suggestive of volume overload. 4. No significant contrast excretion on delayed imaging compatible with renal failure. Chest X-Ray 11/25/18 18:18 IMPRESSION: Fluid overload or congestive failure Assessment & Plan - Diagnosis (1) Sepsis Qualifiers: Sepsis type: Escherichia coli Sepsis acute organ dysfunction status: [facility] acute organ dysfunction Qualified Code(s): A41.51 - Sepsis due to E scherichia coli [E. coli] Is this a current diagnosis for this admission?: Yes Plan: Patient with positive urine culture with ESBL E. coli and presumed acute pyelonephritis and pneumonia. Currently on meropenem, vancomycin and fluconazole per bicycle technician service. Patient is to complete the course of meropenem and vancomycin for couple more days per bicycle technician. (2) ESRD (end stage renal disease) Is this a current diagnosis for this admission?: Yes Plan: We will do dialysis today for 3 hours, using the patient's AV fistula, with 2 potassium bath, blood flow rate of 350 mL per minute, dialysate flow rate of 500 mL per minute, ultrafiltration 3 L as tolerated, no heparin and Procrit with 20,000 units during dialysis intravenously. Treatment plan discussed with her dialysis nurse. Patient will be monitored throughout dialysis treatment and adjust prescription accordingly. (3) Pyelonephritis Is this a current diagnosis for this admission?: Yes Plan: CT scan of the abdomen reveals no renal abscess. Continue IV antibiotics. (4) Hyperphosphatemia Is this a current diagnosis for this admission?: Yes (5) HCAP (healthcare-associated pneumonia) Is this a current diagnosis for this admission?: Yes Plan: On antibiotics. (6) Anemia due to end stage renal disease Is this a current diagnosis for this admission?: Yes Plan: We will give Procrit during dialysis treatment. (7) Abdominal pain Qualifiers: Abdominal location: generalized Qualified Code(s): R10.84 - Generalized abdominal pain Is this a current diagnosis for this admission?: Yes Plan: CT scan of the abdomen did not really reveal any specific pathology that could explain her diffuse abdominal pain. This is improved since admission. (8) Hypoadrenalism Is this a current diagnosis for this admission?: Yes Plan: Adrenal insufficiency was considered and was treated with hydrocortisone per bicycle technician service. Patient's current blood pressure is now within acceptable limits. (9) Hypoglycemia Is this a current diagnosis for this admission?: Yes Plan: Resolved. (10) Hypoalbuminemia Is this a current diagnosis for this admission?: Yes Plan: Encourage patient to increase protein intake. - Notes Notes: Patient is being discharged back to [facility]. I do not see any contraindication from renal standpoint from doing so. Patient to continue outpatient chronic dialysis treatment on Mondays, Wednesdays and Fridays so next dialysis will be on Monday after today. - Time Time with patient: 15-25 minutes
== END 2018-11-28 19:30 | DRG 871 ==
LOC: ER 13:46 → EH 17:37 → 3S 19:45 → ICU 11-25 17:52
PROVIDERS: ADMIT Internal Medicine Critical Care Medicine; ATTEND Internal Medicine Critical Care Medicine
PROC: 5A1D70Z Performance of Urinary Filtration, Intermittent, Less than 6 Hours Per Day (ICD-10-PCS; principal; 2018-11-16)
PROC: 30233N1 Transfusion of Nonautologous Red Blood Cells into Peripheral Vein, Percutaneous Approach (ICD-10-PCS; 2018-11-22)
DX: A41.51 Sepsis due to Escherichia coli [E. coli] (principal); N18.6 End stage renal disease; R65.21 Severe sepsis with septic shock; G93.41 Metabolic encephalopathy; I12.0 Hypertensive chronic kidney disease with stage 5 chronic kidney disease or end stage renal disease; F11.20 Opioid dependence, uncomplicated; N12 Tubulo-interstitial nephritis, not specified as acute or chronic; Z16.12 Extended spectrum beta lactamase (ESBL) resistance; N13.4 Hydroureter; E27.49 Other adrenocortical insufficiency; E11.22 Type 2 diabetes mellitus with diabetic chronic kidney disease; I25.10 Atherosclerotic heart disease of native coronary artery without angina pectoris; K21.9 Gastro-esophageal reflux disease without esophagitis; E11.649 Type 2 diabetes mellitus with hypoglycemia without coma; G89.29 Other chronic pain; B96.20 Unspecified Escherichia coli [E. coli] as the cause of diseases classified elsewhere; I48.91 Unspecified atrial fibrillation; J44.9 Chronic obstructive pulmonary disease, unspecified; Z66 Do not resuscitate; D63.1 Anemia in chronic kidney disease; L89.610 Pressure ulcer of right heel, unstageable; Z99.2 Dependence on renal dialysis; L89.621 Pressure ulcer of left heel, stage 1; R19.7 Diarrhea, unspecified; M25.512 Pain in left shoulder; R10.31 Right lower quadrant pain; Z79.02 Long term (current) use of antithrombotics/antiplatelets; R15.1 Fecal smearing; L30.8 Other specified dermatitis; N20.0 Calculus of kidney; E83.39 Other disorders of phosphorus metabolism; E88.09 Other disorders of plasma-protein metabolism, not elsewhere classified; Z74.01 Bed confinement status; N94.89 Other specified conditions associated with female genital organs and menstrual cycle; M48.061 Spinal stenosis, lumbar region without neurogenic claudication; T38.0X5A Adverse effect of glucocorticoids and synthetic analogues, initial encounter; Z88.8 Allergy status to other drugs, medicaments and biological substances; Z82.49 Family history of ischemic heart disease and other diseases of the circulatory system; Z83.3 Family history of diabetes mellitus; Z86.718 Personal history of other venous thrombosis and embolism
CPT/HCPCS: 36415; 36430; 71045; 74176; 74177; 80048; 80053; 80069; 80202; 81001; 82533; 82607; 82728; 82746; 82803; 82962; 83540; 83550; 83605; 83735; 84100; 85025; 85027; 85045; 85610; 86850; 86900; 86901; 86920; 86922; 87040; 87045; 87086; 87088; 87186; 87205; 87324; 87449; 87804; 93005; 93010; 94640; 94799; 96365; 96367; 99285; J1170; J1450; J1644; J1720; J1815; J2185; J2270; J2543; J2930; J3370; J3490; J7030; J7040; J7042; J7060; J7620; P9016; Q5105; S0164

== ENCOUNTER 2019-01-10 21:36 | Emergency (ER) | payer MEDICARE ==
[2019-01-10] MEDS ORDERED: HYDROMORPHONE HCL INJ/PF 2 MG/ML AMPULE IV ONE (22:28)
[2019-01-10] MEDS ORDERED: ONDANSETRON HCL INJ/PF 4 MG/2 ML SDV IV ONE (22:28)
--- NOTE | 2019-01-10 22:31 | ER Document Report ---
ED Fall - General Chief Complaint: Fall Injury Stated Complaint: FRACTURED LEFT ARM Time Seen by Provider: 01/10/19 22:22 Primary Care Provider: ADITYA HARDING MD [Primary Care Provider] - Follow up as needed Notes: Patient is a 58-year-old female that comes emergency department for chief complaint of a fall, she states she tripped and fell back and landed on her right shoulder and hit her head on the ground. This happened at about 6:30 PM tonight. She comes by EMS from long-term care facility. She states she was not knocked out but she has a bad headache, she denies neck pain, focal numbness or weakness, hip pain, chest pain, abdominal pain, incontinence. She states she is on aspirin and "another blood thinner", cannot remember the name. TRAVEL OUTSIDE OF THE [place] IN LAST 30 DAYS: No - Related data Allergies/Adverse Reactions: aloe vera Allergy (Verified 09/11/18 08:46) No Known Drug Allergies Allergy (Verified 09/11/18 08:46) Past Medical History - General Information source: Patient, Relative - Social History Smoking Status: Unknown if Ever Smoked Frequency of alcohol use: None Drug Abuse: None Lives with: Family Family History: CAD, DM, Hypertension. denies: Malignancy Patient has suicidal ideation: No Patient has homicidal ideation: No - Past Medical History Cardiac Medical History: Reports: Hx Atrial Fibrillation, Hx Coronary Artery Disease, Hx DVT, Hx Hypercholesterolemia, Hx Hypertension Pulmonary Medical History: Reports: Hx Bronchitis, Hx COPD, Hx Pneumonia Denies: Hx Asthma Neurological Medical History: Denies: Hx Seizures Endocrine Medical History: Reports: Hx Diabetes Mellitus Type 2. Denies: Hx Diabetes Mellitus Type 1, Hx Hyperthyroidism, Hx Hypothyroidism Renal/ Medical History: Reports: Hx End Stage Renal Disease, Hx Hemodialysis. Denies: Hx Peritoneal Dialysis GI Medical History: Reports: Hx Gastroesophageal Reflux Disease, Hx Ulcer. Denies: Hx Cirrhosis, Hx Hepatitis Musculoskeletal Medical History: Denies Hx Arthritis, Denies Hx Fibromyalgia Skin Medical History: Denies Hx Eczema, Denies Hx Psoriasis Psychiatric Medical History: Reports: Hx Depression Infectious Medical History: Denies: Hx Hepatitis Past Surgical History: Reports: Hx Abdominal Surgery - small bowel resection, Hx Cardiac Surgery - cabg x2, Hx Section - x3, Hx Coronary Artery Bypass Graft, Other - Vena cava filter, abdominal surgery for repair of perforated stomach ulcer - Immunizations Immunizations up to date: Yes Hx Pneumococcal Vaccination: 11/20/16 Review of Systems - Review of Systems Constitutional: No symptoms reported EENT: No symptoms reported Cardiovascular: No symptoms reported Respiratory: No symptoms reported Gastrointestinal: No symptoms reported Genitourinary: No symptoms reported Female Genitourinary: No symptoms reported Musculoskeletal: See HPI Skin: No symptoms reported Hematologic/Lymphatic: No symptoms reported Neurological/Psychological: See HPI Physical Exam - Vital signs Vitals: Temp Pulse Resp BP Pulse Ox 99.2 F 88 16 150/86 H 96 01/10/19 21:46 01/10/19 21:46 01/10/19 21:46 01/10/19 21:46 01/10/19 21:46 - Notes Notes: GENERAL: Alert, interacts well. No acute distress. HEAD: Normocephalic, atraumatic. EYES: Pupils equal, round, and reactive to light. Extraocular movements intact. ENT: Oral mucosa moist, tongue midline. Oropharynx unremarkable. Airway patent. Nares patent, no nasal septal hematoma, TM's intact. NECK: Full range of motion. Supple. Trachea midline. LUNGS: Clear to auscultation bilaterally, no wheezes, rales, or rhonchi. No respiratory distress. HEART: Regular rate and rhythm. No murmur ABDOMEN: Soft, non-tender. Non-distended. Bowel sounds present in all 4 quadrants. GENITOURINARY: Deferred EXTREMITIES: Very tender to the left shoulder and proximal humerus, limited range of motion in this area. Normal thermal cutter hand, normal distal neurovascular exam. All other extremities are unremarkable on exam. BACK: no cervical, thoracic, lumbar midline tenderness. No signs of trauma. No saddle anesthesia, normal distal neurovascular exam. Moves all extremities in full range of motion. NEUROLOGICAL: Alert and oriented x3. Normal speech. Cranial nerves II through XII grossly intact. PSYCH: Normal affect, normal mood. SKIN: Warm, dry, normal turgor. No rashes or lesions noted. Course - Re-evaluation Re-evalutation: Patient has no obvious signs of trauma or noted tenderness in any location except the left shoulder. There is normal distal neurovascular exam, no significant swelling to the area but patient does have limited range of motion and pain to this area. CAT scan of the head negative without any acute findings. X-rays of the shoulder and humerus show proximal humeral fracture at the neck. Discussed results with patient and daughter at bedside. Patient is much more comfortable after pain medications. Patient will be provided with a sling, she will follow head injury precautions, she will follow-up with orthopedics closely, and she will return for any concerning symptoms. These were discussed in detail. Patient and daughter state appreciation and agreement. - Vital Signs Vital signs: Temp Pulse Resp BP Pulse Ox 99.4 F 84 18 150/112 H 91 L 01/11/19 00:34 01/11/19 00:34 01/11/19 00:34 01/11/19 00:34 01/11/19 00:34 Discharge - Discharge Clinical Impression: Fall Qualifiers: Encounter type: initial encounter Qualified Code(s): W19.XXXA - Unspecified fall, initial encounter Fracture of humeral head, left, closed Qualifiers: Encounter type: initial encounter Qualified Code(s): S42.292A - Other displaced fracture of upper end of left humerus, initial encounter for closed fracture Head injury Qualifiers: Encounter type: initial encounter Qualified Code(s): S09.90XA - Unspecified injury of head, initial encounter Condition: Stable Disposition: HOME, SELF-CARE Additional Instructions: Your imaging shows a humeral head fracture, no other concerning findings are seen. The imaging of your head does not show any concerning finding either. Wear the sling, take the pain medication as prescribed and replacement of your current pain medication, follow-up with your primary provider for additional management of this. Please call and follow-up closely with the orthopedics referral listed for additional management. Return if you worsen, see head injury precautions listed below. Head Injury Precautions At this point, there is no evidence that your head injury is serious. Observation is necessary, however. Limit activity for the first 24 hours. During the first 24 hours, check to see approximately every two to three hours that the patient is easily arousable, responds normally, and can perform common tasks such as walking without difficulty. Contact your doctor or go to the hospital if any of the following things occur: Persistent vomiting, difficulty in arousing the patient, worsening or continued headache, or failure to improve as expected. Head injuries can cause symptoms that persist for a few days or even a few weeks. Prescriptions: Morphine Sulfate [Morphine Ir 15 Mg Tablet] 15 mg PO TID PRN #12 tablet PRN Reason: Referrals: ADITYA HARDING MD [Primary Care Provider] - Follow up as needed
--- NOTE | 2019-01-10 22:34 | RADIOLOGY REPORT (SQ) ---
EXAM DESCRIPTION: [facility]Lex: XR HUMERUS, XR SHOULDER 2 OR MORE VIEWS CLINICAL HISTORY: 58 years Female, fall COMPARISON: None FINDINGS: Left shoulder 2 views: Acute fracture through the surgical neck with slight impaction. There is a shaft width medial displacement of the shaft relative to the humeral head. No dislocation of the humeral head. No a.c. subluxation. Left humerus 2 views: The distal humerus is intact. No additional fractures. No hyperdense foreign bodies. IMPRESSION: Acute fracture through the surgical neck of the proximal left humerus:
--- NOTE | 2019-01-10 23:22 | RADIOLOGY REPORT (SQ) ---
EXAM DESCRIPTION: CT HEAD WITHOUT IV CONTRAST COMPLETED DATE/TME: 01/10/2019 22:28 CLINICAL HISTORY: 58 years, Female, fall, head injury, headache, reports blood thinner COMPARISON: Prior CT head from 11/12/2018 TECHNIQUE: Noncontrast CT of the head was acquired. Coronal and sagittal reformations were created. Images stored on PACS. All CT scanners at this facility use dose modulation, iterative reconstruction, and/or weight based dosing when appropriate to reduce radiation dose to as low as reasonably achievable (ALARA). [facility]: Dose Right [facility]: CareDose [facility]: Dose Right [facility]: Teradose 4D [facility]: RatherGather LIMITATIONS: None. FINDINGS: Evaluation of the brain parenchyma reveals mild/moderate periventricular and patchy subcortical white matter low attenuation. No acute intracranial hemorrhage, mass effect, or extra-axial fluid is seen. The ventricles and sulcal spaces are normal in size and configuration. Globes and orbits show no acute abnormality. Paranasal sinuses and mastoid air cells are clear. There is deformity involving the right lamina papyracea, likely chronic. No depressed skull fractures. Calcifications are evident about the bilateral vertebral and parasellar carotid arteries. IMPRESSION: No acute intracranial abnormality. [id number] chronic microvascular ischemic change. TECHNICAL DOCUMENTATION: Quality ID # [id number]: Final reports with documentation of one or more dose reduction techniques (e.g., Automated exposure control, adjustment of the mA and/or kV according to patient size, use of iterative reconstruction technique) copyright 2010 [employer]- All Rights Reserved
[2019-01-11 00:37] VITALS: BP 150/112
[2019-01-11] MEDS ORDERED: HYDROMORPHONE HCL INJ/PF 2 MG/ML AMPULE IV ONE (02:36)
== END 2019-01-11 02:45 | disposition home or self-care (01) ==
LOC: ER 21:36
DX: S42.212A Unspecified displaced fracture of surgical neck of left humerus, initial encounter for closed fracture (principal); S09.90XA Unspecified injury of head, initial encounter; W19.XXXA Unspecified fall, initial encounter; Y92.129 Unspecified place in nursing home as the place of occurrence of the external cause; R51 Headache; I25.10 Atherosclerotic heart disease of native coronary artery without angina pectoris; J44.9 Chronic obstructive pulmonary disease, unspecified; I12.0 Hypertensive chronic kidney disease with stage 5 chronic kidney disease or end stage renal disease; E11.22 Type 2 diabetes mellitus with diabetic chronic kidney disease; N18.6 End stage renal disease; Z99.2 Dependence on renal dialysis; Z79.82 Long term (current) use of aspirin; Z79.899 Other long term (current) drug therapy; Z91.048 Other nonmedicinal substance allergy status
CPT/HCPCS: 96376; 99285; 96374; 96375; 73060; 73030; 70450; J1170 ×2; J2405

== ENCOUNTER 2019-03-22 16:33 | Inpatient (IN) | payer MEDICARE, MEDICAID ==
--- NOTE | 2019-03-22 18:47 | RADIOLOGY REPORT (SQ) ---
EXAM DESCRIPTION: CHEST SINGLE VIEW COMPLETED DATE/TIME: 03/22/2019 6:36 pm REASON FOR STUDY: shortness of breath COMPARISON: 11/25/2018 EXAM PARAMETERS: NUMBER OF VIEWS: One view. TECHNIQUE: Single frontal radiographic view of the chest acquired. RADIATION DOSE: NA LIMITATIONS: None. FINDINGS: LUNGS AND PLEURA: No opacities, masses or pneumothorax. No pleural effusion. MEDIASTINUM AND HILAR STRUCTURES: No masses. Contour normal. HEART AND VASCULAR STRUCTURES: Heart normal in size. Normal vasculature. BONES: Sternal wires. HARDWARE: Venous access catheter tip in the right atrium. OTHER: No other significant finding. IMPRESSION: NO ACUTE RADIOGRAPHIC FINDING IN THE CHEST. TECHNICAL DOCUMENTATION: JOB ID: [id number] [employer]- All Rights Reserved Reading location - IP/workstation name: [email or web address]
[2019-03-22 18:51] LABS: INTERNATIONAL RATION (INR) 1.14; PROTHROMBIN TIME 14.6 SEC (11.4-15.4)
[2019-03-22 18:53] LABS: ABSOLUTE BASOPHILS # (AUTO) 0.1 10^3/uL (0.0-0.2); ABSOLUTE EOSINOPHILS # (AUTO) 0.1 10^3/uL (0.0-0.6); ABSOLUTE LYMPHOCYTES (AUTO) 0.6 10^3/uL (0.5-4.7); ABSOLUTE MONOCYTES (AUTO) 0.5 10^3/uL (0.1-1.4); ABSOLUTE NEUT (AUTO) 5.6 10^3/uL (1.7-8.2); HEMATOCRIT 30.5 % (36.0-47.0); HEMOGLOBIN 9.4 g/dL (12.0-15.5); LYMPHOCYTES % (AUTO) 9.5 % (13-45); MEAN CORPUSCULAR VOLUME 94 fl (80-97); MONOCYTES % (AUTO) 6.7 % (3-13); PLATELET COUNT 390 10^3/uL (150-450); RED BLOOD COUNT 3.26 10^6/uL (3.72-5.28); RED CELL DISTRIBUTION WIDTH 20.9 % (11.5-14.0); SEGMENTED NEUTROPHILS % (AUTO) 81.8 % (42-78); TOTAL CELLS COUNTED % (AUTO) 100 %; WHITE BLOOD COUNT 6.8 10^3/uL (4.0-10.5)
[2019-03-22 18:57] LABS: ALBUMIN 3.1 g/dL (3.5-5.0); ALKALINE PHOSPHATASE 151 U/L (38-126); ANION GAP 12 (5-19); ASPARTATE AMINO TRANSFERASE 37 U/L (14-36); BILIRUBIN,DIRECT 0.6 mg/dL (0.0-0.4); BILIRUBIN,TOTAL 0.6 mg/dL (0.2-1.3); BLOOD UREA NITROGEN 11 mg/dL (7-20); CALCIUM 8.2 mg/dL (8.4-10.2); CARBON DIOXIDE 28 mmol/L (22-30); CHLORIDE 97 mmol/L (98-107); GLUCOSE 118 mg/dL (75-110); POTASSIUM 4.3 mmol/L (3.6-5.0); TOTAL PROTEIN 8.2 g/dL (6.3-8.2)
[2019-03-22 19:00] LABS: APPEARANCE,URINE TURBID; BILIRUBIN,URINE NEGATIVE (NEGATIVE); COLOR,URINE YELLOW; GLUCOSE, URINE NEGATIVE (NEGATIVE); KETONES,URINE NEGATIVE (NEGATIVE); PROTEIN,URINE 100 mg/dL (NEGATIVE); URINE SPECIFIC GRAVITY 1.018; UROBILINOGEN,URINE NEGATIVE mg/dL (<2.0)
[2019-03-22] MEDS ORDERED: ACETAMINOPHEN 325 MG TABLET PO ONE (19:27)
[2019-03-22] MEDS ORDERED: VANCOMYCIN HCL INJ 1000 MG VIAL IV ONE (19:30)
[2019-03-22] MEDS ORDERED: PIPERACILLIN/TAZOBACTAM 4.5 GM VIAL IV ONE (19:30)
[2019-03-22] MEDS ORDERED: RINGERS SOLUTION,LACTATED 1,000 ML IV ONE (19:31)
[2019-03-22 19:35] LABS: BACTERIA,URINE 4+ /HPF
--- NOTE | 2019-03-22 19:39 | ER Document Report ---
ED General - General Chief Complaint: Fever Stated Complaint: FEVER Time Seen by Provider: 03/22/19 19:14 Primary Care Provider: ADITYA HARDING MD [Primary Care Provider] - Follow up as needed TRAVEL OUTSIDE OF THE [place] IN LAST 30 DAYS: No - HPI Notes: 58-year-old female jail patient on DNR status with end-stage renal disease sent here from [place] after she was noted to have some mild altered mental status and fever. Patient was also complaining of cough. She has a PermCath in situ. Ran dialysis session today. No other specific complaints. - Related Data Allergies/Adverse Reactions: aloe vera Allergy (Verified 09/11/18 08:46) No Known Drug Allergies Allergy (Verified 09/11/18 08:46) Past Medical History - General Information source: Patient, Relative, [facility] Records - Social History Smoking Status: Unknown if Ever Smoked Chew tobacco use (# tins/day): No Frequency of alcohol use: None Drug Abuse: None Family History: CAD, DM, Hypertension. denies: Malignancy Patient has suicidal ideation: No Patient has homicidal ideation: No - Past Medical History Cardiac Medical History: Reports: Hx Atrial Fibrillation, Hx Coronary Artery Disease, Hx DVT, Hx Hypercholesterolemia, Hx Hypertension Pulmonary Medical History: Reports: Hx Bronchitis, Hx COPD, Hx Pneumonia Denies: Hx Asthma Neurological Medical History: Denies: Hx Seizures Endocrine Medical History: Reports: Hx Diabetes Mellitus Type 2. Denies: Hx Diabetes Mellitus Type 1, Hx Hyperthyroidism, Hx Hypothyroidism Renal/ Medical History: Reports: Hx End Stage Renal Disease, Hx Hemodialysis. Denies: Hx Peritoneal Dialysis GI Medical History: Reports: Hx Gastroesophageal Reflux Disease, Hx Ulcer. Denies: Hx Cirrhosis, Hx Hepatitis Musculoskeletal Medical History: Denies Hx Arthritis, Denies Hx Fibromyalgia Skin Medical History: Denies Hx Eczema, Denies Hx Psoriasis Psychiatric Medical History: Reports: Hx Depression Infectious Medical History: Denies: Hx Hepatitis Past Surgical History: Reports: Hx Abdominal Surgery - small bowel resection, Hx Cardiac Surgery - cabg x2, Hx Section - x3, Hx Coronary Artery Bypass Graft, Other - Vena cava filter, abdominal surgery for repair of perforated stomach ulcer - Immunizations Immunizations up to date: Yes Hx Pneumococcal Vaccination: 11/20/16 Review of Systems - Review of Systems Notes: Constitutional: As per HPI. HENT: Negative for sore throat. Eyes: Negative for visual changes. Cardiovascular: Negative for chest pain. Respiratory: As per HPI. Gastrointestinal: Negative for abdominal pain, vomiting or diarrhea. Genitourinary: Negative for dysuria. Musculoskeletal: Negative for back pain. Skin: Negative for rash. Neurological: Negative for headaches, weakness or numbness. 10 point ROS negative except as marked above and in HPI. Physical Exam - Vital signs Vitals: Resp Pulse Ox 16 98 03/22/19 17:13 03/22/19 17:13 - Notes Notes: GENERAL: Chronically ill-appearing elderly female. SKIN: Warm with some diminished turgor no rashes. HEAD: Normocephalic atraumatic. EYES: PERRLA. EOMI. Conjunctivae and sclerae clear. EARS: CANALS AND TMS CLEAR. NOSE: CLEAR. MOUTH: Moist mucosa. Good dentition. No stridor or edema. No drooling. NECK: Supple. No masses or thyromegaly. No adenopathy. Carotids 2+ without bruits. No JVD. BACK: Symmetrical without tenderness. CHEST: PermCath in place right subclavian area. No redness tenderness or drainage associated with this. Respirations unlabored. Rattling cough present. Coarse rales right base. Symmetrical breath sounds. L. HEART: Regular rhythm. No murmur gallop or rub. ABDOMEN: Minimal tenderness right upper quadrant on deep palpation. Soft without masses, organomegaly or rebound. Bowel sounds normally active. No bruits. GENITALIA: Deferred. EXTREMITIES: No edema. No calf tenderness. Cap refill less than 1.5 seconds. Dorsalis pedis and posterior tibial pulses 3+ and symmetrical. NEUROLOGICAL: GCS 14. Disoriented to time. Mildly tremulous. Alert and oriented x3. Fluent speech. Cranial nerves II through XII intact. Sensorimotor and cerebellar normal. Normal tone. PSYCHIATRIC: Anxious affect. Course - Vital Signs Vital signs: Temp Pulse Resp BP Pulse Ox 102.5 F H 120 H 17 141/122 H 96 03/22/19 20:02 03/22/19 17:40 03/22/19 19:01 03/22/19 19:01 03/22/19 19:01 - Laboratory Result Diagrams: 03/22/19 17:19 03/22/19 17:19 Laboratory results interpreted by me: 03/22/19 03/22/1903/22/20 17:19 17:19 17:19 RBC 3.26 L Hgb 9.4 L Hct 30.5 L MCHC 31.0 L RDW 20.9 H Lymph % (Auto) 9.5 L Seg Neutrophils % 81.8 H Chloride 97 L Creatinine 2.23 H Est GFR ( Amer) 28 L Est GFR (MDRD) Non-Af 23 L Glucose 118 H Calcium 8.2 L Direct Bilirubin 0.6 H AST 37 H Alkaline Phosphatase 151 H Albumin 3.1 L Urine Protein 100 H Urine Blood SMALL H Leukocyte Esterase Rfl MODERATE H Discharge - Discharge Clinical Impression: Acute pyelonephritis Condition: Fair Disposition: ADMITTED INPATIENT Admitting Provider: Steve (Hospitalist) Unit Admitted: Telemetry Referrals: ADITYA HARDING MD [Primary Care Provider] - Follow up as needed
--- NOTE | 2019-03-22 20:18 | RADIOLOGY REPORT (SQ) ---
CT ABDOMEN PELVIS WITHOUT IV CONTRAST EXAM DATE: 03/22/2019 7:28 PM [employer] HISTORY: Left lower quadrant pain. COMPARISON: 11/23/2018 TECHNIQUE: CT scan of the abdomen and pelvis was performed without IV contrast. This exam was performed according to our departmental dose-optimization program, which includes automated exposure control, adjustment of the mA and/or kV according to patient size and/or use of iterative reconstruction technique. FINDINGS: There is a moderate left pleural effusion with adjacent atelectasis. Trace right pleural effusion. No pericardial effusion. The gallbladder is contracted, limiting evaluation. Liver, spleen, pancreas, adrenal glands, kidneys, and uterus are grossly unremarkable. There is diffuse circumferential wall thickening of the urinary bladder. Moderate amount stool throughout the colon. No small bowel obstruction or appendicitis. No intraperitoneal free fluid or free air is seen. The aorta is normal caliber and contains atherosclerotic calcifications. An infrarenal IVC filter is noted. Minimal degenerative changes of lumbar spine. Mild body wall anasarca. IMPRESSION: Diffuse inflammatory changes of the urinary bladder suggestive of cystitis.
[2019-03-22] MEDS ORDERED: DEXTROSE 40% GEL 15 GM TUBE PO PRN ×2 (20:39)
[2019-03-22] MEDS ORDERED: ACETAMINOPHEN 325 MG TABLET PO PRN (20:39)
[2019-03-22] MEDS ORDERED: GLUCAGON,HUMAN RECOMB 1 MG INJ IM PRN (20:39)
[2019-03-22] MEDS ORDERED: MAG HYDROX/AL HYDROX/SIMETH SUSP 30 ML UDCUP PO PRN (20:39)
[2019-03-22] MEDS ORDERED: DEXTROSE 50%-WATER 25 GM/50 ML DISP.SYRIN IV PRN ×2 (20:39)
[2019-03-22] MEDS ORDERED: NORMAL SALINE 1000 ML 1,000 ML IV SCH (20:45)
[2019-03-22 20:52] LABS: A TYPE INFLUENZA AG NEGATIVE (NEGATIVE); B INFLUENZA AG NEGATIVE (NEGATIVE)
[2019-03-22] MEDS ORDERED: IMIPENEM/CILASTATIN SODIUM 500 MG in NORMAL SALINE 100 ML IV SCH (21:00)
[2019-03-22] MEDS: INSULIN LISPRO 100 UNIT/ML 3 ML VIAL SUBCUT SCH (21:23)
[2019-03-22] MEDS: IMIPENEM/CILASTATIN SODIUM 500 MG in NORMAL SALINE 100 ML IV SCH (23:19)
[2019-03-22] MEDS: HEPARIN SOD (PORCINE) 5,000 UNIT/ML 1 ML VIAL SUBCUT SCH (23:19)
[2019-03-22] MEDS: NORMAL SALINE 1000 ML 1,000 ML IV PRN (23:47)
[2019-03-22 23:52] LABS: ANION GAP 11 (5-19); BLOOD UREA NITROGEN 14 mg/dL (7-20); CALCIUM 7.3 mg/dL (8.4-10.2); CARBON DIOXIDE 24 mmol/L (22-30); CHLORIDE 100 mmol/L (98-107); GLUCOSE 173 mg/dL (75-110); POTASSIUM 4.3 mmol/L (3.6-5.0)
[2019-03-23 02:51] LABS: ABSOLUTE BASOPHILS # (AUTO) 0.1 10^3/uL (0.0-0.2); ABSOLUTE LYMPHOCYTES (AUTO) 0.6 10^3/uL (0.5-4.7); ABSOLUTE MONOCYTES (AUTO) 0.4 10^3/uL (0.1-1.4); ABSOLUTE NEUT (AUTO) 3.5 10^3/uL (1.7-8.2); BASOPHILS % (AUTO) 1.3 % (0-2); EOSINOPHILS % (AUTO) 0.1 % (0-6); HEMATOCRIT 27.2 % (36.0-47.0); HEMOGLOBIN 8.4 g/dL (12.0-15.5); LYMPHOCYTES % (AUTO) 12.4 % (13-45); MEAN CORPUSCULAR HEMOGLOBIN 28.5 pg (27.0-33.4); MEAN CORPUSCULAR VOLUME 92 fl (80-97); MONOCYTES % (AUTO) 8.7 % (3-13); PLATELET COUNT 291 10^3/uL (150-450); RED BLOOD COUNT 2.95 10^6/uL (3.72-5.28); RED CELL DISTRIBUTION WIDTH 20.6 % (11.5-14.0); SEGMENTED NEUTROPHILS % (AUTO) 77.5 % (42-78); TOTAL CELLS COUNTED % (AUTO) 100 %; WHITE BLOOD COUNT 4.5 10^3/uL (4.0-10.5)
[2019-03-23] MEDS: HEPARIN SOD (PORCINE) 5,000 UNIT/ML 1 ML VIAL SUBCUT SCH ×3 (05:37→22:34)
[2019-03-23] MEDS: NORMAL SALINE 1000 ML 1,000 ML IV PRN (05:38)
--- NOTE | 2019-03-23 05:40 | PDOC H&P ---
History of Present Illness Admission Date/PCP: 03/22/19 20:56 ADITYA HARDING MD Patient complains of: Fever History of Present Illness: ENEIDA JOHNSON is a 58 year old female intermediate resident with a past medical history of anemia, hypertension, dyslipidemia, coronary artery disease, COPD, insulin-dependent diabetes, bedbound state, opiate dependent chronic pain and oliguric end-stage renal failure on hemodialysis Monday. Patient was transferred to the emergency department from dialysis for fever. She is found to have pyuria without hydronephrosis or abscess. She started on empiric antibiotics and referred to the hospitalist for admission. She is a poor historian is unaware of recent antibiotics or medication changes. Daughter is at bedside who states her memory has been poor for several months. Her CODE STATUS is verified to be DNR Past Medical History Cardiac Medical History: Reports: Atrial Fibrillation, Coronary Artery Disease, DVT, Hyperlipidema, Hypertension Pulmonary Medical History: Reports: Bronchitis, Chronic Obstructive Pulmonary Disease (COPD), Pneumonia Denies: Asthma Neurological Medical History: Denies: Seizures Endocrine Medical History: Reports: Diabetes Mellitus Type 2 Denies: Diabetes Mellitus Type 1, Hyperthyroidism, Hypothyroidism Renal/ Medical History: Reports: End Stage Renal Disease GI Medical History: Reports: Gastroesophageal Reflux Disease Denies: Cirrhosis, Hepatitis Musculoskeltal Medical History: Denies: Arthritis, Fibromyalgia Skin Medical History: Denies: Eczema, Psoriasis Psychiatric Medical History: Reports: Depression Hematology: Reports: Anemia - Chronic secondary to renal disease Denies: Bleeding Tendencies Past Surgical History Past Surgical History: Reports: Section - x3, Coronary Artery Bypass Graft, Other - Vena cava filter, abdominal surgery for repair of perforated stomach ulcer Social History Information Source: Patient Lives with: Snf Smoking Status: Former Smoker Electronic Cigarette use?: No Number of Years Smokin Last Time Smoked: quit this past year Frequency of Alcohol Use: None Hx Recreational Drug Use: No Drugs: Marijuana Hx Prescription Drug Abuse: No - Advance Directive Resuscitation Status: Do Not Resuscitate Family History Family History: CAD, DM, Hypertension. denies: Malignancy Parental Family History Reviewed: Yes Children Family History Reviewed: Yes Sibling(s) Family History Reviewed.: Yes Medication/Allergy Allergies/Adverse Reactions: aloe vera Allergy (Verified 09/11/18 08:46) No Known Drug Allergies Allergy (Verified 09/11/18 08:46) Review of Systems ROS unobtainable: Due to mental status Physical Exam Vital Signs: Temp Pulse Resp BP Pulse Ox 97.9 F 69 16 132/69 H 94 03/23/19 04:20 03/23/19 04:20 03/23/19 04:20 03/23/19 04:20 03/23/19 04:20 Intake & Output 03/21/19 03/22/19 03/23/19 11:59 11:59 11:59 Intake Total 1000 Balance 1000 Weight 57.3 kg General appearance: PRESENT: cooperative, mild distress, well-developed Head exam: PRESENT: atraumatic, normocephalic Eye exam: PRESENT: conjunctiva pink, EOMI, PERRLA. ABSENT: scleral icterus Ear exam: PRESENT: normal external ear exam Mouth exam: PRESENT: moist, tongue midline Neck exam: ABSENT: carotid bruit, JVD, lymphadenopathy, thyromegaly Respiratory exam: PRESENT: clear to auscultation linda. ABSENT: rales, rhonchi, wheezes Cardiovascular exam: PRESENT: RRR. ABSENT: diastolic murmur, rubs, systolic murmur Pulses: PRESENT: normal dorsalis pedis pul Vascular exam: PRESENT: normal capillary refill GI/Abdominal exam: PRESENT: normal bowel sounds, soft. ABSENT: distended, guarding, mass, organolmegaly, rebound, tenderness Rectal exam: PRESENT: deferred Extremities exam: PRESENT: other - 2 cm right sided heel ulcer Neurological exam: PRESENT: alert, awake, oriented to person, oriented to place, oriented to situation, CN II-XII grossly intact. ABSENT: motor sensory deficit Psychiatric exam: PRESENT: appropriate affect, normal mood, unusual affect. ABSENT: homicidal ideation, suicidal ideation Skin exam: PRESENT: erythema, other - 2 cm right sided heel ulcer Results Laboratory Results: 03/23/19 02:40 03/22/19 23:22 03/22/19 03/22/19 03/22/19 17:19 17:19 17:19 WBC 6.8 RBC 3.26 L Hgb 9.4 L Hct 30.5 L MCV 94 MCH 29.0 MCHC 31.0 L RDW 20.9 H Plt Count 390 Seg Neutrophils % 81.8 H Sodium 137.3 Potassium 4.3 Chloride 97 L Carbon Dioxide 28 Anion Gap 12 BUN 11 Creatinine 2.23 H Est GFR ( Amer) 28 L Glucose 118 H Lactic Acid 1.6 Calcium 8.2 L Total Bilirubin 0.6 AST 37 H Alkaline Phosphatase 151 H Total Protein 8.2 Albumin 3.1 L Urine Color Urine Appearance Urine pH Ur Specific Polaris Urine Protein Urine Glucose (UA) Urine Ketones Urine Blood 03/22/19 03/22/19 03/22/19 17:19 20:58 23:22 WBC RBC Hgb Hct MCV MCH MCHC RDW Plt Count Seg Neutrophils % Sodium Potassium Chloride Carbon Dioxide Anion Gap BUN Creatinine Est GFR ( Amer) Glucose Lactic Acid 1.1 0.7 Calcium Total Bilirubin AST Alkaline Phosphatase Total Protein Albumin Urine Color YELLOW Urine Appearance TURBID Urine pH 7.0 Ur Specific Polaris 1.018 Urine Protein 100 H Urine Glucose (UA) NEGATIVE Urine Ketones NEGATIVE Urine Blood SMALL H 03/22/19 03/23/19 03/23/19 23:22 02:40 02:40 WBC 4.5 RBC 2.95 L Hgb 8.4 L Hct 27.2 L MCV 92 MCH 28.5 MCHC 31.0 L RDW 20.6 H Plt Count 291 Seg Neutrophils % 77.5 Sodium 134.7 L Potassium 4.3 Chloride 100 Carbon Dioxide 24 Anion Gap 11 BUN 14 Creatinine 2.24 H Est GFR ( Amer) 27 L Glucose 173 H Lactic Acid 0.6 L Calcium 7.3 L Total Bilirubin AST Alkaline Phosphatase Total Protein Albumin Urine Color Urine Appearance Urine pH Ur Specific Polaris Urine Protein Urine Glucose (UA) Urine Ketones Urine Blood Impressions: Chest X-Ray 03/22/19 17:54 IMPRESSION: NO ACUTE RADIOGRAPHIC FINDING IN THE CHEST. Abdomen/Pelvis CT 03/22/19 19:28 IMPRESSION: Diffuse inflammatory changes of the urinary bladder suggestive of cystitis. Assessment and Plan - Diagnosis (1) Acute pyelonephritis Is this a current diagnosis for this admission?: Yes Plan: Empiric antibiotics, IV fluid challenge, follow-up CBC blood and urine culture (2) ESRD on hemodialysis Is this a current diagnosis for this admission?: Yes Plan: Oliguric, no evidence of volume overload, nephrology consult for dialysis Monday (3) Diabetes 1.5, managed as type 1 Is this a current diagnosis for this admission?: Yes Plan: Long-acting insulin with Humalog sliding scale as needed (4) Anemia Qualifiers: Chronic kidney disease stage: on chronic dialysis Is this a current diagnosis for this admission?: Yes Plan: Multifactorial complicated by iron deficiency. Follow-up anemia labs - Time Time Spent with patient: 25-34 minutes - Inpatient Certification Medical Necessity: Need Close Monitoring Due to Risk of Patient Decompensation
[2019-03-23 07:18] LABS: ABSOLUTE RETICS # 0.052 10^6/uL (0.028-0.122); RETICULOCYTE COUNT (AUTO) 1.57 % (0.66-2.85)
[2019-03-23 07:39] LABS: FOLATE > 20.00 ng/mL (>2.76)
[2019-03-23] MEDS: DOCUSATE SODIUM 100 MG CAPSULE PO SCH ×2 (09:09→18:18)
[2019-03-23] MEDS: INSULIN LISPRO 100 UNIT/ML 3 ML VIAL SUBCUT SCH ×3 (09:18→18:50)
[2019-03-23] MEDS: IMIPENEM/CILASTATIN SODIUM 500 MG in NORMAL SALINE 100 ML IV SCH ×2 (09:19→22:34)
[2019-03-23 09:28] LABS: C DIFFICILE GDH NEGATIVE (NEGATIVE)
[2019-03-23] MEDS: IPRATROPIUM/ALBUTEROL 0.5-2.5 MG/3 ML AMPUL NEB PRN (10:14)
--- NOTE | 2019-03-23 17:08 | PDOC PROGRESS REPORT ---
Subjective Progress Note for:: 03/23/19 Subjective:: ENEIDA JOHNSON is a 58 year old female residential resident with a past medical history of anemia, hypertension, dyslipidemia, coronary artery disease, COPD, insulin-dependent diabetes, bedbound state, opiate dependent chronic pain and oliguric end-stage renal failure on hemodialysis Monday. Patient was transferred to the emergency department from dialysis for fever. She is found to have pyuria without hydronephrosis or abscess. She started on empiric antibiotics and referred to the hospitalist for admission. She is a poor historian is unaware of recent antibiotics or medication changes. Daughter is at bedside who states her memory has been poor for several months. Her CODE STATUS is verified to be DNR 03/23/2019. No acute events overnight. Patient still complaining of abdominal pain and having diarrhea otherwise denies any fever, chills, shortness of breath, chest pain. Alert and oriented, cooperative with physical examination. Reason For Visit: UTI,SEPSIS,ESRD ON HD DIABETES Physical Exam Vital Signs: Temp Pulse Resp BP Pulse Ox 97.9 F 106 H 16 132/69 H 92 03/23/19 04:20 03/23/19 14:00 03/23/19 10:14 03/23/19 04:20 03/23/19 10:14 Intake & Output 03/22/19 03/23/19 03/24/19 06:59 06:59 06:59 Intake Total 2000 236 Output Total 200 2 Balance 1800 234 Weight 44.1 kg General appearance: PRESENT: no acute distress, well-developed, well-nourished Head exam: PRESENT: atraumatic, normocephalic Respiratory exam: PRESENT: clear to auscultation linda. ABSENT: rales, rhonchi, wheezes Cardiovascular exam: PRESENT: RRR. ABSENT: diastolic murmur, rubs, systolic murmur Pulses: PRESENT: normal dorsalis pedis pul GI/Abdominal exam: PRESENT: guarding, normal bowel sounds, soft, tenderness. ABSENT: distended, mass, organolmegaly, rebound Neurological exam: PRESENT: alert, awake, oriented to person, oriented to place, CN II-XII grossly intact. ABSENT: motor sensory deficit Results Laboratory Results: 03/23/19 02:40 03/22/19 23:22 03/22/19 03/22/1920 17:19 17:19 17:19 WBC 6.8 RBC 3.26 L Hgb 9.4 L Hct 30.5 L MCV 94 MCH 29.0 MCHC 31.0 L RDW 20.9 H Plt Count 390 Seg Neutrophils % 81.8 H Retic Count (auto) Sodium 137.3 Potassium 4.3 Chloride 97 L Carbon Dioxide 28 Anion Gap 12 BUN 11 Creatinine 2.23 H Est GFR ( Amer) 28 L Glucose 118 H Lactic Acid 1.6 Calcium 8.2 L Iron TIBC % Saturation Ferritin Total Bilirubin 0.6 AST 37 H Alkaline Phosphatase 151 H Total Protein 8.2 Albumin 3.1 L Vitamin B12 Folate Urine Color Urine Appearance Urine pH Ur Specific [place] Urine Protein Urine Glucose (UA) Urine Ketones Urine Blood 03/22/19 03/22/19 03/22/19 17:19 17:19 17:19 WBC RBC Hgb Hct MCV MCH MCHC RDW Plt Count Seg Neutrophils % Retic Count (auto) 1.57 Sodium Potassium Chloride Carbon Dioxide Anion Gap BUN Creatinine Est GFR ( Amer) Glucose Lactic Acid Calcium Iron 13.0 L TIBC 116 L % Saturation 11 Ferritin 783.00 H Total Bilirubin AST Alkaline Phosphatase Total Protein Albumin Vitamin B12 875.0 Folate > 20.00 Urine Color YELLOW Urine Appearance TURBID Urine pH 7.0 Ur Specific [place] 1.018 Urine Protein 100 H Urine Glucose (UA) NEGATIVE Urine Ketones NEGATIVE Urine Blood SMALL H 03/22/19 03/22/19 03/22/19 20:58 23:22 23:22 WBC RBC Hgb Hct MCV MCH MCHC RDW Plt Count Seg Neutrophils % Retic Count (auto) Sodium 134.7 L Potassium 4.3 Chloride 100 Carbon Dioxide 24 Anion Gap 11 BUN 14 Creatinine 2.24 H Est GFR ( Amer) 27 L Glucose 173 H Lactic Acid 1.1 0.7 Calcium 7.3 L Iron TIBC % Saturation Ferritin Total Bilirubin AST Alkaline Phosphatase Total Protein Albumin Vitamin B12 Folate Urine Color Urine Appearance Urine pH Ur Specific [place] Urine Protein Urine Glucose (UA) Urine Ketones Urine Blood 03/23/19 03/23/19 02:40 02:40 WBC 4.5 RBC 2.95 L Hgb 8.4 L Hct 27.2 L MCV 92 MCH 28.5 MCHC 31.0 L RDW 20.6 H Plt Count 291 Seg Neutrophils % 77.5 Retic Count (auto) Sodium Potassium Chloride Carbon Dioxide Anion Gap BUN Creatinine Est GFR ( Amer) Glucose Lactic Acid 0.6 L Calcium Iron TIBC % Saturation Ferritin Total Bilirubin AST Alkaline Phosphatase Total Protein Albumin Vitamin B12 Folate Urine Color Urine Appearance Urine pH Ur Specific [place] Urine Protein Urine Glucose (UA) Urine Ketones Urine Blood Impressions: Chest X-Ray 03/22/19 17:54 IMPRESSION: NO ACUTE RADIOGRAPHIC FINDING IN THE CHEST. Abdomen/Pelvis CT 03/22/19 19:28 IMPRESSION: Diffuse inflammatory changes of the urinary bladder suggestive of cystitis. Assessment and Plan - Diagnosis (1) UTI (urinary tract infection) Qualifiers: Urinary tract infection type: acute cystitis Hematuria presence: with hematuria Qualified Code(s): N30.01 - Acute cystitis with hematuria Is this a current diagnosis for this admission?: Yes Plan: Acute cystitis most likely due to gram-negative rods including E. coli. History of recurrent UTI due to ESBL. CT abdomen positive for diffuse inflammatory changes of the urinary bladder suggestive of cystitis. Empiric IV antibiotics to include coverage for ESBL, follow-up urine and blood culture. (2) Anemia Qualifiers: Chronic kidney disease stage: on chronic dialysis Is this a current diagnosis for this admission?: Yes Plan: Multifactorial complicated by iron deficiency. Monitor H&H. Supportive transfusion. Procrit by nephrology. (3) ESRD (end stage renal disease) Is this a current diagnosis for this admission?: Yes Plan: On hemodialysis Monday. Monitor volume status and electrolytes. Replace as needed. We will consult nephrology for scheduled hemodialysis. (4) Acute pyelonephritis Is this a current diagnosis for this admission?: Yes Plan: This most likely acute cystitis. CT abdomen negative for any pyelonephritis.
[2019-03-23] MEDS ORDERED: GLUCAGON,HUMAN RECOMB 1 MG INJ IM PRN (17:11)
[2019-03-23] MEDS ORDERED: DEXTROSE 40% GEL 15 GM TUBE PO PRN ×2 (17:11)
[2019-03-23] MEDS ORDERED: DEXTROSE 50%-WATER 25 GM/50 ML DISP.SYRIN IV PRN ×2 (17:11)
[2019-03-23] MEDS ORDERED: PREGABALIN 75 MG CAPSULE PO ONE (17:15)
[2019-03-23] MEDS ORDERED: FLUOXETINE HCL 20 MG/5 ML UDCUP PO ONE (17:15)
[2019-03-23] MEDS ORDERED: INSULIN GLARGINE,HUM.REC.ANLOG 1,000 UNIT/10 ML VIAL (PYX) SUBCUT ONE (17:30)
[2019-03-23] MEDS: CETIRIZINE 10 MG TABLET PO SCH (18:50)
[2019-03-23] MEDS: NYSTATIN TOPICAL POWDER 15 GM TP SCH (18:51)
[2019-03-23] MEDS: ATORVASTATIN CALCIUM 40 MG TABLET PO SCH (22:34)
--- NOTE | 2019-03-23 23:29 | EKG REPORT ---
SEVERITY:- ABNORMAL ECG - SINUS TACHYCARDIA LOW VOLTAGE IN FRONTAL LEADS NONSPECIFIC T ABNORMALITIES, ANT-LAT LEADS : Confirmed by: Stephanie Calix 23-Mar-2019 23:29:26
[2019-03-24] MEDS ORDERED: VANCOMYCIN HCL INJ 500 MG VIAL IV PRN (01:16)
[2019-03-24] MEDS ORDERED: VANCOMYCIN HCL 500 MG in DEXTROSE 5%-WATER 100 ML IV ONE (01:30)
[2019-03-24] MEDS ORDERED: VANCOMYCIN HCL INJ 1000 MG VIAL ONE (01:44)
[2019-03-24] MEDS ORDERED: VANCOMYCIN HCL 500 MG in NORMAL SALINE 100 ML IV ONE (02:00)
[2019-03-24] MEDS: DICYCLOMINE HCL 10 MG CAPSULE PO PRN (02:32)
[2019-03-24] MEDS: HEPARIN SOD (PORCINE) 5,000 UNIT/ML 1 ML VIAL SUBCUT SCH ×3 (05:09→21:55)
[2019-03-24] MEDS: INSULIN LISPRO 100 UNIT/ML 3 ML VIAL SUBCUT SCH ×6 (07:29→17:42)
[2019-03-24] MEDS: CALCIUM ACETATE 667 MG CAPSULE PO SCH ×3 (07:33→17:46)
[2019-03-24] MEDS ORDERED: INSULIN LISPRO 100 UNIT/ML 3 ML VIAL SUBCUT SCH (08:00)
--- NOTE | 2019-03-24 09:50 | PDOC PROGRESS REPORT ---
Subjective Progress Note for:: 03/24/19 Subjective:: ENEIDA JOHNSON is a 58 year old female group home resident with a past medical history of anemia, hypertension, dyslipidemia, coronary artery disease, COPD, insulin-dependent diabetes, bedbound state, opiate dependent chronic pain and oliguric end-stage renal failure on hemodialysis Monday. Patient was transferred to the emergency department from dialysis for fever. She is found to have pyuria without hydronephrosis or abscess. She started on empiric antibiotics and referred to the hospitalist for admission. She is a poor historian is unaware of recent antibiotics or medication changes. Daughter is at bedside who states her memory has been poor for several months. Her CODE STATUS is verified to be DNR 03/23/2019. No acute events overnight. Patient still complaining of abdominal pain and having diarrhea otherwise denies any fever, chills, shortness of breath, chest pain. Alert and oriented, cooperative with physical examination. 03/24/2019. No acute events overnight. Patient still complaining of diffuse abdominal pain, diarrhea has resolved, sleeping, easily arousable, alert and oriented. Denies any chest pain, shortness of breath, fever, chills. Reason For Visit: UTI,SEPSIS,ESRD ON HD DIABETES Physical Exam Vital Signs: Temp Pulse Resp BP Pulse Ox 97.9 F 96 15 134/70 H 98 03/24/19 07:19 03/24/19 07:19 03/24/19 07:19 03/24/19 07:19 03/24/19 07:19 Intake & Output 03/23/19 03/24/19 03/25/19 06:59 06:59 06:59 Intake Total 2000 827 Output Total 200 3 Balance 1800 824 Weight 44.1 kg 45.9 kg General appearance: PRESENT: no acute distress, well-developed, well-nourished Head exam: PRESENT: atraumatic, normocephalic Respiratory exam: PRESENT: clear to auscultation linda. ABSENT: rales, rhonchi, wheezes Cardiovascular exam: PRESENT: RRR. ABSENT: diastolic murmur, rubs, systolic murmur GI/Abdominal exam: PRESENT: guarding, normal bowel sounds, soft, tenderness. ABSENT: distended, mass, organolmegaly, rebound Neurological exam: PRESENT: alert, awake, oriented to person, oriented to place, CN II-XII grossly intact. ABSENT: motor sensory deficit Results Laboratory Results: 03/23/19 02:40 03/22/19 23:22 03/22/19 17:19 Blood Blood Culture (PCR) - Final Staphylococcus Species Impressions: Chest X-Ray 03/22/19 17:54 IMPRESSION: NO ACUTE RADIOGRAPHIC FINDING IN THE CHEST. Abdomen/Pelvis CT 03/22/19 19:28 IMPRESSION: Diffuse inflammatory changes of the urinary bladder suggestive of cystitis. Assessment and Plan - Diagnosis (1) UTI (urinary tract infection) Qualifiers: Urinary tract infection type: acute cystitis Hematuria presence: with hematuria Qualified Code(s): N30.01 - Acute cystitis with hematuria Is this a current diagnosis for this admission?: Yes Plan: Acute cystitis most likely due to gram-negative rods including E. coli. History of recurrent UTI due to ESBL. CT abdomen positive for diffuse inflammatory changes of the urinary bladder suggestive of cystitis. Day 3 IV antibiotics. Day 3 IV meropenem. Day 3 IV vancomycin. Empiric IV antibiotics to include coverage for ESBL, follow-up urine and blood culture. (2) Anemia Qualifiers: Chronic kidney disease stage: on chronic dialysis Is this a current diagnosis for this admission?: Yes Plan: Multifactorial complicated by iron deficiency. Monitor H&H. Supportive transfusion. Procrit by nephrology. (3) ESRD (end stage renal disease) Is this a current diagnosis for this admission?: Yes Plan: On hemodialysis Monday. Monitor volume status and electrolytes. Replace as needed. We will consult nephrology for scheduled hemodialysis. (4) Acute pyelonephritis Is this a current diagnosis for this admission?: Yes Plan: This most likely acute cystitis. CT abdomen negative for any pyelonephritis. Plan as per #1. (5) Gram-positive bacteremia Is this a current diagnosis for this admission?: Yes Plan: Blood culture 1 out of 2 bottles growing gram-positive cocci in clusters, coag negative neck sensitivity. Likely contamination. We will start on empiric vancomycin. Follow-up blood culture. Repeat blood cultures. 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 Not optimized. Hemoglobin A1c 6.4% on 02/19/2019. Continue diabetic diet, basal, correctional and pre-meal insulin, Accu-Chek hypoglycemia protocol. Adjust insulin dosage as needed. Restart home meds upon discharge. Outpatient PCP follow-up.
[2019-03-24] MEDS ORDERED: INSULIN GLARGINE,HUM.REC.ANLOG 1,000 UNIT/10 ML VIAL SUBCUT SCH (10:00)
[2019-03-24] MEDS: DOCUSATE SODIUM 100 MG CAPSULE PO SCH ×2 (10:12→17:42)
[2019-03-24] MEDS: PREGABALIN 75 MG CAPSULE PO SCH ×2 (10:25→21:53)
[2019-03-24] MEDS: ASPIRIN 81 MG TABLET, CHEWABLE PO SCH (10:25)
[2019-03-24] MEDS: IMIPENEM/CILASTATIN SODIUM 500 MG in NORMAL SALINE 100 ML IV SCH ×2 (10:26→21:53)
[2019-03-24] MEDS: NYSTATIN TOPICAL POWDER 15 GM TP SCH ×2 (10:27→17:46)
[2019-03-24] MEDS: FLUOXETINE HCL 20 MG/5 ML UDCUP PO SCH (10:28)
[2019-03-24] MEDS: ZINC SULFATE 220 MG CAPSULE PO SCH (10:28)
[2019-03-24] MEDS: NORMAL SALINE 1000 ML 1,000 ML IV PRN (11:42)
[2019-03-24] MEDS: IPRATROPIUM/ALBUTEROL 0.5-2.5 MG/3 ML AMPUL NEB PRN (14:02)
[2019-03-24] MEDS: CETIRIZINE 10 MG TABLET PO SCH (17:45)
[2019-03-24] MEDS: ATORVASTATIN CALCIUM 40 MG TABLET PO SCH (21:53)
[2019-03-25] MEDS ORDERED: EPOETIN ALFA-EPBX 2,000 UNIT, EPOETIN ALFA-EPBX 3,000 UNIT, EPOETIN ALFA-EPBX 20,000 UN... IV PRN ×4 (05:00)
[2019-03-25] MEDS: HEPARIN SOD (PORCINE) 5,000 UNIT/ML 1 ML VIAL SUBCUT SCH ×3 (05:28→21:11)
[2019-03-25 07:07] LABS: HEMATOCRIT 29.3 % (36.0-47.0); MEAN CORPUSCULAR HEMOGLOBIN 28.4 pg (27.0-33.4); MEAN CORPUSCULAR HGB CONC 30.7 g/dL (32.0-36.0); MEAN CORPUSCULAR VOLUME 92 fl (80-97); PLATELET COUNT 300 10^3/uL (150-450); RED BLOOD COUNT 3.17 10^6/uL (3.72-5.28); RED CELL DISTRIBUTION WIDTH 20.6 % (11.5-14.0); WHITE BLOOD COUNT 6.2 10^3/uL (4.0-10.5)
[2019-03-25 07:32] LABS: ANION GAP 11 (5-19); BLOOD UREA NITROGEN 35 mg/dL (7-20); CALCIUM 8.5 mg/dL (8.4-10.2); CARBON DIOXIDE 20 mmol/L (22-30); CHLORIDE 104 mmol/L (98-107); GLUCOSE 90 mg/dL (75-110); POTASSIUM 5.1 mmol/L (3.6-5.0)
[2019-03-25] MEDS: INSULIN LISPRO 100 UNIT/ML 3 ML VIAL SUBCUT SCH ×2 (08:31→12:23)
[2019-03-25] MEDS: ASPIRIN 81 MG TABLET, CHEWABLE PO SCH (09:28)
[2019-03-25] MEDS: PREGABALIN 75 MG CAPSULE PO SCH ×2 (09:28→21:11)
[2019-03-25] MEDS: CALCIUM ACETATE 667 MG CAPSULE PO SCH ×3 (09:28→21:12)
[2019-03-25] MEDS: ZINC SULFATE 220 MG CAPSULE PO SCH (09:28)
[2019-03-25] MEDS: IMIPENEM/CILASTATIN SODIUM 500 MG in NORMAL SALINE 100 ML IV SCH ×2 (09:28→21:12)
[2019-03-25] MEDS: FLUOXETINE HCL 20 MG/5 ML UDCUP PO SCH (09:28)
[2019-03-25] MEDS: INSULIN GLARGINE,HUM.REC.ANLOG 1,000 UNIT/10 ML VIAL SUBCUT SCH (09:29)
[2019-03-25] MEDS: DOCUSATE SODIUM 100 MG CAPSULE PO SCH ×2 (09:29→21:31)
[2019-03-25] MEDS: NYSTATIN TOPICAL POWDER 15 GM TP SCH ×2 (09:30→21:13)
[2019-03-25] MEDS: IPRATROPIUM/ALBUTEROL 0.5-2.5 MG/3 ML AMPUL NEB PRN (10:30)
--- NOTE | 2019-03-25 10:51 | PDOC PROGRESS REPORT ---
Subjective Progress Note for:: 03/25/19 Subjective:: ENEIDA JOHNSON is a 58 year old female shelter resident with a past medical history of anemia, hypertension, dyslipidemia, coronary artery disease, COPD, insulin-dependent diabetes, bedbound state, opiate dependent chronic pain and oliguric end-stage renal failure on hemodialysis Monday. Patient was transferred to the emergency department from dialysis for fever. She is found to have pyuria without hydronephrosis or abscess. She started on empiric antibiotics and referred to the hospitalist for admission. She is a poor historian is unaware of recent antibiotics or medication changes. Daughter is at bedside who states her memory has been poor for several months. Her CODE STATUS is verified to be DNR 03/23/2019. No acute events overnight. Patient still complaining of abdominal pain and having diarrhea otherwise denies any fever, chills, shortness of breath, chest pain. Alert and oriented, cooperative with physical examination. 03/24/2019. No acute events overnight. Patient still complaining of diffuse abdominal pain, diarrhea has resolved, sleeping, easily arousable, alert and oriented. Denies any chest pain, shortness of breath, fever, chills. 03/25/2019. No acute events overnight. This morning patient is more awake and alert, does not seem to be in apparent distress, still complaining of abdominal pain and diarrhea, denies any fever, chills, nausea, chest pain, shortness of breath. Reason For Visit: UTI,SEPSIS,ESRD ON HD DIABETES Physical Exam Vital Signs: Temp Pulse Resp BP Pulse Ox 98.6 F 92 17 167/89 H 92 03/25/19 03:08 03/25/19 07:00 03/25/19 03:08 03/25/19 03:08 03/25/19 03:08 Intake & Output 03/24/19 03/25/19 03/26/19 06:59 06:59 06:59 Intake Total 1827 620 Output Total 3 Balance 1824 620 Weight 45.9 kg 47.8 kg General appearance: PRESENT: no acute distress, well-developed, well-nourished Head exam: PRESENT: atraumatic, normocephalic Respiratory exam: PRESENT: clear to auscultation linda. ABSENT: rales, rhonchi, wheezes Cardiovascular exam: PRESENT: RRR. ABSENT: diastolic murmur, rubs, systolic murmur GI/Abdominal exam: PRESENT: guarding, normal bowel sounds, soft, tenderness. ABSENT: mass, organolmegaly, rebound Neurological exam: PRESENT: alert, awake, oriented to person, oriented to place, oriented to time, oriented to situation, CN II-XII grossly intact. ABSENT: motor sensory deficit Results Laboratory Results: 03/25/19 06:47 03/25/19 06:47 03/24/19 03/25/19 03/25/19 11:00 06:47 06:47 WBC 6.2 RBC 3.17 L Hgb 9.0 L Hct 29.3 L MCV 92 MCH 28.4 MCHC 30.7 L RDW 20.6 H Plt Count 300 Sodium 135.4 L Potassium 5.1 H Chloride 104 Carbon Dioxide 20 L Anion Gap 11 BUN 35 H Creatinine 4.13 H 4.33 H Est GFR ( Amer) 14 L 13 L Glucose 90 Calcium 8.5 03/22/19 17:19 Blood Blood Culture (PCR) - Final Staphylococcus Species Impressions: Chest X-Ray 03/22/19 17:54 IMPRESSION: NO ACUTE RADIOGRAPHIC FINDING IN THE CHEST. Abdomen/Pelvis CT 03/22/19 19:28 IMPRESSION: Diffuse inflammatory changes of the urinary bladder suggestive of cystitis. Assessment and Plan - Diagnosis (1) UTI (urinary tract infection) Qualifiers: Urinary tract infection type: acute cystitis Hematuria presence: with hematuria Qualified Code(s): N30.01 - Acute cystitis with hematuria Is this a current diagnosis for this admission?: Yes Plan: Acute cystitis most likely due to gram-negative rods including E. coli. Urine culture growing gram-negative rods pending sensitivity. History of recurrent UTI due to ESBL. CT abdomen positive for diffuse inflammatory changes of the urinary bladder suggestive of cystitis. Day 4 IV antibiotics. Day 4 IV meropenem. Received 3 days of IV vancomycin. Empiric IV antibiotics to include coverage for ESBL, follow-up urine and blood culture. (2) Anemia Qualifiers: Chronic kidney disease stage: on chronic dialysis Is this a current diagnosis for this admission?: Yes Plan: Multifactorial complicated by iron deficiency. Monitor H&H. Supportive transfusion. Procrit by nephrology. (3) ESRD (end stage renal disease) Is this a current diagnosis for this admission?: Yes Plan: On hemodialysis Monday. Monitor volume status and electrolytes. Replace as needed. We will consult nephrology for scheduled hemodialysis. (4) Acute pyelonephritis Is this a current diagnosis for this admission?: Yes Plan: This most likely acute cystitis. CT abdomen negative for any pyelonephritis. Plan as per #1. (5) Gram-positive bacteremia Is this a current diagnosis for this admission?: Yes Plan: Blood culture 1 out of 2 bottles growing gram-positive cocci in clusters, coag negative pending sensitivity. Likely contamination. Repeat blood cultures negative. Received 3 days of IV vancomycin. DC vancomycin. Follow-up blood culture. 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 Not optimized. Hemoglobin A1c 6.4% on 02/19/2019. Continue diabetic diet, basal, correctional and pre-meal insulin, Accu-Chek hypoglycemia protocol. Adjust insulin dosage as needed. Restart home meds upon discharge. Outpatient PCP follow-up. (7) Hypoglycemia Is this a current diagnosis for this admission?: Yes Plan: Noted to be hypoglycemic. Likely due to low p.o. intake. Continue hypoglycemia protocol. Adjust insulin dosage as needed. Encourage frequent snacking. (8) Chronic diarrhea Is this a current diagnosis for this admission?: Yes Plan: Chronic diarrhea. C. difficile negative. No significant leukocytosis. We will order stool ova and parasite and stool culture. Monitor volume status and electrolytes. Replace as needed. Supportive measures. Unfortunate GI consult only available once every Monday. We will place a GI consult. Follow-up recommendation.
[2019-03-25] MEDS ORDERED: HEPARIN SOD (PORCINE) 1,000 UNIT/ML 10 ML VIAL IV PRN (17:36)
--- NOTE | 2019-03-25 17:53 | PDOC CONSULTATION ---
Consultation Consult Date: 03/25/19 Provider Consulted: Sergey TAYLOR Consult reason:: ESRD for hemodialysis. History of Present Illness Admission Date/PCP: 03/22/19 20:56 ADITYA HARDING MD History of Present Illness: ENEIDA JOHNSON is a 58 year old female who is a jail resident with a past medical history of ESRD on hemodialysis in the background of diabetes mellitus, hypertension, and with other associated comorbidities which includes past history of ESBL UTI, coronary artery disease, COPD, bedbound state, opiate dependent chronic pain was transferred to the emergency department from [facility] for fever. Evaluations have revealed that she has got UTI and she is on antibiotics. She is a poor historian. She is currently being seen on dialysis. She is not completely oriented. She is however complaining of abdominal pain and having diarrhea but denies any fever, chills, shortness of breath, chest pain. Labs and medications were reviewed. Dialysis orders were reviewed with the treating dialysis nurse. Past Medical History Cardiac Medical History: Reports: Atrial Fibrillation, Coronary Artery Disease, DVT, Hyperlipidemia, Hypertension-primary Pulmonary Medical History: Reports: Bronchitis, Chronic Obstructive Pulmonary Disease (COPD), Pneumonia Denies: Asthma Neurological Medical History: Denies: Seizures Endocrine Medical History: Reports: Diabetes Mellitus Type 2 Denies: Diabetes Mellitus Type 1, Hyperthyroidism, Hypothyroidism Renal/ Medical History: Reports: End Stage Renal Disease, Secondary Hyperparathyroidism GI Medical History: Reports: Gastroesophageal Reflux Disease Denies: Cirrhosis, Hepatitis Musculoskeltal Medical History: Denies: Arthritis, Fibromyalgia Skin Medical History: Denies: Eczema, Psoriasis Psychiatric Medical History: Reports: Depression Past Surgical History Past Surgical History: Reports: Section - x3, Coronary Artery Bypass Graft, Other - Vena cava filter, abdominal surgery for repair of perforated stomach ulcer Social History Lives with: [facility] Smoking Status: Former Smoker Electronic Cigarette use?: No Number of Years Smokin Last Time Smoked: quit this past year Frequency of Alcohol Use: None Hx Recreational Drug Use: No Drugs: Marijuana Hx Prescription Drug Abuse: No - Advance Directive Resuscitation Status: Do Not Resuscitate Family History Parental Family History Reviewed: No Children Family History Reviewed: No Sibling(s) Family History Reviewed.: No Medication/Allergy Home Medications: Acetaminophen [Tylenol] 650 mg PO Q6HP PRN 03/23/19 Aspirin [Aspirin 81 mg Chewable Tablet] 81 mg PO DAILY 03/23/19 Atorvastatin Calcium [Lipitor 40 mg Tablet] 40 mg PO QHS 03/23/19 Calcium Acetate [Phoslo 667 Mg Capsule] 667 mg PO MEALS 03/23/19 Cetirizine HCl [Cetirizine 5 mg Tablet] 5 mg PO QPM 03/23/19 Dicyclomine HCl [Bentyl 10 mg Capsule] 10 mg PO QIDP PRN 03/23/19 Dicyclomine HCl [Bentyl 20 mg Tablet] 20 mg PO Q6 03/23/19 Ergocalciferol (Vitamin D2) [Vitamin D2] 50 mcg PO FR 03/23/19 Fluoxetine HCl 30 mg PO DAILY 03/23/19 Glucagon,Human Recombinant [Glucagen Inj 1 Mg Vial] 1 mg SUBCUT ASDIR PRN 03/23/19 Insulin Glargine,Hum.rec.anlog [Lantus Insulin 100 Unit/1 ml 10 ml] 9 unit SUBCUT QAM 03/23/19 Insulin Lispro [Humalog Insulin 100 Unit/1 ml 3 ml Vial] 0 unit SUBCUT .SLD SCALE 03/23/19 Insulin Lispro [Humalog Insulin 100 Unit/1 ml 3 ml Vial] 2 unit SUBCUT AC Lactobacillus Acidophilus [Acidophilus] 1 each PO BID 03/23/19 Mineral Oil/Hydrophil Petrolat [Aquaphor Healing Ointment] 1 applic TP DAILYP PRN 03/23/19 Nystatin [Mycostatin Topical Powder 15 gm] 1 applic TP BID 03/23/19 Omeprazole 20 mg PO Q6AM 03/23/19 Oxycodone HCl/Acetaminophen [Percocet 7.5-325 mg Tablet] 1 each PO Q6HP PRN 03/23/19 Pregabalin [Lyrica 75 mg Capsule] 75 mg PO Q12 03/23/19 Vit B Comp No.3/Folic/C/Biotin [Nephro-Tal Rx Tablet] 1 each PO QHS 03/23/19 Zinc Sulfate [Zinc-220 Capsule] 220 mg PO DAILY 03/23/19 Allergies/Adverse Reactions: aloe vera Allergy (Verified 09/11/18 08:46) No Known Drug Allergies Allergy (Verified 09/11/18 08:46) Review of Systems Constitutional: PRESENT: anorexia, fatigue. ABSENT: fever(s), headache(s), night sweats Cardiovascular: ABSENT: chest pain, dyspnea on exertion, edema Respiratory: ABSENT: dyspnea Gastrointestinal: PRESENT: diarrhea. ABSENT: bloating, coffee ground emesis, constipation, dysphagia, heartburn, hematemesis, hematochezia, melena, nausea, vomiting Genitourinary: ABSENT: hematuria Musculoskeletal: ABSENT: deformity, joint swelling Integumentary: ABSENT: lesions, pruritus, rash Neurological: PRESENT: confusion. ABSENT: abnormal gait, abnormal movements, abnormal speech, focal weakness, frequent falls Hematologic/Lymphatic: ABSENT: easy bruising, lymphadenopathy Physical Exam Vital Signs: Temp Pulse Resp BP Pulse Ox 98.2 F 87 15 140/72 H 94 03/25/19 11:27 03/25/19 14:00 03/25/19 11:27 03/25/19 11:27 03/25/19 11:27 Intake & Output 03/24/19 03/25/19 03/26/19 06:59 06:59 06:59 Intake Total 1827 620 120 Output Total 3 Balance 1824 620 120 Weight 45.9 kg 47.8 kg General appearance: PRESENT: no acute distress, disheveled Eye exam: PRESENT: EOMI, PERRLA. ABSENT: scleral icterus Ear exam: PRESENT: normal external ear exam Mouth exam: ABSENT: moist Neck exam: ABSENT: lymphadenopathy, meningismus, tenderness, thyromegaly, tracheal deviation Respiratory exam: PRESENT: clear to auscultation linda. ABSENT: crackles Cardiovascular exam: PRESENT: +S1, +S2 GI/Abdominal exam: PRESENT: normal bowel sounds, soft. ABSENT: organomegaly, tenderness Extremities exam: ABSENT: pedal edema Neurological exam: PRESENT: altered, oriented to person. ABSENT: oriented to p lace, oriented to time Psychiatric exam: PRESENT: agitated Skin exam: ABSENT: erythema, mottled, rash Results Laboratory Results: 03/25/19 06:47 03/25/19 06:47 03/25/19 03/25/19 06:47 06:47 WBC 6.2 RBC 3.17 L Hgb 9.0 L Hct 29.3 L MCV 92 MCH 28.4 MCHC 30.7 L RDW 20.6 H Plt Count 300 Sodium 135.4 L Potassium 5.1 H Chloride 104 Carbon Dioxide 20 L Anion Gap 11 BUN 35 H Creatinine 4.33 H Est GFR ( Amer) 13 L Glucose 90 Calcium 8.5 03/22/19 17:19 Blood Blood Culture (PCR) - Final Staphylococcus Species Impressions: Chest X-Ray 03/22/19 17:54 IMPRESSION: NO ACUTE RADIOGRAPHIC FINDING IN THE CHEST. Abdomen/Pelvis CT 03/22/19 19:28 IMPRESSION: Diffuse inflammatory changes of the urinary bladder suggestive of cystitis. Assessment & Plan - Diagnosis (1) UTI (urinary tract infection) Qualifiers: Urinary tract infection type: acute cystitis Hematuria presence: with hematuria Qualified Code(s): N30.01 - Acute cystitis with hematuria Is this a current diagnosis for this admission?: Yes Plan: She is got UTI with urine cultures now growing gram-negative bacteria. She is on imipenem which should cover ESBL as she has a previous history of that. Monitor. (2) ESRD on hemodialysis Is this a current diagnosis for this admission?: Yes Plan: Patient is currently undergoing dialysis without any issues. Vital signs are stable. Dialysis is being supervised to ensure safe and smooth procedure. Plan to remove 0 to half a liter of fluid as she looks clinically dry. Dialysis orders were reviewed with the treating dialysis nurse. (3) Altered mental status Plan: Most likely secondary to her UTI infection. However evaluation as per hospitalist. (4) Chronic diarrhea Is this a current diagnosis for this admission?: Yes Plan: C. difficile negative. (5) Diabetes mellitus Qualifiers: Diabetes mellitus type: type 2 Diabetes mellitus intermediate accountant insulin use: with intermediate accountant use Chronic kidney disease stage: on chronic dialysis Is this a current diagnosis for this admission?: Yes Plan: As per hospitalist (6) Anemia Qualifiers: Chronic kidney disease stage: on chronic dialysis Is this a current diagnosis for this admission?: Yes Plan: Adjust erythropoietin on dialysis.
[2019-03-25] MEDS: CETIRIZINE 10 MG TABLET PO SCH (21:12)
[2019-03-25] MEDS: VANCOMYCIN HCL 750 MG in DEXTROSE 5%-WATER 250 ML IV SCH (21:12)
[2019-03-25] MEDS: ATORVASTATIN CALCIUM 40 MG TABLET PO SCH (21:12)
[2019-03-25] MEDS: HYDRALAZINE HCL INJ/PF 20 MG/1 ML SDV IV PRN (21:24)
[2019-03-26] MEDS: INSULIN LISPRO 100 UNIT/ML 3 ML VIAL SUBCUT SCH ×5 (00:03→21:25)
[2019-03-26] MEDS: HYDRALAZINE HCL INJ/PF 20 MG/1 ML SDV IV PRN ×3 (00:26→21:43)
[2019-03-26] MEDS: DICYCLOMINE HCL 10 MG CAPSULE PO PRN (00:26)
[2019-03-26] MEDS: ACETAMINOPHEN 325 MG TABLET PO PRN ×2 (02:38→21:52)
[2019-03-26] MEDS: HEPARIN SOD (PORCINE) 5,000 UNIT/ML 1 ML VIAL SUBCUT SCH ×3 (06:16→21:44)
[2019-03-26 06:34] LABS: ABSOLUTE LYMPHOCYTES (AUTO) 0.5 10^3/uL (0.5-4.7); ABSOLUTE MONOCYTES (AUTO) 0.3 10^3/uL (0.1-1.4); ABSOLUTE NEUT (AUTO) 5.3 10^3/uL (1.7-8.2); BASOPHILS % (AUTO) 0.4 % (0-2); EOSINOPHILS % (AUTO) 0.1 % (0-6); HEMATOCRIT 31.8 % (36.0-47.0); HEMOGLOBIN 9.4 g/dL (12.0-15.5); LYMPHOCYTES % (AUTO) 8.6 % (13-45); MEAN CORPUSCULAR HEMOGLOBIN 28.5 pg (27.0-33.4); MEAN CORPUSCULAR HGB CONC 29.6 g/dL (32.0-36.0); MONOCYTES % (AUTO) 4.4 % (3-13); PLATELET COUNT 295 10^3/uL (150-450); RED BLOOD COUNT 3.31 10^6/uL (3.72-5.28); RED CELL DISTRIBUTION WIDTH 20.8 % (11.5-14.0); SEGMENTED NEUTROPHILS % (AUTO) 86.5 % (42-78); TOTAL CELLS COUNTED % (AUTO) 100 %; WHITE BLOOD COUNT 6.2 10^3/uL (4.0-10.5)
[2019-03-26 06:48] LABS: MEAN CORPUSCULAR VOLUME 96 fl (80-97)
[2019-03-26 06:57] LABS: ALBUMIN 2.9 g/dL (3.5-5.0); ALKALINE PHOSPHATASE 146 U/L (38-126); ASPARTATE AMINO TRANSFERASE 26 U/L (14-36); BILIRUBIN,DIRECT 0.7 mg/dL (0.0-0.4); BILIRUBIN,TOTAL 0.7 mg/dL (0.2-1.3); BLOOD UREA NITROGEN 24 mg/dL (7-20); CALCIUM 8.4 mg/dL (8.4-10.2); CARBON DIOXIDE 13 mmol/L (22-30); CHLORIDE 97 mmol/L (98-107); POTASSIUM 4.8 mmol/L (3.6-5.0); TOTAL PROTEIN 7.8 g/dL (6.3-8.2)
[2019-03-26 07:07] LABS: ANION GAP 25 (5-19)
[2019-03-26 07:08] LABS: GLUCOSE 467 mg/dL (75-110)
[2019-03-26] MEDS: CALCIUM ACETATE 667 MG CAPSULE PO SCH ×3 (07:58→17:24)
[2019-03-26] MEDS: DOCUSATE SODIUM 100 MG CAPSULE PO SCH ×2 (09:01→17:19)
[2019-03-26] MEDS: ZINC SULFATE 220 MG CAPSULE PO SCH (09:05)
[2019-03-26] MEDS: FLUOXETINE HCL 20 MG/5 ML UDCUP PO SCH (09:05)
[2019-03-26] MEDS: PREGABALIN 75 MG CAPSULE PO SCH ×2 (09:05→21:43)
[2019-03-26] MEDS: ASPIRIN 81 MG TABLET, CHEWABLE PO SCH (09:05)
[2019-03-26] MEDS: NYSTATIN TOPICAL POWDER 15 GM TP SCH ×2 (09:06→17:25)
[2019-03-26] MEDS: INSULIN GLARGINE,HUM.REC.ANLOG 1,000 UNIT/10 ML VIAL SUBCUT SCH (09:06)
[2019-03-26] MEDS: IMIPENEM/CILASTATIN SODIUM 500 MG in NORMAL SALINE 100 ML IV SCH ×2 (09:06→21:53)
--- NOTE | 2019-03-26 12:08 | PDOC PROGRESS REPORT ---
Subjective Progress Note for:: 03/26/19 Reason For Visit: UTI,SEPSIS,ESRD ON HD DIABETES 03/26/2019 She was sent from skilled nursing with end-stage renal disease UTI, chronic diarrhea, diabetes Physical Exam Vital Signs: Temp Pulse Resp BP Pulse Ox 97.4 F 90 16 115/63 94 03/26/19 07:22 03/26/19 10:52 03/26/19 10:52 03/26/19 07:22 03/26/19 10:52 Intake & Output 03/25/19 03/26/19 03/27/19 06:59 06:59 06:59 Intake Total 620 470 Output Total 0 Balance 620 470 Weight 47.8 kg 48 kg General appearance: PRESENT: no acute distress, other - Lethargic Respiratory exam: PRESENT: clear to auscultation linda. ABSENT: rales, rhonchi, wheezes Cardiovascular exam: PRESENT: RRR. ABSENT: diastolic murmur, rubs, systolic murmur Neurological exam: PRESENT: altered Psychiatric exam: PRESENT: depressed, flat affect Results Laboratory Results: 03/26/19 06:13 03/26/19 06:13 03/25/19 03/26/19 03/26/19 22:39 06:13 06:13 WBC 6.2 RBC 3.31 L Hgb 9.4 L Hct 31.8 L MCV 96 D MCH 28.5 MCHC 29.6 L RDW 20.8 H Plt Count 295 Seg Neutrophils % 86.5 H Sodium 134.9 L Potassium 4.8 Chloride 97 L Carbon Dioxide 13 L Anion Gap 25 H BUN 24 H Creatinine 3.08 H Est GFR ( Amer) 19 L Glucose 467 H* Calcium 8.4 Magnesium 1.7 Total Bilirubin 0.7 AST 26 Alkaline Phosphatase 146 H Total Protein 7.8 Albumin 2.9 L Stool for White Cells NO WBCs SEEN 03/22/19 17:19 Blood Blood Culture (PCR) - Final Staphylococcus Species 03/22/19 17:19 Blood Blood Culture - Final Staphylococcus Hominis 03/22/19 17:19 Catheterized Urine Urine Culture - Final Proteus Mirabilis Enterococcus Faecalis(Group D) Impressions: Chest X-Ray 03/22/19 17:54 IMPRESSION: NO ACUTE RADIOGRAPHIC FINDING IN THE CHEST. Abdomen/Pelvis CT 03/22/19 19:28 IMPRESSION: Diffuse inflammatory changes of the urinary bladder suggestive of cystitis. Assessment and Plan - Diagnosis (1) Chronic diarrhea Is this a current diagnosis for this admission?: Yes (2) ESRD on hemodialysis Is this a current diagnosis for this admission?: Yes (3) Sepsis Qualifiers: Sepsis type: sepsis due to unspecified organism Qualified Code(s): A41.9 - Sepsis, unspecified organism Is this a current diagnosis for this admission?: Yes (4) UTI (urinary tract infection) Qualifiers: Urinary tract infection type: acute cystitis Hematuria presence: with hematuria Qualified Code(s): N30.01 - Acute cystitis with hematuria Is this a current diagnosis for this admission?: Yes - Plan Summary Summary: 03/26/2019 Temperature 97.4 pulse 102 blood pressure 115/63 O2 sat 95% on room air Blood sugars have been anywhere from 118 up to 467. On admission serum glucose was 118 today it was 467 Her stick glucose on admission was 135 today it was high as 423 hemoGlobin A1c today however is 5.4. Back to her elevated glucose levels are secondary to her UTI and sepsis According to her med sheet from the skilled nursing, patient was taking 9 Lantus units every morning and a sliding scale of regular insulin. Here in the hospital we have patient on Lantus 8 units daily Patient is also on vancomycin and imipenem for her urine culture that is growing out Proteus BUN today is stable at 24 creatinine is up slightly 3.08 Patient complains of "being tired" Resume some of patient's meds from the skilled nursing, primarily those for her chronic diarrhea. - Time Time Spent with patient: 25-34 minutes
--- NOTE | 2019-03-26 13:15 | PDOC CONSULTATION ---
Consultation Consult Date: 03/26/19 Provider Consulted: DOM TOSCANO Consult reason:: abdominal pain and diarrhea History of Present Illness Admission Date/PCP: 03/22/19 20:56 ADITYA HARDING MD History of Present Illness: ENEIDA JOHNSON is a 58 year old female patient admitted under Hospitalist service does have DM and CKD patient has iron deficiency anemia asked to see patient due to abdominal pain and diarrhea had CT scan that showed cystitis patient says has been having for multiple days denies any blood stool cultures are negative C.Diff negative Past Medical History Cardiac Medical History: Reports: Atrial Fibrillation, Coronary Artery Disease, DVT, Hyperlipidema, Hypertension Pulmonary Medical History: Reports: Bronchitis, Chronic Obstructive Pulmonary Disease (COPD), Pneumonia Denies: Asthma Neurological Medical History: Denies: Seizures Endocrine Medical History: Reports: Diabetes Mellitus Type 2 Denies: Diabetes Mellitus Type 1, Hyperthyroidism, Hypothyroidism Renal/ Medical History: Reports: End Stage Renal Disease GI Medical History: Reports: Gastroesophageal Reflux Disease Denies: Cirrhosis, Hepatitis Musculoskeltal Medical History: Denies: Arthritis, Fibromyalgia Skin Medical History: Denies: Eczema, Psoriasis Psychiatric Medical History: Reports: Depression Hematology: Reports: Anemia - Chronic secondary to renal disease Denies: Bleeding Tendencies Past Surgical History Past Surgical History: Reports: Section - x3, Coronary Artery Bypass Graft, Other - Vena cava filter, abdominal surgery for repair of perforated stomach ulcer Social History Lives with: [facility] Smoking Status: Former Smoker Electronic Cigarette use?: No Number of Years Smokin Last Time Smoked: quit this past year Frequency of Alcohol Use: None Hx Recreational Drug Use: No Drugs: Marijuana Hx Prescription Drug Abuse: No - Advance Directive Resuscitation Status: Do Not Resuscitate Family History Family History: CAD, DM, Hypertension. denies: Malignancy Parental Family History Reviewed: Yes Children Family History Reviewed: Unknown Sibling(s) Family History Reviewed.: Unknown Medication/Allergy Home Medications: Acetaminophen [Tylenol] 650 mg PO Q6HP PRN 03/23/19 Aspirin [Aspirin 81 mg Chewable Tablet] 81 mg PO DAILY 03/23/19 Atorvastatin Calcium [Lipitor 40 mg Tablet] 40 mg PO QHS 03/23/19 Calcium Acetate [Phoslo 667 Mg Capsule] 667 mg PO MEALS 03/23/19 Cetirizine HCl [Cetirizine 5 mg Tablet] 5 mg PO QPM 03/23/19 Dicyclomine HCl [Bentyl 10 mg Capsule] 10 mg PO QIDP PRN 03/23/19 Dicyclomine HCl [Bentyl 20 mg Tablet] 20 mg PO Q6 03/23/19 Ergocalciferol (Vitamin D2) [Vitamin D2] 50 mcg PO FR 03/23/19 Fluoxetine HCl 30 mg PO DAILY 03/23/19 Glucagon,Human Recombinant [Glucagen Inj 1 Mg Vial] 1 mg SUBCUT ASDIR PRN 03/23/19 Insulin Glargine,Hum.rec.anlog [Lantus Insulin 100 Unit/1 ml 10 ml] 9 unit SUBCUT QAM 03/23/19 Insulin Lispro [Humalog Insulin 100 Unit/1 ml 3 ml Vial] 0 unit SUBCUT .SLD SCALE 03/23/19 Insulin Lispro [Humalog Insulin 100 Unit/1 ml 3 ml Vial] 2 unit SUBCUT AC 03/23/19 Lactobacillus Acidophilus [Acidophilus] 1 each PO BID 03/23/19 Mineral Oil/Hydrophil Petrolat [Aquaphor Healing Ointment] 1 applic TP DAILYP PRN 03/23/19 Nystatin [Mycostatin Topical Powder 15 gm] 1 applic TP BID 03/23/19 Omeprazole 20 mg PO Q6AM 03/23/19 Oxycodone HCl/Acetaminophen [Percocet 7.5-325 mg Tablet] 1 each PO Q6HP PRN 03/23/19 Pregabalin [Lyrica 75 mg Capsule] 75 mg PO Q12 03/23/19 Vit B Comp No.3/Folic/C/Biotin [Nephro-Tal Rx Tablet] 1 each PO QHS 03/23/19 Zinc Sulfate [Zinc-220 Capsule] 220 mg PO DAILY 03/23/19 Allergies/Adverse Reactions: aloe vera Allergy (Verified 09/11/18 08:46) No Known Drug Allergies Allergy (Verified 09/11/18 08:46) Review of Systems Constitutional: ABSENT: fever(s), headache(s), night sweats, weakness Eyes: ABSENT: visual disturbances Ears: ABSENT: hearing changes Nose, Mouth, and Throat: ABSENT: mouth pain, sore throat Cardiovascular: ABSENT: orthropnea, palpitations Respiratory: ABSENT: dyspnea, hemoptysis Gastrointestinal: PRESENT: abdominal pain, diarrhea Genitourinary: ABSENT: dysuria, hematuria Musculoskeletal: ABSENT: deformity, joint swelling Integumentary: ABSENT: lesions, pruritus Neurological: ABSENT: syncope, tingling, tremor(s), vertigo Endocrine: ABSENT: polydipsia, polyphagia, polyuria Hematologic/Lymphatic: ABSENT: easy bruising, lymphadenopathy Physical Exam Vital Signs: Temp Pulse Resp BP Pulse Ox 97.7 F 89 16 140/74 H 95 03/26/19 11:03 03/26/19 11:03 03/26/19 11:03 03/26/19 11:03 03/26/19 11:03 Intake & Output 03/25/19 03/26/19 03/27/19 06:59 06:59 06:59 Intake Total 620 470 260 Output Total 0 Balance 620 470 260 Weight 47.8 kg 48 kg 48 kg Head exam: PRESENT: atraumatic, normocephalic Eye exam: PRESENT: EOMI, PERRLA. ABSENT: nystagmus, scleral icterus Mouth exam: PRESENT: moist, neck supple Throat exam: ABSENT: tonsillar exudate, tonsillogmegaly Neck exam: ABSENT: meningismus, tenderness, thyromegaly Respiratory exam: PRESENT: symmetrical, unlabored. ABSENT: tachypnea, wheezes Cardiovascular exam: PRESENT: irregular rhythm GI/Abdominal exam: ABSENT: Wright's sign, rebound, rigid Extremities exam: ABSENT: joint swelling Musculoskeletal exam: PRESENT: full ROM Neurological exam: PRESENT: oriented to time, oriented to situation, CN II-XII grossly intact Focused psych exam: ABSENT: restlessness Skin exam: PRESENT: normal color. ABSENT: mottled, pallor, urticaria, vesicles Results Laboratory Results: 03/26/19 06:13 03/26/19 06:13 03/25/19 03/26/19 03/26/19 22:39 06:13 06:13 WBC 6.2 RBC 3.31 L Hgb 9.4 L Hct 31.8 L MCV 96 D MCH 28.5 MCHC 29.6 L RDW 20.8 H Plt Count 295 Seg Neutrophils % 86.5 H Sodium 134.9 L Potassium 4.8 Chloride 97 L Carbon Dioxide 13 L Anion Gap 25 H BUN 24 H Creatinine 3.08 H Est GFR ( Amer) 19 L Glucose 467 H* Calcium 8.4 Magnesium 1.7 Total Bilirubin 0.7 AST 26 Alkaline Phosphatase 146 H Total Protein 7.8 Albumin 2.9 L Stool for White Cells NO WBCs SEEN 03/22/19 17:19 Blood Blood Culture (PCR) - Final Staphylococcus Species 03/22/19 17:19 Blood Blood Culture - Final Staphylococcus Hominis 03/22/19 17:19 Catheterized Urine Urine Culture - Final Proteus Mirabilis Enterococcus Faecalis(Group D) Impressions: Chest X-Ray 03/22/19 17:54 IMPRESSION: NO ACUTE RADIOGRAPHIC FINDING IN THE CHEST. Abdomen/Pelvis CT 03/22/19 19:28 IMPRESSION: Diffuse inflammatory changes of the urinary bladder suggestive of cystitis. Assessment & Plan - Diagnosis (1) Chronic diarrhea Is this a current diagnosis for this admission?: Yes Plan: CT scan is negative for colonic wall thickening noted to have stool present ? possible overflow diarrhea with with possible impaction could also be due to autonomic diarrhea as well would likely benefit from bowel prep and possible colonoscopy Risks, benefits and alternatives are discussed with the patient in detail further recommendations to follow (2) Abdominal pain Qualifiers: Abdominal location: generalized Qualified Code(s): R10.84 - Generalized abdominal pain Plan: unclear etiology with A fib, ? possible ischmic symptoms or colitis will schedule colonoscopy Risks, benefits and alternatives are discussed with the patient in detail further recommendations to follow - Time Time Spent: 50 to 70 Minutes
[2019-03-26] MEDS: CETIRIZINE 10 MG TABLET PO SCH (17:24)
[2019-03-26] MEDS: LACTOBACILLUS ACIDOPHILUS 250 MG TAB PO SCH (17:24)
[2019-03-26] MEDS ORDERED: (PENDING PHARMACY ID) (Lactobacillus Acidophilus [Acidophilus] 1 EACH) PO SCH (18:00)
[2019-03-26] MEDS ORDERED: PEG 3350/NA SULF,BICARB,CL/KCL 4000 ML PO ONE (18:00)
[2019-03-26] MEDS: MULTIVITAMIN TABLET PO SCH (21:43)
[2019-03-26] MEDS: ATORVASTATIN CALCIUM 40 MG TABLET PO SCH (21:43)
[2019-03-26] MEDS ORDERED: [UNRECOGNIZED DRUG - REMARK] PO SCH (22:00)
[2019-03-26] MEDS ORDERED: ONDANSETRON HCL INJ/PF 4 MG/2 ML SDV ONE (23:54)
[2019-03-27] MEDS ORDERED: ONDANSETRON HCL INJ/PF 4 MG/2 ML SDV IV ONE (00:30)
[2019-03-27] MEDS ORDERED: EPOETIN ALFA-EPBX 2,000 UNIT, EPOETIN ALFA-EPBX 3,000 UNIT, EPOETIN ALFA-EPBX 20,000 UN... IV PRN ×4 (05:00)
[2019-03-27] MEDS: HEPARIN SOD (PORCINE) 5,000 UNIT/ML 1 ML VIAL SUBCUT SCH ×3 (05:24→21:11)
[2019-03-27] MEDS ORDERED: MAGNESIUM CITRATE 296 ML BOTTLE PO ONE (06:45)
[2019-03-27] MEDS: CALCIUM ACETATE 667 MG CAPSULE PO SCH ×3 (07:14→17:31)
[2019-03-27] MEDS: INSULIN LISPRO 100 UNIT/ML 3 ML VIAL SUBCUT SCH ×4 (07:14→21:25)
[2019-03-27 07:23] LABS: HEMATOCRIT 30.9 % (36.0-47.0); HEMOGLOBIN 9.8 g/dL (12.0-15.5); MEAN CORPUSCULAR HEMOGLOBIN 28.4 pg (27.0-33.4); MEAN CORPUSCULAR HGB CONC 31.7 g/dL (32.0-36.0); PLATELET COUNT 302 10^3/uL (150-450); RED BLOOD COUNT 3.46 10^6/uL (3.72-5.28); RED CELL DISTRIBUTION WIDTH 20.7 % (11.5-14.0); WHITE BLOOD COUNT 4.6 10^3/uL (4.0-10.5)
[2019-03-27 07:36] LABS: ANION GAP 9 (5-19); BLOOD UREA NITROGEN 31 mg/dL (7-20); CALCIUM 8.4 mg/dL (8.4-10.2); CARBON DIOXIDE 27 mmol/L (22-30); CHLORIDE 98 mmol/L (98-107); GLUCOSE 137 mg/dL (75-110); POTASSIUM 3.9 mmol/L (3.6-5.0)
[2019-03-27 07:37] LABS: MEAN CORPUSCULAR VOLUME 90 fl (80-97)
--- NOTE | 2019-03-27 08:25 | PDOC PROGRESS REPORT ---
Subjective Progress Note for:: 03/27/19 Subjective:: was called by patient's RN earlier today prep was initiated last night, patient apparently still not having clear stool effluent recommended Mag citrate bottle but unlcear if patient will be ready for procedure today if still no results shortly, then will defer procedure until tomorrow keep on clears today and continue prep slowly Reason For Visit: UTI,SEPSIS,ESRD ON HD DIABETES Physical Exam Vital Signs: Temp Pulse Resp BP Pulse Ox 97.5 F 76 19 134/71 H 92 03/27/19 04:08 03/27/19 07:00 03/27/19 04:08 03/27/19 04:08 03/27/19 04:08 Intake & Output 03/26/19 03/27/19 03/28/19 06:59 06:59 06:59 Intake Total 470 1110 Output Total 0 Balance 470 1110 Weight 48 kg 49.4 kg General appearance: PRESENT: no acute distress Head exam: PRESENT: normocephalic Eye exam: PRESENT: EOMI, PERRLA. ABSENT: nystagmus, periorbital swelling, scleral icterus Mouth exam: PRESENT: moist, neck supple Throat exam: ABSENT: tonsillar exudate, tonsillogmegaly Neck exam: ABSENT: meningismus, tenderness, thyromegaly Respiratory exam: PRESENT: symmetrical, unlabored. ABSENT: tachypnea, wheezes Cardiovascular exam: PRESENT: RRR, +S1, +S2 GI/Abdominal exam: PRESENT: soft. ABSENT: rebound, rigid, tenderness Extremities exam: ABSENT: joint swelling, pedal edema Musculoskeletal exam: PRESENT: full ROM Neurological exam: PRESENT: oriented to time, oriented to situation, CN II-XII grossly intact Focused psych exam: ABSENT: restlessness Skin exam: PRESENT: normal color. ABSENT: mottled, pallor Results Laboratory Results: 03/27/19 06:32 03/27/19 06:32 03/27/19 03/27/19 06:32 06:32 WBC 4.6 RBC 3.46 L Hgb 9.8 L Hct 30.9 L MCV 90 D MCH 28.4 MCHC 31.7 L RDW 20.7 H Plt Count 302 Sodium 134.3 L Potassium 3.9 Chloride 98 Carbon Dioxide 27 Anion Gap 9 BUN 31 H Creatinine 3.59 H Est GFR ( Amer) 16 L Glucose 137 H Calcium 8.4 03/22/19 17:19 Blood Blood Culture (PCR) - Final Staphylococcus Species 03/22/19 17:19 Blood Blood Culture - Final Staphylococcus Hominis 03/22/19 17:19 Catheterized Urine Urine Culture - Final Proteus Mirabilis Enterococcus Faecalis(Group D) Impressions: Chest X-Ray 03/22/19 17:54 IMPRESSION: NO ACUTE RADIOGRAPHIC FINDING IN THE CHEST. Abdomen/Pelvis CT 03/22/19 19:28 IMPRESSION: Diffuse inflammatory changes of the urinary bladder suggestive of cystitis. Assessment & Plan - Diagnosis (1) Chronic diarrhea Is this a current diagnosis for this admission?: Yes Plan: situation at this point unknown as to whether to proceed inadequate study if there is inadequate prep will hopefully get update in the next few minutes as to whether to proceed either today or tomorrow (2) Abdominal pain Qualifiers: Abdominal location: generalized Qualified Code(s): R10.84 - Generalized abdominal pain Is this a current diagnosis for this admission?: Yes - Time Time Spent with patient: 15-24 minutes
[2019-03-27] MEDS: LACTOBACILLUS ACIDOPHILUS 250 MG TAB PO SCH ×2 (09:38→17:38)
[2019-03-27] MEDS: INSULIN GLARGINE,HUM.REC.ANLOG 1,000 UNIT/10 ML VIAL SUBCUT SCH (09:38)
[2019-03-27] MEDS: DOCUSATE SODIUM 100 MG CAPSULE PO SCH ×2 (09:38→17:31)
[2019-03-27] MEDS: PREGABALIN 75 MG CAPSULE PO SCH ×2 (09:38→21:11)
[2019-03-27] MEDS: ASPIRIN 81 MG TABLET, CHEWABLE PO SCH (09:38)
[2019-03-27] MEDS: ZINC SULFATE 220 MG CAPSULE PO SCH (09:39)
[2019-03-27] MEDS: FLUOXETINE HCL 20 MG/5 ML UDCUP PO SCH (09:39)
[2019-03-27] MEDS: METOPROLOL SUCCINATE 25 MG TAB.SR.24H PO SCH (09:39)
[2019-03-27] MEDS ORDERED: HEPARIN SOD (PORCINE) 1,000 UNIT/ML 10 ML VIAL IV ONE (11:15)
[2019-03-27] MEDS: IMIPENEM/CILASTATIN SODIUM 500 MG in NORMAL SALINE 100 ML IV SCH ×2 (12:13→21:10)
[2019-03-27] MEDS: NYSTATIN TOPICAL POWDER 15 GM TP SCH ×2 (12:21→17:31)
--- NOTE | 2019-03-27 13:52 | PDOC PROGRESS REPORT ---
Subjective Progress Note for:: 03/27/19 Reason For Visit: UTI,SEPSIS,ESRD ON HD DIABETES 03/27/2019 Patient admitted with end-stage renal disease, UTI, chronic diarrhea, diabetes Physical Exam Vital Signs: Temp Pulse Resp BP Pulse Ox 97.4 F 84 17 123/84 97 03/27/19 12:15 03/27/19 12:15 03/27/19 12:15 03/27/19 12:15 03/27/19 12:15 Intake & Output 03/26/19 03/27/19 03/28/19 06:59 06:59 06:59 Intake Total 470 1110 0 Output Total 0 Balance 470 1110 0 Weight 48 kg 49.4 kg General appearance: PRESENT: mild distress Respiratory exam: PRESENT: clear to auscultation ilnda. ABSENT: rales, rhonchi, wheezes Cardiovascular exam: PRESENT: RRR. ABSENT: diastolic murmur, rubs, systolic murmur GI/Abdominal exam: PRESENT: soft Results Laboratory Results: 03/27/19 06:32 03/27/19 06:32 03/27/19 03/27/19 06:32 06:32 WBC 4.6 RBC 3.46 L Hgb 9.8 L Hct 30.9 L MCV 90 D MCH 28.4 MCHC 31.7 L RDW 20.7 H Plt Count 302 Sodium 134.3 L Potassium 3.9 Chloride 98 Carbon Dioxide 27 Anion Gap 9 BUN 31 H Creatinine 3.59 H Est GFR ( Amer) 16 L Glucose 137 H Calcium 8.4 03/22/19 17:19 Blood Blood Culture (PCR) - Final Staphylococcus Species 03/22/19 17:19 Blood Blood Culture - Final Staphylococcus Hominis 03/22/19 17:19 Catheterized Urine Urine Culture - Final Proteus Mirabilis Enterococcus Faecalis(Group D) Impressions: Chest X-Ray 03/22/19 17:54 IMPRESSION: NO ACUTE RADIOGRAPHIC FINDING IN THE CHEST. Abdomen/Pelvis CT 03/22/19 19:28 IMPRESSION: Diffuse inflammatory changes of the urinary bladder suggestive of cystitis. Assessment and Plan - Diagnosis (1) Chronic diarrhea Is this a current diagnosis for this admission?: Yes (2) ESRD on hemodialysis Is this a current diagnosis for this admission?: Yes (3) Sepsis Qualifiers: Sepsis type: sepsis due to unspecified organism Qualified Code(s): A41.9 - Sepsis, unspecified organism Is this a current diagnosis for this admission?: Yes (4) UTI (urinary tract infection) Qualifiers: Urinary tract infection type: acute cystitis Hematuria presence: with hematuria Qualified Code(s): N30.01 - Acute cystitis with hematuria Is this a current diagnosis for this admission?: Yes - Plan Summary Summary: 03/26/2019 Temperature 97.4 pulse 102 blood pressure 115/63 O2 sat 95% on room air Blood sugars have been anywhere from 118 up to 467. On admission serum glucose was 118 today it was 467 Her stick glucose on admission was 135 today it was high as 423 hemoGlobin A1c today however is 5.4. Back to her elevated glucose levels are secondary to her UTI and sepsis According to her med sheet from the alf, patient was taking 9 Lantus units every morning and a sliding scale of regular insulin. Here in the hospital we have patient on Lantus 8 units daily Patient is also on vancomycin and imipenem for her urine culture that is growing out Proteus BUN today is stable at 24 creatinine is up slightly 3.08 Patient complains of "being tired" Resume some of patient's meds from the alf, primarily those for her chronic diarrhea. 03/27/2019 97.4, pulse 84, blood pressure 123/84, 97% saturation on room air CBC shows white count 4.6 hemoglobin 9.8 hematocrit 30.9 BUN 31 on admission it was 11, creatinine 3.59 on admission 2.23. Patient has end-stage renal disease and is on dialysis Urine culture shows Proteus. Patient had incomplete bowel prep therefore colonoscopy was deferred till tomorrow Glucose is running approximately 120 Patient may be ready to go back to alf on Monday - Time Time Spent with patient: 25-34 minutes
[2019-03-27] MEDS: CETIRIZINE 10 MG TABLET PO SCH (17:38)
[2019-03-27] MEDS: VANCOMYCIN HCL 750 MG in DEXTROSE 5%-WATER 250 ML IV SCH (17:38)
[2019-03-27] MEDS: ATORVASTATIN CALCIUM 40 MG TABLET PO SCH (21:10)
[2019-03-27] MEDS: MULTIVITAMIN TABLET PO SCH (21:10)
[2019-03-27] MEDS: HYDRALAZINE HCL INJ/PF 20 MG/1 ML SDV IV PRN (21:11)
[2019-03-27] MEDS: ACETAMINOPHEN 325 MG TABLET PO PRN (21:11)
[2019-03-28] MEDS: HYDRALAZINE HCL INJ/PF 20 MG/1 ML SDV IV PRN ×2 (03:49→19:34)
[2019-03-28] MEDS: HEPARIN SOD (PORCINE) 5,000 UNIT/ML 1 ML VIAL SUBCUT SCH ×3 (05:10→21:34)
[2019-03-28 05:18] LABS: ANION GAP 10 (5-19); BLOOD UREA NITROGEN 16 mg/dL (7-20); CALCIUM 8.2 mg/dL (8.4-10.2); CARBON DIOXIDE 25 mmol/L (22-30); CHLORIDE 99 mmol/L (98-107); GLUCOSE 307 mg/dL (75-110); POTASSIUM 3.9 mmol/L (3.6-5.0)
[2019-03-28] MEDS: INSULIN LISPRO 100 UNIT/ML 3 ML VIAL SUBCUT SCH ×4 (08:08→21:45)
[2019-03-28] MEDS: CALCIUM ACETATE 667 MG CAPSULE PO SCH ×3 (08:09→16:51)
[2019-03-28] MEDS: LACTOBACILLUS ACIDOPHILUS 250 MG TAB PO SCH ×2 (10:05→17:36)
[2019-03-28] MEDS: ASPIRIN 81 MG TABLET, CHEWABLE PO SCH (10:05)
[2019-03-28] MEDS: DOCUSATE SODIUM 100 MG CAPSULE PO SCH ×2 (10:05→17:31)
[2019-03-28] MEDS: PREGABALIN 75 MG CAPSULE PO SCH ×2 (10:08→21:30)
[2019-03-28] MEDS: METOPROLOL SUCCINATE 25 MG TAB.SR.24H PO SCH (10:09)
[2019-03-28] MEDS: FLUOXETINE HCL 20 MG/5 ML UDCUP PO SCH (10:09)
[2019-03-28] MEDS: NYSTATIN TOPICAL POWDER 15 GM TP SCH ×2 (10:09→17:37)
[2019-03-28] MEDS: ZINC SULFATE 220 MG CAPSULE PO SCH (10:09)
[2019-03-28] MEDS: INSULIN GLARGINE,HUM.REC.ANLOG 1,000 UNIT/10 ML VIAL SUBCUT SCH (10:37)
[2019-03-28] MEDS: IMIPENEM/CILASTATIN SODIUM 500 MG in NORMAL SALINE 100 ML IV SCH ×2 (10:37→21:30)
--- NOTE | 2019-03-28 13:28 | Operative Report ---
Operative Report DATE OF SURGERY: 03/28/19 Operative Report: Risk, benefits and alternatives of the procedure including the risk of bleeding, perforation requiring surgery have been explained to the patient in detail and informed consent has been obtained. Patient is taken back to the endoscopy suite and placed in a left, lateral decubital position. Propofol medication is administered. Rectal examination is done which did not reveal any masses, tears or fissures. An Olympus upper scope was introduced into the patient's rectum. Scope was then carefully advanced all the way to the cecum. Cecum was identified by the usual anatomical landmarks including the ileocecal valve as well as the appendiceal office. Photodocumentation is obtained. Scope was then sequentially pulled back via the various segments of the colon including the ascending colon, back flexure, transverse colon, splenic flexure, descending colon finding to the rectosigmoid portions of the colon. Retroflexion maneuvers performed. PREOPERATIVE DIAGNOSIS: Chronic diarrhea POSTOPERATIVE DIAGNOSIS: Edematous colon throughout status post biopsy. Polyp in the hepatic flexure area removed via snare polypectomy unfortunately this was not retrieved. Internal hemorrhoids OPERATION: Colonoscopy with snare polypectomy. Colonoscopy with biopsy SURGEON: DOM TOSCANO ANESTHESIA: LMAC TISSUE REMOVED OR ALTERED: As noted above. COMPLICATIONS: None. ESTIMATED BLOOD LOSS: None. INTRAOPERATIVE FINDINGS: As noted above. PROCEDURE: Patient tolerated the procedure well. No immediate postprocedure complications are noted. Patient is discharged back to her room in good condition. Resume previous activity level Resume previous diet advance as tolerated Await pathology 3 to 5-year surveillance colonoscopy
--- NOTE | 2019-03-28 13:39 | PDOC PROGRESS REPORT ---
Subjective Progress Note for:: 03/28/19 Reason For Visit: UTI,SEPSIS,ESRD ON HD DIABETES 03/28/2019 Admitted with end-stage renal disease on dialysis, UTI, chronic diarrhea, diabetes Physical Exam Vital Signs: Temp Pulse Resp BP Pulse Ox 98.1 F 75 21 H 137/58 H 99 03/28/19 12:11 03/28/19 13:30 03/28/19 13:30 03/28/19 13:30 03/28/19 13:30 Intake & Output 03/27/19 03/28/19 03/29/19 06:59 06:59 06:59 Intake Total 1110 490 150 Output Total 4200 Balance 1110 -3710 150 Weight 49.4 kg 43.2 kg General appearance: PRESENT: no acute distress Respiratory exam: PRESENT: clear to auscultation linda. ABSENT: rales, rhonchi, wheezes Cardiovascular exam: PRESENT: RRR. ABSENT: diastolic murmur, rubs, systolic murmur GI/Abdominal exam: PRESENT: normal bowel sounds, soft. ABSENT: distended, guarding, mass, organolmegaly, rebound, tenderness Neurological exam: PRESENT: altered Psychiatric exam: PRESENT: appropriate affect, normal mood. ABSENT: homicidal ideation, suicidal ideation Results Laboratory Results: 03/27/19 06:32 03/28/19 04:33 03/28/19 04:33 Sodium 134.3 L Potassium 3.9 Chloride 99 Carbon Dioxide 25 Anion Gap 10 BUN 16 Creatinine 2.76 H Est GFR ( Amer) 22 L Glucose 307 H Calcium 8.2 L 03/25/19 22:39 Stool - Stool - Final 03/22/19 19:13 Blood Blood Culture - Final NO GROWTH IN 5 DAYS Impressions: Chest X-Ray 03/22/19 17:54 IMPRESSION: NO ACUTE RADIOGRAPHIC FINDING IN THE CHEST. Abdomen/Pelvis CT 03/22/19 19:28 IMPRESSION: Diffuse inflammatory changes of the urinary bladder suggestive of cystitis. Assessment and Plan - Diagnosis (1) Chronic diarrhea Is this a current diagnosis for this admission?: Yes (2) ESRD on hemodialysis Is this a current diagnosis for this admission?: Yes (3) Sepsis Qualifiers: Sepsis type: sepsis due to unspecified organism Qualified Code(s): A41.9 - Sepsis, unspecified organism Is this a current diagnosis for this admission?: Yes (4) UTI (urinary tract infection) Qualifiers: Urinary tract infection type: acute cystitis Hematuria presence: with hematuria Qualified Code(s): N30.01 - Acute cystitis with hematuria Is this a current diagnosis for this admission?: Yes (5) Diabetes Is this a current diagnosis for this admission?: Yes - Plan Summary Summary: 03/26/2019 Temperature 97.4 pulse 102 blood pressure 115/63 O2 sat 95% on room air Blood sugars have been anywhere from 118 up to 467. On admission serum glucose was 118 today it was 467 Her stick glucose on admission was 135 today it was high as 423 hemoGlobin A1c today however is 5.4. Back to her elevated glucose levels are secondary to her UTI and sepsis According to her med sheet from the care home, patient was taking 9 Lantus units every morning and a sliding scale of regular insulin. Here in the hospital we have patient on Lantus 8 units daily Patient is also on vancomycin and imipenem for her urine culture that is growing out Proteus BUN today is stable at 24 creatinine is up slightly 3.08 Patient complains of "being tired" Resume some of patient's meds from the care home, primarily those for her chronic diarrhea. 03/27/2019 97.4, pulse 84, blood pressure 123/84, 97% saturation on room air CBC shows white count 4.6 hemoglobin 9.8 hematocrit 30.9 BUN 31 on admission it was 11, creatinine 3.59 on admission 2.23. Patient has end-stage renal disease and is on dialysis Urine culture shows Proteus. Patient had incomplete bowel prep therefore colonoscopy was deferred till to [facility] Glucose is running approximately 120 Patient may be ready to go back to care home on Monday03/28/2019 She had her colonoscopy performed this morning with no complications. The see the op report that was dictated with polypectomy and edematous colon. Patient has no complications this afternoon plan to transfer her back to care home tomorrow Labs appear to be basically stable with an elevated glucose. C. difficile is negative Anticipate patient being discharged back tomorrow following dialysis on amoxicillin 500 mg 3 times daily x 4 more days - Time Time Spent with patient: 25-34 minutes
[2019-03-28] MEDS ORDERED: CETIRIZINE 5 MG TABLET PO SCH (18:00)
[2019-03-28] MEDS: ATORVASTATIN CALCIUM 40 MG TABLET PO SCH (21:30)
[2019-03-28] MEDS: MULTIVITAMIN TABLET PO SCH (21:31)
[2019-03-29] MEDS ORDERED: EPOETIN ALFA-EPBX 10,000 UNIT in SYRINGE, DISPOSABLE, 1 EACH IV PRN (05:00)
[2019-03-29] MEDS ORDERED: HEPARIN SOD (PORCINE) 1,000 UNIT/ML 10 ML VIAL IV PRN (05:00)
[2019-03-29 05:47] LABS: ANION GAP 10 (5-19); BLOOD UREA NITROGEN 20 mg/dL (7-20); CALCIUM 8.3 mg/dL (8.4-10.2); CARBON DIOXIDE 25 mmol/L (22-30); CHLORIDE 99 mmol/L (98-107); POTASSIUM 3.7 mmol/L (3.6-5.0)
[2019-03-29 05:48] LABS: VANCOMYCIN,TROUGH 23.1 ug/mL (5.0-20.0)
[2019-03-29 05:51] LABS: GLUCOSE 43 mg/dL (75-110)
[2019-03-29] MEDS: HEPARIN SOD (PORCINE) 5,000 UNIT/ML 1 ML VIAL SUBCUT SCH (05:58)
[2019-03-29] MEDS ORDERED: CHOLECALCIFEROL (D3) 1,000 UNIT (25 MCG) TABLET PO SCH (07:25)
--- NOTE | 2019-03-29 10:05 | PDOC TRANSFER SUMMARY ---
Impression - Admit/DC Date/PCP Admission Date/Primary Care Provider: 03/22/19 20:56 ADITYA HARDING MD Discharge Date: 03/29/19 - Discharge Diagnosis (1) Chronic diarrhea Is this a current diagnosis for this admission?: Yes (2) ESRD on hemodialysis Is this a current diagnosis for this admission?: Yes (3) Sepsis Is this a current diagnosis for this admission?: Yes (4) UTI (urinary tract infection) Is this a current diagnosis for this admission?: Yes (5) Diabetes Is this a current diagnosis for this admission?: Yes - Assessment Summary: 03/26/2019 Temperature 97.4 pulse 102 blood pressure 115/63 O2 sat 95% on room air Blood sugars have been anywhere from 118 up to 467. On admission serum glucose was 118 today it was 467 Her stick glucose on admission was 135 today it was high as 423 hemoGlobin A1c today however is 5.4. Back to her elevated glucose levels are secondary to her UTI and sepsis According to [facility] sheet from the [facility], patient was taking 9 Lantus units every morning and a sliding scale of regular insulin. Here in the hospital we have patient on Lantus 8 units daily Patient is also on vancomycin and imipenem for her urine culture that is growing out Proteus BUN today is stable at 24 creatinine is up slightly 3.08 Patient complains of "being tired" Resume some of patient's meds from the [facility], primarily those for her chronic diarrhea. 03/27/2019 97.4, pulse 84, blood pressure 123/84, 97% saturation on room air CBC shows white count 4.6 hemoglobin 9.8 hematocrit 30.9 BUN 31 on admission it was 11, creatinine 3.59 on admission 2.23. Patient has end-stage renal disease and is on dialysis Urine culture shows Proteus. Patient had incomplete bowel prep therefore colonoscopy was deferred till tomorrow Glucose is running approximately 120 Patient may be ready to go back to [facility] on Monday03/28/2019 She had her colonoscopy performed this morning with no complications. The see the op report that was dictated with polypectomy and edematous colon. Patient has no complications this afternoon plan to transfer her back to [facility] tomorrow Labs appear to be basically stable with an elevated glucose. C. difficile is negative Anticipate patient being discharged back tomorrow following dialysis on amoxicillin 500 mg 3 times daily x 4 more days 03/29/2019 Patient will be discharged back to the [facility] only new medication is amoxicillin 500 mg 3 times daily for 4 days New dialysis as scheduled Follow up with Dr. Morrison pathology returns from polypectomy, otherwise repeat colonoscopy in 3 to 5 years - Additional Information Resuscitation Status: Do Not Resuscitate Discharge Diet: Diabetic Discharge Activity: Activity As Tolerated Referrals: ADITYA HARDING MD [Primary Care Provider] - Follow up as needed Prescriptions: Amoxicillin Trihydrate [Amoxil 500 mg Capsule] 500 mg PO TID 4 Days #12 capsule Metoprolol Succinate [Toprol Xl 25 mg Tab.sr] 25 mg PO DAILY 30 Days #30 tab.sr.24h Home Medications: Acetaminophen [Tylenol] 650 mg PO Q6HP PRN 03/23/19 Aspirin [Aspirin 81 mg Chewable Tablet] 81 mg PO DAILY 03/23/19 Atorvastatin Calcium [Lipitor 40 mg Tablet] 40 mg PO QHS 03/23/19 Calcium Acetate [Phoslo 667 mg Capsule] 667 mg PO MEALS 03/23/19 Cetirizine HCl [Zyrtec 5 mg Tablet] 5 mg PO QPM 03/23/19 Dicyclomine HCl [Bentyl 10 mg Capsule] 10 mg PO QIDP PRN 03/23/19 Dicyclomine HCl [Bentyl 20 mg Tablet] 20 mg PO Q6 03/23/19 Ergocalciferol (Vitamin D2) [Vitamin D2] 50 mcg PO FR 03/23/19 Fluoxetine HCl 30 mg PO DAILY 03/23/19 Glucagon,Human Recombinant [Glucagen Inj 1 mg Vial] 1 mg SUBCUT ASDIR PRN 03/23/19 Insulin Glargine,Hum.rec.anlog [Lantus Insulin 100 Unit/1 ml 10 ml] 9 unit SUBCUT QAM 03/23/19 Insulin Lispro [Humalog Insulin (Lispro) 100 unit/mL] 0 unit SUBCUT .SLD SCALE 03/23/19 Insulin Lispro [Humalog Insulin (Lispro) 100 unit/mL] 2 unit SUBCUT AC 03/23/19 Lactobacillus Acidophilus [Acidophilus] 1 each PO BID 03/23/19 Mineral Oil/Hydrophil Petrolat [Aquaphor Healing Ointment] 1 applic TP DAILYP PRN 03/23/19 Nystatin [Mycostatin Topical Powder 15 gm] 1 applic TP BID 03/23/19 Omeprazole 20 mg PO Q6AM 03/23/19 Oxycodone HCl/Acetaminophen [Percocet 7.5-325 mg Tablet] 1 each PO Q6HP PRN 03/23/19 Pregabalin [Lyrica 75 mg Capsule] 75 mg PO Q12 03/23/19 Vit B Comp No.3/Folic/C/Biotin [Nephro-Tal Rx Tablet] 1 each PO QHS 03/23/19 Zinc Sulfate [Zinc-220 Capsule] 220 mg PO DAILY 03/23/19 Acetaminophen [Tylenol 325 mg Tablet] 650 mg PO Q6HP PRN tablet 03/29/19 Amoxicillin Trihydrate [Amoxil 500 mg Capsule] 500 mg PO TID 4 Days #12 capsule 03/29/19 Docusate Sodium [Colace 100 mg Capsule] 100 mg PO BID capsule 03/29/19 Metoprolol Succinate [Toprol Xl 25 mg Tab.sr] 25 mg PO DAILY 30 Days #30 tab.sr.24h 03/29/19 History of Present Illiness History of Present Illness: ENEIDA JOHNSON is a 58 year old female Physical Exam Vital Signs: Temp Pulse Resp BP Pulse Ox 98.2 F 89 13 138/71 H 97 03/29/19 03:20 03/29/19 06:59 03/29/19 03:20 03/29/19 03:20 03/29/19 03:20 Intake & Output 03/28/19 03/29/19 03/30/19 06:59 06:59 06:59 Intake Total 490 550 Output Total 4200 Balance -3710 550 Weight 43.2 kg 44.3 kg Results Laboratory Results: WBC 4.6 10^3/uL (4.0-10.5) 03/27/19 06:32 RBC 3.46 10^6/uL (3.72-5.28) L 03/27/19 06:32 Hgb 9.8 g/dL (12.0-15.5) L 03/27/19 06:32 Hct 30.9 % (36.0-47.0) L 03/27/19 06:32 MCV 90 fl (80-97) D 03/27/19 06:32 MCH 28.4 pg (27.0-33.4) 03/27/19 06:32 MCHC 31.7 g/dL (32.0-36.0) L 03/27/19 06:32 RDW 20.7 % (11.5-14.0) H 03/27/19 06:32 Plt Count 302 10^3/uL (150-450) 03/27/19 06:32 Lymph % (Auto) 8.6 % (13-45) L 03/26/19 06:13 [place] % (Auto) 4.4 % (3-13) 03/26/19 06:13 Eos % (Auto) 0.1 % (0-6) 03/26/19 06:13 Baso % (Auto) 0.4 % (0-2) 03/26/19 06:13 Reticulocyte # 0.052 10^6/uL (0.028-0.122) 03/22/19 17:19 Absolute Neuts (auto) 5.3 10^3/uL (1.7-8.2) 03/26/19 06:13 Absolute Lymphs (auto) 0.5 10^3/uL (0.5-4.7) 03/26/19 06:13 Absolute Monos (auto) 0.3 10^3/uL (0.1-1.4) 03/26/19 06:13 Absolute Eos (auto) 0.0 10^3/uL (0.0-0.6) 03/26/19 06:13 Absolute Basos (auto) 0.0 10^3/uL (0.0-0.2) 03/26/19 06:13 Seg Neutrophils % 86.5 % (42-78) H 03/26/19 06:13 Retic Count (auto) 1.57 % (0.66-2.85) 03/22/19 17:19 PT 14.6 SEC (11.4-15.4) 03/22/19 17:19 INR 1.14 03/22/19 17:19 Sodium 134.3 mmol/L (137-145) L 03/29/19 05:07 Potassium 3.7 mmol/L (3.6-5.0) 03/29/19 05:07 Chloride 99 mmol/L (98-107) 03/29/19 05:07 Carbon Dioxide 25 mmol/L (22-30) 03/29/19 05:07 Anion Gap 10 (5-19) 03/29/19 05:07 BUN 20 mg/dL (7-20) 03/29/19 05:07 Creatinine 3.38 mg/dL (0.52-1.25) H 03/29/19 05:07 Est GFR ( Amer) 17 (>60) L 03/29/19 05:07 Est GFR (MDRD) Non-Af 14 (>60) L 03/29/19 05:07 Glucose 43 mg/dL (75-110) L 03/29/19 05:07 POC Glucose 71 mg/dL (70-110) 03/29/19 06:37 Hemoglobin A1c % 5.4 % (4.7-6.0) 03/26/19 06:13 Lactic Acid 0.6 mmol/L (0.7-2.1) L 03/23/19 02:40 Calcium 8.3 mg/dL (8.4-10.2) L 03/29/19 05:07 Magnesium 1.7 mg/dL (1.6-2.3) 03/26/19 06:13 Iron 13.0 ug/dL (37-170) L 03/22/19 17:19 TIBC 116 ug/dL (250-450) L 03/22/19 17:19 % Saturation 11 % 03/22/19 17:19 Ferritin 783.00 ng/mL (11.1-264.0) H 03/22/19 17:19 Total Bilirubin 0.7 mg/dL (0.2-1.3) 03/26/19 06:13 Direct Bilirubin 0.7 mg/dL (0.0-0.4) H 03/26/19 06:13 Neonat Total Bilirubin Not Reportable 03/26/19 06:13 Neonat Direct Bilirubin Not Reportable 03/26/19 06:13 Neonat Indirect Bili Not Reportable 03/26/19 06:13 AST 26 U/L (14-36) 03/26/19 06:13 ALT 11 U/L (<35) 03/26/19 06:13 Alkaline Phosphatase 146 U/L (38-126) H 03/26/19 06:13 Total Protein 7.8 g/dL (6.3-8.2) 03/26/19 06:13 Albumin 2.9 g/dL (3.5-5.0) L 03/26/19 06:13 Vitamin B12 875.0 pg/mL (239-931) 03/22/19 17:19 Folate > 20.00 ng/mL (>2.76) 03/22/19 17:19 Urine Color YELLOW 03/22/19 17:19 Urine Appearance TURBID 03/22/19 17:19 Urine pH 7.0 (5.0-9.0) 03/22/19 17:19 Ur Specific [place] 1.018 03/22/19 17:19 Urine Protein 100 mg/dL (NEGATIVE) H 03/22/19 17:19 Urine Glucose (UA) NEGATIVE mg/dL (NEGATIVE) 03/22/19 17:19 Urine Ketones NEGATIVE mg/dL (NEGATIVE) 03/22/19 17:19 Urine Blood SMALL (NEGATIVE) H 03/22/19 17:19 Urine Nitrite (Reflex) NEGATIVE (NEGATIVE) 03/22/19 17:19 Urine Bilirubin NEGATIVE (NEGATIVE) 03/22/19 17:19 Urine Urobilinogen NEGATIVE mg/dL (<2.0) 03/22/19 17:19 Leukocyte Esterase Rfl MODERATE (NEGATIVE) H 03/22/19 17:19 Urine WBC TOO NUMEROUS TO CNT /HPF 03/22/19 17:19 Urine Bacteria 4+ /HPF 03/22/19 17:19 Urine Ascorbic Acid NEGATIVE (NEGATIVE) 03/22/19 17:19 Stool for White Cells NO WBCs SEEN 03/25/19 22:39 Stl C. Difficile GDH Ag NEGATIVE (NEGATIVE) 03/23/19 08:20 Stl C.difficile Tox A&B NEGATIVE (NEGATIVE) 03/23/19 08:20 Time Trough Drawn 0507 03/29/19 05:07 Vancomycin Trough 23.1 ug/mL (5.0-20.0) H 03/29/19 05:07 Influenza A (Rapid) NEGATIVE (NEGATIVE) 03/22/19 20:20 Influenza B (Rapid) NEGATIVE (NEGATIVE) 03/22/19 20:20 Impressions: Chest X-Ray 03/22/19 17:54 IMPRESSION: NO ACUTE RADIOGRAPHIC FINDING IN THE CHEST. Abdomen/Pelvis CT 03/22/19 19:28 IMPRESSION: Diffuse inflammatory changes of the urinary bladder suggestive of cystitis. Stroke Is this a Stroke Patient?: No Acute Heart Failure - Is this a Heart Failure Patient?: No
--- NOTE | 2019-03-29 10:58 | PDOC PROGRESS REPORT ---
Subjective Progress Note for:: 03/29/19 Reason For Visit: Patient seen today on dialysis. She is undergoing dialysis without any issues. Overall she feels lots better. Still denies any history of chest pain shortness of breath. Labs and medications were reviewed. Dialysis orders were reviewed with the treating dialysis nurse. Physical Exam Vital Signs: Temp Pulse Resp BP Pulse Ox 98.2 F 89 13 138/71 H 97 03/29/19 03:20 03/29/19 06:59 03/29/19 03:20 03/29/19 03:20 03/29/19 03:20 Intake & Output 03/28/19 03/29/19 03/30/19 06:59 06:59 06:59 Intake Total 490 550 Output Total 4200 3200 Balance -3710 550 -3200 Weight 43.2 kg 44.3 kg General appearance: PRESENT: no acute distress Respiratory exam: PRESENT: clear to auscultation linda. ABSENT: crackles Cardiovascular exam: PRESENT: +S1, +S2 GI/Abdominal exam: PRESENT: normal bowel sounds, soft. ABSENT: organomegaly, tenderness Extremities exam: ABSENT: pedal edema Neurological exam: PRESENT: alert, awake, oriented to person, oriented to place Psychiatric exam: PRESENT: appropriate affect Results Laboratory Results: 03/27/19 06:32 03/29/19 05:07 03/29/19 05:07 Sodium 134.3 L Potassium 3.7 Chloride 99 Carbon Dioxide 25 Anion Gap 10 BUN 20 Creatinine 3.38 H Est GFR ( Amer) 17 L Glucose 43 L Calcium 8.3 L 03/25/19 22:39 Stool - Stool - Final 03/25/19 22:39 Stool - Stool Stool Culture - Final NO SALMONELLA, SHIGELLA, CAMPYLOBACTER, OR E.COLI 0157 RECOVERED. NEGATIVE FOR SHIGA TOXINS 1&2. 03/22/19 17:19 Blood Blood Culture (PCR) - Final Staphylococcus Species 03/22/19 17:19 Blood Blood Culture - Final Staphylococcus Hominis Impressions: Chest X-Ray 03/22/19 17:54 IMPRESSION: NO ACUTE RADIOGRAPHIC FINDING IN THE CHEST. Abdomen/Pelvis CT 03/22/19 19:28 IMPRESSION: Diffuse inflammatory changes of the urinary bladder suggestive of cystitis. Assessment & Plan - Diagnosis (1) UTI (urinary tract infection) Qualifiers: Urinary tract infection type: acute cystitis Hematuria presence: with hematuria Qualified Code(s): N30.01 - Acute cystitis with hematuria Is this a current diagnosis for this admission?: Yes Plan: As per Hospitalist. (2) ESRD on hemodialysis Is this a current diagnosis for this admission?: Yes Plan: Patient currently undergoing dialysis. Vital signs are stable. Dialysis being supervised to ensure safe and smooth procedure. Plan to remove approximately 1 to 1.5 L. Dialysis orders were reviewed with the treating dialysis nurse. (3) Altered mental status Plan: Currently all resolved. (4) Chronic diarrhea Is this a current diagnosis for this admission?: Yes Plan: As per hospitalist. 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 (6) Anemia Qualifiers: Chronic kidney disease stage: on chronic dialysis Is this a current diagnosis for this admission?: Yes Plan: On erythropoietin.
[2019-03-29] MEDS: CALCIUM ACETATE 667 MG CAPSULE PO SCH ×2 (12:38→12:39)
[2019-03-29] MEDS: INSULIN LISPRO 100 UNIT/ML 3 ML VIAL SUBCUT SCH (12:38)
[2019-03-29] MEDS: DOCUSATE SODIUM 100 MG CAPSULE PO SCH (12:39)
[2019-03-29] MEDS: INSULIN GLARGINE,HUM.REC.ANLOG 1,000 UNIT/10 ML VIAL SUBCUT SCH (12:39)
[2019-03-29] MEDS: LACTOBACILLUS ACIDOPHILUS 250 MG TAB PO SCH (12:39)
[2019-03-29] MEDS: ASPIRIN 81 MG TABLET, CHEWABLE PO SCH (12:39)
[2019-03-29] MEDS: NYSTATIN TOPICAL POWDER 15 GM TP SCH (12:40)
[2019-03-29] MEDS: PREGABALIN 75 MG CAPSULE PO SCH (12:40)
[2019-03-29] MEDS: IMIPENEM/CILASTATIN SODIUM 500 MG in NORMAL SALINE 100 ML IV SCH (12:41)
[2019-03-29] MEDS: FLUOXETINE HCL 20 MG/5 ML UDCUP PO SCH (12:42)
[2019-03-29] MEDS: METOPROLOL SUCCINATE 25 MG TAB.SR.24H PO SCH (12:42)
[2019-03-29] MEDS: ZINC SULFATE 220 MG CAPSULE PO SCH (12:42)
[2019-03-29 13:39] VITALS: BP 177/77
[2019-03-29] MEDS ORDERED: (PENDING PHARMACY ID) (Ergocalciferol (Vitamin D2) [Vitamin D2] 50 MCG) PO SCH (17:08)
[2019-03-29] MEDS ORDERED: VANCOMYCIN HCL 500 MG in DEXTROSE 5%-WATER 100 ML IV SCH (18:00)
== END 2019-03-29 15:15 | DRG 871 ==
LOC: ER 16:33 → EH 20:56 → 3S 03-23 00:21
PROVIDERS: ADMIT Internal Medicine; ATTEND Internal Medicine
PROC: 5A1D70Z Performance of Urinary Filtration, Intermittent, Less than 6 Hours Per Day (ICD-10-PCS; principal; 2019-03-25)
PROC: 0DBL8ZZ Excision of Transverse Colon, Via Natural or Artificial Opening Endoscopic (ICD-10-PCS; 2019-03-28)
DX: A41.9 Sepsis, unspecified organism (principal); N18.6 End stage renal disease; I12.0 Hypertensive chronic kidney disease with stage 5 chronic kidney disease or end stage renal disease; N25.81 Secondary hyperparathyroidism of renal origin; N30.01 Acute cystitis with hematuria; E11.22 Type 2 diabetes mellitus with diabetic chronic kidney disease; Z66 Do not resuscitate; K52.9 Noninfective gastroenteritis and colitis, unspecified; B96.4 Proteus (mirabilis) (morganii) as the cause of diseases classified elsewhere; I25.10 Atherosclerotic heart disease of native coronary artery without angina pectoris; E78.5 Hyperlipidemia, unspecified; K21.9 Gastro-esophageal reflux disease without esophagitis; D63.1 Anemia in chronic kidney disease; B95.2 Enterococcus as the cause of diseases classified elsewhere; F32.9 Major depressive disorder, single episode, unspecified; K64.8 Other hemorrhoids; K63.5 Polyp of colon; E11.649 Type 2 diabetes mellitus with hypoglycemia without coma; Z79.899 Other long term (current) drug therapy; Z79.4 Long term (current) use of insulin; Z86.718 Personal history of other venous thrombosis and embolism; Z87.891 Personal history of nicotine dependence; Z74.01 Bed confinement status; Z99.2 Dependence on renal dialysis; Z79.82 Long term (current) use of aspirin
CPT/HCPCS: 00811; 36415; 45385; 51701; 71045; 74176; 80048; 80053; 80202; 81001; 82565; 82607; 82728; 82746; 82962; 83036; 83540; 83550; 83605; 83735; 85025; 85027; 85045; 85610; 87040; 87045; 87077; 87086; 87088; 87150; 87186; 87205; 87324; 87449; 87804; 88305; 89055; 93005; 93010; 96365; 99285; J0360; J0743; J1644; J1815; J2405; J2543; J3370; J3490; J7030; J7050; J7060; J7120; J7620; Q5105

== ENCOUNTER 2019-04-19 16:58 | Emergency (ER) | payer MEDICARE, MEDICAID ==
--- NOTE | 2019-04-19 18:07 | ER Document Report ---
ED Medical Screen (RME) - General Chief Complaint: Blood Pressure Problem Stated Complaint: BLOOD PRESSURE PROBLEMS Time Seen by Provider: 04/19/19 18:00 Primary Care Provider: ADITYA HARDING MD [Primary Care Provider] - Follow up as needed TRAVEL OUTSIDE OF THE [place] IN LAST 30 DAYS: No - HPI Notes: 04/19/19 18:03 Patient is a 58-year-old female with a history of anemia, hypertension, dyslipidemia, coronary artery disease, COPD, insulin-dependent diabetes, bedbound state, opiate dependent chronic pain and oliguric end-stage renal failure on hemodialysis Monday (completed today) presents for elevated blood pressure. Patient states that she has some pain to her foot as well status post injury today. Patient states that she may have stepped on something earlier today, but normally does not ambulate. I have treated and performed a rapid initial assessment of this patient. A comprehensive ED assessment and evaluation of the patient, analysis of test results and completion of medical decision making process will be conducted by additional ED providers. PHYSICAL EXAMINATION: GENERAL: Well-appearing, well-nourished and in no acute distress. Left foot: pulse noted by bedside doppler, the foot is warm with cap refill <3 seconds. + mild dorsal tenderness. - Related Data Allergies/Adverse Reactions: aloe vera Allergy (Verified 04/19/19 17:56) No Known Drug Allergies Allergy (Verified 04/19/19 17:56) Past Medical History - Past Medical History Cardiac Medical History: Reports: Hx Atrial Fibrillation, Hx Coronary Artery Disease, Hx DVT, Hx Hypercholesterolemia, Hx Hypertension Pulmonary Medical History: Reports: Hx Bronchitis, Hx COPD, Hx Pneumonia Denies: Hx Asthma Neurological Medical History: Denies: Hx Seizures Endocrine Medical History: Reports: Hx Diabetes Mellitus Type 2. Denies: Hx Diabetes Mellitus Type 1, Hx Hyperthyroidism, Hx Hypothyroidism Renal/ Medical History: Reports: Hx End Stage Renal Disease, Hx Hemodialysis. Denies: Hx Peritoneal Dialysis GI Medical History: Reports: Hx Gastroesophageal Reflux Disease, Hx Ulcer. Denies: Hx Cirrhosis, Hx Hepatitis Musculoskeltal Medical History: Denies Hx Arthritis, Denies Hx Fibromyalgia Skin Medical History: Denies Hx Eczema, Denies Hx Psoriasis Psychiatric Medical History: Reports: Hx Depression Infectious Medical History: Denies: Hx Hepatitis Past Surgical History: Reports: Hx Abdominal Surgery - small bowel resection, Hx Cardiac Surgery - cabg x2, Hx Section - x3, Hx Coronary Artery Bypass Graft, Other - Vena cava filter, abdominal surgery for repair of perforated stomach ulcer - Immunizations Immunizations up to date: Yes Physical Exam - Vital signs Vitals: Temp Pulse Resp BP Pulse Ox 98.3 F 86 18 194/96 H 94 04/19/19 17:27 04/19/19 17:27 04/19/19 17:27 04/19/19 17:27 04/19/19 17:27 Course - Vital Signs Vital signs: Temp Pulse Resp BP Pulse Ox 98.3 F 86 18 194/96 H 94 04/19/19 17:27 04/19/19 17:27 04/19/19 17:27 04/19/19 17:27 04/19/19 17:27 Doctor's Discharge - Discharge Referrals: ADITYA HARDING MD [Primary Care Provider] - Follow up as needed
[2019-04-19 18:56] LABS: ABSOLUTE BASOPHILS # (AUTO) 0.1 10^3/uL (0.0-0.2); ABSOLUTE EOSINOPHILS # (AUTO) 0.1 10^3/uL (0.0-0.6); ABSOLUTE LYMPHOCYTES (AUTO) 0.8 10^3/uL (0.5-4.7); ABSOLUTE MONOCYTES (AUTO) 0.3 10^3/uL (0.1-1.4); ABSOLUTE NEUT (AUTO) 7.9 10^3/uL (1.7-8.2); BASOPHILS % (AUTO) 1.3 % (0-2); EOSINOPHILS % (AUTO) 0.6 % (0-6); HEMOGLOBIN 11.6 g/dL (12.0-15.5); LYMPHOCYTES % (AUTO) 8.6 % (13-45); MEAN CORPUSCULAR HEMOGLOBIN 29.6 pg (27.0-33.4); MEAN CORPUSCULAR HGB CONC 31.3 g/dL (32.0-36.0); MEAN CORPUSCULAR VOLUME 94 fl (80-97); MONOCYTES % (AUTO) 3.8 % (3-13); PLATELET COUNT 334 10^3/uL (150-450); RED BLOOD COUNT 3.92 10^6/uL (3.72-5.28); RED CELL DISTRIBUTION WIDTH 21.8 % (11.5-14.0); SEGMENTED NEUTROPHILS % (AUTO) 85.7 % (42-78); TOTAL CELLS COUNTED % (AUTO) 100 %; WHITE BLOOD COUNT 9.3 10^3/uL (4.0-10.5)
--- NOTE | 2019-04-19 19:00 | RADIOLOGY REPORT (SQ) ---
EXAM DESCRIPTION: FOOT LEFT COMPLETE COMPLETED DATE/TIME: 04/19/2019 6:26 pm REASON FOR STUDY: left foot pain COMPARISON: None. NUMBER OF VIEWS: Three views. TECHNIQUE: AP, lateral and oblique radiographic images acquired of the left foot. LIMITATIONS: None. FINDINGS: MINERALIZATION: Marked osteopenia. No fracture is appreciated. BONES: No acute fracture or dislocation. No worrisome bone lesions. JOINTS: No effusions. SOFT TISSUES: No soft tissue swelling. No foreign body. OTHER: No other significant finding. IMPRESSION: Osteopenia. TECHNICAL DOCUMENTATION: JOB ID: [id number] 2010 [employer]- All Rights Reserved Reading location - IP/workstation name: [email or web address]
[2019-04-19 19:13] LABS: ALBUMIN 3.5 g/dL (3.5-5.0); ALKALINE PHOSPHATASE 219 U/L (38-126); ANION GAP 15 (5-19); ASPARTATE AMINO TRANSFERASE 22 U/L (14-36); BILIRUBIN,DIRECT 0.6 mg/dL (0.0-0.4); BILIRUBIN,TOTAL 0.6 mg/dL (0.2-1.3); BLOOD UREA NITROGEN 21 mg/dL (7-20); CALCIUM 8.8 mg/dL (8.4-10.2); CARBON DIOXIDE 25 mmol/L (22-30); CHLORIDE 97 mmol/L (98-107); GLUCOSE 163 mg/dL (75-110); POTASSIUM 3.4 mmol/L (3.6-5.0); TOTAL PROTEIN 8.5 g/dL (6.3-8.2)
[2019-04-19] MEDS ORDERED: HYDRALAZINE HCL INJ/PF 20 MG/1 ML SDV IV ONE (22:26)
[2019-04-19] MEDS ORDERED: CLONIDINE HCL 0.1 MG TABLET PO ONE (22:26)
--- NOTE | 2019-04-19 22:47 | ER Document Report ---
Entered by NEPTALI HOLLIS SCRIBE 04/19/19 2214 Acting as scribe for:DEVONTE CLARK IV, MD ED Blood Pressure Problem - General Chief Complaint: High Blood Pressure Stated Complaint: BLOOD PRESSURE PROBLEMS Time Seen by Provider: 04/19/19 18:00 Primary Care Provider: ADITYA HARDING MD [Primary Care Provider] - Follow up as needed Mode of Arrival: Wheelchair Information source: Patient Notes: This 58 year old female patient with a history of insulin-dependent diabetes and HTN brought in by EMS presents to the ED today with complaints of elevated blood pressure that occurred earlier this evening. Patient states that Radha called EMS due to her elevated blood pressure after receiving hemodialysis (MWF) treatment today. Patient notes that her blood pressure usually runs around 130 systolic. Patient states that she ran out of all of her medications and doesn't know when she will be able to get them refilled due to her insurance. Patient also reports left foot pain status post injury today. Patient has a past medical history of anemia, dyslipidemia, CAD, COPD, bedbound state, opiate dependent chronic pain, and oliguric ESRD. TRAVEL OUTSIDE OF THE [place] IN LAST 30 DAYS: No - Related Data Allergies/Adverse Reactions: aloe vera Allergy (Verified 04/19/19 17:56) No Known Drug Allergies Allergy (Verified 04/19/19 17:56) Home Medications: With PT Past Medical History - General Information source: Patient, [facility] - Social History Smoking Status: Unknown if Ever Smoked Cigarette use (# per day): No Chew tobacco use (# tins/day): No Smoking Education Provided: No Family History: Reviewed & Not Pertinent, CAD, DM, Hypertension Patient has suicidal ideation: No Patient has homicidal ideation: No - Past Medical History Cardiac Medical History: Reports: Hx Atrial Fibrillation, Hx Coronary Artery Disease, Hx DVT, Hx Hypercholesterolemia, Hx Hypertension Pulmonary Medical History: Reports: Hx Bronchitis, Hx COPD, Hx Pneumonia Endocrine Medical History: Reports: Hx Diabetes Mellitus Type 2 Renal/ Medical History: Reports: Hx End Stage Renal Disease, Hx Hemodialysis GI Medical History: Reports: Hx Gastroesophageal Reflux Disease, Hx Ulcer Psychiatric Medical History: Reports: Hx Depression Past Surgical History: Reports: Hx Abdominal Surgery - small bowel resection, Hx Section - x3, Hx Coronary Artery Bypass Graft - x2, Other - Vena cava filter, abdominal surgery for repair of perforated stomach ulcer - Immunizations Immunizations up to date: Yes Hx Pneumococcal Vaccination: 11/20/16 Review of Systems - Review of Systems Constitutional: See HPI, Other - Elevated blood pressure EENT: No symptoms reported Cardiovascular: No symptoms reported Respiratory: No symptoms reported Gastrointestinal: No symptoms reported Genitourinary: No symptoms reported Female Genitourinary: No symptoms reported Musculoskeletal: See HPI, Other - Left foot pain Skin: No symptoms reported Hematologic/Lymphatic: No symptoms reported Neurological/Psychological: No symptoms reported -: Yes All other systems reviewed and negative Physical Exam - Vital signs Vitals: Temp Pulse Resp BP Pulse Ox 98.3 F 86 18 194/96 H 94 04/19/19 17:27 04/19/19 17:27 04/19/19 17:27 04/19/19 17:27 04/19/19 17:27 Interpretation: Hypertensive - General General appearance: Alert In distress: None - HEENT Head: Normocephalic, Atraumatic Eyes: Normal Pupils: PERRL - Respiratory Respiratory status: No respiratory distress Chest status: Nontender Breath sounds: Normal Chest palpation: Normal - Cardiovascular Rhythm: Regular Heart sounds: Normal auscultation Murmur: No Friction rub: No Gallop: None auscultated - Abdominal Inspection: Normal Distension: No distension Bowel sounds: Normal Tenderness: Nontender - Abdomen soft Organomegaly: No organomegaly - Back Back: Normal, Nontender - Extremities General upper extremity: Normal inspection General lower extremity: Other - Small excoriation on the plantar surface of left foot that does not look erythematous or infected. No crepitus or obvious deformity. - Neurological Neuro grossly intact: Yes - Psychological Associated symptoms: Normal affect, Normal mood - Skin Skin Temperature: Warm Skin Moisture: Dry Skin Color: Normal Course - Re-evaluation Re-evalutation: 04/20/19 01:04 Patient is continuing to be noncompliant with keeping her blood pressure cuff on according to the patient's nurse. Patient stated nurse she wants to leave. This MD related to the the patient that if she wanted to leave AGAINST MEDICAL ADVICE that was her decision. Patient was informed of risks of leaving AMA, including but not limited to permanent disability and/or . 04/20/19 02:06 Patient is still present in the emergency department. Patient denies removing her blood pressure cuff while in the ED despite nurses report. Patient's blood pressure is now 165/76. I feel comfortable discharging the patient home at this time. - Vital Signs Vital signs: Temp Pulse Resp BP Pulse Ox 98.1 F 86 24 H 183/124 H 94 04/19/19 20:15 04/19/19 17:27 04/19/19 21:01 04/20/19 01:31 04/19/19 20:31 - Laboratory Result Diagrams: 04/19/19 18:38 04/19/19 18:38 Laboratory results interpreted by me: 04/19/19 04/19/19 18:38 18:38 Hgb 11.6 L MCHC 31.3 L RDW 21.8 H Lymph % (Auto) 8.6 L Seg Neutrophils % 85.7 H Sodium 136.8 L Potassium 3.4 L Chloride 97 L BUN 21 H Creatinine 2.22 H Est GFR ( Amer) 28 L Est GFR (MDRD) Non-Af 23 L Glucose 163 H Direct Bilirubin 0.6 H Alkaline Phosphatase 219 H Total Protein 8.5 H Discharge - Discharge Clinical Impression: Left foot pain Hypertension Qualifiers: Hypertension type: unspecified Qualified Code(s): I10 - Essential (primary) hypertension Disposition: HOME, SELF-CARE Additional Instructions: Return to the Emergency Department without delay if any worse. Referrals: ADITYA HARDING MD [Primary Care Provider] - Follow up as needed I personally performed the services described in the documentation, reviewed and edited the documentation which was dictated to the scribe in my presence, and it accurately records my words and actions.
[2019-04-20 03:36] VITALS: BP 178/98
== END 2019-04-20 03:36 | disposition home or self-care (01) ==
LOC: ER 16:58
DX: M79.672 Pain in left foot (principal); D64.9 Anemia, unspecified; E11.22 Type 2 diabetes mellitus with diabetic chronic kidney disease; I12.0 Hypertensive chronic kidney disease with stage 5 chronic kidney disease or end stage renal disease; N18.6 End stage renal disease; Z99.2 Dependence on renal dialysis; E78.49 Other hyperlipidemia; Z79.4 Long term (current) use of insulin; J44.9 Chronic obstructive pulmonary disease, unspecified; I48.91 Unspecified atrial fibrillation; Z95.1 Presence of aortocoronary bypass graft
CPT/HCPCS: 99284; 96374; 36415; 85025; 80053; 73630; A9270; J0360

== ENCOUNTER 2019-04-26 13:35 | Emergency (ER) | payer MEDICARE, MEDICAID ==
[2019-04-26 15:10] LABS: ABSOLUTE BASOPHILS # (AUTO) 0.1 10^3/uL (0.0-0.2); ABSOLUTE EOSINOPHILS # (AUTO) 0.1 10^3/uL (0.0-0.6); ABSOLUTE LYMPHOCYTES (AUTO) 0.5 10^3/uL (0.5-4.7); ABSOLUTE MONOCYTES (AUTO) 0.6 10^3/uL (0.1-1.4); BASOPHILS % (AUTO) 1.2 % (0-2); EOSINOPHILS % (AUTO) 0.8 % (0-6); HEMATOCRIT 36.8 % (36.0-47.0); HEMOGLOBIN 11.9 g/dL (12.0-15.5); LYMPHOCYTES % (AUTO) 7.1 % (13-45); MEAN CORPUSCULAR HEMOGLOBIN 30.2 pg (27.0-33.4); MEAN CORPUSCULAR HGB CONC 32.5 g/dL (32.0-36.0); MEAN CORPUSCULAR VOLUME 93 fl (80-97); MONOCYTES % (AUTO) 8.1 % (3-13); PLATELET COUNT 265 10^3/uL (150-450); RED BLOOD COUNT 3.95 10^6/uL (3.72-5.28); RED CELL DISTRIBUTION WIDTH 20.5 % (11.5-14.0); SEGMENTED NEUTROPHILS % (AUTO) 82.8 % (42-78); TOTAL CELLS COUNTED % (AUTO) 100 %; WHITE BLOOD COUNT 7.2 10^3/uL (4.0-10.5)
[2019-04-26 15:14] LABS: ALBUMIN 4.2 g/dL (3.5-5.0); ALKALINE PHOSPHATASE 219 U/L (38-126); ANION GAP 16 (5-19); ASPARTATE AMINO TRANSFERASE 20 U/L (14-36); BILIRUBIN,DIRECT 0.8 mg/dL (0.0-0.4); BILIRUBIN,TOTAL 1.1 mg/dL (0.2-1.3); BLOOD UREA NITROGEN 44 mg/dL (7-20); CALCIUM 9.7 mg/dL (8.4-10.2); CARBON DIOXIDE 25 mmol/L (22-30); CHLORIDE 97 mmol/L (98-107); GLUCOSE 75 mg/dL (75-110); POTASSIUM 3.4 mmol/L (3.6-5.0); TOTAL PROTEIN 9.4 g/dL (6.3-8.2)
[2019-04-26 15:15] LABS: ALCOHOL < 10 mg/dL (NONE DETECTED)
[2019-04-26] MEDS ORDERED: NORMAL SALINE 1000 ML 1,000 ML IV ONE ×2 (15:27→16:41)
[2019-04-26 15:44] LABS: VENOUS BLOOD BASE EXCESS -0.1 mmol/L; VENOUS BLOOD HCO3 25.9 mmol/L (20-32); VENOUS BLOOD PCO2 47.6 mmHg (35-63); VENOUS BLOOD PH 7.35 (7.30-7.42)
--- NOTE | 2019-04-26 16:14 | RADIOLOGY REPORT (SQ) ---
EXAM DESCRIPTION: ACUTE ABDOMEN SERIES COMPLETED DATE/TIME: 04/26/2019 3:56 pm REASON FOR STUDY: suprapubic abd pain/acute renal failure COMPARISON: 04/22/2019 NUMBER OF VIEWS: Three views. TECHNIQUE: Frontal chest, supine abdomen and upright/decubitus abdomen radiographic images acquired. LIMITATIONS: None. FINDINGS: CHEST: Improved bibasilar aeration from prior exam. No new airspace disease. Trace left effusion. No pneumothorax. Enlarged cardiac silhouette, stable. Right internal jugular central bernarda ous catheter tip at right atrium. Sternotomy changes. FREE AIR: None. No abnormal gas collections. BOWEL GAS PATTERN: Nonobstructive pattern. No dilated loops or air fluid levels. Moderate formed sto ol overlies the rectal vault. CALCIFICATIONS: No suspicious calcifications. HARDWARE: IVC filter at L2-3. Thoracic findings as above. SOFT TISSUES: Vascular calcifications. BONES: No acute bony abnormality. No suspicious osseous lesions. OTHER: No other significant finding. IMPRESSION: 1. Decreased pulmonary edema from prior exam. Stable enlarged cardiac silhouette witho ut evidence of new cardiopulmonary process. 2. No evidence of intestinal obstruction or other acute intra-abdominal/pelvic process. Moderate fo rmed stool overlies the rectal vault. TECHNICAL DOCUMENTATION: JOB ID: [id number] 2010 [employer]- All Rights Reserved Reading location - IP/workstation name: [email or web address]
[2019-04-26 17:21] LABS: APPEARANCE,URINE TURBID; BILIRUBIN,URINE NEGATIVE (NEGATIVE); COLOR,URINE YELLOW; GLUCOSE, URINE NEGATIVE (NEGATIVE); KETONES,URINE NEGATIVE (NEGATIVE); LEUKOCYTE ESTERASE,URINE MODERATE (NEGATIVE); NITRITE,URINE NEGATIVE (NEGATIVE); PROTEIN,URINE 100 mg/dL (NEGATIVE); URINE SPECIFIC GRAVITY 1.014; UROBILINOGEN,URINE NEGATIVE mg/dL (<2.0)
[2019-04-26] MEDS ORDERED: NA PHOS,M-B/NA PHOS,DI-BA (ADULT) 133 ML ENEMA PR ONE (17:35)
[2019-04-26 17:39] LABS: URINE AMPHETAMINES SCREEN NEGATIVE; URINE BARBITURATES SCREEN NEGATIVE; URINE BENZODIAZEPINES SCREEN NEGATIVE; URINE COCAINE SCREEN NEGATIVE; URINE MARIJUANA (THC) SCREEN NEGATIVE; URINE METHADONE SCREEN NEGATIVE; URINE PHENCYCLIDINE SCREEN NEGATIVE
--- NOTE | 2019-04-26 18:07 | EKG REPORT ---
SEVERITY:- ABNORMAL ECG - SINUS RHYTHM PROBABLE LEFT VENTRICULAR HYPERTROPHY : Confirmed by: Lico Delaney MD 26-Apr-2019 18:06:34
[2019-04-26] MEDS ORDERED: HYDRALAZINE HCL INJ/PF 20 MG/1 ML SDV IV ONE (18:21)
[2019-04-26] MEDS ORDERED: CEFTRIAXONE INJ 1000 MG VIAL IV ONE (18:26)
[2019-04-26] MEDS ORDERED: CEFTRIAXONE 1 GM/D5W RTU 1 GM/50 ML RTUPB IV ONE (18:26)
--- NOTE | 2019-04-26 18:35 | ER Document Report ---
Entered by COOKIE DENIS SCRIBE 04/26/19 1521 Acting as scribe for:AMBROCIO WALKER MD ED General - General Chief Complaint: Altered Mental Status Stated Complaint: ALTERED MENTAL STATUS Time Seen by Provider: 04/26/19 15:00 Primary Care Provider: ADITYA HARDING MD [Primary Care Provider] - Follow up as needed Information source: Patient Notes: This 58-year-old female patient presents to the emergency department from [facility] for complaints of altered mental status. Patient is a poor historian but does answer most questions appropriately. Patient complains of abdominal pain but is unable to further elaborate on this. Patient has some constipation and has not urinated per history. Due to patient's mental status and no family here, history is extremely limited. TRAVEL OUTSIDE OF THE [place] IN LAST 30 DAYS: No - Related Data Allergies/Adverse Reactions: aloe vera Allergy (Verified 04/19/19 17:56) No Known Drug Allergies Allergy (Verified 04/19/19 17:56) Past Medical History - Social History Smoking Status: Unknown if Ever Smoked Family History: Reviewed & Not Pertinent, CAD, DM, Hypertension Patient has suicidal ideation: No Patient has homicidal ideation: No - Past Medical History Cardiac Medical History: Reports: Hx Atrial Fibrillation, Hx Coronary Artery Disease, Hx DVT, Hx Hypercholesterolemia, Hx Hypertension Pulmonary Medical History: Reports: Hx Bronchitis, Hx COPD, Hx Pneumonia Denies: Hx Asthma Neurological Medical History: Denies: Hx Seizures Endocrine Medical History: Reports: Hx Diabetes Mellitus Type 2. Denies: Hx Diabetes Mellitus Type 1, Hx Hyperthyroidism, Hx Hypothyroidism Renal/ Medical History: Reports: Hx End Stage Renal Disease, Hx Hemodialysis. Denies: Hx Peritoneal Dialysis GI Medical History: Reports: Hx Gastroesophageal Reflux Disease, Hx Ulcer. Denies: Hx Cirrhosis, Hx Hepatitis Musculoskeletal Medical History: Denies Hx Arthritis, Denies Hx Fibromyalgia Skin Medical History: Denies Hx Eczema, Denies Hx Psoriasis Psychiatric Medical History: Reports: Hx Depression Infectious Medical History: Denies: Hx Hepatitis Past Surgical History: Reports: Hx Abdominal Surgery - small bowel resection, Hx Cardiac Surgery - cabg x2, Hx Section - x3, Hx Coronary Artery Bypass Graft - x2, Other - Vena cava filter, abdominal surgery for repair of perforated stomach ulcer - Immunizations Immunizations up to date: Yes Hx Pneumococcal Vaccination: 11/20/16 Review of Systems - Review of Systems -: Yes ROS unobtainable due to patient's medical condition Physical Exam - Vital signs Vitals: Pulse Ox 94 04/26/19 13:35 - Notes Notes: Physical Exam: General: Alert. HEENT: Normocephalic. Atraumatic. PERRL. Extraocular movements intact. Oropharynx clear. Very dry mucous membranes. Neck: Supple. Non-tender. Respiratory: No respiratory distress. Clear and equal breath sounds bilaterally. Cardiovascular: Regular rate and rhythm. Abdominal: Suprapubic abdominal tenderness with palpation, distended. Normal Bowel Sounds. Back: No gross abnormalities. Extremities: Moves all four extremities. Upper extremities: Normal inspection. Normal ROM. Lower extremities: Normal inspection. No edema. Normal ROM. Psychological: Unable to assess. Skin: Warm. Dry. Normal color. Course - Re-evaluation Re-evalutation: 04/26/19 18:03 Patient is alert talkative sitting in bed showing no acute distress at this time. Patient's discussing with her's daughter. We have learned that patient has a chronic renal failure condition and that she has chronic renal failure hemodialysis patient 3 times a week however patient did not go to dialysis today. Unsure as to the reason why she came to the emergency department other than she had abdominal pain. Patient is abdominal pain is found to be a chronic constipation: Condition of which she has stool impaction in the rectum. Patient had long discussions with her daughter whether or not she was on except an enema to relieve her constipation today. Patient eventually just said yes to receiving an enema which she is about to receive at this time. - Vital Signs Vital signs: Temp Pulse Resp BP Pulse Ox 97.8 F 74 25 H 179/105 H 88 L 04/26/19 13:58 04/26/19 13:58 04/26/19 17:01 04/26/19 17:00 04/26/19 17:01 04/26/19 18:07 Patient's vital signs shows a fluctuating pulse oximetry between 88 and 100%. Depends on patient's position. Patient is not complaining of any shortness of breath or chest pain at this time. - Laboratory Result Diagrams: 04/26/19 14:15 04/26/19 14:15 Laboratory results interpreted by me: 04/26/19 04/26/19 04/26/19 14:15 14:15 14:15 Hgb 11.9 L RDW 20.5 H Lymph % (Auto) 7.1 L Seg Neutrophils % 82.8 H Potassium 3.4 L Chloride 97 L BUN 44 H Creatinine 4.68 H Est GFR ( Amer) 12 L Est GFR (MDRD) Non-Af 10 L Direct Bilirubin 0.8 H Alkaline Phosphatase 219 H Total Protein 9.4 H Lipase < 10.0 L Urine Protein Urine Blood Ur Leukocyte Esterase 04/26/19 16:37 Hgb RDW Lymph % (Auto) Seg Neutrophils % Potassium Chloride BUN Creatinine Est GFR ( Amer) Est GFR (MDRD) Non-Af Direct Bilirubin Alkaline Phosphatase Total Protein Lipase Urine Protein 100 H Urine Blood SMALL H Ur Leukocyte Esterase MODERATE H - Diagnostic Test Radiology reviewed: Image reviewed, Reports reviewed Radiology results interpreted by me: 04/26/19 18:05 Acute abdominal series shows flat and upright abdomen and chest 1 view. Chest shows enlarged cardiac silhouette with no overt signs of congestive heart failure at this time. Pulmonary edema noted in prior chest x-ray shows improvement at this time. Abdomen flat plate upright abdomen shows no obstruction. Patient is noted to have a large amount of retained stool in the rectal vault. - EKG Interpretation by Me Additional EKG results interpreted by me: 04/26/19 18:06 Twelve-lead EKG done 04/26/2019 at 1526 shows sinus rhythm and probable left ventricular hypertrophy normal sinus rhythm rate 72. No acute ST to T wave changes. Discharge - Discharge Clinical Impression: Constipation by delayed colonic transit, Chronic renal failure, Hypertension, ESRD (end stage renal disease), Do not resuscitate, Essential hypertension, UTI (urinary tract infection) Condition: Fair Disposition: SNF-Other Instructions: Urinary Tract Infection ([facility]) Additional Instructions: Constipation Constipation is a common problem. It is especially likely as you get older. Constipation is a common cause of abdominal pain, but sometimes causes no symptoms at all. Causes of constipation include certain medications, dehydration, diets, inactivity, and low-fiber intake. Rarely, it can be a symptom of underlying disease. The physician has evaluated you for this. Avoid constipation by eating a diet high in fiber, fruits, and vegetables. Drink plenty of liquids. Get regular exercise. If possible, avoid constipating medicines like narcotic pain medication. Some vitamin tablets can cause constipation. Stool softeners may be needed for difficult cases. An excellent stool softener is Konsyl which is available at [employer], and [employer]. Just add a teaspoon to a glass of pineapple or orange juice daily or twice a day if needed. Laxatives are useful for occasional constipation. You should use them only when necessary. Too-frequent use can make your bowels dependent on them. Some over the counter laxatives available without prescription are: Milk of Magnesia, 1-2 tablespoons twice a day Dulcolax, 5 mg pill or 10 mg suppository. Citrate of Magnesia, 4-5 ounces a day for a day or two For acute constipation, Fleet's Enemas and Dulcolax suppositories are helpful. Chronic, shelter use of laxatives or enemas is not a good idea. Your bowel may become dependant on them. You do not need to have a bowel movement every day. Many people do fine with a bowel movement every three or four days. You should call your doctor or return for re-evaluation if you pass blood in the stool, or if you develop fever or increasing abdominal pain. Prescriptions: Docusate Sodium [Colace 100 mg Capsule] 100 mg PO BID #60 capsule Cephalexin Monohydrate [Keflex 500 mg Capsule] 500 mg PO DAILY 10 Days #10 caps ule Forms: Elevated Blood Pressure Referrals: ADITYA HARDING MD [Primary Care Provider] - Follow up as needed I personally performed the services described in the documentation, reviewed and edited the documentation which was dictated to the scribe in my presence, and it accurately records my words and actions.
[2019-04-26 21:16] VITALS: BP 188/95
== END 2019-04-26 21:15 ==
LOC: ER 13:35
DX: K59.01 Slow transit constipation (principal); I12.0 Hypertensive chronic kidney disease with stage 5 chronic kidney disease or end stage renal disease; N18.6 End stage renal disease; N39.0 Urinary tract infection, site not specified; R41.82 Altered mental status, unspecified; R10.9 Unspecified abdominal pain; K59.00 Constipation, unspecified; I25.10 Atherosclerotic heart disease of native coronary artery without angina pectoris; I10 Essential (primary) hypertension; J44.9 Chronic obstructive pulmonary disease, unspecified; E11.9 Type 2 diabetes mellitus without complications
CPT/HCPCS: 93005; 99285; 96361; 51702; 96375; 96365; 36415; 80307 ×2; 83605; 83690; 83735; 85025; 80053; 81001; 82803; 74022; 93010; A9270; J0360; J7030; J0696; J3490

== ENCOUNTER → 2019-08-15 | Outpatient (CLI) | payer MEDICARE, MEDICAID ==
--- NOTE | 2019-08-15 13:10 | RADIOLOGY REPORT (SQ) ---
EXAM DESCRIPTION: U/S ABDOMEN LIMITED W/O DOP IMAGES COMPLETED DATE/TIME: 08/15/2019 9:43 am REASON FOR STUDY: ABNORMAL RESULTS OF LIVER FUNCTION STUDIES R94.5 ABNORMAL RESULTS OF LIVER FUNCTI ON STUDIES COMPARISON: None. TECHNIQUE: Dynamic and static grayscale images acquired of the abdomen and recorded on PACS. Additio nal selected color Doppler and spectral images recorded. LIMITATIONS: None. FINDINGS: PANCREAS: No masses. Visualized pancreatic duct normal caliber. LIVER: No masses. Echotexture normal. LIVER VASCULATURE: Normal directional flow of the main portal vein and hepatic veins. GALLBLADDER: Gallstones are present. No wall thickening or pericholecystic fluid. Contracted. ULTRASOUND-DETECTED WILLIS'S SIGN: Negative. INTRAHEPATIC DUCTS AND COMMON DUCT: Common bile duct is borderline at 7 mm. No intrahepatic ductal d ilatation. AORTA: No aneurysm. RIGHT KIDNEY: Normal size, 9.3 cm. Increased echogenicity. No solid or suspicious masses. No hydron ephrosis. There appear to be multiple small calcifications. PERITONEAL AND RIGHT PLEURAL SPACE: Is trace ascites around the liver. OTHER: No other significant findings. IMPRESSION: Contracted gallbladder with stones. No evidence of cholecystitis. Borderline common bi le duct is 7 mm. Trace ascites around the liver. Increased echogenicity in the right kidney that ma y suggest medical renal disease. There appear to be multiple small calculi in the right kidney. TECHNICAL DOCUMENTATION: JOB ID: [id number] [employer]- All Rights Reserved Reading location - IP/workstation name: [email or web address]
== END ==
LOC: RAD 09:05
PROVIDERS: ATTEND Internal Medicine Nephrology
DX: R94.5 Abnormal results of liver function studies (principal); K80.80 Other cholelithiasis without obstruction; N20.0 Calculus of kidney; R18.8 Other ascites
CPT/HCPCS: 76705

== ENCOUNTER 2019-08-16 12:22 | Emergency (ER) | payer MEDICARE, MEDICAID ==
[2019-08-16 13:23] LABS: ABSOLUTE BASOPHILS # (AUTO) 0.1 10^3/uL (0.0-0.2); ABSOLUTE EOSINOPHILS # (AUTO) 0.1 10^3/uL (0.0-0.6); ABSOLUTE LYMPHOCYTES (AUTO) 0.4 10^3/uL (0.5-4.7); ABSOLUTE MONOCYTES (AUTO) 0.3 10^3/uL (0.1-1.4); ABSOLUTE NEUT (AUTO) 3.1 10^3/uL (1.7-8.2); BASOPHILS % (AUTO) 2.3 % (0-2); EOSINOPHILS % (AUTO) 2.7 % (0-6); HEMATOCRIT 35.8 % (36.0-47.0); HEMOGLOBIN 11.6 g/dL (12.0-15.5); LYMPHOCYTES % (AUTO) 9.6 % (13-45); MEAN CORPUSCULAR HEMOGLOBIN 29.8 pg (27.0-33.4); MEAN CORPUSCULAR HGB CONC 32.4 g/dL (32.0-36.0); MEAN CORPUSCULAR VOLUME 92 fl (80-97); MONOCYTES % (AUTO) 6.8 % (3-13); PLATELET COUNT 191 10^3/uL (150-450); RED BLOOD COUNT 3.88 10^6/uL (3.72-5.28); SEGMENTED NEUTROPHILS % (AUTO) 78.6 % (42-78); TOTAL CELLS COUNTED % (AUTO) 100 %; WHITE BLOOD COUNT 3.9 10^3/uL (4.0-10.5)
--- NOTE | 2019-08-16 15:47 | RADIOLOGY REPORT (SQ) ---
EXAM DESCRIPTION: CT HEAD WITHOUT IMAGES COMPLETED DATE/TIME: 08/16/2019 3:30 pm REASON FOR STUDY: seizure COMPARISON: 01/10/2019 TECHNIQUE: Axial images acquired through the brain without intravenous contrast. Images reviewed wi th bone, brain and subdural windows. Additional sagittal and coronal reconstructions were generated. Images stored on PACS. All CT scanners at this facility use dose modulation, iterative reconstruction, and/or weight based d osing when appropriate to reduce radiation dose to as low as reasonably achievable (ALARA). [facility]: Dose Right [facility]: CareDose [facility]: Dose Right [facility]: Teradose 4D [facility]: Baeta RADIATION DOSE: CT Rad equipment meets quality standard of care and radiation dose reduction techniq ues were employed. CTDIvol: 53.2 mGy. DLP: 1070 mGy-cm. mGy. LIMITATIONS: None. FINDINGS: VENTRICLES: Age appropriate. Heavily calcified choroid plexus. CEREBRUM: No masses. No hemorrhage. No midline shift. Areas of low density in the white matter mos t likely due to chronic micro-vascular ischemic change. No evidence for acute infarction. CEREBELLUM: No masses. No hemorrhage. No alteration of density. No evidence for acute infarction. EXTRAAXIAL SPACES: Mild age-related involutional change. No fluid collections. No masses. ORBITS AND GLOBE: No intra- or extraconal masses. Normal contour of globe without masses. CALVARIUM: No fracture. PARANASAL SINUSES: No fluid or mucosal thickening. SOFT TISSUES: No mass or hematoma. OTHER: No other significant finding. IMPRESSION: No evidence of acute intracranial process. EVIDENCE OF ACUTE STROKE: NO. TECHNICAL DOCUMENTATION: JOB ID: [id number] Quality ID # [id number]: Final reports with documentation of one or more dose reduction techniques (e.g., Au tomated exposure control, adjustment of the mA and/or kV according to patient size, use of iterative reconstruction technique) 2010 [employer]- All Rights Reserved Reading location - IP/workstation name: [email or web address]
[2019-08-16 16:28] LABS: ALBUMIN 3.7 g/dL (3.5-5.0); ALKALINE PHOSPHATASE 228 U/L (38-126); ANION GAP 9 (5-19); ASPARTATE AMINO TRANSFERASE 42 U/L (14-36); BILIRUBIN,DIRECT 0.2 mg/dL (0.0-0.4); BILIRUBIN,TOTAL 0.4 mg/dL (0.2-1.3); BLOOD UREA NITROGEN 46 mg/dL (7-20); CARBON DIOXIDE 25 mmol/L (22-30); CHLORIDE 104 mmol/L (98-107); GLUCOSE 133 mg/dL (75-110); POTASSIUM 4.7 mmol/L (3.6-5.0); TOTAL PROTEIN 7.5 g/dL (6.3-8.2)
[2019-08-16 16:30] LABS: ALCOHOL < 10 mg/dL (NONE DETECTED)
--- NOTE | 2019-08-16 16:57 | RADIOLOGY REPORT (SQ) ---
EXAM DESCRIPTION: CHEST SINGLE VIEW IMAGES COMPLETED DATE/TIME: 08/16/2019 4:43 pm REASON FOR STUDY: ESRD COMPARISON: . 04/22/2019 EXAM PARAMETERS: NUMBER OF VIEWS: One view. TECHNIQUE: Single frontal radiographic view of the chest acquired. RADIATION DOSE: NA LIMITATIONS: None. FINDINGS: LUNGS AND PLEURA: There is improved aeration in both lungs. Cannot exclude mild pulmonary edema. MEDIASTINUM AND HILAR STRUCTURES: No masses. Contour normal. HEART AND VASCULAR STRUCTURES: Cardiomegaly. BONES: No acute findings. HARDWARE: Dual-lumen catheter. Sternotomy wires. OTHER: No other significant finding. IMPRESSION: Cardiomegaly. Cannot exclude mild pulmonary edema TECHNICAL DOCUMENTATION: JOB ID: [id number] 2010 [employer]- All Rights Reserved Reading location - IP/workstation name: [email or web address]
--- NOTE | 2019-08-16 17:02 | ER Document Report ---
ED General - General Chief Complaint: Probable Seizure Stated Complaint: POSSIBLE SEIZURE Time Seen by Provider: 08/16/19 14:18 Primary Care Provider: ADITYA HARDING MD [Primary Care Provider] - Follow up as needed TRAVEL OUTSIDE OF THE [place] IN LAST 30 DAYS: No - HPI Notes: Chief complaint: Possible seizure History of present illness: 59-[facility]-old female [facility] resident with remote prior history of seizures but not currently treated with anticonvulsant transported to emergency department after having what bystanders described as a probable brief generalized seizure. No fever. No vomiting. Patient was briefly postictal. She was apparently lying down when this occurred and there was no reported head trauma. Patient has no recollection of the incident. She was mildly confused on arrival here but her mentation quickly cleared and she was back to her usual baseline. We note this lady has end-stage renal disease and she is on a Monday dialysis routine. She did not receive her dialysis today prior to this episode. She is not complaining of any shortness of breath. Patient has a known history of coronary disease and is had past CABG. She denies any chest pain. Patient has documented DNR. - Related Data Allergies/Adverse Reactions: aloe vera Allergy (Verified 08/16/19 12:54) amoxicillin [From Augmentin] Allergy (Verified 08/16/19 12:54) clavulanic acid [From Augmentin] Allergy (Verified 08/16/19 12:54) Past Medical History - General Information source: Patient, Emergency Med Personnel, [facility] Records - Social History Smoking Status: Current Every Day Smoker Family History: Reviewed & Not Pertinent, CAD, DM, Hypertension Patient has homicidal ideation: No - Past Medical History Cardiac Medical History: Reports: Hx Atrial Fibrillation, Hx Coronary Artery Disease, Hx DVT, Hx Hypercholesterolemia, Hx Hypertension Pulmonary Medical History: Reports: Hx Bronchitis, Hx COPD, Hx Pneumonia Denies: Hx Asthma Neurological Medical History: Reports: Hx Seizures Endocrine Medical History: Reports: Hx Diabetes Mellitus Type 2. Denies: Hx Diabetes Mellitus Type 1, Hx Hyperthyroidism, Hx Hypothyroidism Renal/ Medical History: Reports: Hx End Stage Renal Disease, Hx Hemodialysis. Denies: Hx Peritoneal Dialysis GI Medical History: Reports: Hx Gastroesophageal Reflux Disease, Hx Ulcer. Denies: Hx Cirrhosis, Hx Hepatitis Musculoskeletal Medical History: Denies Hx Arthritis, Denies Hx Fibromyalgia Skin Medical History: Denies Hx Eczema, Denies Hx Psoriasis Psychiatric Medical History: Reports: Hx Depression Infectious Medical History: Denies: Hx Hepatitis Past Surgical History: Reports: Hx Abdominal Surgery - small bowel resection, Hx Cardiac Surgery - cabg x2, Hx Section - x3, Hx Coronary Artery Bypass Graft - x2, Other - Vena cava filter, abdominal surgery for repair of perforated stomach ulcer - Immunizations Immunizations up to date: Yes Hx Pneumococcal Vaccination: 11/20/16 Review of Systems - Review of Systems Notes: Constitutional: Negative for fever. HENT: Negative for sore throat. Eyes: Negative for visual changes. Cardiovascular: Negative for chest pain. Respiratory: Negative for shortness of breath. Gastrointestinal: Negative for abdominal pain, vomiting or diarrhea. Genitourinary: Negative for dysuria. Musculoskeletal: Negative for back pain. Skin: Negative for rash. Neurological: As per HPI. 10 point ROS negative except as marked above and in HPI. Physical Exam - Vital signs Vitals: Temp 98 F 08/16/19 12:40 - Notes Notes: GENERAL: Female patient who appears much older than stated age noted to have widespread superficial abrasions and appears mildly postictal. SKIN: Scattered superficial abrasions and contusions of various ages. Good turgor no rashes. HEAD: Normocephalic atraumatic. EYES: PERRLA. EOMI. Conjunctivae and sclerae clear. EARS: CANALS AND TMS CLEAR. NOSE: CLEAR. MOUTH: Moist mucosa. Good dentition. No stridor or edema. No drooling. NECK: Supple. No masses or thyromegaly. No adenopathy. Carotids 2+ without bruits. No JVD. BACK: Symmetrical without tenderness. CHEST: Healed CABG scar midline. Respirations unlabored. Breath sounds clear and symmetrical. HEART: Regular rhythm. No murmur gallop or rub. ABDOMEN: Soft nontender without masses, organomegaly or rebound. Bowel sounds normally active. No bruits. GENITALIA: Deferred. EXTREMITIES: No edema. No calf tenderness. Cap refill less than 1.5 seconds. Dorsalis pedis and posterior tibial pulses 3+ and symmetrical. NEUROLOGICAL: GCS 14. Patient was disoriented today which is apparently her usual baseline. Alert and oriented x3. Fluent speech. Cranial nerves II through XII intact. Sensorimotor and cerebellar normal. Normal tone. PSYCHIATRIC: Flat affect. Course - Re-evaluation Re-evalutation: 08/16/19 17:18 Head scan read as negative by radiologist. Chest x-ray shows no clear-cut fluid overload. I do incidentally note a minimally displaced fracture of the posterior aspect of the right seventh rib on the chest film. Chemistry profile is consistent with chronic renal failure with no hyperkalemia and no abnormality of serum bicarbonate. She has no peaking of the T waves on her EKG. Noncontrast head CT is unremarkable. I have given her some IV Keppra and IV labetalol. Further care of this patient is turned over to Dr. Quiles at 1700 hrs. 08/16/19 17:20 - Vital Signs Vital signs: Temp Pulse Resp BP Pulse Ox 98 F 68 10 L 186/104 H 97 08/16/19 12:46 08/16/19 12:46 08/16/19 16:00 08/16/19 15:00 08/16/19 16:00 - Laboratory Result Diagrams: 08/16/19 13:07 08/16/19 15:47 Laboratory results interpreted by me: 08/16/19 08/16/19 08/16/19 13:07 13:57 15:47 WBC 3.9 L Hgb 11.6 L Hct 35.8 L RDW 18.0 H Lymph % (Auto) 9.6 L Baso % (Auto) 2.3 H Absolute Lymphs (auto) 0.4 L Seg Neutrophils % 78.6 H BUN 46 H Creatinine 4.39 H Est GFR ( Amer) 13 L Est GFR (MDRD) Non-Af 10 L Glucose 133 H POC Glucose 136 H AST 42 H Alkaline Phosphatase 228 H - EKG Interpretation by Me Additional EKG results interpreted by me: 08/16/19 17:21 Twelve-lead EKG from 1656 hrs. reviewed by me contemporaneously demonstrating sinus bradycardia with a rate of 58 and a QRS axis of -3 degrees with normal intervals. There are changes consistent with LVH with secondary repolarization changes. There is no substantial interval change from prior tracing of 04/26/2019. Indication for current study: End-stage renal disease and seizure. Critical Care Note - Critical Care Note Total time excluding time spent on procedures (mins): 35 - IV Keppra. IV labetalol. Discharge - Discharge Clinical Impression: Seizure, Hypertensive emergency, ESRD (end stage renal disease), Right seventh rib fracture Disposition: HOME, SELF-CARE Referrals: ADITYA HARDING MD [Primary Care Provider] - Follow up as needed
[2019-08-16] MEDS ORDERED: LEVETIRACETAM 1000 MG/NACL-ISO 1,000 MG/100 ML RTUPB IV ONE (17:13)
[2019-08-16] MEDS ORDERED: LABETALOL HCL INJ 20 MG/4 ML DISP.SYRIN IV ONE (17:14)
[2019-08-16] MEDS ORDERED: ACETAMINOPHEN 325 MG TABLET PO ONE (19:02)
--- NOTE | 2019-08-16 19:24 | EKG REPORT ---
SEVERITY:- ABNORMAL ECG - SINUS RHYTHM PROBABLE LVH WITH SECONDARY REPOL ABNRM : Confirmed by: Stephanie Calix 16-Aug-2019 19:23:31
[2019-08-16 20:55] VITALS: BP 148/72
== END 2019-08-16 20:55 ==
LOC: ER 12:22
DX: R56.9 Unspecified convulsions (principal); I16.1 Hypertensive emergency; E11.22 Type 2 diabetes mellitus with diabetic chronic kidney disease; I12.0 Hypertensive chronic kidney disease with stage 5 chronic kidney disease or end stage renal disease; N18.6 End stage renal disease; S22.31XA Fracture of one rib, right side, initial encounter for closed fracture; X58.XXXA Exposure to other specified factors, initial encounter; Y92.129 Unspecified place in nursing home as the place of occurrence of the external cause; Z99.2 Dependence on renal dialysis; F17.200 Nicotine dependence, unspecified, uncomplicated; I48.91 Unspecified atrial fibrillation; E78.00 Pure hypercholesterolemia, unspecified; Z86.718 Personal history of other venous thrombosis and embolism; Z95.1 Presence of aortocoronary bypass graft
CPT/HCPCS: 93005; 99291; 96374; 96375; 36415; 82962; 80307; 83735; 85025; 80053; 71045; 70450; 93010; A9270; J3490; J1953

== ENCOUNTER 2019-09-02 19:06 | Emergency (ER) | payer MEDICARE, MEDICAID ==
--- NOTE | 2019-09-02 19:23 | ER Document Report ---
ED Head/Face/Scalp Injury - General Chief Complaint: Head Injury without LOC Stated Complaint: FALL,HEAD INJURY,SKIN TEAR Time Seen by Provider: 09/02/19 19:12 Primary Care Provider: ADITYA HARDING MD [Primary Care Provider] - Follow up as needed Mode of Arrival: Medic Information source: Patient Notes: 59-year-old female presenting from local nursing facility with complaints of fall and head injury. Patient reports she sat forward in her wheelchair too far and fell forward striking her head onto a hard surface. She denies any loss of consciousness, denies any nausea or vomiting. She states that she did not think she needed to, but the facility made her per their protocol. Her only complaint is mild pain at the site of her abrasion and skin tear. TRAVEL OUTSIDE OF THE [place] IN LAST 30 DAYS: No - Related Data Allergies/Adverse Reactions: aloe vera Allergy (Verified 09/02/19 19:17) amoxicillin [From Augmentin] Allergy (Verified 09/02/19 19:17) clavulanic acid [From Augmentin] Allergy (Verified 09/02/19 19:17) Past Medical History - Social History Smoking Status: Former Smoker Family History: Reviewed & Not Pertinent, CAD, DM, Hypertension - Past Medical History Cardiac Medical History: Reports: Hx Atrial Fibrillation, Hx Coronary Artery Disease, Hx DVT, Hx Hypercholesterolemia, Hx Hypertension Pulmonary Medical History: Reports: Hx Bronchitis, Hx COPD, Hx Pneumonia Denies: Hx Asthma Neurological Medical History: Reports: Hx Seizures Endocrine Medical History: Reports: Hx Diabetes Mellitus Type 2. Denies: Hx Diabetes Mellitus Type 1, Hx Hyperthyroidism, Hx Hypothyroidism Renal/ Medical History: Reports: Hx End Stage Renal Disease, Hx Hemodialysis. Denies: Hx Peritoneal Dialysis GI Medical History: Reports: Hx Gastroesophageal Reflux Disease, Hx Ulcer. Denies: Hx Cirrhosis, Hx Hepatitis Musculoskeletal Medical History: Denies Hx Arthritis, Denies Hx Fibromyalgia Skin Medical History: Denies Hx Eczema, Denies Hx Psoriasis Psychiatric Medical History: Reports: Hx Depression Infectious Medical History: Denies: Hx Hepatitis Past Surgical History: Reports: Hx Abdominal Surgery - small bowel resection, Hx Cardiac Surgery - cabg x2, Hx Section - x3, Hx Coronary Artery Bypass Graft - x2, Other - Vena cava filter, abdominal surgery for repair of perforated stomach ulcer - Immunizations Immunizations up to date: Yes Hx Pneumococcal Vaccination: 11/20/16 Physical Exam - Vital signs Vitals: Temp Pulse Resp BP Pulse Ox 98.1 F 55 L 14 172/64 H 100 09/02/19 19:20 09/02/19 19:20 09/02/19 19:20 09/02/19 19:20 09/02/19 19:20 - Notes Notes: PHYSICAL EXAMINATION: GENERAL: Well-appearing, well-nourished and in no acute distress. HEAD: Atraumatic, normocephalic. EYES: Pupils equal round and reactive to light, extraocular movements intact, conjunctiva are normal. ENT: Nares patent, oropharynx clear without exudates. Moist mucous membranes. NECK: Normal range of motion, supple without lymphadenopathy LUNGS: Breath sounds clear to auscultation bilaterally and equal. No wheezes rales or rhonchi. HEART: Regular rate and rhythm without murmurs ABDOMEN: Soft, nontender, nondistended abdomen. No guarding, no rebound. No masses appreciated. Female : deferred Musculoskeletal: Normal range of motion, no pitting or edema. No cyanosis. NEUROLOGICAL: Cranial nerves grossly intact. Normal speech. Normal sensory, motor exams PSYCH: Normal mood, normal affect. SKIN: Abrasions noted to forehead. Course - Re-evaluation Re-evalutation: Cervical Spine CT 09/02/19 00:00 IMPRESSION: 1.. Cervical spine without acute findings. 2. Relatively advanced atherosclerotic disease at the origin of both internal carotid arteries. Consider Doppler ultrasound. 3. Possible asymmetry with the right parotid gland larger than left. This is however more likely artifact due to technical factors. This can be correlated clinically. Head CT 09/02/19 00:00 IMPRESSION: 1. Focal right frontal scalp hematoma. No evidence for fracture and no acute intracranial findings. 2. Ventricles are enlarged especially for age. Cortical sulci in the upper slices of the brain are relatively effaced. Minimal worsening since one year ago. Rule out hydrocephalus. Suggest clinical correlation and consider MRI. 3. Suspected old right medial wall orbital blowout fracture. 4. Atherosclerotic disease. Is patient diabetic? Patient is alert and oriented x3. She has some small superficial abrasions to her forehead. She remembers the fall, did not lose consciousness and has had no nausea or vomiting. She states she would not have come in for treatment but the facility made her come in. CT scans were negative for any acute findings today. C-spine was cleared, patient will be discharged home at this time. - Vital Signs Vital signs: Temp Pulse Resp BP Pulse Ox 98.3 F 55 L 18 184/69 H 98 09/02/19 21:36 09/02/19 21:36 09/02/19 21:36 09/02/19 21:36 09/02/19 21:36 Discharge - Discharge Clinical Impression: Fall Qualifiers: Encounter type: initial encounter Qualified Code(s): W19.XXXA - Unspecified fall, initial encounter Traumatic hematoma of forehead Qualifiers: Encounter type: initial encounter Qualified Code(s): S00.83XA - Contusion of other part of head, initial encounter Condition: Stable Disposition: HOME, SELF-CARE Additional Instructions: The CAT scan of your head and neck did not show any acute abnormality from tonight's fall. Please follow-up with your primary care provider. Apply a thin layer of [id number] triple antibiotic ointment to the abrasion twice daily. Keep clean and dry. Return to the emergency department any new or worsening symptoms. Referrals: ADITYA HARDING MD [Primary Care Provider] - Follow up as needed
[2019-09-02] MEDS ORDERED: DIPH/PERTUSS(ACELL)/TETANUS VAC/PF 0.5 ML SYR (>=10YO) IM ONE (19:24)
--- NOTE | 2019-09-02 20:23 | RADIOLOGY REPORT (SQ) ---
EXAM DESCRIPTION: CLINICAL HISTORY: 59 years Female Fall; hematoma and bleeding COMPARISON: 08/16/2019. 09/11/2018. TECHNIQUE: Axial images without IV contrast. Sagittal coronal reconstruction. This exam was performed according to our departmental dose-optimization program, which includes automated exposure control, adjustment of the mA and/or kV according to patient size and/or use of iterative reconstruction technique.. FINDINGS: Moderate ventriculomegaly including temporal horns of the lateral ventricles and the third ventricle. Transverse diameter of the third ventricle is 12 mm. Measurement in 2019 was 10.5 mm. Lateral ventricles are also minimally increased in size. Fourth ventricle is mildly enlarged and unchanged. Cortical sulci in the upper slices of the brain are relatively effaced. No acute intra-axial or extra-axial abnormality. Right frontal focal scalp hematoma. No underlying fracture. Mastoid air cells are unremarkable. Chronic medial indentation of the medial wall of the right orbit possibly representing old blowout fracture. Paranasal sinuses without acute findings. IMPRESSION: 1. Focal right frontal scalp hematoma. No evidence for fracture and no acute intracranial findings. 2. Ventricles are enlarged especially for age. Cortical sulci in the upper slices of the brain are relatively effaced. Minimal worsening since one year ago. Rule out hydrocephalus. Suggest clinical correlation and consider MRI. 3. Suspected old right medial wall orbital blowout fracture. 4. Atherosclerotic disease. Is patient diabetic?
--- NOTE | 2019-09-02 20:31 | RADIOLOGY REPORT (SQ) ---
EXAM DESCRIPTION: CT CERVICAL SPINE WITHOUT IV CONTRAST COMPLETED DATE/TME: 09/02/2019 00:00 CLINICAL HISTORY: 59 years, Female, Fall; hematoma and bleeding . Neck pain. COMPARISON: None. TECHNIQUE: Axial images without IV contrast. Sagittal coronal reconstruction. This exam was performed according to our departmental dose-optimization program, which includes automated exposure control, adjustment of the mA and/or kV according to patient size and/or use of iterative reconstruction technique.. FINDINGS: No evidence for fracture dislocation. No suspicious prevertebral soft tissue swelling. No significant discopathy central foraminal stenosis. Relatively advanced atherosclerotic disease at the origin of both internal carotid arteries. Right parotid gland appears larger compared to the left. Finding may be artifact due to asymmetry in incomplete inclusion of the left parotid gland. IMPRESSION: 1.. Cervical spine without acute findings. 2. Relatively advanced atherosclerotic disease at the origin of both internal carotid arteries. Consider Doppler ultrasound. 3. Possible asymmetry with the right parotid gland larger than left. This is however more likely artifact due to technical factors. This can be correlated clinically.
[2019-09-02 21:37] VITALS: BP 184/69
== END 2019-09-02 21:40 | disposition home or self-care (01) ==
LOC: ER 19:06
DX: S00.83XA Contusion of other part of head, initial encounter (principal); S09.90XA Unspecified injury of head, initial encounter; W05.0XXA Fall from non-moving wheelchair, initial encounter; Z88.0 Allergy status to penicillin; Z88.8 Allergy status to other drugs, medicaments and biological substances; Z87.891 Personal history of nicotine dependence
CPT/HCPCS: 70450; 72125; 90471; 90715; 99284